=== PATIENT | female | born 1990 | race Caucasian/White ===

== ENCOUNTER 2024-01-24 19:48 | Emergency (ER) | payer MEDICAID, SELFPAY ==
[2024-01-24 19:52] VITALS: BP 123/79; PULSE 75; TEMP 36.4; O2SAT 97
--- NOTE | 2024-01-24 20:00 | ED_ITS ---
HPI - Abdominal Pain General Chief Complaint: Abdominal Pain Stated Complaint: Abdominal Pain Time Seen by Provider: 01/24/24 20:00 Source: patient Mode of arrival: ambulance History of Present Illness HPI narrative: patient presents from skilled nursing. Complaining of abdominal pain for several weeks. Points to right lower and upper quad and states the pain also shoots into her chest. No vomiting or diarrhea. No fever. Brought from skilled nursing via [facility]. Related Data Home Medications ?Medication ?Instructions ?Recorded ?Confirmed aripiprazole 20 mg tablet mg 01/24/24 aripiprazole 5 mg tablet mg 01/24/24 benztropine 1 mg tablet mg 01/24/24 divalproex 250 mg tablet,extended mg PO 01/24/24 release 24 hr divalproex 500 mg tablet,extended mg PO 01/24/24 release 24 hr fenofibrate nanocrystallized 48 mg mg PO 01/24/24 tablet ferrous sulfate 325 mg (65 mg mg 01/24/24 iron) tablet fludrocortisone 0.1 mg tablet mg 01/24/24 folic acid 1 mg tablet 01/24/24 haloperidol 10 mg tablet mg 01/24/24 haloperidol 5 mg tablet mg 01/24/24 lamotrigine 200 mg tablet mg 01/24/24 loratadine 10 mg tablet (Allergy mg 01/24/24 Relief (loratadine)) multivitamin tab 01/24/24 norgestimate 0.25 mg-ethinyl tab 01/24/24 estradiol 35 mcg tablet propranolol 80 mg capsule,24 mg PO 01/24/24 hr,extended release sertraline 100 mg tablet mg 01/24/24 sertraline 50 mg tablet mg 01/24/24 trazodone 50 mg tablet mg 01/24/24 Allergies Allergy/AdvReac Type Severity Reaction Status Date / Time No Known Drug Allergies Allergy Verified 01/24/24 19:57 Review of Systems ROS Status of ROS 10 or more systems reviewed and unremark able except as noted in history and below Exam Constitutional Vital Signs, click to edit/add: Last Vital Signs Temp 98.1 F 01/24/24 21:29 Pulse 73 01/24/24 21:29 Resp 12 01/24/24 21:29 BP 107/81 01/24/24 21:29 Pulse Ox 96 01/24/24 21:29 O2 Del Method Room Air 01/24/24 21:29 Common normals: no apparent distress (smiling), average body habitus, oriented x3, no limitations, healthy appearing, alert and well nourished General appearance: cooperative and comfortable HENMT Common normals: normocephalic and head/scalp atraumatic Eye Common normals: PERRL and EOMs intact bilaterally Respiratory Common normals: normal respiratory effort, no retractions, no use of accessory muscles and clear to auscultation bilaterally Cardio Common normals: regular rate, regular rhythm, S1 normal heart sound and S2 normal heart sound GI Common normals: Normal to inspection, nondistended, normoactive bowel sounds present, soft to palpation and non-tender Extremity Common normals: normal to inspection and full ROM Neuro Common normals: oriented x3, CN's II-XII intact bilaterally, moves all extremities and no focal motor deficits Psych Appearance: grossly normal Course Vital Signs Vital signs: Vital Signs Temperature 97.5 F L 01/24/24 19:52 Pulse Rate 75 01/24/24 19:52 Respiratory Rate 18 01/24/24 19:52 Blood Pressure 123/79 01/24/24 19:52 Pulse Oximetry 97 01/24/24 19:52 Oxygen Delivery Method Room Air 01/24/24 19:52 Temperature 98.1 F 01/24/24 21:29 Pulse Rate 73 01/24/24 21:29 Respiratory Rate 12 01/24/24 21:29 Blood Pressure 107/81 01/24/24 21:29 Pulse Oximetry 96 01/24/24 21:29 Oxygen Delivery Method Room Air 01/24/24 21:29 MDM - Abdominal Pain MDM Narrative Medical decision making narrative: skilled nursing patient who is mentally delayed presents complaining of right sided abdominal pain for weeks. CT with findings of hepatic cyst and ? hepatic hemangiomas. UA with microscopic hematuria and no infection. She is on her menstrual cycle. Parents informed of the above. No clear etiology to explain her complaint of pain. Clinical observation without evidence of pain. Discharged home to continue her workup as an out patient Lab Data Labs: Lab Results 01/24/24 01/24/24 Range/Units 20:50 22:10 WBC 9.3 (4.0-11.0) 10^3/uL RBC 3.97 L (4.20-5.40) 10^6/uL Hgb 12.1 (12.0-16.0) g/dL Hct 36.2 (36.0-48.0) % MCV 91.2 (81.0-99.0) fL MCH 30.5 (26.7-34.0) pg MCHC 33.4 (29.9-35.2) g/dL RDW 12.5 (11.0-15.0) % Plt Count 282 (150-450) 10^3/uL MPV 10.2 (9.5-13.5) fL Neut % (Auto) 49.2 (43.0-75.0) % Lymph % (Auto) 37.1 (20.5-60.0) % [place] % (Auto) 9.3 (1.7-12.0) % Eos % (Auto) 3.0 (0.9-7.0) % Baso % (Auto) 0.3 (0.2-2.0) % Neut # (Auto) 4.6 (1.4-6.5) 10^3/uL Lymph # (Auto) 3.4 (1.2-3.8) 10^3/uL [place] # (Auto) 0.9 H (0.3-0.8) 10^3/uL Eos # (Auto) 0.3 (0.0-0.7) 10^3/uL Baso # (Auto) 0.0 (0.0-0.1) 10^3/uL Abs Immat Gran (auto) 0.10 H (0.00-0.03) 10^3/uL Imm/Tot Granulo (auto) 1.1 H (0.0-0.5) % Sodium 136 (136-145) mmol/L Potassium 3.8 (3.5-5.1) mmol/L Chloride 102 (98-107) mmol/L Carbon Dioxide 28.1 (21.0-32.0) mmol/L Anion Gap 9.7 BUN 14.0 (7.0-18.0) mg/dL Creatinine 0.85 (0.55-1.02) mg/dL Est GFR ( Amer) >60 (>=60) Est GFR (Non-Af Amer) >60 (>=60) BUN/Creatinine Ratio 16.5 Glucose 96 (74-106) mg/dL Lactate 1.1 (0.4-2.0) mmol/L Calcium 9.1 (8.5-10.1) mg/dL Total Bilirubin 0.2 (0.2-1.0) mg/dL AST 14 L (15-37) U/L ALT 21 (14-59) U/L Alkaline Phosphatase 58 (46-116) U/L Total Protein 7.0 (6.4-8.2) g/dL Albumin 3.3 L (3.4-5.0) g/dL Globulin 3.7 g/dL Albumin/Globulin Ratio 0.9 Lipase 50.0 (16.0-77.0) U/L Urine Color Brown A (YELLOW) Urine Clarity Clear (CLEAR) Urine pH 6.5 (5.0-9.0) Ur Specific [place] 1.015 (1.005-1.025) Urine Protein 30 A (NEG/TRACE) mg/dL Urine Glucose (UA) Negative (NEGATIVE) mg/dL Urine Ketones Negative (NEGATIVE) mg/dL Urine Occult Blood Large A (NEGATIVE) Urine Nitrite Negative (NEGATIVE) Urine Bilirubin Negative (NEGATIVE) Urine Urobilinogen 0.2 (0.2-1.0) EU/dL Ur Leukocyte Esterase Trace A (NEGATIVE) Urine RBC 20-50 A (0-2) #/HPF Urine WBC 0-2 A (NONE SEEN) #/HPF Ur Squamous Epith Cells Few A (NONE/RARE) #/LPF Urine Crystals None seen (None Seen) #/HPF Urine Bacteria None seen (NONE SEEN) #/HPF Urine Casts None seen (NONE SEEN) #/LPF Urine Mucus None seen (NONE SEEN) Ur Culture Indicated? No Imaging Data CT scan - abdomen: Radiologist's impression: ITS Impressions Abdomen/Pelvis CT 01/24/24 20:05 IMPRESSION: Study is slightly limited due to patient motion. The liver has an abnormal appearance. There are multiple low-attenuation lesions scattered throughout the liver, some of which likely represent cysts. However, others of these are less well circumscribed than expected for cysts. Question hemangiomas or other lesion. Further characterization by MRI is recommended. The appendix is normal. No bowel obstruction or acute renal pathology. Electronically authenticated by: CALLIE ALBRIGHT Date: 01/24/2024 21:51 Discharge Plan Discharge Chief Complaint: Abdominal Pain Clinical Impression: Abdominal pain Patient Disposition: Home, Self-Care Prescriptions / Home Meds: No Action benztropine 1 mg tablet aripiprazole 20 mg tablet divalproex 250 mg tablet extended release 24 hr PO aripiprazole 5 mg tablet multivitamin Tablet norgestimate-ethinyl estradiol 0.25-35 mg-mcg tablet lamotrigine 200 mg tablet haloperidol 5 mg tablet trazodone 50 mg tablet sertraline 100 mg tablet ferrous sulfate 325 mg (65 mg iron) tablet divalproex 500 mg tablet extended release 24 hr PO propranolol 80 mg capsule,extended release 24 hr PO haloperidol 10 mg tablet folic acid 1 mg tablet sertraline 50 mg tablet fludrocortisone 0.1 mg tablet loratadine [Allergy Relief (loratadine)] 10 mg tablet fenofibrate nanocrystallized 48 mg tablet PO Print Language: [place] Instructions: Abdominal Pain (ED) Additional Instructions: follow up with the family doctor to continue workup. use tylenol for pain as needed Referrals: Frederick Bermeo DO [Primary Care Provider] - 1 week Discharge Date/Time: 01/24/24 22:34
--- NOTE | 2024-01-24 20:05 | CT_ITS ---
[address] [address] Patient Name: DEANNE HARGROVE MRN: [id number] date: 1990 Sex: F Assigned Patient Location: ER Current Patient Location: Accession/Order Number: [id number] Exam Date: 01/24/2024 21:00 Report Date: 01/24/2024 21:51 At the request of: HERBERT RIVERA Procedure: CT abdomen pelvis w con EXAM: CT abdomen pelvis w con REASON FOR EXAM: Female, 33 years, right side abdominal pain. TECHNIQUE: Computed tomography of the abdomen and pelvis is performed in the axial projection from the lung bases to the pubic symphysis. Sagittal and coronal reconstructed images are performed. Dose reduction techniques were achieved by using automated exposure control and/or adjustment of mA and/or KVP according to patient size and/or use of iterative reconstruction technique. A total of 100 mL Omnipaque 300 IV contrast was given. Study was performed without oral contrast. Study is somewhat limited due to motion artifact. COMPARISON: None. FINDINGS: Lung bases: The lung bases are clear. There is no pleural effusion. The visualized portions of the heart are unremarkable. Liver: The liver is abnormal. There are multiple low-attenuation lesions within the liver, some of which are somewhat ill-defined. While this may be due to the patient motion, further evaluation with MRI is suggested to better characterize these lesions. Gallbladder: The gallbladder is normal. Spleen: The spleen is normal. There appears to be a cyst along the anterior superior margin of the spleen. Pancreas: The pancreas is normal. Adrenal glands: The adrenal glands are normal bilaterally. Right kidney: The kidney is normal in size. There is no renal calculus or hydronephrosis. Left kidney: The kidney is normal in size. There is no renal calculus or hydronephrosis. Stomach: The stomach is normal. Small bowel: The small bowel is normal. Large bowel: The colon is normal. Appendix: The appendix is visualized, and is normal. Aorta: The aorta is normal. IVC: The IVC is normal. Retroperitoneum: Normal retroperitoneum. Bladder: The bladder is normal. Pelvic organs: Normal uterus. Bilateral adnexal cysts are seen, measuring up to 4.3 cm on the left and 2.2 cm on the right. Abdominal wall: Normal abdominal wall. Osseous structures: Normal bony structures. CT/CT abdomen pelvis w con IMPRESSION: Study is slightly limited due to patient motion. The liver has an abnormal appearance. There are multiple low-attenuation lesions scattered throughout the liver, some of which likely represent cysts. However, others of these are less well circumscribed than expected for cysts. Question hemangiomas or other lesion. Further characterization by MRI is recommended. The appendix is normal. No bowel obstruction or acute renal pathology. Electronically authenticated by: CALLIE ALBRIGHT Date: 01/24/2024 21:51
[2024-01-24 20:58] LABS: Basophils Percent Auto 0.3 % (0.2-2.0); Eosinophils Absolute Auto 0.3 10^3/uL (0.0-0.7); Hematocrit 36.2 % (36.0-48.0); Hemoglobin 12.1 g/dL (12.0-16.0); Immature Granulocytes Pct Auto 1.1 % (0.0-0.5); Lymphocytes Absolute Auto 3.4 10^3/uL (1.2-3.8); Lymphocytes Percent Auto 37.1 % (20.5-60.0); Mean Corpuscular HGB Conc 33.4 g/dL (29.9-35.2); Mean Corpuscular Hemoglobin 30.5 pg (26.7-34.0); Mean Corpuscular Volume 91.2 fL (81.0-99.0); Mean Platelet Volume 10.2 fL (9.5-13.5); Monocytes Absolute Auto 0.9 10^3/uL (0.3-0.8); Monocytes Percent Auto 9.3 % (1.7-12.0); Neutrophils Absolute Auto 4.6 10^3/uL (1.4-6.5); Neutrophils Percent Auto 49.2 % (43.0-75.0); Platelet Count 282 10^3/uL (150-450); Red Blood Count 3.97 10^6/uL (4.20-5.40); Red Cell Distribution Width 12.5 % (11.0-15.0); White Blood Count 9.3 10^3/uL (4.0-11.0)
[2024-01-24] MEDS: 0.9 % SODIUM CHLORIDE 1,000 ML 999 ML IV (21:11)
[2024-01-24 21:17] LABS: Lactate/Lactic Acid 1.1 mmol/L (0.4-2.0)
[2024-01-24 21:26] LABS: Alanine Aminotransferase 21 U/L (14-59); Albumin Globulin Ratio 0.9; Albumin Level 3.3 g/dL (3.4-5.0); Alkaline Phosphatase 58 U/L (46-116); Anion Gap 9.7; Aspartate Amino Transferase 14 U/L (15-37); BUN Creatinine Ratio 16.5; Bilirubin Total 0.2 mg/dL (0.2-1.0); Calcium 9.1 mg/dL (8.5-10.1); Carbon Dioxide 28.1 mmol/L (21.0-32.0); Chloride 102 mmol/L (98-107); Estimated GFR (African America >60 (>=60); Estimated GFR (Non-African Ame >60 (>=60); Globulin 3.7 g/dL; Glucose 96 mg/dL (74-106); Potassium 3.8 mmol/L (3.5-5.1); Sodium 136 mmol/L (136-145)
[2024-01-24 21:29] VITALS: BP 107/81; PULSE 73; TEMP 36.7; O2SAT 96
[2024-01-24 22:15] LABS: Bilirubin Urine NEGATIVE (NEGATIVE); Blood Urine LARGE (NEGATIVE); Clarity Urine CLEAR (CLEAR); Color Urine BROWN (YELLOW); Glucose Urine UA NEGATIVE (NEGATIVE); Ketones Urine NEGATIVE (NEGATIVE); Leukocyte Esterase Urine TRACE (NEGATIVE); Nitrite Urine NEGATIVE (NEGATIVE); Protein Urine 30 mg/dL (NEG/TRACE); Specific Gravity Urine 1.015 (1.005-1.025); Urobilinogen Urine 0.2 EU/dL (0.2-1.0); pH Urine 6.5 (5.0-9.0)
[2024-01-24 22:18] LABS: Urine Microscopic Indicated YES
[2024-01-24 22:21] LABS: Bacteria Urine NONE SEEN #/HPF (NONE SEEN); Cast Seen? NONE SEEN #/LPF (NONE SEEN); Crystals Seen? None Seen #/HPF (None Seen); Mucus Urine NONE SEEN (NONE SEEN); RBC Urine 20-50 #/HPF (0-2); Squamous Epithelial Cell Urine FEW #/LPF (NONE/RARE); Urine Culture Indicated NO; WBC Urine 0-2 #/HPF (NONE SEEN)
== END 2024-01-24 22:34 | disposition home or self-care (01) ==
PROVIDERS: Emergency Provider Internal Medicine; PCP Family Medicine
DX: R10.9 Unspecified abdominal pain (principal)
CPT/HCPCS: 36415; 74177; 80053; 81001; 83605; 83690; 85025; 99285; Q9967

== ENCOUNTER 2024-01-26 20:51 | Emergency (ER) | payer MEDICAID, SELFPAY ==
[2024-01-26 20:56] VITALS: BP 136/76; PULSE 80; TEMP 36.7; O2SAT 99
--- NOTE | 2024-01-26 22:42 | ED_ITS ---
HPI - Abdominal Pain General Chief Complaint: Abdominal Pain Stated Complaint: liver pain, here on Time Seen by Provider: 01/26/24 21:46 Source: patient Mode of arrival: walk-in History of Present Illness HPI narrative: 33-year-old female presents for pain in the right side of her abdomen. She was seen here 2 days ago and at that time had a CAT scan which showed liver cysts. Radiologist had recommended further workup including MRI of the abdomen. The patient's been having this pain for weeks and it has been getting worse. There is been no trauma or fever. Much of the history is obtained from her mother. Related Data Home Medications ?Medication ?Instructions ?Recorded ?Confirmed aripiprazole 20 mg tablet mg 01/24/24 aripiprazole 5 mg tablet mg 01/24/24 benztropine 1 mg tablet mg 01/24/24 divalproex 250 mg tablet,extended mg PO 01/24/24 release 24 hr divalproex 500 mg tablet,extended mg PO 01/24/24 release 24 hr fenofibrate nanocrystallized 48 mg mg PO 01/24/24 tablet ferrous sulfate 325 mg (65 mg mg 01/24/24 iron) tablet fludrocortisone 0.1 mg tablet mg 01/24/24 folic acid 1 mg tablet 01/24/24 haloperidol 10 mg tablet mg 01/24/24 haloperidol 5 mg tablet mg 01/24/24 lamotrigine 200 mg tablet mg 01/24/24 loratadine 10 mg tablet (Allergy mg 01/24/24 Relief (loratadine)) multivitamin tab 01/24/24 norgestimate 0.25 mg-ethinyl tab 01/24/24 estradiol 35 mcg tablet propranolol 80 mg capsule,24 mg PO 01/24/24 hr,extended release sertraline 100 mg tablet mg 01/24/24 sertraline 50 mg tablet mg 01/24/24 trazodone 50 mg tablet mg 01/24/24 Previous Rx's ?Medication ?Instructions ?Recorded hydrocodone 5 mg-acetaminophen 325 1 tab PO Q6H PRN pain 5 days #20 01/26/24 mg tablet tabs Allergies Allergy/AdvReac Type Severity Reaction Status Date / Time No Known Drug Allergies Allergy Verified 01/24/24 19:57 Review of Systems ROS Narrative A ten point review of systems is negative except as noted above. Exam Narrative Exam Narrative: Nurses note and vital signs reviewed and patient is not hypoxic. General: The patient appears uncomfortable Skin: Warm, dry, no pallor noted. There is no rash noted. Head: Normocephalic, atraumatic Eye: Normal conjunctiva, no drainage Ears, Nose, Mouth, and Throat: oral mucosa is moist. Nares patent. Cardiovascular: Regular Rate and Rhythm Respiratory: Patient is in no distress, no accessory muscle use, lungs are clear to auscultation, no wheezing, rales or rhonchi Back: non-tender GI: Tenderness present on the right side of the abdomen without mass or distention Musculoskeletal: The patient has no evidence of calf tenderness, no pitting edema, symmetrical pulses noted bilaterally Neurological: Awake and alert Psychiatric: Cooperative Constitutional Vital Signs, click to edit/add: Last Vital Signs Temp 98.0 F 01/26/24 20:56 Pulse 80 01/26/24 20:56 Resp 20 01/26/24 20:56 BP 136/76 01/26/24 20:56 Pulse Ox 99 01/26/24 20:56 O2 Del Method Room Air 01/26/24 20:56 Course Vital Signs Vital signs: Vital Signs Temperature 98.0 F 01/26/24 20:56 Pulse Rate 80 01/26/24 20:56 Respiratory Rate 20 01/26/24 20:56 Blood Pressure 136/76 01/26/24 20:56 Pulse Oximetry 99 01/26/24 20:56 Oxygen Delivery Method Room Air 01/26/24 20:56 Temperature 98.0 F 01/26/24 20:56 Pulse Rate 80 01/26/24 20:56 Respiratory Rate 20 01/26/24 20:56 Blood Pressure 136/76 01/26/24 20:56 Pulse Oximetry 99 01/26/24 20:56 Oxygen Delivery Method Room Air 01/26/24 20:56 MDM - Abdominal Pain MDM Narrative Medical decision making narrative: CT from 2 days ago was reviewed and showed liver cysts. Tonight's blood work including LFTs is normal. She was given IV morphine and feels much better and was able to rest. She is able to be discharged with a prescription for hydrocodone and mother will follow-up with PCP for further workup. Treatment diagnosis and follow-up were discussed thoroughly. Differential Diagnosis Differential diagnosis: Likely abdominal pain, gastroenteritis and pancreatitis Lab Data Attestation: I reviewed the patient's lab results. Labs: Lab Results 01/26/24 Range/Units 22:55 WBC 8.7 (4.0-11.0) 10^3/uL RBC 3.84 L (4.20-5.40) 10^6/uL Hgb 11.8 L (12.0-16.0) g/dL Hct 34.6 L (36.0-48.0) % MCV 90.1 (81.0-99.0) fL MCH 30.7 (26.7-34.0) pg MCHC 34.1 (29.9-35.2) g/dL RDW 12.5 (11.0-15.0) % Plt Count 278 (150-450) 10^3/uL MPV 10.5 (9.5-13.5) fL Neut % (Auto) 49.9 (43.0-75.0) % Lymph % (Auto) 38.2 (20.5-60.0) % [place] % (Auto) 7.8 (1.7-12.0) % Eos % (Auto) 2.7 (0.9-7.0) % Baso % (Auto) 0.5 (0.2-2.0) % Neut # (Auto) 4.3 (1.4-6.5) 10^3/uL Lymph # (Auto) 3.3 (1.2-3.8) 10^3/uL [place] # (Auto) 0.7 (0.3-0.8) 10^3/uL Eos # (Auto) 0.2 (0.0-0.7) 10^3/uL Baso # (Auto) 0.0 (0.0-0.1) 10^3/uL Abs Immat Gran (auto) 0.08 H (0.00-0.03) 10^3/uL Imm/Tot Granulo (auto) 0.9 H (0.0-0.5) % Sodium 137 (136-145) mmol/L Potassium 3.4 L (3.5-5.1) mmol/L Chloride 100 (98-107) mmol/L Carbon Dioxide 29.5 (21.0-32.0) mmol/L Anion Gap 10.9 BUN 18.0 (7.0-18.0) mg/dL Creatinine 0.95 (0.55-1.02) mg/dL Est GFR ( Amer) >60 (>=60) Est GFR (Non-Af Amer) >60 (>=60) BUN/Creatinine Ratio 18.9 Glucose 98 (74-106) mg/dL Calcium 9.0 (8.5-10.1) mg/dL Total Bilirubin 0.2 (0.2-1.0) mg/dL Direct Bilirubin 0.1 (0.0-0.2) mg/dL AST 16 (15-37) U/L ALT 22 (14-59) U/L Alkaline Phosphatase 57 (46-116) U/L Total Protein 6.9 (6.4-8.2) g/dL Albumin 3.2 L (3.4-5.0) g/dL Globulin 3.7 g/dL Albumin/Globulin Ratio 0.9 Amylase 57 (25-115) U/L Lipase 52.0 (16.0-77.0) U/L Discharge Plan Discharge Chief Complaint: Abdominal Pain Clinical Impression: Abdominal pain Patient Disposition: Home, Self-Care Time of Disposition Decision: 23:27 Condition: Good Mode of Transportation: Private Vehicle Prescriptions / Home Meds: New hydrocodone-acetaminophen 5-325 mg tablet 1 tab PO Q6H PRN (Reason: pain) 5 Days Qty: 20 0RF No Action benztropine 1 mg tablet aripiprazole 20 mg tablet divalproex 250 mg tablet extended release 24 hr PO aripiprazole 5 mg tablet multivitamin Tablet norgestimate-ethinyl estradiol 0.25-35 mg-mcg tablet lamotrigine 200 mg tablet haloperidol 5 mg tablet trazodone 50 mg tablet sertraline 100 mg tablet ferrous sulfate 325 mg (65 mg iron) tablet divalproex 500 mg tablet extended release 24 hr PO propranolol 80 mg capsule,extended release 24 hr PO haloperidol 10 mg tablet folic acid 1 mg tablet sertraline 50 mg tablet fludrocortisone 0.1 mg tablet loratadine [Allergy Relief (loratadine)] 10 mg tablet fenofibrate nanocrystallized 48 mg tablet PO Print Language: [place] Instructions: Abdominal Pain (ED) Additional Instructions: Follow-up with PCP regarding further workup for the renal cysts Referrals: Frederick Bermeo DO [Primary Care Provider] - 1 week
[2024-01-26 23:02] LABS: Basophils Percent Auto 0.5 % (0.2-2.0); Eosinophils Absolute Auto 0.2 10^3/uL (0.0-0.7); Eosinophils Percent Auto 2.7 % (0.9-7.0); Hematocrit 34.6 % (36.0-48.0); Hemoglobin 11.8 g/dL (12.0-16.0); Immature Granulocytes Abs Auto 0.08 10^3/uL (0.00-0.03); Immature Granulocytes Pct Auto 0.9 % (0.0-0.5); Lymphocytes Absolute Auto 3.3 10^3/uL (1.2-3.8); Lymphocytes Percent Auto 38.2 % (20.5-60.0); Mean Corpuscular HGB Conc 34.1 g/dL (29.9-35.2); Mean Corpuscular Hemoglobin 30.7 pg (26.7-34.0); Mean Corpuscular Volume 90.1 fL (81.0-99.0); Mean Platelet Volume 10.5 fL (9.5-13.5); Monocytes Absolute Auto 0.7 10^3/uL (0.3-0.8); Monocytes Percent Auto 7.8 % (1.7-12.0); Neutrophils Absolute Auto 4.3 10^3/uL (1.4-6.5); Neutrophils Percent Auto 49.9 % (43.0-75.0); Platelet Count 278 10^3/uL (150-450); Red Blood Count 3.84 10^6/uL (4.20-5.40); Red Cell Distribution Width 12.5 % (11.0-15.0); White Blood Count 8.7 10^3/uL (4.0-11.0)
[2024-01-26] MEDS: MORPHINE SULFATE 4 MG/ML VIAL IV (23:04)
[2024-01-26 23:23] LABS: Alanine Aminotransferase 22 U/L (14-59); Albumin Globulin Ratio 0.9; Albumin Level 3.2 g/dL (3.4-5.0); Alkaline Phosphatase 57 U/L (46-116); Amylase 57 U/L (25-115); Anion Gap 10.9; Aspartate Amino Transferase 16 U/L (15-37); BUN Creatinine Ratio 18.9; Bilirubin Direct 0.1 mg/dL (0.0-0.2); Bilirubin Total 0.2 mg/dL (0.2-1.0); Carbon Dioxide 29.5 mmol/L (21.0-32.0); Chloride 100 mmol/L (98-107); Estimated GFR (African America >60 (>=60); Estimated GFR (Non-African Ame >60 (>=60); Globulin 3.7 g/dL; Glucose 98 mg/dL (74-106); Potassium 3.4 mmol/L (3.5-5.1); Sodium 137 mmol/L (136-145); Total Protein 6.9 g/dL (6.4-8.2)
[2024-01-26 23:39] VITALS: BP 110/56; PULSE 75; O2SAT 96
== END 2024-01-26 23:42 | disposition home or self-care (01) ==
PROVIDERS: Emergency Provider Emergency Medicine; PCP Family Medicine
DX: R10.9 Unspecified abdominal pain (principal)
CPT/HCPCS: 36415; 80048; 80076; 82150; 83690; 85025; 99284; J2270

== ENCOUNTER 2024-06-24 19:56 | Outpatient (OUT) | payer MEDICAID, SELFPAY ==
--- OUTSIDE RECORDS SUMMARY | 2024-06-24 20:00 | XMS_ITS | CCD ---
Author Organization [facility] Inform ion Partnership [facility] Care Team Providers Care Scanning Clerk Name Role Phone Lina Marcial Primary Care Provider [phone] MIMI MARCIAL Admitting Unavailab MIMI Joe Attending Unavailab le MISC, DOCTOR Primary Care Unavailable MIMI MARCIAL Consulting Unavailab Lina Joe Primary Care Provider [phone] Lina Marcial Primary Care Provider [phone] Lina Marcial Primary Care Provider [phone] Lina Marcial MD Primary Care Provider Lina Marcial MD Primary Care Provider ARIELLE DAWN Referring Unavailable LINA MARCIAL Primary Care Unavaila Lina Masters MD Primary Care Provider Lina Marcial MD Primary Care Provider Clem Rodgers APRN, CNP Primary Care Provid er Clem Rodgers APRN, CNP Primary Care Provid er Unavailable Primary Care Provider Unavailabl e CARLY ANSARI Primary Care Unavailable SORTO, STEPHEN Attending Unavailable SORTO, STEPHEN Attending Unavailable SORTO, STEPHEN Referring Unavailable ELAN CARLY Primary Care Unavailable Clem Rodgers APRN, CNP Primary Care Provid er Brielle Sandraa Unavailable [phone] PROVIDER, UNKNOWN Admitting Unavailable PROVIDER, UNKNOWN Attending Unavailable IFTIKHAR MATIAS Attending Wendy vailable PROVIDER, UNKNOWN Admitting Unavailable PROVIDER, UNKNOWN Attending Unavailable PROVIDER, UNKNOWN Admitting Unavailable Jesus CALL PERSON - VASCULAR SURGEON, Clem M Primary Care Provid er Maikel CARDONA Primary Care Physician Reshma Guillen Unavailable Unavailable FREDERICK SANTIAGO Primary Care Physician [phone] Cher López Referring Unavaila FREDERICK Tena Primary Care Unavailable Cher López Admitting Unavaila Cher Fung Attending Unavaila Cher Fung Attending Unavaila Cher Fung Attending Unavaila jalen Lee CALL PERSON - VASCULAR SURGEON, Clem M Primary Care Provid er ELAN, CARLY L Referring Unavailable JESUS, CLEM M Primary Care Unavailable JESUS, CLEM M Primary Care Unavailable TITA CARR Referring Unavailable JESUS, CLEM M Primary Care Unavailable POOL, ARIELLE E Referring Unavailable ELAN, CARLY L Referring Unavailable JESUS, CLEM M Primary Care Unavailable JESUS, CLEM M Primary Care Unavailable POOL, ARIELLE E Referring Unavailable POOL, ARIELLE E Attending Unavailable ELAN, CARLY L Referring Unavailable JESUS, CLEM M Primary Care Unavailable ELAN, CARLY L Referring Unavailable JESUS, CLEM M Primary Care Unavailable ELAN, CARLY L Referring Unavailable JESUS, CLEM M Primary Care Unavailable ELAN, CARLY L Referring Unavailable JESUS, CLEM M Primary Care Unavailable ELAN, CARLY L Referring Unavailable JESUS, CLEM M Primary Care Unavailable ELAN, CARLY L Referring Unavailable JESUS, CLEM M Primary Care Unavailable ELAN, CARLY L Referring Unavailable JESUS, CLEM M Primary Care Unavailable ELAN, CARLY L Referring Unavailable JESUS, CLEM M Primary Care Unavailable ELAN, CARLY L Referring Unavailable JESUS, CLEM M Primary Care Unavailable Cher López Attending Unavaila FREDERICK Tena Primary Care Unavailable Lina Marcial Primary Care Unavaila Cher Fung Attending Unavailable Cher López Admitting Unavailable Allergies Allergy Classification Reported Allergen(s) Allergy Type Date of Onset Reaction(s) Facility (6 sources) nickel sulfate Drug Allergy 01-29-2024 [facility] Medications Current Medications Medication Drug Class(es) Dates Sig (Normalized) Sig (Original) Tylenol (11 sources) Start: 01-16-2024 Tylenol Oral, Refills(s) 0 Start Date: 01/16/24 Status: Ordered Start: 08-31-2023 acetaminophen (TYLENOL) 325 MG tablet Take 2 tablets by mouth 08/31/2023 Active acetaminophen 325 mg / HYDROcodone bitartrate 5 mg oral tablet (8 sources) Opioid Agonist Start: 01-27-2024 take 1 tablet by mouth every six hours HYDROcodone-acetaminophen (NORCO) 5-325 MG per tablet Take 1 tablet by mouth every 6 hours. 01/27/2024 Active [id number] 200 actuat albuterol 0.09 mg/actuat metered dose inhaler (11 sources) beta2-Adrenergic Agonist Start: 12-14-2020 take 1-2 puff(s) by inhalation every four hours as needed albuterol sulfate HFA 108 (90 Base) MCG/ACT inhaler Inhale 1-2 puffs into the lungs every 4 hours as needed 0 12/14/2020 Active amoxicillin 500 mg oral capsule (2 sources) Penicillin-class Antibacterial Start: 12-13-2022 amoxicillin (AMOXIL) 500 MG capsule ARIPiprazole 5 mg oral tablet (20 sources) Atypical Antipsychotic Start: 01-25-2024 ARIPiprazole (ABILIFY) 5 MG tablet 01/25/2024 Active Start: 11-21-2022 ARIPiprazole ( ABILIFY) 20 MG tablet 11/21/2022 Active Start: 01-24-2012 take 1 tablet by greer th once daily Abilify 30 mg oral tablet 30 mg = 1 tab(s), Oral, Daily Start Date: 01/24/12 Status: Ordered ARIPiprazole (AB ILIFY) 15 MG tablet Take 20 mg by mouth daily 0 Active take 1 tablet by greer th once daily ARIPiprazole (ABILIFY) 15 MG tablet Take 15 mg by mouth daily 0 Active Vndgesn-Iwxoarksoplds-Zguatc ne (EXCEDRIN MIGRAINE PO) (8 sources) Aspirin-Acetamin ophen-Caffeine (EXCEDRIN MIGRAINE PO) Take by mouth in the morning and at bedtime Active Aspirin-Acetamin ophen-Caffeine (EXCEDRIN MIGRAINE PO) Take by mouth in the morning and at bedtime 0 Active benzocaine 50 mg/ml / resorcinol 20 mg/ml vaginal cream (3 sources) Standardized Chemical Allergen Start: 01-16-2024 Vagisil 5%-2% vaginal cream eryn, Topical, BID, Refill(s) 0 Start Date: 01/16/24 Status: Ordered benztropine mesylate 1 mg oral tablet (20 sources) Anticholinergic, Antihistamine Start: 05-29-2023 take 1 tablet by mouth twice daily benztropine 1 mg Tab mg tab(s), Oral, BID, Refills(s) 0 Start Date: 01/16/24 Status: Ordered cloZAPine 200 mg oral tablet (20 sources) Atypical Antipsychotic take 1 tablet by mouth once daily cloZAPine (CLOZARIL) 100 MG tablet Take 100 mg by mouth daily 0 Active take 2 tablets by mouth once carmel ly cloZAPine (CLOZARIL) 200 MG tablet Take 400 mg by mouth nightly 0 Active cromolyn sodium 40 mg/ml ophthalmic solution (20 sources) Mast Cell Stabilizer Start: 12-14-2020 take 1 drop(s) into the eye(s) three times daily as needed cromolyn (OPTICROM) 4 % ophthalmic solution Apply 1 drop to eye 3 times daily as needed 0 12/14/2020 Active take 1 drop(s) into the eye(s) three times daily as needed cromolyn (OPTICROM) 4 % ophthalmic solut ion Place 1 drop into both eyes 3 times daily as needed 0 Active dicyclomine hydrochloride 10 mg oral capsule (2 sources) Anticholinergic Start: 03-19-2024 End: 05-14-2024 take 1 capsule by mouth four times daily as needed for pain Bentyl 10 mg Cap 10 mg = 1 cap(s), Oral, QID, PRN Pain, X 14 day(s), # 60 cap(s), Refills(s) 3 Start Date: 03/19/24 Stop Date: 05/14/24 Status: Ordered 1 ml erenumab-aooe 70 mg/ml auto-injector (2 sources) Start: 03-20-2024 Erenumab-aooe 70 MG/ML SOAJ Inject 70 mg into the skin every 30 days 1 mL 5 03/20/2024 Active Ethinyl Estradiol / norgestimate (20 sources) Progestin, Estrogen Start: 01-16-2024 take 1 tablet by mouth once daily Ortho Cyclen 35 mcg-0.25 mg Tab tab(s), Oral, Daily, Refill(s) 0 Start Date: 01/16/24 Status: Ordered Start: 12-18-2023 take 1 tablet by greer th once daily, then take 0.25-35 tablets by mouth once norgestimate-ethinyl estradiol (ORTHO-CYCLEN) 0.25-35 MG-MCG per tablet Indications: DUB (dysfunctional uterine bleeding) Take 1 tablet by mouth daily 3 packet 3 12/18/2023 Active Start: 11-30-2021 take 1 tablet by greer th in the morning, then take 0.25-35 tablets by mouth once norgestimate-ethinyl estradiol (ORTHO-CYCLEN) 0.25-35 MG-MCG per tablet Indications: DUB (dysfunctional uterine bleeding) Take 1 tablet by mouth in the morning. 3 packet 3 11/30/2021 Active Start: 11-30-2021 norgestimate-e thinyl estradiol (PRAVIFEM- ORTHO/CYCLEN) 0.25-35 MG-MCG tablet Take 1 Tablet by mouth daily. 0 11/30/2021 Active etodolac 500 mg oral tablet (19 sources) Nonsteroidal Anti-inflammatory Drug Start: 12-14-2020 take 1 tablet by mouth twice daily as needed etodolac (LODINE) 500 MG tablet Take 1 tablet by mouth 2 times daily as needed 12/14/2020 Active Excedrin Migraine (3 sources) Start: 01-16-2024 Excedrin Migraine Oral, q6hr, Refill(s) 0 Start Date: 01/16/24 Status: Ordered fenofibrate 48 mg oral tablet (11 sources) Peroxisome Proliferator Receptor alpha Agonist Start: 08-27-2023 take 1 tablet by mouth once daily fenofibrate (TRICOR) 48 MG tablet Take 1 tablet by mouth daily 08/27/2023 Active ferrous sulfate 325 mg delayed release oral tablet (20 sources) Start: 01-16-2024 take 1 mg by mouth once daily ferrous sulfate 325 mg oral enteric coated tablet mg tab(s), Oral, Daily, Refills(s) 0 Start Date: 01/16/24 Status: Ordered Start: 05-15-2023 ferrous sulfat e 325 (65 Fe) MG tablet 2 times daily. 0 05/15/2023 Active fluconazole 150 mg oral tablet (4 sources) Azole Antifungal Start: 08-31-2022 fluconazole (DIFLUCAN) 150 MG tablet Indications: Vagina itching , Vagina, candidiasis Take 1 tablet by mouth every 3 days 3 tablet 0 08/31/2022 Active Fludrocortisone (20 sources) Start: 01-16-2024 take 1 mg by mouth once daily fludrocortisone mg, Oral, Daily, Refills(s) 0 Start Date: 01/16/24 Status: Ordered Start: 05-15-2023 fludrocortison e (FLORINEF) 0.1 MG tablet fluocinolone acetonide 0.20008 mg/mg topical ointment (14 sources) Corticosteroid Start: 01-16-2024 fluocinolone t opical 0.025% ointment Topical, BID, Refill(s) 0 Start Date: 01/16/24 Status: Ordered Start: 01-16-2024 [place]-Smoothe/ FS (Scalp) 0.01% topical oil eryn, Topical, TID, Refill(s) 0 Start Date: 01/16/24 Status: Ordered Start: 09-11-2023 DERMA-SMOOTHE/ FS SCALP 0.01 % external oil 09/11/2023 Active fluocinonide 0.5 mg/ml topic al solution (11 sources) Corticosteroid fluocinonide (LI DEX) 0.05 % external solution Apply topically 2 times daily Apply topically 2 times daily. Active fluocinonide (LI DEX) 0.05 % cream Apply 1 applicator topically 2 times daily as needed (Rash) Apply topically 2 times daily. 0 Active folic acid 1 mg oral tablet (20 sources) Start: 11-01-2011 folic acid (FO LVITE) 1 MG tablet Take 4 tablets by mouth 11/01/2011 Active Start: 02-28-2011 take 4 tablets by mo [facility] once daily folic acid 1 mg Tab 4 mg = 4 tab(s), Oral, Daily, tab(s), Refills(s) 0 Start Date: 02/28/11 Status: Ordered Garamycin 0.3% Soln-Opth (3 sources) Start: 01-16-2024 take 1 drop(s) into the eye(s) four times daily Garamycin 0.3% Soln-Opth drop(s), Eye-Both, QID, Refill(s) 0 Start Date: 01/16/24 Status: Ordered gentamicin 0.001 mg/mg topical ointment (20 sources) gentamicin (GARAMYCIN) 0.1 % ointment Apply topically 3 times daily Apply topically 3 times daily. Active haloperidol 5 mg oral tablet (20 sources) Typical Antipsychotic Start: 01-16-2024 take 1 mg by mouth twice daily haloperidol 5 mg Tab mg tab(s), Oral, BID, Refills(s) 0 Start Date: 01/16/24 Status: Ordered Start: 05-22-2023 take 1 mg by mouth twice daily haloperidol 10 mg oral tablet mg tab(s), Oral, BID, Refills(s) 0 Start Date: 01/16/24 Status: Ordered haloperidol (RIA DOL) 5 MG tablet Take 1/2 tablet two times daily Active take 2 tablets by [facility] twice daily haloperidol (HALDOL) 5 MG tablet Take 10 mg by mouth 2 times daily 0 Active haloperidol (RIA DOL) 5 MG tablet Indications: give with 10mg for total dose of 12.5mg Take 2.5 mg by mouth 2 times daily Indications: give with 10mg for total dose of 12.5mg 0 Active Procto-Med (3 sources) Corticosteroid Start: 01-16-2024 Procto-Med HC Topical, TID, Refill(s) 0 Start Date: 01/16/24 Status: Ordered hydrOXYzine (9 sources) Antihistamine Start: 01-16-2024 hydrOXYzine Re fills(s) 0 Start Date: 01/16/24 Status: Ordered Start: 01-08-2024 hydrOXYzine HC l (ATARAX) 25 MG tablet 01/08/2024 Active lamoTRIgine 200 mg oral tablet (20 sources) Mood Stabilizer, Anti-epileptic Agent Start: 12-05-2022 take 1 tablet by mouth twice daily lamoTRIgine (LAMICTAL) 200 MG tablet Take 1 tablet by mouth 2 times daily 12/05/2022 Active Start: 05-02-2019 lamoTRIgine (L AMICTAL) 100 MG tablet Indications: Seizures (HCC) 200mg AM, 150mg PM for 2wks, then 200mg BID 120 tablet 3 05/02/2019 Active Start: 03-07-2019 lamoTRIgine (L AMICTAL) 100 MG tablet Indications: Seizures (HCC) 150mg AM, 100mg PM for 2wks, then 150mg BID 90 tablet 3 03/07/2019 Active Start: 01-16-2019 lamoTRIgine (L AMICTAL) 100 MG tablet Indications: Seizures (HCC) Alone with 25mg pills for titration to reach 100mg BID from current 100mg daily at a rate of 25mg per week 30 tablet 3 01/16/2019 Active Start: 12-09-2018 lamoTRIgine (L AMICTAL) 25 MG tablet Indications: Seizures (HCC) 25mg AM/100mg PM for 1wk, 50mg AM/100mg PM for 1wk, 75mg AM/100mg PM for 1wk, then 100mg BID (pt has 100mg pills) 120 tablet 1 01/16/2019 Active Start: 01-24-2012 take 1 tablet by greer th once daily Lamictal 100 mg Tab 100 mg = 1 tab(s), Oral, Daily Start Date: 01/24/12 Status: Ordered loratadine 10 mg oral capsule (11 sources) Start: 01-16-2024 take 1 capsule by mouth once daily loratadine 10 mg oral capsule 10 mg = 1 cap(s), Oral, Daily, # 10 cap(s), Refills(s) 0 Start Date: 01/16/24 Status: Ordered take 1 tablet by mouth once kai y loratadine (CLARITIN) 10 MG tablet Take 1 tablet by mouth daily Active magnesium oxide 400 mg oral capsule (6 sources) Start: 03-19-2024 take 1 mg by mouth once daily magnesium oxide 400 mg oral capsule mg cap(s), Oral, Daily, Refills(s) 0 Start Date: 03/19/24 Status: Ordered take 1 tablet by mouth once kai y magnesium oxide (MAG-OX) 400 (240 Mg) MG tablet Take 1 tablet by mouth daily Active Multiple Vitamin (MULTI-JARETH MIN PO) (20 sources) Multiple Vitamin (MULTI-VITAMIN PO) Take by mouth daily Active Multiple Vitamin (MULTI-VITAMIN PO) Take by mouth daily 0 Active Multivitamin preparation (3 sources) Start: 01-16-2024 multivitamin Refill(s) 0 Start Date: 01/16/24 Status: Ordered Norgestimate-Eth Estradiol (SPRINTEC 28 PO) (20 sources) Norgestimate-Eth Estradiol (SPRINTEC 28 PO) Take by mouth every morning 0 Active nystatin 100 unt/mg topical powder (2 sources) Polyene Antifungal Start: 12-14-2022 nystatin (MYCOSTATIN) 192040 UNIT/GM powder Indications: Candidiasis of breast Apply 2 times daily. For 2 weeks then as needed for rash 60 g 2 12/14/2022 Active omeprazole 40 mg delayed release oral capsule (1 source) Proton Pump Inhibitor Start: 03-31-2024 take 1 capsule by mouth once daily omeprazole 40 mg Cap-DR 40 mg = 1 cap(s), Oral, Daily, # 90 cap(s), Refills(s) 3 Start Date: 03/31/24 Status: Ordered propranolol hydrochloride 80 mg oral tablet (20 sources) beta-Adrenergic Areli Start: 01-16-2024 take 1 mg by mouth twice daily propranolol 80 mg Tab mg tab(s), Oral, BID, Refills(s) 0 Start Date: 01/16/24 Status: Ordered Start: 05-23-2023 Propranolol HC l CR (INDERAL) 80 MG CP24 sertraline 50 mg oral tablet (20 sources) Serotonin Reuptake Inhibitor Start: 05-04-2023 take 1 mg by mouth once daily Zoloft 50 mg Tab mg tab(s), Oral, Daily, Refills(s) 0 Start Date: 03/19/24 Status: Ordered Start: 07-05-2011 take 1 tablet by greer once daily Zoloft 100 mg Tab 100 mg = 1 tab(s), Oral, Daily, Refills(s) 0 Start Date: 07/05/11 Status: Ordered sertraline (ZOLO FT) 100 MG tablet give with 50mg for total dose of 150mg 0 Active Sumatriptan (4 sources) Serotonin-1b and Serotonin-1d Receptor Agonist Start: 01-16-2024 sumatriptan Once, Refills(s) 0 Start Date: 01/16/24 Status: Ordered Start: 09-19-2023 take 1 tablet by greer th once as needed SUMAtriptan (IMITREX) 50 MG tablet Take 1 tablet by mouth once as needed for Migraine 9 tablet 3 09/19/2023 Active terconazole 4 mg/ml vaginal cream (7 sources) Azole Antifungal Start: 12-18-2023 terconazole (TERAZOL 7) 0.4 % vaginal cream Indications: Vagina itching Place vaginally nightly. For 7 nights 45 g 12/18/2023 Active topiramate 25 mg oral tablet (6 sources) Start: 01-29-2024 topiramate (TOPAMAX) 25 MG tablet 25 mg a day for 3 days 25 mg BID 60 tablet 3 01/29/2024 Active traZODone hydrochloride 50 mg oral tablet (10 sources) Serotonin Reuptake Inhibitor Start: 12-11-2023 traZODone (DESYREL) 50 MG tablet 12/11/2023 Active triamcinolone acetonide 0.001 mg/mg topical ointment (3 sources) Corticosteroid Start: 01-16-2024 triamcinolone Top 0.1% Oint Topical, TID, Refill(s) 0 Start Date: 01/16/24 Status: Ordered 24 hr divalproex sodium 500 mg extended release oral tablet (20 sources) Mood Stabilizer, Anti-epileptic Agent Start: 01-16-2024 take 1 mg by mouth once daily Depakote ER 500 mg Tab-ER mg tab(s), Oral, Daily, Refills(s) 0 Start Date: 01/16/24 Status: Ordered Start: 05-17-2023 divalproex ER (DEPAKOTE ER) 250 MG ER tablet daily. 0 05/17/2023 Active Start: 05-23-2019 divalproex (DE PAKOTE ER) 250 MG extended release tablet Indications: give with 500mg for total dose of 750mg Indications: give with 500mg for total dose of 750mg From 05/23/2019, decrease from 150mg BID to 250mg PM for 2weeks, then off 30 tablet 05/23/2019 Active Start: 05-23-2019 divalproex (DE PAKOTE ER) 250 MG extended release tablet Indications: give with 500mg for total dose of 750mg Indications: give with 500mg for total dose of 750mg From 05/23/2019, decrease from 150mg BID to 250mg PM for 2weeks, then off 30 tablet 0 05/23/2019 Active Start: 05-23-2019 divalproex (DE PAKOTE ER) 250 MG extended release tablet Indications: give with 500mg for total dose of 750mg Indications: give with 500mg for total dose of 750mg From 05/23/2019, decrease from 150mg BID to 250mg PM for 2weeks, then off 30 tablet 0 05/23/2019 Active take 1 tablet by greer th twice daily divalproex (DEPAKOTE ER) 500 MG extended release tablet Take 1 tablet by mouth 2 times daily Active take 1 tablet by greer th once daily divalproex (DEPAKOTE ER) 500 MG extended release tablet Take 1 tablet by mouth nightly Active take 2 tablets by mo uth twice daily, then take 2 tablets by mouth, then take 3 tablets by mouth divalproex (DEPAKOTE ER) 250 MG extended release tablet Indications: give with 500mg for total dose of 750mg Take 500 mg by mouth 2 times daily Indications: give with 500mg for total dose of 750mg 0 Active take 1 tablet by greer th twice daily, then take 2 tablets by mouth, then take 3 tablets by mouth divalproex (DEPAKOTE ER) 250 MG extended release tablet Indications: give with 500mg for total dose of 750mg Take 250 mg by mouth 2 times daily Indications: give with 500mg for total dose of 750mg 0 Active Completed/Discontinued Medications Medication Drug Class(es) Dates Sig (Normalized) Sig (Original) calcium chloride 0.0014 meq/ml / potassium chloride 0.004 meq/ml / sodium chloride 0.103 meq/ml / sodium lactate 0.028 meq/ml injectable solution (1 source) Start: 06-21-2023 End: 06-21-2023 lactated ringers iv infusion dexmedetomidine 0.1 mg/ml injectable solution (1 source) Central alpha-2 Adrenergic Agonist Start: 06-21-2023 End: 06-21-2023 dexmedetomidine (PRECEDEX) 200 MCG/2ML injection glycopyrrolate (ROBINUL) 0.6 MG/3ML injection (1 source) Start: 06-21-2023 End: 06-21-2023 glycopyrrolate (ROBINUL) 0.6 MG/3ML injection 2 ml midazolam 1 mg/ml injection (1 source) Benzodiazepine Start: 06-21-2023 End: 06-21-2023 midazolam (VERSED) 2 MG/2ML injection Problems Active Problems Problem Classification Problem Date Documented Date Episodic/Chronic Attention-deficit conduct and disruptive behavior disorders (20 sources) Attention deficit hyperactivity disorder; Translations: [Attention-deficit hyperactivity disorder, unspecified type] Onset: 11-01-2011 01-22-2017 Chronic Attention-deficit, conduct, and disruptive behavior disorders (2 sources) Attention-deficit hyperactivity disorder, unspecified type; Translations: [Attention-deficit hyperactivity disorder, unspecified type] Onset: 07-04-2023 Chronic Cardiac dysrhythmias (20 sources) Postural orthostatic tachycardia syndrome ; Translations: [Other specified cardiac arrhythmias] Onset: 07-27-2020 09-22-2020 Chronic Deficiency and other anemia (2 sources) Anemia, unspecified; Translations: [Anemia, unspecified] Onset: 03-13-2024 Episodic Delirium, dementia, and amnestic and other cognitive disorders (4 sources) Cognitive disorder; Translations: [Unspecified mental disorder due to known physiological condition] Onset: 08-10-2020 03-18-2024 Chronic Developmental disorders (20 sources) Mild intellectual disability; Translations: [Mild intellectual disabilities] Onset: 11-01-2017 09-22-2020 Chronic Disorders of lipid metabolism (20 sources) Hypertriglyceridemia; Translations: [Pure hyperglyceridemia] Onset: 08-05-2020 09-22-2020 Chronic Disorders of teeth and jaw (3 sources) Dental caries; Translations: [Dental caries, unspecified] Onset: 05-10-2023 05-10-2023 Episodic Epilepsy; convulsions (20 sources) Seizure disorder; Translations: [Epilepsy, unspecified, not intractable, without status epilepticus] Onset: 11-01-2011 01-22-2017 Chronic Epilepsy; convulsions (20 sources) Seizure; Translations: [Unspecified convulsions] Onset: 11-01-2011 11-21-2014 Episodic Essential hypertension (20 sources) Essential hypertension; Translations: [Essential (primary) hypertension] Onset: 07-27-2020 09-22-2020 Chronic Headache; including migraine (2 sources) Refractory migraine without aura; Translations: [Chronic migraine without aura, intractable, with status migrainosus] Onset: 02-08-2024 02-08-2024 Chronic Miscellaneous mental health disorders (20 sources) Dissociative convulsions; Translations: [Conversion disorder with seizures or convulsions] Onset: 11-01-2011 11-21-2014 Chronic Mood disorders (20 sources) Depressive disorder; Translations: [Major depressive disorder, single episode, unspecified] Onset: 07-27-2020 09-22-2020 Chronic Other circulatory disease (2 sources) Personal history of other diseases of the circulatory system; Translations: [Personal history of other diseases of the circulatory system] Onset: 04-17-2024 Episodic Other connective tissue disease (20 sources) Neurological finding; Translations: [Seizure-like activity] 11-19-2018 Episodic Other female genital disorders (1 source) Pruritus of vagina; Translations: [Other specified noninflammatory disorders of vagina] Episodic Other female genital disorders (1 source) Vaginal discharge; Translations: [Other specified noninflammatory disorders of vagina] Episodic Other injuries and conditions due to external causes (1 source) Unspecified injury of left wrist, hand and finger(s), initial encounter; Translations: [Unspecified injury of left wrist, hand and finger(s), initial encounter] Onset: 05-30-2023 Episodic Other injuries and conditions due to external causes (1 source) Thumb injury Onset: 05-30-2023 Episodic Other liver diseases (4 sources) Disease of liver; Translations: [Liver disease, unspecified] Onset: 01-16-2024 Chronic Other liver diseases (5 sources) Lesion of liver 01-16-2024 Chronic Other liver diseases (3 sources) Liver disease, unspecified; Translations: [Liver disease, unspecified] Onset: 02-08-2024 Chronic Other nervous system disorders (3 sources) H/O: [employer] disorder 01-16-2024 Episodic Other non-traumatic joint disorders (1 source) Ankle pain; Translations: [Pain in right ankle and joints of right foot] Episodic Other nutritional; endocrine; and metabolic disorders (1 source) Body mass index 30+ - obesity; Translations: [Body mass index (BMI) 38.0-38.9, adult] 06-07-2023 Chronic Other nutritional; endocrine; and metabolic disorders (1 source) Body mass index (BMI) 38.0-38.9, adult; Translations: [Body mass index (BMI) 38.0-38.9, adult] Onset: 06-06-2023 Chronic Pleurisy; pneumothorax; pulmonary collapse (2 sources) Pleurisy; Translations: [Pleurisy] Onset: 04-17-2024 Episodic Residual codes; unclassified (20 sources) Obstructive sleep apnea syndrome; Translations: [Obstructive sleep apnea (adult) (pediatric)] Onset: 07-27-2020 09-22-2020 Chronic Schizophrenia and other psychotic disorders (20 sources) Schizoaffective disorder, bipolar type; Translations: [Schizoaffective disorder, bipolar type] Onset: 11-01-2017 09-22-2020 Chronic Unclassified (1 source) Thumb Injury Minor Onset: 05-30-2023 Past or Other Problems Problem Classification Problem Date Documented Date Episodic/Chronic Abdominal pain (6 sources) Right upper quadrant pain; Translations: [Right upper quadrant pain] Onset: 12-24-2023 12-24-2023 Episodic Diabetes mellitus without complication (20 sources) Prediabetes; Translations: [Prediabetes] Onset: 07-27-2020 09-22-2020 Episodic Immunizations and screening for infectious disease (20 sources) Contact with and (suspected) exposure to other viral communicable diseases; Translations: [Patient encounter status] Onset: 01-24-2018 Resolved: 02-23-2018 02-23-2018 Episodic Other circulatory disease (20 sources) History of subdural hematoma; Translations: [Personal history of other diseases of the circulatory system] Onset: 08-06-2020 09-22-2020 Episodic Other female genital disorders (1 source) Other specified noninflammatory disorders of vagina; Translations: [Other specified noninflammatory disorders of vagina] Onset: 12-18-2023 Episodic Other hematologic conditions (20 sources) History of anemia; Translations: [Personal history of diseases of the blood and blood-forming organs and certain disorders involving the immune mechanism] Onset: 07-27-2020 09-22-2020 Episodic Other hematologic conditions (2 sources) Personal history of diseases of the blood and blood-forming organs and certain disorders involving the immune mechanism; Translations: [Personal history of diseases of the blood and blood-forming organs and certain disorders involving the immune mechanism] Onset: 07-04-2023 Episodic Other nutritional; endocrine; and metabolic disorders (20 sources) Weight gain; Translations: [Abnormal weight gain] Onset: 10-01-2012 01-22-2017 Episodic Other nutritional; endocrine; and metabolic disorders (20 sources) Developmental delay; Translations: [Unspecified lack of expected normal physiological development in childhood] Onset: 07-27-2020 09-22-2020 Episodic Other nutritional; endocrine; and metabolic disorders (6 sources) Weight increased; Translations: [Abnormal weight gain] Onset: 10-01-2012 01-22-2017 Episodic Other screening for suspected conditions (not mental disorders or infectious disease) (1 source) Abnormal radiologic findings on diagnostic imaging of renal pelvis, ureter, or bladder; Translations: [Abnormal radiologic findings on diagnostic imaging of renal pelvis, ureter, or bladder] Onset: 02-08-2024 Episodic Suicide and intentional self-inflicted injury (20 sources) Suicidal thoughts; Translations: [Suicidal ideations] Onset: 10-30-2017 09-22-2020 Episodic Unclassified (20 sources) Patient encounter status; Translations: [Screen for STD (sexually transmitted disease)] Onset: 01-24-2018 Resolved: 02-23-2018 02-23-2018 Results Test Name Value Interpretation Reference Range Facility MR abdomen wo/w conon 2024 MR abdomen wo/w con [facility] [place] [address] MRI Report Signed Patient: Leticia Tinoco MR#: [id number] : 1990 Acct:[id number] Age/Sex: 33 / F ADM Date: 06/06/24 Loc: MR Room: Type: [facility] Attending Dr: Cher López MD Copies to: Cher López MD Ordering Provider: Cher López MD Date of Service: 06/06/24 MR/MR abdomen wo/w con: K76.9 LIVER MASS MRI OF THE ABDOMEN WITH AND WITHOUT CONTRAST: CLINICAL HISTORY: Liver masses. COMPARISON: Outside MRI 02/08/2024 TECHNIQUE: Multisequence, multiplanar imaging of the abdomen was obtained before and after the use of IV contrast. FINDINGS: Examination is suboptimal due to motion. Liver appears normal in contour without evidence of intrahepatic bile duct dilatation. A peripherally enhancing lesion is seen involving what appears to be segment 4 of the liver measuring 3 cm in greatest axial dimension. Additional similar- appearing subtle lesions are seen involving the inferior aspect of the right lobe of the liver largest measuring 2 cm. Hepatic and portal veins appear patent. Gallbladder appears grossly unremarkable. No CBD dilatation. Spleen pancreas adrenal glands kidneys and aorta all appear grossly unremarkable. No bulky lymphadenopathy or ascites. No pleural effusion. MR/MR abdomen wo/w con IMPRESSION: SUBOPTIMAL EVALUATION DUE TO RESPIRATOR MOTION PARTICULARLY INVOLVING THE POSTCONTRAST SERIES. GROSSLY STABLE LESIONS ARE SEEN INVOLVING THE LIVER, LARGEST MEASURING 3 CM IN GREATEST AXIAL DIMENSION WHICH APPEARS TO BE WITHIN SEGMENT 4 OF THE LIVER. THESE DO NOT CLEARLY REPRESENT HEMANGIOMAS. FURTHER EVALUATION WITH LIVER CT UTILIZING LIVER MASS PROTOCOL WITH AND WITHOUT IV CONTRAST RECOMMENDED GIVEN THE SIGNIFICANT RESPIRATORY MOTION. Impression dictated by: Frederick James Jr., D.O.06/06/2024 1:16 PM Dictation Location: [place] [address] Transcribed By: [facility] 06/06/24 1316 Dictated By: Frederick James Jr, DO 06/06/24 1308 Signed By: 06/06/24 1316 Normal [facility] Hemoglobin A1Con 05-29-2024 Average glucose Estimated from glycated hemoglobin (Bld) [Mass/Vol] 91 mg/dL [facility] Comment on above: The ADA and AACC rec ommend providing the estimated average glucose result to permit better patient understanding of their HBA1c result. HbA1c (Bld) [Mass fraction] 4.8 % 4.0 - 6.0 % [facility] Glucose [Mass/Vol] 91 mg/dL Normal [facility] Comment on above: Result Comment: The ADA and AACC recommend providing the estimated average glucose result to permit better patient understanding of their HBA1c result. Performed By: #### G LYHGB #### [facility] [address] [place] [address] Bow Maker Machine Tender: Wenceslao Schaeffer MD HbA1c (Bld) [Mass fraction] 4.8 % Normal 4.0-6.[address] [facility] Comment on above: Performed By: #### G LYB #### [facility] [place] [id number] Bow Maker Machine Tender: Wenceslao Schaeffer MD Surgical Pathology Reporton 04-07-2024 Surgical Pathology Report [facility] [address] [place] [address]- Surgical Pathology Report Collected Date/Time: 03/31/2024 14:06 EST Pathologist: Ciro STRINGER PhD, Prachi Otero Received Date/Time: 04/01/2024 07:33 EST Maribel STRINGER, Cher López MD, Cher Nicholas 07 Surgical Pathology Report - 04/07/2024 11:35 EST - Auth (Verified) Final Diagnosis STOMACH, BIOPSY: - GASTRIC ANTRAL MUCOSA WITH MILD FOVEOLAR HYPERPLASIA. - GASTRIC BODY MUCOSA WITH NO SIGNIFICANT PATHOLOGIC CHANGES. - NO H. PYLORI MICROORGANISMS IDENTIFIED WITH IMMUNOSTAIN. (Electronic Signature) Prachi Tanner MD PhD 04/07/2024 11:35 Clinical Information Liver lesion, right sided abd pain Pre-Op Diagnosis: Liver lesion, right sided abd pain Procedure: EGD Post-Op Diagnosis: 1. Esophageal landmarks identified. small hiatal hernia, LA grade C esophagitis noted 2. Moderate gastritis in the antrum of the stomach with very small erosions, the biopsies were taken for H. pylori 3. Less than 1 cm clean-based ulcer in the duodenal bulb, otherwise normal examined duodenum Specimen(s) Received Gastric biopsy Gross Description Received in formalin labeled with patient name, number, and gastric biopsy is a single fragment of pacheco/pink tissue measuring 0.5 x 0.3 x 0.1 cm. The specimen is entirely submitted in one cassette. (DC) DC:[facility] Microscopic Description Microscopic examination performed unless gross only specified. The use of one or more reagents in the above tests is regulated as an analyte specific reagent (ASR). The test or tests are ordered following initial H&E microscopic examination. The performance characteristics were determined by the Laboratory of [facility]. They have not been cleared or approved by the US Food and Drug Administration. The FDA has determined that such clearance or approval is not necessary. These tests are used for clinical purposes. They should not be regarded as investigational or for research. Appropriate positive and negative controls are performed and are acceptable. Normal [facility] Comment on above: Performed By: #### [id number] #### [facility] [address] [place] [address] Main OR Intraoperative Recor don 04-01-2024 Main OR Intraoperative Record Main OR Intraoperative Record IntraOp Document Type FT Summary Primary Physician: Cher López MD Finalized Date/Time: 04/01/24 13:44:37 Pt. Name: LETICIA TINOCO Ronnie CoelhoB./Sex: 1990 Female Med Rec #: [id number] Physician: Cher López MD Financial #: [id number] Pt. Type: O Room/Bed: / Admit/Disch: 03/31/24 12:04:20 - 03/31/24 23:59:59 Institution: Case Times FT Entry 1 Patient Times In Room 03/31/24 14:00:00 Out Room 03/31/24 14:09:00 Procedure Times Start 03/31/24 14:03:00 Stop 03/31/24 14:06:00 Anesthesia Times Start 03/31/24 14:00:00 Stop 03/31/24 14:09:00 Last Modified By: Jael CALVIN, Sulema Trujillo 03/31/24 14:09:25 General Comments: 04/01/24 Chart opened to review and send charges [facility] CSFA Case Attendance FT Entry 1 Entry 2 Entry 3 Case Attendee Marco Joyner MD, Cher Elder RN, Sulema Nicholas Role Performed Anesthesiologist Surgeon - Primary Plastic Block Boiler Reliner - Primary Marketing Communications Specialist Time In 03/31/24 14:00:00 03/31/24 14:00:00 03/31/24 14:00:00 Time Out 03/31/24 14:09:00 03/31/24 14:09:00 03/31/24 14:09:00 Procedure EGD(.) EGD(.) EGD(.) Comments Dr. Carbajal supervising procedure. Last Modified By: Jael CALVIN, Sulema Elder RN, Sulema Elder RN, Sulema Trujillo 03/31/24 14:09:27 03/31/24 14:09:27 03/31/24 14:09:27 Entry 4 Case Attendee Zohreh Olivera Role Performed Scrub - Primary Time In 03/31/24 14:00:00 Time Out 03/31/24 14:09:00 Procedure EGD(.) Comments Last Modified By: Sulema Elder RN 03/31/24 14:09:27 Perioperative Protocols FT Pre-Care Text: Implements protective measures prior to operative or invasive procedure, confirms identity before the operative or invasive procedure, verifies operative procedure, surgical site, and laterality Entry 1 Procedure(s) EGD(.) Patient Identity Birthday, ID Band Verified (select at Check, Patient least 2): Participation Consents / H and P Anesthesia Consent, Operative Site N/A Verified H&P, Surgery/Procedure Marking Verified Consent Surgical Site No Laterality Verified n/a Verified Procedure Verified Yes Correct Patient Yes Position Verified Availability Equipment, Medication Prep Dry n/a Verified (If Applicable) PreOp Antibiotic No Time Out Marco Joyner Given Participants Maribel Barrera MD, Jael Buckner RN, Kara N, Miles, Kirstyn K Time Out Complete 03/31/24 14:02:00 Outcomes Met? Yes Last Modified By: Sulema Elder RN 03/31/24 14:02:39 Post-Care Text: The patient is free from signs and symptoms of injury caused by extraneous objects Allergy Information FT Pre-Care Text: Verifies allergies Entry 1 Allergies Reviewed? Yes Allergies Reviewed Self/Patient With Outcomes Met? Yes Last Modified By: Sulema Elder RN 03/31/24 14:02:48 Post-Care Text: The patient received appropriate medication(s) safely administered during the perioperative period Surgical Procedures FT Entry 1 Procedure Description Procedure EGD Modifiers . Surgeon Description EGD with gastric biopsy. Primary Procedure Yes Primary Surgeon Cher López MD Start 03/31/24 14:03:00 Stop 03/31/24 14:06:00 Anesthesia Type General Surgical Service Gastroenterology Wound Class 2 - Clean-Contaminated Last Modified By: Sulema Elder RN 03/31/24 14:06:52 General Case Data FT Pre-Care Text: Classifies surgical wound, implements aseptic technique, initiates traffic control Entry 1 Case Information OR ENDO 1 FT Case Level Level 2 Wound Class 2 - Clean-Contaminated Specialty Gastroenterology ASA Class 3 Preop Diagnosis LIVER LESION, R SIDED Postop Same As Preop No ABDOMINAL PAIN Postop Diagnosis LA grade C esophagitis, Outcomes Met? Yes hiatal hernia, moderate gastritis, clean base duodenal ulcer Last Modified By: Sulema Elder RN 03/31/24 14:09:22 Post-Care Text: The patient is free from signs and symptoms of infection Skin Assessment (Pre Procedure) FT Pre-Care Text: Implements protective measures to prevent skin/ tissue injury due to thermal or mechanical sources Evaluates for signs and symptoms of physical injury to skin and tissue Entry 1 Skin Integrity Intact, [place], Warm, & Skin Abnormality No Dry Outcomes Met? Yes Last Modified By: Sulema Elder RN 03/31/24 14:03:10 Post-Care Text: The patient is free from signs and symptoms of injury caused by extraneous objects Patient Positioning FT Pre-Care Text: Identifies physical alterations that require additional precautions for procedure-specific positioning, verifies presence of prosthetics or corrective devices, positions the patient, evaluates the patient for signs and symptoms of injury as a result of positioning Entry 1 Procedure EGD(.) Body Position Lateral, right side up Feet Uncrossed? Yes Left Arm Position Resting at Side Right Arm Position Resting at Side Left Leg Position Ex (more content not included)... Normal [facility] Discharge Instructionson Discharge Instructions Discharge Instructions LETICIA TINOCO :1990 Visit Date:03/31/2024 Inpatient Discharge Instructions Your Care Team Admitting Physician - Cher López MD Referring Physician - Cher López MD Reason for Your Visit LIVER LESION, R SIDED ABDOMINAL PAIN Your Diagnosis Abdominal pain, diffuse Tests Performed Pathology Tissue Exam -- Results Pending -- Please visit your patient portal for your results or contact your primary care physician. This Is Your Medications List APAP/ASA/caffeine (Excedrin Migraine) acetaminophen (Tylenol) acetaminophen-hydroc odone (acetaminophen-hydro codone 325 mg-5 mg oral tablet) aripiprazole (Abilify 20 mg oral tablet) aripiprazole (Abilify 5 mg Tab) benzocaine-resorcino l topical (Vagisil 5%-2% vaginal cream) benztropine (benztropine 1 mg Tab) dicyclomine (Bentyl 10 mg Cap) ethinyl estradiol-norgestima te (Ortho Cyclen 35 mcg-0.25 mg Tab) fenofibrate (fenofibrate 48 mg Tab) ferrous sulfate (ferrous sulfate 325 mg oral enteric coated tablet) fludrocortisone fluocinolone topical ([place]-Smoothe/FS (Scalp) 0.01% topical oil) fluocinolone topical (fluocinolone topical 0.025% ointment) folic acid (folic acid 1 mg Tab) folic acid (folic acid 1 mg Tab) gentamicin ophthalmic (Garamycin 0.3% Soln-Opth) haloperidol (haloperidol 10 mg oral tablet) haloperidol (haloperidol 5 mg Tab) hydrOXYzine hydrocortisone topical (Procto-Med HC) lamotrigine (Lamictal 100 mg Tab) loratadine (loratadine 10 mg oral capsule) magnesium oxide (magnesium oxide 400 mg oral capsule) multivitamin omeprazole (omeprazole 40 mg Cap-DR) propranolol (propranolol 80 mg Tab) sertraline (Zoloft 100 mg Tab) sertraline (Zoloft 50 mg Tab) sumatriptan trazodone (traZODONE 50 mg Tab) triamcinolone topical (triamcinolone Top 0.1% Oint) Procedure History Esophagogastroduoden oscopy (03/31/2024). Discharge Vitals Temperature (Temporal Artery) 36 ???C Heart Rate (Monitored) 85 Respiratory Rate 24 Blood Pressure 113/74 Height 167.6 cm Weight 99 kg BMI 35.24 What to do next Instructions From Your Doctor Event Name Event Result Discharge Activity Resume normal activities in 24 hours Discharge Restrictions No driving for 24 hrs Discharge Diet(s) Regular Call Your Doctor For Persistent or heavy bleeding Discharge Instructions Discharge Instructions New Follow Up Appointments after Discharge Follow Up with Maribel STRINGER, VAL Buckner, [facility] When: Comments: Office will call to schedule follow-up appointment. Call for any problems. Where: [address] [place], [place] [address], [address] [phone] [phone] Medications What How Much When Why Instructions Next Dose New omeprazole (omeprazole 40 mg Cap-DR) 1 Capsules By Mouth Every day Refills: 3 Printed Prescription Unchanged acetaminophen (Tylenol) By Mouth Unchanged acetaminophen-hydroc odone (acetaminophen-hydro codone 325 mg-5 mg oral tablet) By Mouth Every 6 hours Unchanged APAP/ ASA/ caffeine (Excedrin Migraine) By Mouth Every 6 hours Unchanged aripiprazole (Abilify 20 mg oral tablet) By Mouth Every day Unchanged aripiprazole (Abilify 5 mg Tab) By Mouth Every day Unchanged benzocaine-resorcino l topical (Vagisil 5%-2% vaginal cream) Topical 2 times a day Unchanged benztropine (benztropine 1 mg Tab) By Mouth 2 times a day Unchanged dicyclomine (Bentyl 10 mg Cap) 1 Capsules By Mouth 4 times a day as needed for Pain Liver lesion Right sided abdominal pain Duration: 14 Days Unchanged ethinyl estradiol-norgestima te (Ortho Cyclen 35 mcg-0.25 mg Tab) By Mouth Every day Unchanged fenofibrate (fenofibrate 48 mg Tab) By Mouth Every day Unchanged ferrous sulfate (ferrous sulfate 325 mg oral enteric coated tablet) By Mouth Every day Unchanged fludrocortisone By Mouth Every day Unchanged fluocinolone topical ([place]-Smoothe/ FS (Scalp) 0.01% topical oil) Topical 3 times a day Unchanged fluocinolone topical (fluocinolone topical 0.025% ointment) Topical 2 times a day Unchanged folic acid (folic acid 1 mg Tab) 4 Tablets By Mouth Every day Unchanged folic acid (folic acid 1 mg Tab) By Mouth Every day Unchanged gentamicin ophthalmic (Garamycin 0.3% Soln-Opth) Both eyes 4 times a day Unchanged haloperidol (haloperidol 10 mg oral tablet) By Mouth 2 times a day Unchanged haloperidol (haloperidol 5 mg Tab) By Mouth 2 times a day Unchanged hydrocortisone topical (Procto-Med HC) Topical 3 times a day Unchanged hydrOXYzine Unchanged lamotrigine (Lamictal 100 mg Tab) 1 Tablets By Mouth Every day Unchanged loratadine (loratadine 10 mg oral capsule) 1 Capsules By Mouth Every day Unchanged magnesium oxide (magnesium oxide 400 mg oral capsule) By Mouth Every day Unchanged multivitamin Unchanged propranolol (propranolol 80 mg Tab) By Mouth 2 times a day Unchanged sertraline (Zoloft 100 mg Tab) 1 Tablets By Mouth Every (more content not included)... Normal [facility] Comment on above: Result Comment: Elec tronically Signed By: Lindsay CALVIN, Valencia\luis antonio\Date and Time Signed: 03/31/24 14:24 EST Inpatient Patient Summaryon 03-31-2024 Inpatient Patient Summary Inpatient Patient Summary [place] [id number] [facility] Clinical Discharge Instructions PERSON INFORMATION Name: LETICIA TINOCO [facility]#:[id number] PHYSICIANS Admitting Physician: Cher López MD Attending Physician: Cher López MD PCP: FREDERICK SANTIAGO DO Discharge Diagnosis: Abdominal pain, diffuse Comment: PATIENT EDUCATION INFORMATION Instructions: Medication Leaflets: Follow up: MEDICATION LIST New Medications Printed Prescriptions omeprazole (omeprazole 40 mg Cap-DR) 1 Capsules By Mouth every day. Refills: 3. Medications to Continue with No Changes Other Medications acetaminophen (Tylenol) By Mouth. acetaminophen-hydroc odone (acetaminophen-hydro codone 325 mg-5 mg oral tablet) By Mouth every 6 hours. APAP/ASA/caffeine (Excedrin Migraine) By Mouth every 6 hours. aripiprazole (Abilify 20 mg oral tablet) By Mouth every day. aripiprazole (Abilify 5 mg Tab) By Mouth every day. benzocaine-resorcino l topical (Vagisil 5%-2% vaginal cream) Topical 2 times a day. benztropine (benztropine 1 mg Tab) By Mouth 2 times a day. dicyclomine (Bentyl 10 mg Cap) 1 Capsules By Mouth 4 times a day as needed Pain for 14 Days. Refills: 3. ethinyl estradiol-norgestima te (Ortho Cyclen 35 mcg-0.25 mg Tab) By Mouth every day. fenofibrate (fenofibrate 48 mg Tab) By Mouth every day. ferrous sulfate (ferrous sulfate 325 mg oral enteric coated tablet) By Mouth every day. fludrocortisone By Mouth every day. fluocinolone topical ([place]-Smoothe/FS (Scalp) 0.01% topical oil) Topical 3 times a day. fluocinolone topical (fluocinolone topical 0.025% ointment) Topical 2 times a day. folic acid (folic acid 1 mg Tab) 4 Tablets By Mouth every day., Takes in AM folic acid (folic acid 1 mg Tab) By Mouth every day. gentamicin ophthalmic (Garamycin 0.3% Soln-Opth) Both eyes 4 times a day. haloperidol (haloperidol 10 mg oral tablet) By Mouth 2 times a day. haloperidol (haloperidol 5 mg Tab) By Mouth 2 times a day. hydrocortisone topical (Procto-Med HC) Topical 3 times a day. hydrOXYzine lamotrigine (Lamictal 100 mg Tab) 1 Tablets By Mouth every day., Takes at bedtime loratadine (loratadine 10 mg oral capsule) 1 Capsules By Mouth every day. magnesium oxide (magnesium oxide 400 mg oral capsule) By Mouth every day. multivitamin propranolol (propranolol 80 mg Tab) By Mouth 2 times a day. sertraline (Zoloft 100 mg Tab) 1 Tablets By Mouth every day., Takes in AM sertraline (Zoloft 50 mg Tab) By Mouth every day. sumatriptan Once. trazodone (traZODONE 50 mg Tab) By Mouth. triamcinolone topical (triamcinolone Top 0.1% Oint) Topical 3 times a day. Comment: Normal [facility] Main OR PACU II Recordon Main OR PACU II Record Main OR PACU II Record PACU Phase II Document Type FT Summary Primary Physician: Cher López MD Finalized Date/Time: 03/31/24 14:52:36 Pt. Name: LETICIA TINOCO/Sex: 1990 Female Med Rec #: [id number] Physician: Cher López MD Financial #: [id number] Pt. Type: O Room/Bed: / Admit/Disch: 03/31/24 12:04:20 - Institution: Case Times PACU II FT Pre-Care Text: Identifies barriers to communication and implements measures to provide psychological support and determines knowledge level Develops individualized plan of care, and ensures continuity of care Maintains patient's dignity and privacy, and maintains patient confidentiality Identifies and reports philosophical, cultural, and spiritual beliefs and values Identifies individual values and wishes concerning care administers prescribed antibiotic therapy and immunizing agents as ordered, Evaluates postoperative tissue perfusion Implements thermoregulation measures, and monitors body temperature Evaluates postoperative respiratory status Evaluates postoperative cardiac status Evaluates postoperative neurological status Assesses pain control, collaborated in initiating patient-controlled analgesia and implements alternative methods of pain control Verifies allergies, administers prescribed medications and solutions, evaluates response to medications Entry 1 In PACU II 03/31/24 14:11:00 Discharge from PACU 03/31/24 14:41:00 II Outcomes Met? Yes Last Modified By: Valencia Montoya RN 03/31/24 14:52:28 Post-Care Text: The patient demonstrates knowledge of the expected response to the operative or invasive procedure The patient's care is consistent with the individualized perioperative plan of care The patient's right to privacy is maintained The patient's value system, lifestyle, ethnicity, and culture are considered, respected, and incorporated into the perioperative plan of care The patient participates in decisions affecting his or her perioperative plan of care. The patient is free from signs and symptoms of infection The patient has wound/tissue perfusion consistent with or improved from baseline levels established preoperatively The patient is at or returning to normothermia at the conclusion of the immediate postoperative period The patient's respiratory function is consistent with or improved from baseline levels established preoperatively The patient's cardiovascular status is consistent with or improved from baseline levels established preoperatively The patient's neurological status is consistent with or improved from baseline levels established preoperatively The patient demonstrates and/or reports adequate pain control throughout the perioperative period The patient received appropriate medication(s), safely administered during the perioperative period Finalized By: Valencia Montoya RN Document Signatures Signed By: Valencia Montoya RN 03/31/24 14:52 Normal [facility] Main OR Preoperative Recordo n 03-31-2024 Main OR Preoperative Record Main OR Preoperative Record Holding Area Document Type FT Summary Primary Physician: Cher López MD Finalized Date/Time: 03/31/24 12:20:30 Pt. Name: LETICIA TINOCO/Sex: 1990 Female Med Rec #: [id number] Physician: Cher López MD Financial #: [id number] Pt. Type: O Room/Bed: / Admit/Disch: 03/31/24 12:04:20 - Institution: Case Times Holding FT Pre-Care Text: Verifies consent for planned procedure, identifies individual values and wishes concerning care, includes family members in perioperative teaching Secures patient's records' belongings, and valuables, maintains patient's dignity and privacy, and maintains patient confidentiality Entry 1 In Holding 03/31/24 12:00:00 Outcomes Met? Yes Last Modified By: Namrata Encinas RN 03/31/24 12:19:44 Post-Care Text: The patient participates in decisions affecting his or her perioperative plan of care The patient's right to privacy is maintained Surgery Checklist FT Entry 1 Patient Birthday, ID Band Procedure History and Physical, Identification: Check, Patient Verification: Surgical Consent, With Participation Patient NPO after Midnight: Yes Date/Time: 03/31/24 00:00:00 Personal Items: Glasses Personal Items glasses Comment: Limitations: n/a Complaints of Pain: Yes Pain Comment: 12/21 abdominal pain Operative Site n/a Marking: Marked By: n/a Availability Equipment Verified: Does Patient Smoke No Patient states Yes Comment - Adult Jacob- mother and postop adult Supervision guardian supervision available Case Cancelled in No Holding Area see comments below for reason Last Modified By: Namrata Encinas RN 03/31/24 12:20:26 Finalized By: Namrata Encinas RN Document Signatures Signed By: Namrata Encinas RN 03/31/24 12:20 Normal [facility] Outpatient Surgery Discharge Instructionon 03-31-2024 Outpatient Surgery Discharge Instruction Outpatient Surgery Discharge Instruction [place] [id number] Patient Discharge Instructions PERSON INFORMATION Name: LETICIA TINOCO Date of : 1990 Current Date: 03/31/2024 14:14:36 PHYSICIANS Admitting Physician: Cher López MD Discharge Diagnosis: Abdominal pain, diffuse BEENALETICIA has been given the following list of follow-up instructions, prescriptions, and patient education materials: PATIENT FOLLOW-UP INFORMATION Diet: Regular Discharge Activity: Resume normal activities in 24 hours Discharge Restrictions: No driving for 24 hrs Call Your Doctor For: Persistent or heavy bleeding IF UNABLE TO CONTACT YOUR PHYSICIAN AND YOU FEEL IT IS AN EMERGENCY, GO TO THE NEAREST EMERGENCY ROOM OR CALL 911 I, LETICIA TINOCO, have received the attached patient education materials/instructio ns and have verbalized understanding: May we do a follow up call? Yes No I was present when discharge instructions were given Patient Signature Date Clinican/Nurse Signature Date Follow up: Pharmacy Information: You may receive a survey from [employer] asking you to rate your care experience. Your feedback is important and will help us understand what we do well and how we can improve the quality of care we provide to you, your loved ones and our community. It???s an honor to serve you. Thank you for choosing [facility] HERE ARE THE MEDICATION CHANGES THAT OCCURRED DURING YOUR HOSPITAL STAY New Medications Printed Prescriptions omeprazole (omeprazole 40 mg Cap-DR) 1 Capsules By Mouth every day. Refills: 3. Medications to Continue with No Changes Other Medications acetaminophen (Tylenol) By Mouth. acetaminophen-hydroc odone (acetaminophen-hydro codone 325 mg-5 mg oral tablet) By Mouth every 6 hours. APAP/ASA/caffeine (Excedrin Migraine) By Mouth every 6 hours. aripiprazole (Abilify 20 mg oral tablet) By Mouth every day. aripiprazole (Abilify 5 mg Tab) By Mouth every day. benzocaine-resorcino l topical (Vagisil 5%-2% vaginal cream) Topical 2 times a day. benztropine (benztropine 1 mg Tab) By Mouth 2 times a day. dicyclomine (Bentyl 10 mg Cap) 1 Capsules By Mouth 4 times a day as needed Pain for 14 Days. Refills: 3. ethinyl estradiol-norgestima te (Ortho Cyclen 35 mcg-0.25 mg Tab) By Mouth every day. fenofibrate (fenofibrate 48 mg Tab) By Mouth every day. ferrous sulfate (ferrous sulfate 325 mg oral enteric coated tablet) By Mouth every day. fludrocortisone By Mouth every day. fluocinolone topical ([place] Bo[place]-Smoothe/FS (Scalp) 0.01% topical oil) Topical 3 times a day. fluocinolone topical (fluocinolone topical 0.025% ointment) Topical 2 times a day. folic acid (folic acid 1 mg Tab) 4 Tablets By Mouth every day., Takes in AM folic acid (folic acid 1 mg Tab) By Mouth every day. gentamicin ophthalmic (Garamycin 0.3% Soln-Opth) Both eyes 4 times a day. haloperidol (haloperidol 10 mg oral tablet) By Mouth 2 times a day. haloperidol (haloperidol 5 mg Tab) By Mouth 2 times a day. hydrocortisone topical (Procto-Med HC) Topical 3 times a day. hydrOXYzine lamotrigine (Lamictal 100 mg Tab) 1 Tablets By Mouth every day., Takes at bedtime loratadine (loratadine 10 mg oral capsule) 1 Capsules By Mouth every day. magnesium oxide (magnesium oxide 400 mg oral capsule) By Mouth every day. multivitamin propranolol (propranolol 80 mg Tab) By Mouth 2 times a day. sertraline (Zoloft 100 mg Tab) 1 Tablets By Mouth every day., Takes in AM sertraline (Zoloft 50 mg Tab) By Mouth every day. sumatriptan Once. trazodone (traZODONE 50 mg Tab) By Mouth. triamcinolone topical (triamcinolone Top 0.1% Oint) Topical 3 times a day. PATIENT EDUCATION INFORMATION Instructions: Medication Leaflets: Nancy [facility] Ambulatory Visit Summaryon 1 05-19-2023 Ambulatory Visit Summary Ambulatory Visit Summary LETICIA TINOCO :1990 Visit Date:03/19/2024 Ambulatory Visit Instructions Your Diagnosis Liver lesion Right sided abdominal pain Your Care Team Attending Physician - Cher López MD Primary Care Physician - Maikel CARDONA DO, FAAFP This Is Your Medications List dicyclomine (Bentyl 10 mg Cap) Contact prescribing physician if questions or concerns APAP/ASA/caffeine (Excedrin Migraine) acetaminophen (Tylenol) acetaminophen-hydroc odone (acetaminophen-hydro codone 325 mg-5 mg oral tablet) aripiprazole (Abilify 20 mg oral tablet) aripiprazole (Abilify 5 mg Tab) benzocaine-resorcino l topical (Vagisil 5%-2% vaginal cream) benztropine (benztropine 1 mg Tab) ethinyl estradiol-norgestima te (Ortho Cyclen 35 mcg-0.25 mg Tab) fenofibrate (fenofibrate 48 mg Tab) ferrous sulfate (ferrous sulfate 325 mg oral enteric coated tablet) fludrocortisone fluocinolone topical (Du Bo[place]-Smoothe/FS (Scalp) 0.01% topical oil) fluocinolone topical (fluocinolone topical 0.025% ointment) folic acid (folic acid 1 mg Tab) folic acid (folic acid 1 mg Tab) gentamicin ophthalmic (Garamycin 0.3% Soln-Opth) haloperidol (haloperidol 10 mg oral tablet) haloperidol (haloperidol 5 mg Tab) hydrOXYzine hydrocortisone topical (Procto-Med HC) lamotrigine (Lamictal 100 mg Tab) loratadine (loratadine 10 mg oral capsule) magnesium oxide (magnesium oxide 400 mg oral capsule) multivitamin propranolol (propranolol 80 mg Tab) sertraline (Zoloft 100 mg Tab) sertraline (Zoloft 50 mg Tab) sumatriptan trazodone (traZODONE 50 mg Tab) triamcinolone topical (triamcinolone Top 0.1% Oint) Procedures Performed None. Discharge Vitals Heart Rate (Peripheral) 72 Respiratory Rate 16 Blood Pressure 103/68 Weight 99 kg Weight 217.8 lb Medications What How Much When Why Instructions New dicyclomine (Bentyl 10 mg Cap) 1 Capsules By Mouth 4 times a day as needed for Pain Liver lesion Right sided abdominal pain Duration: 14 Days Refills: 3 Printed Prescription Unchanged acetaminophen (Tylenol) By Mouth Contact prescribing physician if questions or concerns Unchanged acetaminophen-hydroc odone (acetaminophen-hydro codone 325 mg-5 mg oral tablet) By Mouth Every 6 hours Contact prescribing physician if questions or concerns Unchanged APAP/ ASA/ caffeine (Excedrin Migraine) By Mouth Every 6 hours Contact prescribing physician if questions or concerns Unchanged aripiprazole (Abilify 20 mg oral tablet) By Mouth Every day Contact prescribing physician if questions or concerns Unchanged aripiprazole (Abilify 5 mg Tab) By Mouth Every day Contact prescribing physician if questions or concerns Unchanged benzocaine-resorcino l topical (Vagisil 5%-2% vaginal cream) Topical 2 times a day Contact prescribing physician if questions or concerns Unchanged benztropine (benztropine 1 mg Tab) By Mouth 2 times a day Contact prescribing physician if questions or concerns Unchanged ethinyl estradiol-norgestima te (Ortho Cyclen 35 mcg-0.25 mg Tab) By Mouth Every day Contact prescribing physician if questions or concerns Unchanged fenofibrate (fenofibrate 48 mg Tab) By Mouth Every day Contact prescribing physician if questions or concerns Unchanged ferrous sulfate (ferrous sulfate 325 mg oral enteric coated tablet) By Mouth Every day Contact prescribing physician if questions or concerns Unchanged fludrocortisone By Mouth Every day Contact prescribing physician if questions or concerns Unchanged fluocinolone topical (Du Bo[place]-Smoothe/ FS (Scalp) 0.01% topical oil) Topical 3 times a day Contact prescribing physician if questions or concerns Unchanged fluocinolone topical (fluocinolone topical 0.025% ointment) Topical 2 times a day Contact prescribing physician if questions or concerns Unchanged folic acid (folic acid 1 mg Tab) 4 Tablets By Mouth Every day Contact prescribing physician if questions or concerns Unchanged folic acid (folic acid 1 mg Tab) By Mouth Every day Contact prescribing physician if questions or concerns Unchanged gentamicin ophthalmic (Garamycin 0.3% Soln-Opth) Both eyes 4 times a day Contact prescribing physician if questions or concerns Unchanged haloperidol (haloperidol 10 mg oral tablet) By Mouth 2 times a day Contact prescribing physician if questions or concerns Unchanged haloperidol (haloperidol 5 mg Tab) By Mouth 2 times a day Contact prescribing physician if questions or concerns Unchanged hydrocortisone topical (Procto-Med HC) Topical 3 times a day Contact prescribing physician if questions or concerns Unchanged hydrOXYzine Contact prescribing physician if questions or concerns Unchanged lamotrigine (Lamictal 100 mg Tab) 1 Tablets By Mouth Every day Contact prescribing physician if questions or concerns Unchanged loratadine (loratadine 10 mg oral capsule) 1 Capsules By Mouth Every day Contact prescribing physician if questions or concerns Unc (more content not included)... Normal [facility] Gastroenterology Office/Clin ic Noteon 03-19-2024 Gastroenterology Office/Clinic Note Gastroenterology Office/Clinic Note Chief Complaint abd pain HPI Staff Patient is a(n) 33 year old female who presents today for a sick call with c/o right sided abdominal pain. complaining of both Abdominal pain: When did you first have this pain: few months ago Quality (sharp, dull): sharp Constant or comes or go: constant location and radiation: both sides now. sometimes it's in side and then shoots up to her chest does have: headaches, tried topamax - vomiting. rash Denies blood thinners. Denies GLP-1 agonists. Last visit 01/16/24 w/Dr. López: Assessment/Plan 1. Liver lesion (K76.9: Liver disease, unspecified) Had right upper quadrant ultrasound done for abdominal pain Was suggestive of hemangiomas no recent blood work done, abdominal pain resolved Suggested triple phase CAT scan abdomen to better assess the lesions, Also obtain CBC and CMP and follow-up in the clinic after the CT is done MRI abd 02/08/24 @ Eleazar Oliver: IMPRESSION: 1. Extremely limited study due to patient motion. 2. Multiple lesions in the right hepatic lobe are suspected to represent hemangiomas on prior ultrasound. These cannot be characterized on the current MRI. 3. These were incidental findings in a 33-year-old patient. Unless there are significant risk factors for malignancy, recommend ultrasound follow-up in 6-12 months to ensure stability. If necessary, a multiphase liver CT may be considered, which would be more resistant to patient motion. CT 01/24/24 @ Jin: IMPRESSION: Study is slightly limited due to patient motion. The liver has an abnormal appearance. There are multiple low-attenuation lesions scattered throughout the liver, some of which likely represent cysts. However, others of these are less well circumscribed than expected for cysts. Question hemangiomas or other lesion. Further characterization by MRI is recommended. The appendix is normal. No bowel obstruction or acute renal pathology. US abd 12/24/23 @ Melody: IMPRESSION: Multiple rounded hyperechoic lesions within the liver has the ultrasound appearance of hemangiomas. Recommend follow-up ultrasound in 6 months to document stability. Labs 03/13/24 @ Eleazar Oliver: CBC - WNL CMP - WNL Valproic Acid <3 (L) Folic Acid >40.0 (H) Review of Systems PHQ Score Initial Depression Screen Score: 0 SCORE Physical Exam Vitals & Measurements HR: 72(Peripheral) RR: 16 BP: 103/68 WT: 99 kg WT: 217.8 lb Assessment/Plan 1. Liver lesion (K76.9: Liver disease, unspecified) Likely hemangiomas, unfortunately MRI was not diagnostic given the motion, we discussed further imaging, I believe she will need MRI with anesthesia in order to tolerate well with IV contrast, will refer to [facility], liver enzymes with normal 2. Right sided abdominal pain (R10.9: Unspecified abdominal pain) We discussed could be musculoskeletal, CT ultrasound did not show cholecystitis, does not related to food Will try Bentyl as needed also will proceed with EGD to rule out any peptic ulcer disease Follow-up No qualifying data available Problem List/Past Medical History Ongoing ADHD Cognitive disorder Depressive disorder Disease of liver Dissociative convulsions Essential hypertension H/O subdural hemorrhage History of subdural hematoma Lesion of liver Liver lesion Prediabetes Psychotic affective disorder Right sided abdominal pain Seizure Seizure disorder Seizure disorder Historical ADHD Seizures Procedure/Surgical History None. Medications Abilify 20 mg oral tablet, Oral, Daily Abilify 5 mg Tab, Oral, Daily acetaminophen-hydroc odone 325 mg-5 mg oral tablet, Oral, q6hr benztropine 1 mg Tab, Oral, BID Du Bois-Smoothe/FS (Scalp) 0.01% topical oil, Topical, TID Excedrin Migraine, Oral, q6hr fenofibrate 48 mg Tab, Oral, Daily ferrous sulfate 325 mg oral enteric coated tablet, Oral, Daily fludrocortisone, Oral, Daily fluocinolone topical 0.025% ointment, Topical, BID folic acid 1 mg Tab, 4 mg= 4 tab(s), Oral, Daily folic acid 1 mg Tab, Oral, Daily Garamycin 0.3% Soln-Opth, Eye-Both, QID haloperidol 10 mg oral tablet, Oral, BID haloperidol 5 mg Tab, Oral, BID hydrOXYzine Lamictal 100 mg Tab, 100 mg= 1 tab(s), Oral, Daily loratadine 10 mg oral capsule, 10 mg= 1 cap(s), Oral, Daily magnesium oxide 400 mg oral capsule, Oral, Daily multivitamin Ortho Cyclen 35 mcg-0.25 mg Tab, Oral, Daily Procto-Med HC, Topical, TID propranolol 80 mg Tab, Oral, BID sumatriptan, Once traZODONE 50 mg Tab, Oral triamcinolone Top 0.1% Oint, Topical, TID Tylenol, Oral Vagisil 5%-2% vaginal cream, Topical, BID Zoloft 100 mg Tab, 100 mg= 1 tab(s), Oral, Daily Zoloft 50 mg Tab, Oral, Daily Allergies No Known Allergies Social History Alcohol - Denies Alcohol Use, 01/24/2012 Substance Abuse - Denies Substance Abuse, 01/24/2012 Tobacco - Denies Tobacco Use, 01/24/2012 Never (le (more content not included)... Normal [facility] Comment on above: Result Comment: Elec tronically Signed By: Maribel STRINGER, Cher Nicholas\.br\Date and Time Signed: 03/19/24 10:14 EST Hemoglobin A1Con 03-14-2024 Glucose [Mass/Vol] 97 mg/dL Normal [facility] Comment on above: Result Comment: The ADA and AACC recommend providing the estimated average glucose result to permit better patient understanding of their HBA1c result. Performed By: #### C DP, BMP, LIVP, VALPC #### [facility] [address] [place] [address] [employer] Machine Tender: Stephen Zamora MD #### GLYHGB, LIPR #### [facility] [employer] [facility] [place] [address] [employer] Machine Tender: Wenceslao Schaeffer MD HbA1c (Bld) [Mass fraction] 5.0 % Normal 4.0-6.[address] [facility] Comment on above: Performed By: #### C DP, BMP, LIVP, VALPC #### [address] [place], [place] [id number] [employer] Tender: Stephen Zamora MD #### GLYHGB, LIPR #### [facility] [address] [place], [place] [id number] [employer] Tender: Wenceslao Schaeffer MD B12/Folate Panelon Cobalamin (Vitamin B12) [Mass/Vol] 500 pg/mL Normal 232-[address] [facility] Comment on above: Performed By: #### C DP, BMP, LIVP, VALPC #### [address] [place], [place] [address] [employer] Tender: Stephen Zamora MD #### GLYHGB, LIPR #### [place] [address] [place], [place] 0760[address] [employer] Tender: Wenceslao Schaeffer MD Folic Acid >40.0 High 4.8-24.[address] [facility] Comment on above: Performed By: #### C DP, BMP, LIVP, VALPC #### [address] [place], [place] [id number] [employer] Machine Tender: Stephen Zamora MD #### GLYHGB, LIPR #### [place] [address] [place], [place] 2241408 [employer] Tender: Wenceslao Schaeffer MD CBCon 03-13-2024 Erythrocyte distribution width (RBC) [Ratio] 12.7 % 11.8 - 14.4 % [facility] Hematocrit (Bld) [Volume fraction] 37.1 % 36.3 - 47.1 % [facility] Hemoglobin (Bld) [Mass/Vol] 12.4 g/dL 11.9 - 15.1 g/dL [facility] MCH (RBC) [Entitic mass] 30.0 pg 25.2 - 33.5 pg [facility] MCHC (RBC) [Mass/Vol] 33.4 g/dL 28.4 - 34.8 g/dL [facility] MCV (RBC) [Entitic vol] 89.8 fL 82.6 - 102.9 fL [facility] Nucleated RBC/100 WBC (Bld) [Ratio] 0.0 % 0.0 per 100 WBC [facility] Platelet mean volume (Bld) [Entitic vol] 10.7 fL 8.1 - 13.5 fL [facility] Platelets (Bld) [#/Vol] 329 10*3/uL [facility] RBC (Bld) [#/Vol] 4.13 10*6/uL 3.95 - 5.1 1 m/uL [facility] WBC other (Bld) [#/Vol] 6.2 [facility] Erythrocyte distribution width (RBC) [Ratio] 12.7 % Normal 11.8-14.[address] [facility] Comment on above: Performed By: #### B 12FOL, LIPR, GLYHGB ####[address] [address] Lab Director: Wenceslao Schaeffer MD#### SANDRA, CBC, VALPC ####[address] [place] [id number] Lab Director: Stephen Zamora MD Hematocrit (Bld) [Volume fraction] 37.1 % Normal 36.3-47.[address] [facility] Comment on above: Performed By: #### B 12FOL, LIPR, GLYHGB ####[facility] [address] [place] [address] [id number] Lab Director: Wenceslao Schaeffer MD#### SANDRA, CBC, VALPC ####[address] [place] [address] Lab Director: Stephen Zamora MD Hemoglobin (Bld) [Mass/Vol] 12.4 g/dL Normal 11.9-15.[address] [facility] Comment on above: Performed By: #### B 12FOL, LIPR, GLYHGB ####[place] [address] [place], [place] [phone])[phone] Director: Wenceslao Schaeffer MD#### CP, CBC, VALPC ####[address] [place], [place] 1706383 Lab Director: Stephen Zamora MD MCH (RBC) [Entitic mass] 30.0 pg Normal 25.2-33.[address] [facility] Comment on above: Performed By: #### B 12FOL, LIPR, GLYHGB ####[address] [address] Lab Director: Wenceslao Schaeffer MD#### CP, CBC, VALPC ####[address] [place] [id number] Lab Director: Stephen Zamora MD MCHC (RBC) [Mass/Vol] 33.4 g/dL Normal 28.4-34.8 [facility] Comment on above: Performed By: #### B 12FOL, LIPR, GLYHGB ####[address] [address] Lab Director: Wenceslao Schaeffer MD#### CP, CBC, VALPC ####[address] [place], [place] 316[address] Lab Director: Stephen Zamora MD MCV (RBC) [Entitic vol] 89.8 fL Normal 82.6-102.[address] [facility] Comment on above: Performed By: #### B 12FOL, LIPR, GLYHGB ####[address] [address] Lab Director: Wenceslao Schaeffer MD#### CP, CBC, VALPC ####[address] [place], [place] 158[address] Lab Director: Stephen Zamora MD NRBC Automated 0.0 per 100 WBC Normal 0.[address] [facility] Comment on above: Performed By: #### B 12FOL, LIPR, GLYHGB ####[facility] [address] [place], [place] [phone] Director: Wenceslao Schaeffer MD#### CP, CBC, VALPC ####[address] [place] [address])[phone] Director: Stephen Zamora MD Platelet mean volume (Bld) [Entitic vol] 10.7 fL Normal 8.1-13.[address] [facility] Comment on above: Performed By: #### B 12FOL, LIPR, GLYHGB ####[address] [id number])[phone] Director: Wneceslao Schaeffer MD#### CP, CBC, VALPC ####[address] [place], [place] [address])[phone] Director: Stephen Zamora MD Platelets (Bld) [#/Vol] 329 10*3/uL Normal 138-[address] [facility] Comment on above: Performed By: #### B 12FOL, LIPR, GLYHGB ####[address] [phone] Director: Wenceslao Schaeffer MD#### CP, CBC, VALPC ####[address] [place] [id number]([facility])[phone] Director: Stephen Zamora MD RBC (Bld) [#/Vol] 4.13 10*6/uL Normal 3.95-5.[address] [facility] Comment on above: Performed By: #### B 12FOL, LIPR, GLYHGB ####[address] [id number])[phone] Director: Wenceslao Schaeffer MD#### CP, CBC, VALPC ####[address] [place] [id number])[phone] Director: Stephen Zamora MD WBC (Bld) [#/Vol] 6.2 10*3/uL Normal 3.5-11.[address] [facility] Comment on above: Performed By: #### B 12FOL, LIPR, GLYHGB ####[facility] [address] [place], [place] [id number])[phone] Director: Wenceslao Schaeffer MD#### CP, CBC, VALPC ####[facility] [place], [place] [id number])[phone] Director: Stephen Zamora MD Comp Metabolic Profon 2023 Albumin [Mass/Vol] 4.3 g/dL Normal 3.5-5.[address] [facility] Comment on above: Performed By: #### B 12FOL, LIPR, GLYHGB ####[place] [address] [place], [place] [id number])[phone] Director: Wenceslao Schaeffer MD#### CP, CBC, VALPC ####[address] , [place] [phone])[phone] Director: Stephen Zamora MD Albumin/Glob Ratio 1.5 Normal 1.0-2.[address] [facility] Comment on above: Performed By: #### B 12FOL, LIPR, GLYHGB ####[facility] [address] [place], [place] [id number])[phone] Director: Wenceslao Schaeffer MD#### CP, CBC, VALPC ####[address] , [place] [phone])[phone] Director: Stephen Zamora MD Alkaline Phos 85 U/L Normal 35-104 [facility] Comment on above: Performed By: #### B 12FOL, LIPR, GLYHGB ####[facility] [address] [place], [place] [phone] Director: Wenceslao Schaeffer MD#### CP, CBC, VALPC ####[address] , [place] [id number] Lab Director: Stephen Zamora MD ALT [Catalytic activity/Vol] 26 U/L Normal 10-[address] [facility] Comment on above: Performed By: #### B 12FOL, LIPR, GLYHGB ####[place] [address] [place], [place] [phone] Director: Wenceslao Schaeffer MD#### CP, CBC, VALPC ####[address] [place], [place] 89[address]783 Lab Director: Stephen Zamora MD Anion gap [Moles/Vol] 15 mmol/L Normal 9-16 [facility] Comment on above: Performed By: #### B 12FOL, LIPR, GLYHGB ####[address] [address] Lab Director: Wenceslao Schaeffer MD#### CP, CBC, VALPC ####[address] , [place] [id number] Lab Director: Stephen Zamora MD AST [Catalytic activity/Vol] 26 U/L Normal 10-[address] [facility] Comment on above: Performed By: #### B 12FOL, LIPR, GLYHGB ####[address] [address] Lab Director: Wenceslao Schaeffer MD#### CP, CBC, VALPC ####[address] , [place] [phone] Lab Director: Stephen Zamora MD Bilirubin [Mass/Vol] 0.4 mg/dL Normal 0.00-1.[address] [facility] Comment on above: Performed By: #### B 12FOL, LIPR, GLYHGB ####[facility] [address] [place] [address] Lab Director: Wenceslao Schaeffer MD#### CP, CBC, VALPC ####[address] [place], [place] 127[address]83 Lab Director: Stephen Zamora MD BUN/CRE Ratio 10 Normal 9-20 [facility] Comment on above: Performed By: #### B 12FOL, LIPR, GLYHGB ####[address] [phone])[phone] Director: Wenceslao Schaeffer MD#### CP, CBC, VALPC ####[address] [place] [id number] Lab Director: Stephen Zamora MD Calcium [Mass/Vol] 10.1 mg/dL Normal 8.6-10.[address] [facility] Comment on above: Performed By: #### B 12FOL, LIPR, GLYHGB ####[address] [address] Lab Director: Wenceslao Schaeffer MD#### CP, CBC, VALPC ####[address] , [place] [id number] Lab Director: Stephen Zamora MD Chloride [Moles/Vol] 107 mmol/L Normal 98-[address] [facility] Comment on above: Performed By: #### B 12FOL, LIPR, GLYHGB ####[address] [place] [address] Lab Director: Wenceslao Schaeffer MD#### CP, CBC, VALPC ####[address] [place], [place] [id number] Lab Director: Stephen Zamora MD CO2 [Moles/Vol] 19 mmol/L Low 20-31 [facility] Comment on above: Performed By: #### B 12FOL, LIPR, GLYHGB ####[facility] [address] [place] [address], [place] [address] Lab Director: Wenceslao Schaeffer MD#### MARY JANE FLORES, VALPC ####[address] [place], [place] [id number] Lab Director: Stephen Zamora MD Creatinine [Mass/Vol] 0.9 mg/dL Normal 0.50-0.90 [facility] Comment on above: Performed By: #### B 12FOL, LIPR, GLYHGB ####[address] [place] [address] Lab Director: Wenceslao Schaeffer MD#### MARY JANE FLORES, VALPC ####[address] [place] [address] Lab Director: Stephen Zamora MD GFR/1.73 sq M.predicted among non-blacks MDRD (S/P/Bld) [Vol rate/Area] 83 mL/min/{1.73_m2} Normal >[address] [facility] Comment on above: Result Comment: These results are not intended for use in patients <18 years of age. eGFR results are calculated without a race factor using the 2020 CKD-EPI equation. Careful clinical correlation is recommended, particularly when comparing to results calculated using previous equations. The CKD-EPI equation is less accurate in patients with extremes of muscle mass, extra-renal metabolism of creatine, excessive creatine ingestion, or following therapy that affects renal tubular secretion. Performed By: #### B 12FOL, LIPR, GLYHGB ####[facility] [address] [place] [address] Lab Director: Wenceslao Schaeffer MD#### MARY JANE FLORES, VALPC ####[address] [place], [place] [id number] Lab Director: Stephen Zamora MD Glucose [Mass/Vol] 82 mg/dL Normal 74-[address] [facility] Comment on above: Performed By: #### B 12FOL, LIPR, GLYHGB ####[address] [address] Lab Director: Wenceslao Schaeffer MD#### CP, CBC, VALPC ####[address] , [place] [address] Lab Director: Stephen Zamoar MD Potassium [Moles/Vol] 3.7 mmol/L Normal 3.7-5.3 [facility] Comment on above: Performed By: #### B 12FOL, LIPR, GLYHGB ####[address] [address] Lab Director: Wenceslao Schaeffer MD#### CP, CBC, VALPC ####[address] [place], [place] [address] Lab Director: Stephen Zamora MD Protein [Mass/Vol] 7.2 g/dL Normal 6.6-8.[address] [facility] Comment on above: Performed By: #### B 12FOL, LIPR, GLYHGB ####[address] [address] Lab Director: Wenceslao Schaeffer MD#### CP, CBC, VALPC ####[address] , [place] [id number] Lab Director: Stephen Zamora MD Sodium [Moles/Vol] 141 mmol/L Normal 136-[address] [facility] Comment on above: Performed By: #### B 12FOL, LIPR, GLYHGB ####[address] [address] Lab Director: Wenceslao Schaeffer MD#### CP, CBC, VALPC ####[address] [place], [place] [id number] Lab Director: Stephen Zamora MD Urea nitrogen [Mass/Vol] 9 mg/dL Normal 6-[address] [facility] Comment on above: Performed By: #### B 12FOL, LIPR, GLYHGB ####[facility] [address] [place] [address] Lab Director: Wenceslao Schaeffer MD#### CP, CBC, VALPC ####[facility] [address] [place] [address] Lab Director: Stephen Zamora MD Comprehensive Metabolic Pane [facility] 03-13-2024 Albumin [Mass/Vol] 4.3 g/dL 3.5 - 5.2 g/dL [facility] Albumin/Globulin [Mass ratio] 1.5 {ratio} 1.0 - 2.5 [facility] ALP [Catalytic activity/Vol] 85 U/L 35 - 104 U/L [facility] ALT [Catalytic activity/Vol] 26 U/L 10 - 35 U/L [facility] Anion gap [Moles/Vol] 15 mmol/L 9 - 16 mmol/L [facility] AST [Catalytic activity/Vol] 26 U/L 10 - 35 U/L [facility] Bilirubin [Mass/Vol] 0.4 mg/dL 0.00 - 1.20 mg/dL [facility] Calcium [Mass/Vol] 10.1 mg/dL 8.6 - 10. 4 mg/dL [facility] Chloride [Moles/Vol] 107 mmol/L 98 - 10 7 mmol/L [facility] CO2 [Moles/Vol] 19 mmol/L Low 20 - 31 mmol/L [facility] Creatinine [Mass/Vol] 0.9 mg/dL 0.50 - 0.90 mg/dL [facility] Est, Glom Filt Rate 83 - PINF [facility] Comment on above: These results are not intended for use in patients <18 years of age. eGFR results are calculated without a race factor using the 2020 CKD-EPI equation. Careful clinical correlation is recommended, particularly when comparing to results calculated using previous equations. The CKD-EPI equation is less accurate in patients with extremes of muscle mass, extra-renal metabolism of creatine, excessive creatine ingestion, or following therapy that affects renal tubular secretion. Glucose [Mass/Vol] 82 mg/dL 74 - 99 mg/dL [facility] Interpretation and review of laboratory results Abnormal [facility] Potassium [Moles/Vol] 3.7 mmol/L 3.7 - 5.3 mmol/L [facility] Protein [Mass/Vol] 7.2 g/dL 6.6 - 8.7 g/dL [facility] Sodium [Moles/Vol] 141 mmol/L 136 - 145 mmol/L [facility] Urea nitrogen [Mass/Vol] 9 mg/dL 6 - 20 mg/dL [facility] Urea nitrogen/Creatinine [Mass ratio] 10 mg/mg 9 - 20 [facility] Lipid Panelon 03-13-2024 Cholesterol [Mass/Vol] 178 mg/dL 0 - 199 mg/dL [facility] Comment on above: Cholesterol Guidelines: <200 Desirable 200-240 Borderline >240 Undesirable Cholesterol in HDL [Mass/Vol] 52 mg/dL 40 - PINF mg/dL [facility] Comment on above: HDL Guidelines: <40 Undesirable 40-59 Borderline >59 Desirable Cholesterol in LDL [Mass/Vol] 92 mg/dL 0 - 100 mg/dL [facility] Comment on above: LDL Guidelines: <100 Desirable 100-129 Near to/above Desirable 130-159 Borderline >159 Undesirable Direct (measured) LDL and calculated LDL are not interchangeable tests. Cholesterol in VLDL [Mass/Vol] 34 mg/dL High 1 - 30 mg/dL [facility] Cholesterol.total/Cho lesterol in HDL [Mass ratio] 3.4 {ratio} [facility] Interpretation and review of laboratory results Abnormal [facility] Triglyceride [Mass/Vol] 172 mg/dL High NINF - 150 mg/dL [facility] Comment on above: Triglyceride Guidelines: <150 Desirable 150-199 Borderline 200-499 High >499 Very high Based on AHA Guidelines for fasting triglyceride, February 2012. [facility] Lipid Profileon 03-13-2024 Cholesterol [Mass/Vol] 178 mg/dL Normal 0-[address] [facility] Comment on above: Result Comment: Cholesterol Guidelines: <200 Desirable 200-240 Borderline >240 Undesirable Performed By: #### C DP, BMP, LIVP, VALPC #### [facility] [address] [place], [place] [id number] [employer] Machine Tender: Stephen Zamora MD #### GLYHGB, LIPR #### [address] [place] [address] [employer] Tender: Wenceslao Schaeffer MD Cholesterol in HDL [Mass/Vol] 52 mg/dL Normal >[address] [facility] Comment on above: Result Comment: HDL Guidelines: <40 Undesirable 40-59 Borderline >59 Desirable Performed By: #### C DP, BMP, LIVP, VALPC #### [facility] [address] [place], [place] [id number] [employer] Tender: Stephen Zamora MD #### GLYHGB, LIPR #### [address] [address] [employer] Tender: Wenceslao Schaeffer MD Cholesterol in LDL [Mass/Vol] 92 mg/dL Normal 0-[address] [facility] Comment on above: Result Comment: LDL Guidelines: <100 Desirable 100-129 Near to/above Desirable 130-159 Borderline >159 Undesirable Direct (measured) LDL and calculated LDL are not interchangeable tests. Performed By: #### C DP, BMP, LIVP, VALPC #### [address] [place], [place] [id number] [employer] Tender: Stepehn Zamora MD #### GLYHGB, LIPR #### [facility] [address] [place] [address] [employer] Tender: Wenceslao Schaeffer MD Cholesterol in VLDL [Mass/Vol] 34 mg/dL High 1-[address] [facility] Comment on above: Performed By: #### C DP, BMP, LIVP, VALPC #### [address] [place], [place] [id number] [employer] Tender: Stephen Zamora MD #### GLYHGB, LIPR #### [address] [address] [employer] Tender: Wenceslao Schaeffer MD Cholesterol.total/Cho lesterol in HDL [Mass ratio] 3.4 {ratio} Normal [facility] Comment on above: Performed By: #### C DP, BMP, LIVP, VALPC #### [facility] [address] [place] [address] [employer] Machine Tender: Stephen Zamora MD #### GLYHGB, LIPR #### [facility] [address] [place] [address] [employer] Tender: Wenceslao Schaeffer MD Triglyceride [Mass/Vol] 172 mg/dL High <[address] [facility] Comment on above: Result Comment: Triglyceride Guidelines: <150 Desirable 150-199 Borderline 200-499 High >499 Very high Based on AHA Guidelines for fasting triglyceride, February 2012. Performed By: #### C DP, BMP, LIVP, VALPC #### [facility] [address] [place], [place] [address] [employer] Tender: Stephen Zamora MD #### GLYHGB, LIPR #### [facility] [address] [place] [address] [employer] Machine Tender: Wenceslao Schaeffer MD Valproic Acidon 6 Valproic Acid <3 Low 50-125 [facility] Comment on above: Performed By: #### B 12FOL, LIPR, GLYHGB ####[facility] [place] [address] Lab Director: Wenceslao Schaeffer MD#### CP, CBC, VALPC ####[facility] [place], [place] [address] Lab Director: Stephen Zamora MD Valproic Acid Level, Totalon 03-13-2024 Interpretation and review of laboratory results Abnormal [facility] Valproate [Mass/Vol] ug/mL Low 50 - 12 5 ug/mL [facility] Vitamin B12 & Folateon 03-13 Cobalamin (Vitamin B12) [Mass/Vol] 500 pg/mL 232 - 1245 pg/mL [facility] Folate [Mass/Vol] ng/mL High 4.8 - 24.2 ng/mL [facility] Interpretation and review of laboratory results Abnormal [facility] MRI BRAIN W WO CONTRASTon MRI BRAIN W WO CONTRAST EXAMINATION: MRI OF THE BRAIN WITHOUT AND WITH CONTRAST 02/08/2024 11:42 am TECHNIQUE: Multiplanar multisequence MRI of the head/brain was performed without and with the administration of intravenous contrast. COMPARISON: MRI brain performed 02/03/2015. HISTORY: ORDERING SYSTEM PROVIDED HISTORY: Chronic migraine without aura, with intractable migraine, so stated, with status migrainosus TECHNOLOGIST PROVIDED HISTORY: STAT Creatinine as needed:->No headache disorder FINDINGS: INTRACRANIAL STRUCTURES/VENTRICLE S: The sellar and suprasellar structures, optic chiasm, corpus callosum, pineal gland, tectum, and midline brainstem structures are unremarkable. The craniocervical junction is unremarkable. There is no acute hemorrhage, mass effect, or midline shift. There is satisfactory overall shell-white matter differentiation. The ventricular structures are symmetric and unremarkable. The infratentorial structures including the cerebellopontine angles and internal auditory canals are unremarkable. There is no abnormal restricted diffusion. There is no abnormal blooming artifact on susceptibility weighted imaging. No abnormal postcontrast enhancement. ORBITS: The visualized portion of the orbits demonstrate no acute abnormality. SINUSES: The visualized paranasal sinuses and mastoid air cells demonstrate no acute abnormality. BONES/SOFT TISSUES: The bone marrow signal intensity appears normal. The soft tissues demonstrate no acute abnormality. IMPRESSION: No acute intracranial abnormality. No abnormal postcontrast enhancement. Interpreted by: Lazaro Dejesus MD Signed by: Lazaro Dejessu MD 02/11/24 Final result Normal [facility] Creatinineon 02-08-2024 Creatinine [Mass/Vol] 0.8 mg/dL 0.50 - 0.90 mg/dL [facility] Est, Glom Filt Rate - PINF [facility] Comment on above: These results are not intended for use in patients <18 years of age. eGFR results are calculated without a race factor using the 2020 CKD-EPI equation. Careful clinical correlation is recommended, particularly when comparing to results calculated using previous equations. The CKD-EPI equation is less accurate in patients with extremes of muscle mass, extra-renal metabolism of creatine, excessive creatine ingestion, or following therapy that affects renal tubular secretion. [facility] Creatinine w/GFRon Creatinine [Mass/Vol] 0.8 mg/dL Normal 0.50-0.90 [facility] Comment on above: Performed By: #### C REG ####[facility] [place] [address] lab Director: Stephen Zamora MD GFR/1.73 sq M.predicted among non-blacks MDRD (S/P/Bld) [Vol rate/Area] mL/min/{1.73_m2} Normal >[address] [facility] Comment on above: Result Comment: These results are not intended for use in patients <18 years of age. eGFR results are calculated without a race factor using the 2020 CKD-EPI equation. Careful clinical correlation is recommended, particularly when comparing to results calculated using previous equations. The CKD-EPI equation is less accurate in patients with extremes of muscle mass, extra-renal metabolism of creatine, excessive creatine ingestion, or following therapy that affects renal tubular secretion. Performed By: #### C REG ####[address] , [place] [id number] lab Director: Stephen Zamora MD MRI ABDOMEN W WO CONTRASTon 02-08-2024 MRI ABDOMEN W WO CONTRAST EXAMINATION: MRI OF THE ABDOMEN WITHOUT AND WITH CONTRAST, 02/08/2024 11:42 am TECHNIQUE: Multiplanar multisequence MRI of the abdomen was performed without and with the administration of intravenous contrast. COMPARISON: 12/24/2023 ultrasound HISTORY: ORDERING SYSTEM PROVIDED HISTORY: Abnormal CT scan, bladder TECHNOLOGIST PROVIDED HISTORY: STAT Creatinine as needed:->No ATTN LIVER What is the sedation requirement?->None FINDINGS: Technical Factors: Arterial phase timing is optimal. Extremely limited study due to very significant patient motion throughout each series of this study. Extremely poor resolution of the liver as result. Diffuse Liver Abnormalities: Evaluation of liver parenchyma is limited. There is no obvious cirrhosis or steatosis. Liver Lesion: The prior ultrasound demonstrated multiple echogenic lesions in the right hepatic lobe suspected to represent hemangiomas. Best appreciated on the post contrast portal venous phase study, there are several hypointense lesions scattered throughout the right hepatic lobe measuring up to 2.2 cm in segment VIII. Characterization cannot be provided given limitation of this study. Vascular Abnormalities: None Bile Ducts: Normal Gallbladder: Normal Other: None IMPRESSION: 1. Extremely limited study due to patient motion. 2. Multiple lesions in the right hepatic lobe are suspected to represent hemangiomas on prior ultrasound. These cannot be characterized on the current MRI. 3. These were incidental findings in a 33-year-old patient. Unless there are significant risk factors for malignancy, recommend ultrasound follow-up in 6-12 months to ensure stability. If necessary, a multiphase liver CT may be considered, which would be more resistant to patient motion. Interpreted by: Italo Colindres IV, MD Signed by: Italo Colindres IV, MD 02/08/24 Final result Normal [facility] Ambulatory Visit Summaryon 0 01-16-2024 Ambulatory Visit Summary Ambulatory Visit Summary LETICIA TINOCO :1990 Visit Date:01/16/2024 Ambulatory Visit Instructions Your Diagnosis Liver lesion Your Care Team Attending Physician - Cher López MD Primary Care Physician - Maikel CARDONA DO, FAAFP This Is Your Medications List Contact prescribing physician if questions or concerns APAP/ASA/caffeine (Excedrin Migraine) acetaminophen (Tylenol) aripiprazole (Abilify 30 mg oral tablet) benzocaine-resorcino l topical (Vagisil 5%-2% vaginal cream) benztropine (benztropine 1 mg Tab) divalproex sodium (Depakote ER 500 mg Tab-ER) ethinyl estradiol-norgestima te (Ortho Cyclen 35 mcg-0.25 mg Tab) fenofibrate (fenofibrate 48 mg Tab) ferrous sulfate (ferrous sulfate 325 mg oral enteric coated tablet) fludrocortisone fluocinolone topical ([place]-Smoothe/FS (Scalp) 0.01% topical oil) fluocinolone topical (fluocinolone topical 0.025% ointment) folic acid (folic acid 1 mg Tab) folic acid (folic acid 1 mg Tab) gentamicin ophthalmic (Garamycin 0.3% Soln-Opth) haloperidol (haloperidol 10 mg oral tablet) haloperidol (haloperidol 5 mg Tab) hydrOXYzine hydrocortisone topical (Procto-Med HC) lamotrigine (Lamictal 100 mg Tab) loratadine (loratadine 10 mg oral capsule) multivitamin propranolol (propranolol 80 mg Tab) sertraline (Zoloft 100 mg Tab) sumatriptan trazodone (traZODONE 50 mg Tab) triamcinolone topical (triamcinolone Top 0.1% Oint) Procedures Performed None. Discharge Vitals Heart Rate (Peripheral) 92 Respiratory Rate 16 Blood Pressure 108/72 Weight 104 kg Weight 228.8 lb What to do next You Need to Complete the Following CBC w/ Auto Diff, Blood, Routine collect, 01/16/24, Order for future visit, Lab Collect, Liver lesion, Print Label By Order Location Comprehensive Metabolic Panel, Blood, Routine collect, 01/16/24, Order for future visit, Lab Collect, Liver lesion, Print Label By Order Location CT Abdomen/Pelvis w/ + w/o Contrast, 01/16/24, Routine, Order for future visit, Transport Mode: Ambulatory, Reason: Other (please specify), No, No, Liver lesion, pp_set_radiology_sub specialty, [facility] - Joni Medications What How Much When Instructions Unchanged acetaminophen (Tylenol) By Mouth Contact prescribing physician if questions or concerns Unchanged APAP/ ASA/ caffeine (Excedrin Migraine) By Mouth Every 6 hours Contact prescribing physician if questions or concerns Unchanged aripiprazole (Abilify 30 mg oral tablet) 1 Tablets By Mouth Every day Contact prescribing physician if questions or concerns Unchanged benzocaine-resorcino l topical (Vagisil 5%-2% vaginal cream) Topical 2 times a day Contact prescribing physician if questions or concerns Unchanged benztropine (benztropine 1 mg Tab) By Mouth 2 times a day Contact prescribing physician if questions or concerns Unchanged divalproex sodium (Depakote ER 500 mg Tab-ER) By Mouth Every day Contact prescribing physician if questions or concerns Unchanged ethinyl estradiol-norgestima te (Ortho Cyclen 35 mcg-0.25 mg Tab) By Mouth Every day Contact prescribing physician if questions or concerns Unchanged fenofibrate (fenofibrate 48 mg Tab) By Mouth Every day Contact prescribing physician if questions or concerns Unchanged ferrous sulfate (ferrous sulfate 325 mg oral enteric coated tablet) By Mouth Every day Contact prescribing physician if questions or concerns Unchanged fludrocortisone By Mouth Every day Contact prescribing physician if questions or concerns Unchanged fluocinolone topical ([place]-Smoothe/ FS (Scalp) 0.01% topical oil) Topical 3 times a day Contact prescribing physician if questions or concerns Unchanged fluocinolone topical (fluocinolone topical 0.025% ointment) Topical 2 times a day Contact prescribing physician if questions or concerns Unchanged folic acid (folic acid 1 mg Tab) 4 Tablets By Mouth Every day Contact prescribing physician if questions or concerns Unchanged folic acid (folic acid 1 mg Tab) By Mouth Every day Contact prescribing physician if questions or concerns Unchanged gentamicin ophthalmic (Garamycin 0.3% Soln-Opth) Both eyes 4 times a day Contact prescribing physician if questions or concerns Unchanged haloperidol (haloperidol 10 mg oral tablet) By Mouth 2 times a day Contact prescribing physician if questions or concerns Unchanged haloperidol (haloperidol 5 mg Tab) By Mouth 2 times a day Contact prescribing physician if questions or concerns Unchanged hydrocortisone topical (Procto-Med HC) Topical 3 times a day Contact prescribing physician if questions or concerns Unchanged hydrOXYzine Contact prescribing physician if questions or concerns Unchanged lamotrigine (Lamictal 100 mg Tab) 1 Tablets By Mouth Every day Contact prescribing physician if questions or concerns Unchanged loratadine (loratadine 10 mg oral capsule) 1 Capsules By Mouth Every day Contact prescribing physician if questions or concerns (more content not included)... Normal [facility] Gastroenterology Office/Clin ic Noteon 01-16-2024 Gastroenterology Office/Clinic Note Gastroenterology Office/Clinic Note Chief Complaint ref by Elan for Liver Lesions HPI Staff Patient is a(n) 33 year old female who was referred by Elan for a lesion on the liver. Any abdominal pain/pressure? No. Any n/v/c or diarrhea? No, Denies previous EGD/Colonoscopy. Denies Fhx colon cancer. Denies blood thinners. Denies GLP-1 agonists. Last Hep B vaccine - 2011. US abd 12/24/23 @ [facility]: IMPRESSION: Multiple rounded hyperechoic lesions within the liver has the ultrasound appearance of hemangiomas. Recommend follow-up ultrasound in 6 months to document stability. CBC/CMP 08/27 @ [facility] - WNL History of Present Illness Doing well currently, no abdominal pain Physical Exam Vitals & Measurements HR: 92(Peripheral) RR: 16 BP: 108/72 WT: 104 kg WT: 228.8 lb Assessment/Plan 1. Liver lesion (K76.9: Liver disease, unspecified) Had right upper quadrant ultrasound done for abdominal pain Was suggestive of hemangiomas no recent blood work done, abdominal pain resolved Suggested triple phase CAT scan abdomen to better assess the lesions, Also obtain CBC and CMP and follow-up in the clinic after the CT is done Follow-up No qualifying data available Problem List/Past Medical History Ongoing ADHD H/O subdural hemorrhage Liver lesion Psychotic affective disorder Seizure disorder Historical ADHD Seizures Procedure/Surgical History None. Medications Abilify 30 mg oral tablet, 30 mg= 1 tab(s), Oral, Daily benztropine 1 mg Tab, Oral, BID Depakote ER 500 mg Tab-ER, Oral, Daily [place]-Smoothe/FS (Scalp) 0.01% topical oil, Topical, TID Excedrin Migraine, Oral, q6hr fenofibrate 48 mg Tab, Oral, Daily ferrous sulfate 325 mg oral enteric coated tablet, Oral, Daily fludrocortisone, Oral, Daily fluocinolone topical 0.025% ointment, Topical, BID folic acid 1 mg Tab, 4 mg= 4 tab(s), Oral, Daily folic acid 1 mg Tab, Oral, Daily Garamycin 0.3% Soln-Opth, Eye-Both, QID haloperidol 10 mg oral tablet, Oral, BID haloperidol 5 mg Tab, Oral, BID hydrOXYzine Lamictal 100 mg Tab, 100 mg= 1 tab(s), Oral, Daily loratadine 10 mg oral capsule, 10 mg= 1 cap(s), Oral, Daily multivitamin Ortho Cyclen 35 mcg-0.25 mg Tab, Oral, Daily Procto-Med HC, Topical, TID propranolol 80 mg Tab, Oral, BID sumatriptan, Once traZODONE 50 mg Tab, Oral triamcinolone Top 0.1% Oint, Topical, TID Tylenol, Oral Vagisil 5%-2% vaginal cream, Topical, BID Zoloft 100 mg Tab, 100 mg= 1 tab(s), Oral, Daily Allergies No Known Allergies Social History Alcohol - Denies Alcohol Use, 01/24/2012 Substance Abuse - Denies Substance Abuse, 01/24/2012 Tobacco - Denies Tobacco Use, 01/24/2012 Never (less than 100 in lifetime) Tobacco Use:., 01/16/2024 Family History Family history is negative Immunizations Vaccine Date Status Comments SARS-CoV-2 (COVID-19) mRNA BNT-162b2 vax 05/04/2021 Recorded 2024-01-16: TPVALL SARS-CoV-2 (COVID-19) mRNA BNT-162b2 vax 06/08/2020 Recorded 2024-01-16: TPVAL SARS-CoV-2 (COVID-19) mRNA BNT-162b2 vax 05/18/2020 Recorded 2024-01-16: TPVAL influenza virus vaccine, inactivated 02/24/2015 Recorded diphtheria/pertussis , acel/tetanus adult 01/09/2012 Recorded hepatitis B pediatric vaccine 01/09/2012 Recorded Normal [facility] Comment on above: Result Comment: Elec tronically Signed By: Maribel STRINGER, Cher Nicholas\.br\Date and Time Signed: 01/16/24 10:57 EDT US ABDOMEN LIMITEDon 024 US ABDOMEN LIMITED EXAMINATION: RIGHT UPPER QUADRANT ULTRASOUND 12/24/2023 4:21 pm COMPARISON: None. HISTORY: ORDERING SYSTEM PROVIDED HISTORY: Right upper quadrant pain TECHNOLOGIST PROVIDED HISTORY: Specify organ?->LIVER Specify organ?->GALLBLADDER FINDINGS: LIVER: The liver demonstrates normal echogenicity without evidence of intrahepatic biliary ductal dilatation. Multiple rounded hyperechoic lesions within the liver has the ultrasound appearance of hemangiomas largest right hepatic lobe 12 x 16 x 11 mm. BILIARY SYSTEM: Gallbladder is unremarkable without evidence of pericholecystic fluid, wall thickening or stones. Negative sonographic Choudhury's sign. RIGHT KIDNEY: The right kidney is grossly unremarkable without evidence of hydronephrosis. PANCREAS: Visualized portions of the pancreas are unremarkable. OTHER: No evidence of right upper quadrant ascites. IMPRESSION: Multiple rounded hyperechoic lesions within the liver has the ultrasound appearance of hemangiomas. Recommend follow-up ultrasound in 6 months to document stability. Interpreted by: Wilian Contreras DO Signed by: Wilian Contreras DO 12/24/23 Final result Normal [facility] US Abdomen limitedon 024 Multiple rounded hyperechoic lesions within the liver has the ultrasound appearance of hemangiomas. Recommend follow-up ultrasound in 6 months to document stability. [facility] EXAMINATION: RIGHT UPPER QUADRANT ULTRASOUND 12/24/2023 4:21 pm COMPARISON: None. HISTORY: ORDERING SYSTEM PROVIDED HISTORY: Right upper quadrant pain TECHNOLOGIST PROVIDED HISTORY: Specify organ?->LIVER Specify organ?->GALLBLADDER FINDINGS: LIVER: The liver demonstrates normal echogenicity without evidence of intrahepatic biliary ductal dilatation. Multiple rounded hyperechoic lesions within the liver has the ultrasound appearance of hemangiomas largest right hepatic lobe 12 x 16 x 11 mm. BILIARY SYSTEM: Gallbladder is unremarkable without evidence of pericholecystic fluid, wall thickening or stones. Negative sonographic Choudhury's sign. RIGHT KIDNEY: The right kidney is grossly unremarkable without evidence of hydronephrosis. PANCREAS: Visualized portions of the pancreas are unremarkable. OTHER: No evidence of right upper quadrant ascites. [facility] Wilian Contreras, - 12/24/2023 EXAMINATION: RIGHT UPPER QUADRANT ULTRASOUND 12/24/2023 4:21 pm COMPARISON: None. HISTORY: ORDERING SYSTEM PROVIDED HISTORY: Right upper quadrant pain TECHNOLOGIST PROVIDED HISTORY: Specify organ?->LIVER Specify organ?->GALLBLADDER FINDINGS: LIVER: The liver demonstrates normal echogenicity without evidence of intrahepatic biliary ductal dilatation. Multiple rounded hyperechoic lesions within the liver has the ultrasound appearance of hemangiomas largest right hepatic lobe 12 x 16 x 11 mm. BILIARY SYSTEM: Gallbladder is unremarkable without evidence of pericholecystic fluid, wall thickening or stones. Negative sonographic Choudhury's sign. RIGHT KIDNEY: The right kidney is grossly unremarkable without evidence of hydronephrosis. PANCREAS: Visualized portions of the pancreas are unremarkable. OTHER: No evidence of right upper quadrant ascites. IMPRESSION: Multiple rounded hyperechoic lesions within the liver has the ultrasound appearance of hemangiomas. Recommend follow-up ultrasound in 6 months to document stability. [facility] Radiology Study observation (narrative) [facility] US Abdomen limitedOrdered By : Wilian Contreras on 12-24-2023 [facility] Work Phone: Vaginitis DNA Probeon 2023 Pattie Negative Normal [facility] Comment on above: Result Comment: for Pattie sp. Method of testing is a DNA probe intended for detection and identification of Pattie species, Gardnerella vaginalis, and Trichomonas vaginalis nucleic acid in vaginal fluid specimens from patients with symptoms of vaginitis/vaginosis. Performed By: #### V AGP ####[facility] [address] [place] [address] Lab Director: Wenceslao Schaeffer[address] , [place] [phone] Lab Director: Stephen Zamora MD Gardnerella Negative Normal [facility] Comment on above: Result Comment: for Gardnerella vaginalis Performed By: #### V AGP ####[facility] [address] [place] [address] Lab Director: Wenceslao Schaeffer[address] , [place] [phone] Lab Director: Stephen Zamora MD Trichomonas Negative Normal [facility] Comment on above: Result Comment: for Trichomonas Vaginalis Performed By: #### V AGP ####[facility] [address] [place] [address] Lab Director: Wenceslao Schaeffer[address] [place] [address] Lab Director: Stephen Zamora MD Vaginitis DNA Probeon 2023 Source .VAGINAL SWAB Normal [facility] Comment on above: Performed By: #### V AGP ####[facility] [address] [place] [address] Lab Director: Wenceslao Schaeffer [address] , [place] [phone] Lab Director: Stephen Zamora MD Hemoglobin A1Con 11-21-2023 Average glucose Estimated from glycated hemoglobin (Bld) [Mass/Vol] 91 mg/dL [facility] Comment on above: The ADA and AACC rec ommend providing the estimated average glucose result to permit better patient understanding of their HBA1c result. HbA1c (Bld) [Mass fraction] 4.8 % 4.0 - 6.0 % [facility] Glucose [Mass/Vol] 91 mg/dL Normal [facility] Comment on above: Result Comment: The ADA and AACC recommend providing the estimated average glucose result to permit better patient understanding of their HBA1c result. Performed By: #### C DP, BMP, LIVP, VALPC #### [facility] [address] [place] [address] [place] [address] Bow Maker Machine Tender: Stephen Zamora MD #### GLYHGB, LIPR #### [facility] [address] [place] [address] [employer] Maker Machine Tender: Wenceslao Schaeffer MD HbA1c (Bld) [Mass fraction] 4.8 % Normal 4.0-6.[address] [facility] Comment on above: Performed By: #### C DP, BMP, LIVP, VALPC #### [address] [place] [phone] [employer] Machine Tender: Stephen Zamora MD #### GLYHGB, LIPR #### [facility] [address] [place] [address] [employer] Machine Tender: Wenceslao Schaeffer MD CBCon 08-28-2023 Erythrocyte distribution width (RBC) [Ratio] 12.1 % Normal 11.8-14.[address] [facility] Comment on above: Performed By: #### F OL, GLYHGB ####[facility] [address] [place] [address] Lab Director: Wenceslao Schaeffer MD#### CP, CBC, VALPC ####[address] [place] [phone] Lab Director: Stephen Zamora MD Hematocrit (Bld) [Volume fraction] 37.8 % Normal 36.3-47.[address] [facility] Comment on above: Performed By: #### F OL, GLYHGB ####[facility] [address] [place] [address] Lab Director: Wenceslao Schaeffer MD#### CP, CBC, VALPC ####[address] [place] [phone] Lab Director: Stephen Zamora MD Hemoglobin (Bld) [Mass/Vol] 12.4 g/dL Normal 11.9-15.[address] [facility] Comment on above: Performed By: #### F OL, GLYHGB ####[address] [address] Lab Director: Wenceslao Schaeffer MD#### CP, CBC, VALPC ####[address] [place] [phone] Lab Director: Stephen Zamora MD MCH (RBC) [Entitic mass] 30.1 pg Normal 25.2-33.[address] [facility] Comment on above: Performed By: #### F OL, GLYHGB ####[address] [address] Lab Director: Wenceslao Schaeffer MD#### CP, CBC, VALPC ####[address] [place] [phone] Lab Director: Stephen Zamora MD MCHC (RBC) [Mass/Vol] 32.8 g/dL Normal 28.4-34.8 [facility] Comment on above: Performed By: #### F OL, GLYHGB ####[address] [place] [address] Lab Director: Wenceslao Schaeffer MD#### CP, CBC, VALPC ####[address] [place], [place] 6[address]83 Lab Director: Stephen Zamora MD MCV (RBC) [Entitic vol] 91.7 fL Normal 82.6-102.[address] [facility] Comment on above: Performed By: #### F OL, GLYHGB ####[address] [place] [address] Lab Director: Wenceslao Schaeffer MD#### CP, CBC, VALPC ####[address] [place], [place] 3686183 Lab Director: Stephen Zamora MD NRBC Automated 0.0 per 100 WBC Normal 0.[address] [facility] Comment on above: Performed By: #### F OL, GLYHGB ####[address] [address] Lab Director: Wenceslao Schaeffer MD#### CP, CBC, VALPC ####[address] [place], [place] 422[address]83 Lab Director: Stephen Zamora MD Platelet mean volume (Bld) [Entitic vol] 10.8 fL Normal 8.1-13.[address] [facility] Comment on above: Performed By: #### F OL, GLYHGB ####[address] [address] Lab Director: Wenceslao Schaeffer MD#### CP, CBC, VALPC ####[address] , [place] [phone] Lab Director: Stephen Zamora MD Platelets (Bld) [#/Vol] 272 10*3/uL Normal 138-[address] [facility] Comment on above: Performed By: #### F OL, GLYHGB ####[address] [address] Lab Director: Wenceslao Schaeffer MD#### CP, CBC, VALPC ####[address] [place], [place] 8692083 Lab Director: Stephen Zamora MD RBC (Bld) [#/Vol] 4.12 10*6/uL Normal 3.95-5.[address] [facility] Comment on above: Performed By: #### F OL, GLYHGB ####[facility] [address] [place], [place] [phone] Director: Wenceslao Schaeffer MD#### CP, CBC, VALPC ####[address] [place] [address] Lab Director: Stephen Zamora MD WBC (Bld) [#/Vol] 6.3 10*3/uL Normal 3.5-11.[address] [facility] Comment on above: Performed By: #### F OL, GLYHGB ####[facility] [address] [place], [place] [phone] Director: Wenceslao Schaeffer MD#### CP, CBC, VALPC ####[address] [place], [place] [phone] Director: Stephen Zamora MD Comp Metabolic Profon 2023 Albumin [Mass/Vol] 3.9 g/dL Normal 3.5-5.[address] [facility] Comment on above: Performed By: #### F OL, GLYHGB ####[facility] [place], [place] [phone] Director: Wenceslao Schaeffer MD#### CP, CBC, VALPC ####[address] , [place] [phone] Director: Stephen Zamora MD Albumin/Glob Ratio 1.4 Normal 1.0-2.[address] [facility] Comment on above: Performed By: #### F OL, GLYHGB ####[facility] [address] [place], [place] [phone] Director: Wenceslao Schaeffer MD#### CP, CBC, VALPC ####[address] , [place] [phone] Director: Stephen Zamora MD Alkaline Phos 62 U/L Normal 35-104 [facility] Comment on above: Performed By: #### F OL, GLYHGB ####[address] [place] [address] Lab Director: Wenceslao Schaeffer MD#### CP, CBC, VALPC ####[address] [place] [address] Lab Director: Stephen Zamora MD ALT [Catalytic activity/Vol] 17 U/L Normal 5-[address] [facility] Comment on above: Performed By: #### F OL, GLYHGB ####[address] [place] [address] Lab Director: Wenceslao Schaeffer MD#### CP, CBC, VALPC ####[address] , [place] [phone] Lab Director: Stephen Zamora MD Anion gap [Moles/Vol] 11 mmol/L Normal 9-17 [facility] Comment on above: Performed By: #### F OL, GLYHGB ####[facility] [place], [place] [phone] Director: Wenceslao Schaeffer MD#### CP, CBC, VALPC ####[address] [place] [address] Lab Director: Stephen Zamora MD AST [Catalytic activity/Vol] 17 U/L Normal <[address] [facility] Comment on above: Performed By: #### F OL, GLYHGB ####[address] [place], [place] [phone] Director: Wenceslao Schaeffer MD#### CP, CBC, VALPC ####[address] [place] [address] Lab Director: Stephen Zamora MD Bilirubin [Mass/Vol] 0.3 mg/dL Normal 0.3-1.[address] [facility] Comment on above: Performed By: #### F OL, GLYHGB ####[address] [place] [address] Lab Director: Wenceslao Schaeffer MD#### CP, CBC, VALPC ####[address] , [place] [phone] Lab Director: Stephen Zamora MD BUN/CRE Ratio 15 Normal 9-20 [facility] Comment on above: Performed By: #### F OL, GLYHGB ####[address] [phone] Director: Wenceslao Schaeffer MD#### CP, CBC, VALPC ####[address] , [place] 8324483 Lab Director: Stephen Zamora MD Calcium [Mass/Vol] 9.3 mg/dL Normal 8.6-10.[address] [facility] Comment on above: Performed By: #### F OL, GLYHGB ####[address] [address] Lab Director: Wenceslao Schaeffer MD#### CP, CBC, VALPC ####[address] [place] [address] Lab Director: Stephen Zamora MD Chloride [Moles/Vol] 104 mmol/L Normal 98-[address] [facility] Comment on above: Performed By: #### F OL, GLYHGB ####[address] [phone] Director: Wenceslao Schaeffer MD#### CP, CBC, VALPC ####[address] , [place] [phone] Director: Stephen Zamora MD CO2 [Moles/Vol] 25 mmol/L Normal 20-31 [facility] Comment on above: Performed By: #### F OL, GLYHGB ####[facility] [address] [place] [address] Lab Director: Wenceslao Schaeffer MD#### MARY JANE FLORES VALPC ####[address] [place], [place] 089[address]83 Lab Director: Stephen Zamora MD Creatinine [Mass/Vol] 0.8 mg/dL Normal 0.5-0.9 [facility] Comment on above: Performed By: #### F OL, GLYHGB ####[address] [address] Lab Director: Wenceslao Schaeffer MD#### MARY JANE FLORES VALPC ####[address] [place], [place] 1866383 Lab Director: Stephen Zamora MD GFR/1.73 sq M.predicted among non-blacks MDRD (S/P/Bld) [Vol rate/Area] mL/min/{1.73_m2} Normal >[address] [facility] Comment on above: Result Comment: These results are not intended for use in patients <18 years of age. eGFR results are calculated without a race factor using the 2020 CKD-EPI equation. Careful clinical correlation is recommended, particularly when comparing to results calculated using previous equations. The CKD-EPI equation is less accurate in patients with extremes of muscle mass, extra-renal metabolism of creatine, excessive creatine ingestion, or following therapy that affects renal tubular secretion. Performed By: #### F OL, GLYHGB ####[facility] [address] [place] [address] Lab Director: Wenceslao Schaeffer MD#### MARY JANE FLORES, VALPC ####[address] [place], [place] 1773583 Lab Director: Stephen Zamora MD Glucose [Mass/Vol] 107 mg/dL High 70-[address] [facility] Comment on above: Performed By: #### F OL, GLYHGB ####[address] [address] Lab Director: Wenceslao Schaeffer MD#### CP, CBC, VALPC ####[address] [place], [place] 3447183 Lab Director: Stephen Zamora MD Potassium [Moles/Vol] 3.8 mmol/L Normal 3.7-5.3 [facility] Comment on above: Performed By: #### F OL, GLYHGB ####[facility] [address] [place] [address] Lab Director: Wenceslao Schaeffer MD#### CP, CBC, VALPC ####[address] [place], [place] 0041683 Lab Director: Stephen Zamora MD Protein [Mass/Vol] 6.7 g/dL Normal 6.4-8.[address] [facility] Comment on above: Performed By: #### F OL, GLYHGB ####[address] [address] Lab Director: Wenceslao Schaeffer MD#### CP, CBC, VALPC ####[address] [place], [place] 1845883 Lab Director: Stephen Zamora MD Sodium [Moles/Vol] 140 mmol/L Normal 135-[address] [facility] Comment on above: Performed By: #### F OL, GLYHGB ####[address] [address] Lab Director: Wenceslao Schaeffer MD#### CP, CBC, VALPC ####[address] [place], [place] 8597683 Lab Director: Stephen Zamora MD Urea nitrogen [Mass/Vol] 12 mg/dL Normal 6-[address] [facility] Comment on above: Performed By: #### F OL, GLYHGB ####[address] [address] Lab Director: Wenceslao Schaeffer MD#### CP, CBC, VALPC ####[address] , [place] [phone] Lab Director: Stephen Zamora MD Folic Acidon 08-28-2023 Folic Acid >20.0 Normal 4.8-24.[address] [facility] Comment on above: Performed By: #### F OL, GLYHGB ####[facility] [address] [place], [place] [phone] Director: Wenceslao Schaeffer MD#### CP, CBC, VALPC ####[address] , [place] [phone] Lab Director: Stephen Zamora MD Hemoglobin A1Con 08-28-2023 Glucose [Mass/Vol] 94 mg/dL Normal [facility] Comment on above: Result Comment: The ADA and AACC recommend providing the estimated average glucose result to permit better patient understanding of their HBA1c result. Performed By: #### F OL, GLYHGB ####[facility] [address] [place] [address] Lab Director: Wenceslao Schaeffer MD#### CP, CBC, VALPC ####[address] , [place] [phone] Lab Director: Stephen Zamora MD HbA1c (Bld) [Mass fraction] 4.9 % Normal 4.0-6.[address] [facility] Comment on above: Performed By: #### F OL, GLYHGB ####[facility] [address] [place] [address] Lab Director: Wenceslao Schaeffer MD#### CP, CBC, VALPC ####[address] , [place] [phone] Lab Director: Stephen Zamora MD Valproic Acidon 08-28-2023 Valproic Acid 43 ug/mL Low 50-125 [facility] Comment on above: Performed By: #### F OL, GLYHGB ####[facility] [place] [address] Lab Director: Wenceslao Schaeffer MD#### CP, CBC, VALPC ####[facility] [address] [place], [place] 4428183 Lab Director: Stephen Zamora MD Hemoglobin A1Con 07-05-2023 Glucose [Mass/Vol] 91 mg/dL Normal [facility] Comment on above: Result Comment: The ADA and AACC recommend providing the estimated average glucose result to permit better patient understanding of their HBA1c result. Performed By: #### C DP, BMP, LIVP, VALPC #### [facility] [address] [place] [address] [place] [place], [place] [phone] [employer] Machine Tender: Stephen Zamora MD #### GLYHGB, LIPR #### [facility] [address] [place] [address] [employer] Maker Machine Tender: Wenceslao Schaeffer MD HbA1c (Bld) [Mass fraction] 4.8 % Normal 4.0-6.[address] [facility] Comment on above: Performed By: #### C DP, BMP, LIVP, VALPC #### [facility] [address] [place], [place] [phone] [employer] Maker Machine Tender: Stephen Zamora MD #### GLYHGB, LIPR #### [facility] [address] [place] [address] [employer] Maker Machine Tender: Wenceslao Schaeffer MD Basic Metabolic Panelon 06-15 Anion gap [Moles/Vol] 10 mmol/L 9 - 17 mmol/L [facility] Calcium [Mass/Vol] 9.3 mg/dL 8.6 - 10. 4 mg/dL [facility] Chloride [Moles/Vol] 103 mmol/L 98 - 10 7 mmol/L [facility] CO2 [Moles/Vol] 25 mmol/L 20 - 31 mmol/L [facility] Creatinine [Mass/Vol] 0.7 mg/dL 0.5 - 0.9 mg/dL [facility] GFR/1.73 sq M.predicted MDRD (S/P/Bld) [Vol rate/Area] - PINF [facility] Comment on above: These results are not intended for use in patients <18 years of age. eGFR results are calculated without a race factor using the 2020 CKD-EPI equation. Careful clinical correlation is recommended, particularly when comparing to results calculated using previous equations. The CKD-EPI equation is less accurate in patients with extremes of muscle mass, extra-renal metabolism of creatine, excessive creatine ingestion, or following therapy that affects renal tubular secretion. Glucose [Mass/Vol] 80 mg/dL 70 - 99 mg/dL [facility] Potassium [Moles/Vol] 4.3 mmol/L 3.7 - 5.3 mmol/L [facility] Sodium [Moles/Vol] 138 mmol/L 135 - 144 mmol/L [facility] Urea nitrogen [Mass/Vol] 13 mg/dL 6 - 20 mg/dL [facility] Urea nitrogen/Creatinine [Mass ratio] 19 mg/mg 9 - 20 [facility] Basic Metabolic Profon 07-04 Anion gap [Moles/Vol] 10 mmol/L Normal - [facility] Comment on above: Performed By: #### C DP, BMP, LIVP, VALPC #### [facility] [address] [place] [address] [employer] Maker Machine Tender: Stephen Zamora MD #### GLYHGB, LIPR #### [facility] [employer] [address] [place] [address] [employer] Maker Machine Tender: Wenceslao Schaeffer MD BUN/CRE Ratio 19 Normal - [facility] Comment on above: Performed By: #### C DP, BMP, LIVP, VALPC #### [facility] [address] [place] [address] [employer] Maker Machine Tender: Stephen Zamora MD #### GLYHGB, LIPR #### [address] [place] [place], [place] [phone] [employer] Machine Tender: Wenceslao Schaeffer MD Calcium [Mass/Vol] 9.3 mg/dL Normal 8.6-10.[address] [facility] Comment on above: Performed By: #### C DP, BMP, LIVP, VALPC #### [facility] [address] [place], [place] [phone] [employer] Machine Tender: Stephen Zamora MD #### GLYHGB, LIPR #### [address] [phone] [employer] Tender: Wenceslao Schaeffer MD Chloride [Moles/Vol] 103 mmol/L Normal 98-[address] [facility] Comment on above: Performed By: #### C DP, BMP, LIVP, VALPC #### [address] [place] [phone] [employer] Tender: Stephen Zamora MD #### GLYHGB, LIPR #### [address] [phone] [employer] Tender: Wenceslao Schaeffer MD CO2 [Moles/Vol] 25 mmol/L Normal 20-31 [facility] Comment on above: Performed By: #### C DP, BMP, LIVP, VALPC #### [address] [place] [phone] [employer] Machine Tender: Stephen Zamora MD #### GLYHGB, LIPR #### [address] [phone] [employer] Tender: Wenceslao Schaeffer MD Creatinine [Mass/Vol] 0.7 mg/dL Normal 0.5-0.9 [facility] Comment on above: Performed By: #### C DP, BMP, LIVP, VALPC #### [address] [place] [phone] [employer] Tender: Stephen Zamora MD #### GLYHGB, LIPR #### [address] [address] [employer] Machine Tender: Wenceslao Schaeffer MD GFR/1.73 sq M.predicted among non-blacks MDRD (S/P/Bld) [Vol rate/Area] mL/min/{1.73_m2} Normal >[address] [facility] Comment on above: Result Comment: These results are not intended for use in patients <18 years of age. eGFR results are calculated without a race factor using the 2020 CKD-EPI equation. Careful clinical correlation is recommended, particularly when comparing to results calculated using previous equations. The CKD-EPI equation is less accurate in patients with extremes of muscle mass, extra-renal metabolism of creatine, excessive creatine ingestion, or following therapy that affects renal tubular secretion. Performed By: #### C DP, BMP, LIVP, VALPC #### [address] [place] [address] ( [employer] Machine Tender: Stephen Zamora MD #### GLYHGB, LIPR #### [address] [phone] [employer] Tender: Wenceslao Schaeffer MD Glucose [Mass/Vol] 80 mg/dL Normal 70-[address] [facility] Comment on above: Performed By: #### C DP, BMP, LIVP, VALPC #### [address] [place] [address] [employer] Tender: Stephen Zamora MD #### GLYHGB, LIPR #### [address] [id number] [employer] Tender: Wenceslao Schaeffer MD Potassium [Moles/Vol] 4.3 mmol/L Normal 3.7-5.3 [facility] Comment on above: Performed By: #### C DP, BMP, LIVP, VALPC #### [address] [place] [address] [employer] Maker Machine Tender: Stephen Zamora MD #### GLYHGB, LIPR #### [facility] [address] [place], [place] [address] [employer] Tender: Wenceslao Schaeffer MD Sodium [Moles/Vol] 138 mmol/L Normal 135-[address] [facility] Comment on above: Performed By: #### C DP, BMP, LIVP, VALPC #### [facility] [address] [place] [address] [employer] Maker Machine Tender: Stephen Zamora MD #### GLYHGB, LIPR #### [facility] [place], [place] [id number] [employer] Tender: Wenceslao Schaeffer MD Urea nitrogen [Mass/Vol] 13 mg/dL Normal 6-[address] [facility] Comment on above: Performed By: #### C DP, BMP, LIVP, VALPC #### [facility] [address] [place], [place] [address] [address] [employer] Machine Tender: Stephen Zamora MD #### GLYHGB, LIPR #### [facility] [address] [place] [address] [employer] Machine Tender: Wenceslao Schaeffer MD CBC with Auto Differentialon 07-04-2023 Basophils (Bld) [#/Vol] 0.05 10*3/uL [facility] Basophils/100 WBC (Bld) 1 % 0 - 2 % [facility] Eosinophils (Bld) [#/Vol] 0.15 10*3/uL [facility] Eosinophils/100 WBC (Bld) 2 % 1 - 4 % [facility] Erythrocyte distribution width (RBC) [Ratio] 12.3 % 11.8 - 14.4 % [facility] Hematocrit (Bld) [Volume fraction] 39.4 % 36.3 - 47.1 % [facility] Hemoglobin (Bld) [Mass/Vol] 13.0 g/dL 11.9 - 15.1 g/dL [facility] Immature granulocytes (Bld) [#/Vol] 0.25 10*3/uL [facility] Immature granulocytes/100 WBC (Bld) 3 % High 0 [facility] Interpretation and review of laboratory results Abnormal [facility] Lymphocytes/100 WBC (Bld) 40 % 24 - 43 % [facility] Lymphocytes/100 WBC (Bld) 3.56 % [facility] MCH (RBC) [Entitic mass] 30.4 pg 25.2 - 33.5 pg [facility] MCHC (RBC) [Mass/Vol] 33.0 g/dL 28.4 - 34.8 g/dL [facility] MCV (RBC) [Entitic vol] 92.3 fL 82.6 - 102.9 fL [facility] Monocytes/100 WBC (Bld) 10 % 3 - 12 % [facility] Monocytes/100 WBC (Bld) 0.85 % [facility] Neutrophils/100 WBC (Bld) 44 % 36 - 65 % [facility] Nucleated RBC/100 WBC (Bld) [Ratio] 0.0 % 0.0 per 100 WBC [facility] Platelet mean volume (Bld) [Entitic vol] 10.1 fL 8.1 - 13.5 fL [facility] Platelets (Bld) [#/Vol] 266 10*3/uL [facility] RBC (Bld) [#/Vol] 4.27 10*6/uL 3.95 - 5.1 1 m/uL [facility] Segmented neutrophils/100 WBC (Bld) 4.10 % [facility] WBC other (Bld) [#/Vol] 9.0 [facility] CBC with Diffon 07-04-2023 Abs. Basophil 0.05 k/uL Normal 0.00-0.20 [facility] Comment on above: Performed By: #### C DP, BMP, LIVP, VALPC #### [facility] [address] [place] [address] [employer] Tender: Stephen Zamora MD #### GLYHGB, LIPR #### [facility] [employer] [address] [place] [address] [employer] Machine Tender: Wenceslao Schaeffer MD Abs.Imm.Granulocyte 0.25 k/uL Normal 0.00-0.[address] [facility] Comment on above: Performed By: #### C DP, BMP, LIVP, VALPC #### [facility] [address] [place] [address] Dr[place] [id number] [employer] Tender: Stephen Zamora MD #### GLYHGB, LIPR #### [address] [address] [employer] Tender: Wenceslao Schaeffer MD Abs.Neutrophil (Seg) 4.10 k/uL Normal 1.50-8.[address] [facility] Comment on above: Performed By: #### C DP, BMP, LIVP, VALPC #### [address] [place] [id number] [employer] Tender: Stephen Zamora MD #### GLYHGB, LIPR #### [place] [address] [employer] Machine Tender: Wenceslao Schaeffer MD Basophils/100 WBC (Bld) 1 % Normal 0-[address] [facility] Comment on above: Performed By: #### C DP, BMP, LIVP, VALPC #### [address] [place] [id number] [employer] Tender: Stephen Zamora MD #### GLYHGRicky, LIPR #### [address] [address] [employer] Tender: Wencelsao Schaeffer MD Eosinophils (Bld) [#/Vol] 0.15 10*3/uL Normal 0.00-0.[address] [facility] Comment on above: Performed By: #### C DP, BMP, LIVP, VALPC #### [facility] [address] [place] [address] Dr. [place] [id number] [employer] Tender: Stephen Zamora MD #### GLYHGB, LIPR #### [place] [address] [place], [place] [id number] [employer] Tender: Wenceslao Schaeffer MD Eosinophils/100 WBC (Bld) 2 % Normal 1-[address] [facility] Comment on above: Performed By: #### C DP, BMP, LIVP, VALPC #### [address] [place] [id number] [employer] Tender: Stephen Zamora MD #### GLYHGB, LIPR #### [address] [id number] [employer] Tender: Wenceslao Schaeffer MD Erythrocyte distribution width (RBC) [Ratio] 12.3 % Normal 11.8-14.[address] [facility] Comment on above: Performed By: #### C DP, BMP, LIVP, VALPC #### [address] [place] [id number] [employer] Tender: Stephen Zamora MD #### GLYHGB, LIPR #### [address] [id number] [employer] Tender: Wenceslao Schaeffer MD Hematocrit (Bld) [Volume fraction] 39.4 % Normal 36.3-47.[address] [facility] Comment on above: Performed By: #### C DP, BMP, LIVP, VALPC #### [address] [place] [id number] [employer] Tender: Stephen Zamora MD #### GLYHGB, LIPR #### [address] [id number] [employer] Tender: Wenceslao Schaeffer MD Hemoglobin (Bld) [Mass/Vol] 13.0 g/dL Normal 11.9-15.[address] [facility] Comment on above: Performed By: #### C DP, BMP, LIVP, VALPC #### [address] [place] [id number] [employer] Tender: Stephen Zamora MD #### GLYHGB, LIPR #### [place] [id number] [employer] Tender: Wenceslao Schaeffer MD Immature granulocytes/100 WBC (Bld) 3 % High [address] [facility] Comment on above: Performed By: #### C DP, BMP, LIVP, VALPC #### [address] [place] [id number] [employer] Tender: Stephen Zamora MD #### GLYHGB, LIPR #### [place] [address] [employer] Machine Tender: Wenceslao Schaeffer MD Lymphocytes (Bld) [#/Vol] 3.56 10*3/uL Normal 1.10-3.[address] [facility] Comment on above: Performed By: #### C DP, BMP, LIVP, VALPC #### [address] [place] [id number] [employer] Tender: Stephen Zamora MD #### GLYHGB, LIPR #### [place] [address] [employer] Maker Machine Tender: Wenceslao Schaeffer MD Lymphocytes/100 WBC (Bld) 40 % Normal 24-[address] [facility] Comment on above: Performed By: #### C DP, BMP, LIVP, VALPC #### [address] [place] [id number] [employer] Tender: Stephen Zamora MD #### GLYHGB, LIPR #### [place] [id number] [employer] Tender: Wenceslao Schaeffer MD MCH (RBC) [Entitic mass] 30.4 pg Normal 25.2-33.[address] [facility] Comment on above: Performed By: #### C DP, BMP, LIVP, VALPC #### [address] [place], [place] 5508883 [employer] Tender: Stephen Zamora MD #### GLYHGB, LIPR #### [address] [address] [employer] Tender: Wenceslao Schaeffer MD MCHC (RBC) [Mass/Vol] 33.0 g/dL Normal 28.4-34.8 [facility] Comment on above: Performed By: #### C DP, BMP, LIVP, VALPC #### [address] [place], [place] [phone] [employer] Tender: Stephen Zamora MD #### GLYHGB, LIPR #### [address] [id number] [employer] Tender: Wenceslao Schaeffer MD MCV (RBC) [Entitic vol] 92.3 fL Normal 82.6-102.[address] [facility] Comment on above: Performed By: #### C DP, BMP, LIVP, VALPC #### [address] [place] [id number] [employer] Tender: Stephen Zamora MD #### GLYHGB, LIPR #### [address] [address] [employer] Tender: Wenceslao Schaeffer MD Monocytes (Bld) [#/Vol] 0.85 10*3/uL Normal 0.10-1.[address] [facility] Comment on above: Performed By: #### C DP, BMP, LIVP, VALPC #### [address] [place], [place] [phone] [employer] Tender: Stephen Zamora MD #### GLYHGB, LIPR #### [address] [id number] [employer] Tender: Wenceslao Schaeffer MD Monocytes/100 WBC (Bld) 10 % Normal 3-[address] [facility] Comment on above: Performed By: #### C DP, BMP, LIVP, VALPC #### [facility] [address] [place], [place] 2270983 [employer] Tender: Stephen Zamora MD #### GLYHGB, LIPR #### [place] [address] [place], [place] 9625[address] [employer] Tender: Wenceslao Schaeffer MD Neutrophil (Seg) 44 % Normal 36-65 [facility] Comment on above: Performed By: #### C DP, BMP, LIVP, VALPC #### [facility] [address] [place], [place] 2352283 [employer] Tender: Stephen Zamora MD #### GLYHGB, LIPR #### [place] [address] [place], [place] 9977408 [employer] Tender: Wenceslao Schaeffer MD NRBC Automated 0.0 per 100 WBC Normal 0.[address] [facility] Comment on above: Performed By: #### C DP, BMP, LIVP, VALPC #### [facility] [address] [place] [address] [employer] Maker Machine Tender: Stephen Zamora MD #### GLYHGB, LIPR #### [place] [address] [place], [place] [id number] [employer] Tender: Wenceslao Schaeffer MD Platelet mean volume (Bld) [Entitic vol] 10.1 fL Normal 8.1-13.[address] [facility] Comment on above: Performed By: #### C DP, BMP, LIVP, VALPC #### [facility] [address] [place] [address] [employer] Maker Machine Tender: Stephen Zamora MD #### GLYHGB, LIPR #### [place] [address] [place], [place] [phone] [employer] Tender: Wenceslao Schaeffer MD Platelets (Bld) [#/Vol] 266 10*3/uL Normal 138-[address] [facility] Comment on above: Performed By: #### C DP, BMP, LIVP, VALPC #### [address] [place] [id number] [employer] Tender: Stephen Zamora MD #### GLYHGB, LIPR #### [address] [id number] [employer] Tender: Wenceslao Schaeffer MD RBC (Bld) [#/Vol] 4.27 10*6/uL Normal 3.95-5.[address] [facility] Comment on above: Performed By: #### C DP, BMP, LIVP, VALPC #### [address] [place] [id number] [employer] Tender: Stephen Zamora MD #### NAVIHGRicky, LIPR #### [address] [address] [employer] Tender: Wenceslao Schaeffer MD WBC (Bld) [#/Vol] 9.0 10*3/uL Normal 3.5-11.[address] [facility] Comment on above: Performed By: #### C DP, BMP, LIVP, VALPC #### [address] [place] [id number] [employer] Tender: Stephen Zamoar MD #### GLYHGB, LIPR #### [address] [address] [employer] Machine Tender: Wenceslao Schaeffer MD Hepatic Function Panelon Albumin [Mass/Vol] 3.9 g/dL 3.5 - 5.2 g/dL [facility] Albumin/Globulin [Mass ratio] 1.5 {ratio} 1.0 - 2.5 [facility] ALP [Catalytic activity/Vol] 78 U/L 35 - 104 U/L [facility] ALT [Catalytic activity/Vol] 17 U/L 5 - 33 U/L [facility] AST [Catalytic activity/Vol] 13 U/L NINF - 32 U/L [facility] Bilirubin [Mass/Vol] 0.3 mg/dL 0.3 - 1 .2 mg/dL [facility] Bilirubin.direct [Mass/Vol] mg/dL NINF - 0.3 mg/dL [facility] Bilirubin.indirect [Mass/Vol] Can not be calculated 0.0 - 1.0 mg/dL [facility] Protein [Mass/Vol] 6.5 g/dL 6.4 - 8.3 g/dL [facility] Lipid Panelon 07-04-2023 Cholesterol [Mass/Vol] 190 mg/dL 0 - 199 mg/dL [facility] Comment on above: Cholesterol Guidelines: <200 Desirable 200-240 Borderline >240 Undesirable Cholesterol in HDL [Mass/Vol] 46 mg/dL 40 - PINF mg/dL [facility] Comment on above: HDL Guidelines: <40 Undesirable 40-59 Borderline >59 Desirable Cholesterol in LDL [Mass/Vol] 80 mg/dL 0 - 100 mg/dL [facility] Comment on above: LDL Guidelines: <100 Desirable 100-129 Near to/above Desirable 130-159 Borderline >159 Undesirable Direct (measured) LDL and calculated LDL are not interchangeable tests. Cholesterol in VLDL [Mass/Vol] 64 mg/dL [facility] Cholesterol.total/Cho lesterol in HDL [Mass ratio] 4.0 {ratio} [facility] Interpretation and review of laboratory results Abnormal [facility] Triglyceride [Mass/Vol] 318 mg/dL High NINF - 150 mg/dL [facility] Comment on above: Triglyceride Guidelines: <150 Desirable 150-199 Borderline 200-499 High >499 Very high Based on AHA Guidelines for fasting triglyceride, February 2012. [facility] Lipid Profileon 07-04-2023 Cholesterol [Mass/Vol] 190 mg/dL Normal 0-[address] [facility] Comment on above: Result Comment: Cholesterol Guidelines: <200 Desirable 200-240 Borderline >240 Undesirable Performed By: #### C DP, BMP, LIVP, VALPC #### [facility] [address] [place], [place] [id number] [employer] Machine Tender: Stephen Zamora MD #### GLYHGB, LIPR #### [address] [address] [employer] Machine Tender: Wenceslao Schaeffer MD Cholesterol in HDL [Mass/Vol] 46 mg/dL Normal >[address] [facility] Comment on above: Result Comment: HDL Guidelines: <40 Undesirable 40-59 Borderline >59 Desirable Performed By: #### C DP, BMP, LIVP, VALPC #### [address] [place] [address] [employer] Maker Machine Tender: Stephen Zamora MD #### GLYHGB, LIPR #### [address] [address] [employer] Tender: Wenceslao Schaeffer MD Cholesterol in LDL [Mass/Vol] 80 mg/dL Normal 0-[address] [facility] Comment on above: Result Comment: LDL Guidelines: <100 Desirable 100-129 Near to/above Desirable 130-159 Borderline >159 Undesirable Direct (measured) LDL and calculated LDL are not interchangeable tests. Performed By: #### C DP, BMP, LIVP, VALPC #### [address] [place], [place] [id number] [employer] Tender: Stephen Zamora MD #### GLYHGB, LIPR #### [address] [address] [employer] Tender: Wenceslao Schaeffer MD Cholesterol in VLDL [Mass/Vol] 64 mg/dL Normal [facility] Comment on above: Performed By: #### C DP, BMP, LIVP, VALPC #### [address] [place], [place] 9345783 [employer] Tender: Stephen Zamora MD #### GLYHGB, LIPR #### [address] [address] [employer] Machine Tender: Wenceslao Schaeffer MD Cholesterol.total/Cho lesterol in HDL [Mass ratio] 4.0 {ratio} Normal [facility] Comment on above: Performed By: #### C DP, BMP, LIVP, VALPC #### [facility] [address] [place] [address] [employer] Maker Machine Tender: Stephen Zamora MD #### GLYHGB, LIPR #### [place] [address] [place], [place] 517[address] [employer] Machine Tender: Wenceslao Schaeffer MD Triglyceride [Mass/Vol] 318 mg/dL High <[address] [facility] Comment on above: Result Comment: Triglyceride Guidelines: <150 Desirable 150-199 Borderline 200-499 High >499 Very high Based on AHA Guidelines for fasting triglyceride, February 2012. Performed By: #### C DP, BMP, LIVP, VALPC #### [address] [place] [address] [employer] Machine Tender: Stephen Zamora MD #### GLYHGB, LIPR #### [address] [address] [employer] Tender: Wenceslao Schaeffer MD Liver Profileon 07-04-2023 Albumin [Mass/Vol] 3.9 g/dL Normal 3.5-5.[address] [facility] Comment on above: Performed By: #### C DP, BMP, LIVP, VALPC #### [facility] [address] [place] [address] [place], [place] 3887583 [employer] Machine Tender: Stephen Zamora MD #### GLYHGB, LIPR #### [place] [address] [place] [address] [employer] Machine Tender: Wenceslao Schaeffer MD Albumin/Glob Ratio 1.5 Normal 1.0-2.[address] [facility] Comment on above: Performed By: #### C DP, BMP, LIVP, VALPC #### [facility] [address] [place] [address] [employer] Machine Tender: Stephen Zamora MD #### GLYHGB, LIPR #### [place] [address] [place], [place] 6794708 [employer] Machine Tender: Wenceslao Schaeffer MD Alkaline Phos 78 U/L Normal 35-104 [facility] Comment on above: Performed By: #### C DP, BMP, LIVP, VALPC #### [facility] [address] [place] [address] Dr. [place], [place] [phone] [employer] Tender: Stephen Zamora MD #### GLYHGB, LIPR #### [place] [address] [place], [place] 3747908 [employer] Tender: Wenceslao Schaeffer MD ALT [Catalytic activity/Vol] 17 U/L Normal 5-[address] [facility] Comment on above: Performed By: #### C DP, BMP, LIVP, VALPC #### [address] [place] [id number] [employer] Machine Tender: Stephen Zamora MD #### GLYHGB, LIPR #### [address] [id number] [employer] Tender: Wenceslao Schaeffer MD AST [Catalytic activity/Vol] 13 U/L Normal <[address] [facility] Comment on above: Performed By: #### C DP, BMP, LIVP, VALPC #### [address] [place] [phone] [employer] Tender: Stephen Zamora MD #### GLYHGB, LIPR #### [place] [address] [place], [place] 6423108 [employer] Machine Tender: Wenceslao Schaeffer MD Bilirubin [Mass/Vol] 0.3 mg/dL Normal 0.3-1.[address] [facility] Comment on above: Performed By: #### C DP, BMP, LIVP, VALPC #### [facility] [address] [place] [address] Dr. [place] [phone] [employer] Machine Tender: Stephen Zamora MD #### GLYHGB, LIPR #### [place] [address] [place], [place] 4954808 [employer] Machine Tender: Wenceslao Schaeffer MD Bilirubin, Indirect Can not be calculated Normal 0.0-1.[address] [facility] Comment on above: Performed By: #### C DP, BMP, LIVP, VALPC #### [address] [place] [id number] [employer] Tender: Stephen Zamora MD #### GLYHGB, LIPR #### [address] [id number] [employer] Tender: Wenceslao Schaeffer MD Bilirubin.indirect [Mass/Vol] mg/dL Normal <0.[address] [facility] Comment on above: Performed By: #### C DP, BMP, LIVP, VALPC #### [address] [place] [id number] [employer] Machine Tender: Stephen Zamora MD #### GLYHGB, LIPR #### [address] [id number] [employer] Tender: Wenceslao Schaeffer MD Protein [Mass/Vol] 6.5 g/dL Normal 6.4-8.[address] [facility] Comment on above: Performed By: #### C DP, BMP, LIVP, VALPC #### [address] [place] [id number] [employer] Machine Tender: Stephen Zamora MD #### GLYHGB, LIPR #### [place] [id number] [employer] Machine Tender: Wenceslao Schaeffer MD No Panel Informationon 07-04 [facility] Valproic Acidon 07-04-2023 Valproic Acid 27 ug/mL Low 50-125 [facility] Comment on above: Performed By: #### C DP, BMP, LIVP, VALPC #### [facility] [address] [place] [address] [employer] Maker Machine Tender: Stephen Zamora MD #### GLYHGB, LIPR #### [facility] [employer] [address] [place] [address] [employer] Maker Machine Tender: Wenceslao Schaeffer MD Valproic Acid Level, Totalon 07-04-2023 Interpretation and review of laboratory results Abnormal [facility] Valproate [Mass/Vol] 27 ug/mL Low 50 - 12 5 ug/mL [facility] Addendum Noteon 06-21-2023 Acquisition Consultant Authentication Interface Message Text Addendum created 06/21/23 1431 by Amanuel Hodges MD Clinical Note Signed Normal [facility] [employer] Anesthesia Postprocedure Sharda luationon 06-21-2023 Acquisition Consultant Authentication Interface Message Text Anesthesia Postoperative Assessment: Vital Signs (most recent): There were no vitals taken for this visit. Anesthesia Post Evaluation Level of consciousness: awake Post-procedure exam normal. Body temperature, hydration status, PONV and pain evaluated and addressed. Pain management: adequate Hydration status: normal PONV:No nausea/vomiting reported Cardiopulmonary status stable Respiratory status: acceptable Cardiovascular status: acceptable Comments: The patient has fully recovered, meets discharge criteria, and has been under anesthesia care until point of discharge home. ANESTHESIA NOTABLE EVENTS: No notable events documented. Normal [facility] Anesthesia Preprocedure Eval uationon 06-21-2023 Acquisition Consultant Authentication Interface Message Text ASA: 3 NPO status: Greater than 8 hours Past Medical History and Review of Systems Pulmonary (+) sleep apnea on CPAP Comment: Noncompliant for years Dental Endo Neuro/Psych (+) bipolar disorder, seizures Comment: seizures / pseudo seizures- usually have one when she is stress and on seizure medications ADHD, mild intellectual disability, depression, Bipolar disorder Cardiovascular GI/Hepatic/Renal Heme/Other Other ROS: Leticia Tinoco is a 32 year old female pt who complains of caries and desires to undergo dental procedure with sedation. Denies dysphagia nor any signs of tooth infection Currently denies fever and chills, new cough, SOB or CP. Mother is guardian and provided consent. R/b detailed with both patient and mom ibnlt GA conversion and cardiopulmonary complications. Questions answered. Agree with plan. Physical Exam Airway Mallampati: II Jaw opening: Adequate Neck flexion: Adequate Dental Pulmonary - pulmonary exam normal Comment: Chest clear to auscultation bilaterally Cardiovascular - cardiovascular exam normal Comment: RRR with S1S2; no murmurs, gallops, or rubs Neuro - neurological exam normal Comment: Awake, alert, oriented, No motor deficits and sensation grossly intact Plan Anesthesia plan: MAC; (mask) Anesthesia risks / alternatives discussed pre-op Questions answered / anesthesia plan accepted Past medical history, surgical history, allergies, and medications reviewed. Pertinent laboratory tests, EKG, imaging, and consults reviewed and I have personally seen and evaluated the patient, repeating buck portions of the history and physical examination. Attestation: Anesthesia options were discussed with the patient and/or legal medical claims representative. The risks, benefits and alternatives were reviewed. Questions regarding anesthesia were answered. Patient and/or legal medical claims representative knows such anesthetics and procedures may be performed by Resident physicians, Certified Anesthesiologist Assistants, or Certified Nurse Anesthetists under the supervision of a physician. The patient /or the patient's legal medical claims representative agree with the plan for anesthesia. Normal [facility] Anesthesia Transfer Of Careo n 06-21-2023 Acquisition Consultant Authentication Interface Message Text Patient taken to PACU. Patient was awake on arrival. Anesthesia Transfer of Care Note Past Medical History: No past medical history on file. Sleep Apnea/Positive STOP-BANG: Yes Problem List: There is no problem list on file for this patient. Past Surgical History: There is no previous surgical history on file. Allergies: Patient has no allergy information on record. Basic Operating Room Facts: * No surgeons listed * Anesthesiologist: Amanuel Hodges MD CAA: Carmen Honeycutt CAA DENTAL VISIT Intraoperative Events: No acute event ASA: 3 EBL: Not documented Urine Not documented Lactated Ringers and NaCl 0.9%: Fluid Totals (Filter: LR and NaCl 0.9% Medications Shown) Medication Calculated Total Lactated Ringers 800 mL / 1 bag Cell Saver: Not documented Blood Volume Values: Blood Products None MTP Blood: MTP PRBC: Not documented MTP FFP: Not documented MTP PLT: Not documented MTP Cryo: Not documented MTP Whole Blood: Not documented Current Vasoactive Medications: {Vasoactive Medications: None Lines, Drains, Airways Airway Adjunct: (Active) Airway Insertion Details * No LDAs found * All non-working IVs have been removed: Yes Laboratory Data: CBC (last 3 years, up to 5 values) None Basic Metabolic Panel None Basic Metabolic Panel None No results found for: INR No result for BNP LFT's (last 3 years, up to 5 values) None Arterial Blood Gases None Hand off Completed: Yes P t was recovered by me until the moment of discharge from facility FATOUMATA Laguerre Normal [employer] Blood Attestationon 06-21-19 Acquisition Consultant Authentication Interface Message Text Blood Attestation: ATTESTATION OF INFORMED CONSENT FOR BLOOD: The transfusion of blood and/or blood components were discussed with the patient and/or legal medical claims representative. The risks, benefits and alternatives were reviewed. Questions regarding blood transfusions were answered. The patient /or the patient's legal medical claims representative agree with the plan for transfusion of blood and/or blood components. Normal [employer] Progress Noteson 06-21-2023 Acquisition Consultant Authentication Interface Message Text ----- June at 2:05:59 PM ----- ----- Provider: [id number] - Iftikhar Bryant DDS -- Clinic: [place]----- COMPOSITE AMISH Patient is scheduled for Yazidi under IV sedation on tooth #4 MOD, 5 MOD, 14 D, 19 MO, 28 OD, 29 MOD and 30 surface MOD. Reviewed Medical History. Pt exhibited the following conditions: ADHD, Hypertension, Mild intellectual disability [F70] ,POTS, Psycotic disorder, caries [K02.9] Patient is ready for treatment. Topical Benzocaine gel applied at the injection site for 2 minutes. Administered 3 carpules of Lidocaine, 2% with Epinephrine 1:100,000,. Cotton roll isolation achieved. Decay/existing hindu removed, cavity prepared. Selectively etched enamel with 37% phosphoric acid, rinsed, and blot dried. Xeno IV jackson applied and light-cured. Condensed packable composite shade A2 in light cured increments using Toffelmaire matrix band retainer and wedge. Finished with finishing burs, checked occlusion, verified proximal contacts and hindu was polished. Rinsed and suctioned intraorally, advised patient to not eat until local anesthesia wears off. NOTE: Procedure was delayed due to HCG exam. Patient had to get IV fluids to provide a sample for the exam. Next Visit: Follow-up Normal [employer] PSE Appt H AND Sammy Acquisition Consultant Authentication Interface Message Text Patient was identified by name and date of . Justina Andrews Patient at risk for falls:No Falls Risk protocol implemented: N/A Normal [employer] Patient Instructionson 06-06 Acquisition Consultant Authentication Interface Message Text On the morning of your surgery please take only the following medications, with a small sip of water: fludrocortisone (FLORINEF) 0.1 MG tablet haloperidol (HALDOL) 10 MG tablet lamotrigine (LAMICTAL) 200 MG tablet Propranolol HCl CR (INDERAL) 80 MG CP24 sertraline (ZOLOFT) 100 MG tablet sertraline (ZOLOFT) 50 MG tablet ARIPiprazole (ABILIFY) 20 MG tablet benztropine (COGENTIN) 1 MG tablet divalproex ER (DEPAKOTE ER) 250 MG ER tablet Do not take any Aspirin 7 days before surgery Do not take any Ibuprofen, Aleve, or Motrin,Diclofenac, Naprosyn, Meloxicam, Indomethacin , Etodolac, and any other NSAIDS after 3 days before surgery. May take over the counter Acetaminophen (Tylenol) as needed for pain Please hold all multivitamins, Vitamin E and herbal supplements e.g. Fish Oil,Trevor-3, CoQ10, Ginseng, Gingko Biloba, Turmeric)for 1 week prior to surgery. You will receive a call the day before surgery between 10 am and 3 pm notifying you what time to arrive for surgery. No solid foods after midnight the night before surgery. No gums, no mints or candies Non-alcoholic clear liquids up to 3 hours before surgery (this means any drink you can see through including water, clear carbonated beverages, Jell-O, popsicles, broth, and fruit juices WITHOUT pulp Tea or coffee WITHOUT cream Always follow any special instructions that were given to you by your surgeon. No lotion, ointment, cream and no deodorant on the face and body on the morning of surgery No jewelry and no piercing on the morning of surgery Arrange your ride home- family or friend, If you are scheduled to go home the same day of surgery, a responsible adult MUST drive or accompany you home in a car, cab, or metro-van. You will not be allowed to drive yourself home or travel home alone. Your surgery may be cancelled if you do not have a ride. An adult should stay with you for 24 hours after surgery. Normal [employer] XR FINGER THUMB LT MIN 2 VWS on 05-30-2023 XR FINGER THUMB LT MIN 2 VWS XR FINGER THUMB LT MIN 2 VWS XR FINGER THUMB LT MIN 2 VWS: 05/30/2023 11:09 AM Clinical: After injury EXAM: [id number] DIGIT Views: 3 Comparison: none No fractures or destructive lesion seen. Normal joint spaces. Impression: * No acute abnormality. Finalized by Jose Rodriguez MD on 05/30/2023 11:26 AM Normal [facility] Progress Noteson 05-25-2023 Acquisition Consultant Authentication Interface Message Text ----- Thursday, May 25, 2023 at 11:59:12 AM ----- ----- Provider: Riccardo Shukla Resident -- Clinic: [place] ----- Returned patient phone call . patient was asking about her status to be seen in sedation. Explained to the patient the process and I contacted Giselle to check if she need another referral to be sent and check on her status. Normal [employer] Telephone Encounteron 2023 Acquisition Consultant Authentication Interface Message Text Situation: Sedation Background: Pt's mother (Gabriela) calling to inquire on when Pt will be scheduled for IV sedation appt. Momstates they have been waiting for an appt call for a few weeks now and she would like Pt to get scheduled as soon as possible. CS does see active request for PSE, therefore CS will transfer Pt's mom to PSE for scheduling. However, mom would like office to contact as soon as possible to get Pt scheduled for her sedation appt. Pt last seen 05/10 @ [facility] becky Delgadillo Thank you :) Assessment: Please assist Recommendation: Pt's mom can be reached at [phone] Msg sent to [facility] 05/24/23 Normal [employer] Progress Noteson 05-10-2023 Acquisition Consultant Authentication Interface Message Text ----- April at 1:17:42 PM ----- ----- Provider: [id number] Resident Gage -- Clinic: [place] ----- INITIAL/COMPREHENSIV E EXAM Patient presents for an Initial Examination. Reviewed patient's medical history. Patient has a history of:ADHD, Mild intellectual disability , JIL, Hypertension , prediabetes . . No contraindications, patient is ready for treatment. Patient's chief complaint: Comp Exam Pain Scale: 0/10 Radiographs taken today were: Panorex and 2 BWs Clinical Examination reveals: Decay Soft tissue evaluation: Within Normal Limits TMJ evaluation: Normal TMJ Completed current status of dentition on the charting. Went over needs and treatment plan options with the patient. OHI were discussed with the patient. Written Instructions/AVS were also handed to the patient. Pt Concern: Full Exam was successfully done. Patient consented to the treatment plan. PRIOR: Not needed NOTE: patient wanted to get treated under sedation .. Sedation and PSE orders were added Next Visit: treatment under sedation ----- Signed on April at 3:23:48 PM ----- ----- Provider: [id number] Nani Martinez DDS -- Clinic: [facility] ----- Normal [employer] Urinalysison 10-13-2022 Bilirubin Ql (U) Negative NEGATIVE [facility] Clarity (U) Clear Clear [facility] Color (U) Yellow Yellow [facility] Glucose Test strip (U) [Mass/Vol] Negative NEGATIVE [facility] Hemoglobin Auto test strip Ql (U) Negative NEGATIVE [facility] Ketones (U) [Mass/Vol] Negative NEGATIVE [facility] Leukocyte esterase Test strip Ql (U) Negative NEGATIVE [facility] Nitrite Ql (U) Negative NEGATIVE [facility] pH (U) 7.5 [pH] 5.0 - 9.0 [facility] Protein (U) [Mass/Vol] Negative NEGATIVE [facility] Specific gravity (U) [Rel density] 1.015 1.010 - 1.020 [facility] Urobilinogen Qn (U) Normal Normal [facility] CBC with Auto Differentialon 08-31-2022 Absolute Eos # 0.10 [facility] Absolute Immature Granulocyte 0.06 [facility] Absolute Lymph # 2.16 [facility] Absolute [place] # 0.49 [facility] Basophils (Bld) [#/Vol] 0.04 10*3/uL [facility] Basophils/100 WBC (Bld) 1 % 0 - 2 % [facility] Eosinophils/100 WBC (Bld) 2 % 1 - 4 % [facility] Hematocrit (Bld) [Volume fraction] 38.6 % 36.3 - 47.1 % [facility] Hemoglobin (Bld) [Mass/Vol] 12.7 g/dL 11.9 - 15.1 g/dL [facility] Immature granulocytes/100 WBC (Bld) 1 % High 0 [facility] Interpretation and review of laboratory results Abnormal [facility] Lymphocytes/100 WBC (Bld) 36 % 24 - 43 % [facility] MCH (RBC) [Entitic mass] 30.4 pg 25.2 - 33.5 pg [facility] MCHC (RBC) [Mass/Vol] 32.9 g/dL 28.4 - 34.8 g/dL [facility] MCV (RBC) [Entitic vol] 92.3 fL 82.6 - 102.9 fL [facility] Monocytes/100 WBC (Bld) 8 % 3 - 12 % [facility] NRBC Automated 0.0 0.0 per 100 WBC [facility] Platelet distribution width (Bld) [Ratio] 12.2 % 11.8 - 14.4 % [facility] Platelet mean volume (Bld) [Entitic vol] 10.7 fL 8.1 - 13.5 fL [facility] Platelets (Bld) [#/Vol] 260 10*3/uL [facility] RBC (Bld) [#/Vol] 4.18 10*6/uL 3.95 - 5.1 1 m/uL [facility] Segmented neutrophils/100 WBC (Bld) 52 % 36 - 65 % [facility] Segs Absolute 3.18 [facility] WBC (Bld) [#/Vol] 6.0 10*3/uL [facility] Comprehensive Metabolic Pane ozzy 08-31-2022 Albumin [Mass/Vol] 4 g/dL 3.5 - 5.2 g/dL [facility] Albumin/Globulin [Mass ratio] 1.4 {ratio} 1.0 - 2.5 [facility] ALP [Catalytic activity/Vol] 85 U/L 35 - 104 U/L [facility] ALT [Catalytic activity/Vol] 15 U/L 5 - 33 U/L [facility] Anion gap [Moles/Vol] 12 mmol/L 9 - 17 mmol/L [facility] AST [Catalytic activity/Vol] 16 U/L NINF - 32 U/L [facility] Bilirubin [Mass/Vol] 0.3 mg/dL 0.3 - 1 .2 mg/dL [facility] Calcium [Mass/Vol] 9.8 mg/dL 8.6 - 10. 4 mg/dL [facility] Chloride [Moles/Vol] 103 mmol/L 98 - 10 7 mmol/L [facility] CO2 [Moles/Vol] 25 mmol/L 20 - 31 mmol/L [facility] Creatinine [Mass/Vol] 0.8 mg/dL 0.50 - 0.90 mg/dL [facility] GFR/1.73 sq M.predicted MDRD (S/P/Bld) [Vol rate/Area] - PINF [facility] Comment on above: These results are not intended for use in patients <18 years of age. eGFR results are calculated without a race factor using the 2020 CKD-EPI equation. Careful clinical correlation is recommended, particularly when comparing to results calculated using previous equations. The CKD-EPI equation is less accurate in patients with extremes of muscle mass, extra-renal metabolism of creatine, excessive creatine ingestion, or following therapy that affects renal tubular secretion. Glucose [Mass/Vol] 102 mg/dL High 70 - 99 mg/dL [facility] Interpretation and review of laboratory results Abnormal [facility] Potassium [Moles/Vol] 3.8 mmol/L 3.7 - 5.3 mmol/L [facility] Protein [Mass/Vol] 6.9 g/dL 6.4 - 8.3 g/dL [facility] Sodium [Moles/Vol] 140 mmol/L 135 - 144 mmol/L [facility] Urea nitrogen [Mass/Vol] 12 mg/dL 6 - 20 mg/dL [facility] Urea nitrogen/Creatinine (Bld) [Mass ratio] 15 9 - 20 [facility] Folateon 08-31-2022 Folate [Mass/Vol] ng/mL 4.8 - PINF ng/mL [facility] Hemoglobin A1Con 08-31-2022 Average glucose Estimated from glycated hemoglobin (Bld) [Mass/Vol] 97 mg/dL [facility] Comment on above: The ADA and AACC rec ommend providing the estimated average glucose result to permit better patient understanding of their HBA1c result. HbA1c (Bld) [Mass fraction] 5.0 % 4.0 - 6.0 % [facility] Lipid Panelon 08-31-2022 Cholesterol [Mass/Vol] 171 mg/dL NINF - 200 mg/dL [facility] Comment on above: Cholesterol Guidelines: <200 Desirable 200-240 Borderline >240 Undesirable Cholesterol in HDL [Mass/Vol] 52 mg/dL 40 - PINF mg/dL [facility] Comment on above: HDL Guidelines: <40 Undesirable 40-59 Borderline >59 Desirable Cholesterol in LDL [Mass/Vol] 84 mg/dL 0 - 130 mg/dL [facility] Comment on above: LDL Guidelines: <100 Desirable 100-129 Near to/above Desirable 130-159 Borderline >159 Undesirable Direct (measured) LDL and calculated LDL are not interchangeable tests. Cholesterol.total/Cho lesterol in HDL [Mass ratio] 3.3 {ratio} NINF - 5 [facility] Interpretation and review of laboratory results Abnormal [facility] Triglyceride [Mass/Vol] 174 mg/dL High NINF - 150 mg/dL [facility] Comment on above: Triglyceride Guidelines: <150 Desirable 150-199 Borderline 200-499 High >499 Very high Based on AHA Guidelines for fasting triglyceride, February 2012. [facility] Valproic Acid Level, Totalon 08-31-2022 Interpretation and review of laboratory results Abnormal [facility] Valproate [Mass/Vol] 37 ug/mL Low 50 - 12 5 ug/mL [facility] Hemoglobin A1Con 06-07-2022 Glucose [Mass/Vol] 94 mg/dL [facility] Comment on above: The ADA and AACC rec ommend providing the estimated average glucose result to permit better patient understanding of their HBA1c result. HbA1c (Bld) [Mass fraction] 4.9 % 4.0 - 6.0 % [facility] Valproic Acid Level, Totalon 05-03-2022 Interpretation and review of laboratory results Abnormal [facility] Valproic Acid Lvl 37 ug/mL Low 50 - 125 ug/mL [facility] CBC with Auto Differentialon 04-19-2022 Absolute Eos # 0.16 [facility] Absolute Immature Granulocyte 0.06 [facility] Absolute Lymph # 2.54 [facility] Absolute [place] # 0.74 [facility] Basophils (Bld) [#/Vol] 0.04 10*3/uL [facility] Basophils/100 WBC (Bld) 1 % 0 - 2 % [facility] Eosinophils/100 WBC (Bld) 2 % 1 - 4 % [facility] Hematocrit (Bld) [Volume fraction] 36.5 % 36.3 - 47.1 % [facility] Hemoglobin (Bld) [Mass/Vol] 12.0 g/dL 11.9 - 15.1 g/dL [facility] Immature granulocytes/100 WBC (Bld) 1 % High 0 [facility] Interpretation and review of laboratory results Abnormal [facility] Lymphocytes/100 WBC (Bld) 36 % 24 - 43 % [facility] MCH (RBC) [Entitic mass] 30.9 pg 25.2 - 33.5 pg [facility] MCHC (RBC) [Mass/Vol] 32.9 g/dL 28.4 - 34.8 g/dL [facility] MCV (RBC) [Entitic vol] 94.1 fL 82.6 - 102.9 fL [facility] Monocytes/100 WBC (Bld) 10 % 3 - 12 % [facility] NRBC Automated 0.0 0.0 per 100 WBC [facility] Platelet distribution width (Bld) [Ratio] 12.1 % 11.8 - 14.4 % [facility] Platelet mean volume (Bld) [Entitic vol] 11.6 fL 8.1 - 13.5 fL [facility] Platelets (Bld) [#/Vol] 218 10*3/uL [facility] RBC (Bld) [#/Vol] 3.88 10*6/uL Low 3.95 - 5.1 1 m/uL [facility] Segmented neutrophils/100 WBC (Bld) 50 % 36 - 65 % [facility] Segs Absolute 3.62 [facility] WBC (Bld) [#/Vol] 7.2 10*3/uL [facility] XR ANKLE RIGHT (MIN 3 VIEWS) on 11-10-2021 Moderate calcaneal spurring No acute bony or joint space findings [facility] EXAMINATION: THREE XRAY VIEWS OF THE RIGHT ANKLE 11/10/2021 10:14 am COMPARISON: None. HISTORY: ORDERING SYSTEM PROVIDED HISTORY: Right ankle pain, unspecified chronicity FINDINGS: There is moderate spurring of the plantar aspect of the right calcaneus The bones and joints are otherwise unremarkable without definite effusion, fracture, dislocation, significant degenerative/erosive change, radiopaque foreign body or abnormal soft tissue calcification [facility] Sarah Garibay MD - 11/10/2021 EXAMINATION: THREE XRAY VIEWS OF THE RIGHT ANKLE 11/10/2021 10:14 am COMPARISON: None. HISTORY: ORDERING SYSTEM PROVIDED HISTORY: Right ankle pain, unspecified chronicity FINDINGS: There is moderate spurring of the plantar aspect of the right calcaneus The bones and joints are otherwise unremarkable without definite effusion, fracture, dislocation, significant degenerative/erosive change, radiopaque foreign body or abnormal soft tissue calcification IMPRESSION: Moderate calcaneal spurring No acute bony or joint space findings [employer] Work Phone: Radiology Study observation (narrative) [employer] Work Phone: XR ANKLE RIGHT (MIN 3 VIEWS) Ordered By: Sarah Garibay on 11-10-2021 [employer] Work Phone: CBCon 09-09-2021 Hematocrit (Bld) [Volume fraction] 36.3 % 36.3 - 47.1 % [email or web address] Hemoglobin.gastrointe stinal spec 1 Ql (Stl) 11.5 g/dL Low 11.9 - 15.1 g/dL [facility] [employer] Interpretation and review of laboratory results Abnormal [email or web address] MCH (RBC) [Entitic mass] 29.9 pg 25.2 - 33.5 pg [email or web address] MCHC (RBC) [Mass/Vol] 31.7 g/dL 28.4 - 34.8 g/dL [email or web address] MCV (RBC) [Entitic vol] 94.3 fL 82.6 - 102.9 fL [email or web address] NRBC Automated 0.0 0.0 per 100 WBC [email or web address] Platelet distribution width (Bld) [Ratio] 12.3 % 11.8 - 14.4 % [email or web address] Platelet mean volume (Bld) [Entitic vol] 10.9 fL 8.1 - 13.5 fL [email or web address] Platelets (Bld) [#/Vol] 255 10*3/uL [email or web address] RBC (Bld) [#/Vol] 3.85 10*6/uL Low 3.95 - 5.1 1 m/uL [email or web address] WBC (Bld) [#/Vol] 6.9 10*3/uL [facility] [employer] [facility] [employer] Comprehensive Metabolic Pane ozzy 09-09-2021 Albumin [Mass/Vol] 4 g/dL 3.5 - 5.2 g/dL [email or web address] Albumin/Globulin [Mass ratio] 1.5 {ratio} [facility] [employer] ALP (Bld) [Catalytic activity/Vol] 72 U/L 35 - 104 U/L [facility] [employer] ALT [Catalytic activity/Vol] 15 U/L 5 - 33 U/L [facility] [employer] Anion gap [Moles/Vol] 10 mmol/L 9 - 17 mmol/L [facility] AST [Catalytic activity/Vol] 14 U/L <32 [facility] Bilirubin [Mass/Vol] 0.23 mg/dL Low 0.3 - 1 .2 mg/dL [facility] Calcium [Mass/Vol] 9.5 mg/dL 8.6 - 10. 4 mg/dL [facility] Chloride [Moles/Vol] 105 mmol/L 98 - 10 7 mmol/L [facility] CO2 [Moles/Vol] 25 mmol/L 20 - 31 mmol/L [facility] Creatinine [Mass/Vol] 0.61 mg/dL 0.50 - 0.90 mg/dL [facility] Free PSA/Total PSA [Mass fraction] 6.7 g/dL 6.4 - 8.3 g/dL [facility] GFR >60 >60 mL/min [facility] GFR Non- >60 >60 mL/min [facility] Glucose [Mass/Vol] 101 mg/dL High 70 - 99 mg/dL [facility] Interpretation and review of laboratory results Abnormal [facility] Potassium [Moles/Vol] 4.2 mmol/L 3.7 - 5.3 mmol/L [facility] Sodium [Moles/Vol] 140 mmol/L 135 - 144 mmol/L [facility] Urea nitrogen (BldV) [Mass/Vol] 11 mg/dL 6 - 20 mg/dL [facility] Urea nitrogen/Creatinine (Bld) [Mass ratio] 18 [facility] Folateon 09-09-2021 Folate >20.0 >4.8 ng/mL [facility] Laboratory - Chemistry and C hemistry - challengeon 09-09-2021 GFR/1.73 sq M.predicted MDRD (S/P/Bld) [Vol rate/Area] [facility] Comment on above: Average GFR for 20-2 9 years old: 116 mL/min/1.73sq m Chronic Kidney Disease: <60 mL/min/1.73sq m Kidney failure: <15 mL/min/1.73sq m eGFR calculated using average adult body mass. Additional eGFR calculator available at: http://www.[employer]/multiple_crcl_2012.htm Stage 1: Some kidney damage normal GFR Stage 2: Mild kidney damage GFR 60-89 Stage 3: Moderate kidney damage GFR 30-59 Stage 4: Severe kidney damage GFR 15-29 Stage 5: Severe kidney damage GFR <15 ESRD - chronic treatment by dialysis or transplant Valproic Acid Level, Totalon 09-09-2021 Interpretation and review of laboratory results Abnormal [facility] [employer] Valproic Acid Lvl 27 ug/mL Low 50 - 125 ug/mL [facility] [employer] Lipid Panelon 07-06-2021 Cholesterol [Mass/Vol] 158 mg/dL <200 [facility] [employer] Comment on above: Cholesterol Guidelines: <200 Desirable 200-240 Borderline >240 Undesirable Cholesterol in HDL [Mass/Vol] 54 mg/dL >40 [facility] [employer] Comment on above: HDL Guidelines: <40 Undesirable 40-59 Borderline >59 Desirable Cholesterol in LDL [Mass/Vol] 74 mg/dL 0 - 130 mg/dL [facility] Comment on above: LDL Guidelines: <100 Desirable 100-129 Near to/above Desirable 130-159 Borderline >159 Undesirable Direct (measured) LDL and calculated LDL are not interchangeable tests. Cholesterol.total/Cho lesterol in HDL [Mass ratio] 2.9 {ratio} <5 [facility] [employer] Interpretation and review of laboratory results Abnormal [email or web address] Triglyceride [Mass/Vol] 152 mg/dL High <150 [facility] [employer] Comment on above: Triglyceride Guidelines: <150 Desirable 150-199 Borderline 200-499 High >499 Very high Based on AHA Guidelines for fasting triglyceride, February 2012. [facility] CBCon 03-23-2021 Hematocrit (Bld) [Volume fraction] 37.6 % 36.3 - 47.1 % [facility] [employer] Hemoglobin.gastrointe stinal spec 1 Ql (Stl) 11.9 g/dL 11.9 - 15.1 g/dL [facility] [employer] MCH (RBC) [Entitic mass] 29.8 pg 25.2 - 33.5 pg [facility] [employer] MCHC (RBC) [Mass/Vol] 31.6 g/dL 28.4 - 34.8 g/dL [facility] MCV (RBC) [Entitic vol] 94.0 fL 82.6 - 102.9 fL [facility] [employer] NRBC Automated 0.0 0.0 per 100 WBC [facility] [employer] Platelet distribution width (Bld) [Ratio] 12.4 % 11.8 - 14.4 % [email or web address] Platelet mean volume (Bld) [Entitic vol] 10.1 fL 8.1 - 13.5 fL [facility] Platelets (Bld) [#/Vol] 268 10*3/uL [facility] RBC (Bld) [#/Vol] 4.00 10*6/uL 3.95 - 5.1 1 m/uL [facility] WBC (Bld) [#/Vol] 5.8 10*3/uL [facility] Comprehensive Metabolic Pane ozzy 03-23-2021 Albumin [Mass/Vol] 4 g/dL 3.5 - 5.2 g/dL [facility] Albumin/Globulin [Mass ratio] 1.7 {ratio} [facility] ALP (Bld) [Catalytic activity/Vol] 73 U/L 35 - 104 U/L [facility] ALT [Catalytic activity/Vol] 20 U/L 5 - 33 U/L [facility] Anion gap [Moles/Vol] 12 mmol/L 9 - 17 mmol/L [facility] AST [Catalytic activity/Vol] 17 U/L <32 [facility] Bilirubin [Mass/Vol] 0.23 mg/dL Low 0.3 - 1 .2 mg/dL [facility] Calcium [Mass/Vol] 9.7 mg/dL 8.6 - 10. 4 mg/dL [facility] Chloride [Moles/Vol] 102 mmol/L 98 - 10 7 mmol/L [facility] CO2 [Moles/Vol] 26 mmol/L 20 - 31 mmol/L [facility] Creatinine [Mass/Vol] 0.6 mg/dL 0.50 - 0.90 mg/dL [facility] Free PSA/Total PSA [Mass fraction] 6.4 g/dL 6.4 - 8.3 g/dL [facility] GFR >60 >60 mL/min [facility] GFR Non- >60 >60 mL/min [facility] Glucose [Mass/Vol] 97 mg/dL 70 - 99 mg/dL [facility] Interpretation and review of laboratory results Abnormal [facility] Potassium [Moles/Vol] 4.2 mmol/L 3.7 - 5.3 mmol/L [facility] Sodium [Moles/Vol] 140 mmol/L 135 - 144 mmol/L [facility] Urea nitrogen (BldV) [Mass/Vol] 11 mg/dL 6 - 20 mg/dL [facility] Urea nitrogen/Creatinine (Bld) [Mass ratio] 18 [facility] Folateon 03-23-2021 Folate >20.0 >4.8 ng/mL [employer] Hemoglobin A1Con 03-23-2021 Glucose [Mass/Vol] 97 mg/dL [facility] Comment on above: The ADA and AACC rec ommend providing the estimated average glucose result to permit better patient understanding of their HBA1c result. HbA1c (Bld) [Mass fraction] 5.0 % 4.0 - 6.0 % [facility] - Chemistry and C hemistry - challengeon 03-23-2021 GFR/1.73 sq M.predicted MDRD (S/P/Bld) [Vol rate/Area] [facility] Comment on above: Average GFR for 20-2 9 years old: 116 mL/min/1.73sq m Chronic Kidney Disease: <60 mL/min/1.73sq m Kidney failure: <15 mL/min/1.73sq m eGFR calculated using average adult body mass. Additional eGFR calculator available at: http://www.Personal MedSystems/multiple_crcl_2011.htm Stage 1: Some kidney damage normal GFR Stage 2: Mild kidney damage GFR 60-89 Stage 3: Moderate kidney damage GFR 30-59 Stage 4: Severe kidney damage GFR 15-29 Stage 5: Severe kidney damage GFR <15 ESRD - chronic treatment by dialysis or transplant Valproic acid level, totalon 03-23-2021 Interpretation and review of laboratory results Abnormal [email or web address] Valproic Acid Lvl 43 ug/mL Low 50 - 125 ug/mL [email or web address] Valproic Date last dose NOT REPORTED [email or web address] Valproic Dose amount NOT REPORTED [facility] [employer] Valproic Time last dose NOT REPORTED [facility] [employer] CBCOrdered By: Avis bower on 02-02-2021 Hematocrit (Bld) [Volume fraction] 37.7 % 36.3 - 47.1 % [facility] Work Phone: Hemoglobin.gastrointe stinal spec 1 Ql (Stl) 12.3 g/dL 11.9 - 15.1 g/dL [facility] Work Phone: MCH (RBC) [Entitic mass] 30.0 pg 25.2 - 33.5 pg [facility] Work Phone: MCHC (RBC) [Mass/Vol] 32.6 g/dL 28.4 - 34.8 g/dL [employer] Phone: MCV (RBC) [Entitic vol] 92.0 fL 82.6 - 102.9 fL [employer] Phone: NRBC Automated 0.0 0.0 per 100 WBC [employer] Phone: Platelet distribution width (Bld) [Ratio] 12.5 % 11.8 - 14.4 % [employer] Phone: Platelet mean volume (Bld) [Entitic vol] 10.1 fL 8.1 - 13.5 fL [employer] Phone: Platelets (Bld) [#/Vol] 288 10*3/uL [employer] Phone: RBC (Bld) [#/Vol] 4.10 10*6/uL 3.95 - 5.1 1 m/uL [employer] Phone: WBC (Bld) [#/Vol] 9.2 10*3/uL [employer] Phone: [employer] Phone: CBCOrdered By: Avis bower on 12-08-2020 Hematocrit (Bld) [Volume fraction] 36.6 % 36.3 - 47.1 % [employer] Phone: Hemoglobin.gastrointe stinal spec 1 Ql (Stl) 11.8 g/dL Low 11.9 - 15.1 g/dL [employer] Phone: Interpretation and review of laboratory results Abnormal [employer] Phone: MCH (RBC) [Entitic mass] 29.9 pg 25.2 - 33.5 pg [employer] Phone: MCHC (RBC) [Mass/Vol] 32.2 g/dL 28.4 - 34.8 g/dL [employer] Phone: MCV (RBC) [Entitic vol] 92.7 fL 82.6 - 102.9 fL [employer] Phone: NRBC Automated 0.0 0.0 per 100 WBC [employer] Phone: Platelet distribution width (Bld) [Ratio] 12.3 % 11.8 - 14.4 % [employer] Phone: Platelet mean volume (Bld) [Entitic vol] 10.2 fL 8.1 - 13.5 fL [employer] Phone: Platelets (Bld) [#/Vol] 277 10*3/uL [employer] Phone: RBC (Bld) [#/Vol] 3.95 10*6/uL 3.95 - 5.1 1 m/uL [employer] Phone: WBC (Bld) [#/Vol] 8.9 10*3/uL [employer] Phone: [employer] Phone: US NON OB TRANSVAGINALon US NON OB TRANSVAGINAL UTERUS:anteverted, homogeneous echo pattern ? ENDO:5mm in thickness ? RT. OVARY:seen, wnl ? LT. OVARY:seen, wnl- follicles visualized Interpreted by: Arielle Dawn APRN - RICHARD Peng MD Signed by: Maury Peng MD 11/24/20 Final result Normal [facility] CBCOrdered By: Avis bower on 11-10-2020 Hematocrit (Bld) [Volume fraction] 34.8 % Low 36.3 - 47.1 % [employer] Phone: Hemoglobin.gastrointe stinal spec 1 Ql (Stl) 11.3 g/dL Low 11.9 - 15.1 g/dL [employer] Phone: Interpretation and review of laboratory results Abnormal [employer] Phone: MCH (RBC) [Entitic mass] 29.9 pg 25.2 - 33.5 pg [employer] Phone: MCHC (RBC) [Mass/Vol] 32.5 g/dL 28.4 - 34.8 g/dL [employer] Phone: MCV (RBC) [Entitic vol] 92.1 fL 82.6 - 102.9 fL [employer] Phone: NRBC Automated 0.0 0.0 per 100 WBC [employer] Phone: Platelet distribution width (Bld) [Ratio] 12.1 % 11.8 - 14.4 % [employer] Phone: Platelet mean volume (Bld) [Entitic vol] 10.5 fL 8.1 - 13.5 fL [employer] Phone: Platelets (Bld) [#/Vol] 264 10*3/uL [employer] Phone: RBC (Bld) [#/Vol] 3.78 10*6/uL Low 3.95 - 5.1 1 m/uL [employer] Phone: WBC (Bld) [#/Vol] 7.3 10*3/uL [employer] Phone: [employer] Phone: CBCOrdered By: Avis bower on 10-13-2020 Hematocrit (Bld) [Volume fraction] 38.5 % 36.3 - 47.1 % [employer] Phone: Hemoglobin.gastrointe stinal spec 1 Ql (Stl) 12.5 g/dL 11.9 - 15.1 g/dL [employer] Phone: MCH (RBC) [Entitic mass] 29.8 pg 25.2 - 33.5 pg [employer] Phone: MCHC (RBC) [Mass/Vol] 32.5 g/dL 28.4 - 34.8 g/dL [employer] Phone: MCV (RBC) [Entitic vol] 91.7 fL 82.6 - 102.9 fL [employer] Phone: NRBC Automated 0.0 0.0 per 100 WBC [employer] Phone: Platelet distribution width (Bld) [Ratio] 11.9 % 11.8 - 14.4 % [employer] Phone: Platelet mean volume (Bld) [Entitic vol] 10.2 fL 8.1 - 13.5 fL [employer] Phone: Platelets (Bld) [#/Vol] 257 10*3/uL [employer] Phone: RBC (Bld) [#/Vol] 4.20 10*6/uL 3.95 - 5.1 1 m/uL [employer] Phone: WBC (Bld) [#/Vol] 7.6 10*3/uL [employer] Phone: [employer] Phone: CBCOrdered By: Avis bower on 09-15-2020 Hematocrit (Bld) [Volume fraction] 38.4 % 36.3 - 47.1 % [employer] Phone: Hemoglobin.gastrointe stinal spec 1 Ql (Stl) 12.5 g/dL 11.9 - 15.1 g/dL [employer] Phone: MCH (RBC) [Entitic mass] 30.2 pg 25.2 - 33.5 pg [employer] Phone: MCHC (RBC) [Mass/Vol] 32.6 g/dL 28.4 - 34.8 g/dL [employer] Phone: MCV (RBC) [Entitic vol] 92.8 fL 82.6 - 102.9 fL [employer] Phone: NRBC Automated 0.0 0.0 per 100 WBC [employer] Phone: Platelet distribution width (Bld) [Ratio] 12.2 % 11.8 - 14.4 % [employer] Phone: Platelet mean volume (Bld) [Entitic vol] 10.5 fL 8.1 - 13.5 fL [employer] Phone: Platelets (Bld) [#/Vol] 271 10*3/uL [employer] Phone: RBC (Bld) [#/Vol] 4.14 10*6/uL 3.95 - 5.1 1 m/uL [employer] Phone: WBC (Bld) [#/Vol] 7.9 10*3/uL [employer] Phone: CBCon 08-18-2020 Erythrocyte distribution width (RBC) [Ratio] 12.6 % 11.8 - 14.4 % [employer] Phone: Hematocrit (Bld) [Volume fraction] 37.7 % 36.3 - 47.1 % [employer] Phone: Hemoglobin (Bld) [Mass/Vol] 12.0 g/dL 11.9 - 15.1 g/dL [employer] Phone: MCH (RBC) [Entitic mass] 30.2 pg 25.2 - 33.5 pg [employer] Phone: MCHC (RBC) [Mass/Vol] 31.8 g/dL 28.4 - 34.8 g/dL [employer] Phone: MCV (RBC) [Entitic vol] 95.0 fL 82.6 - 102.9 fL [employer] Phone: Platelet mean volume (Bld) [Entitic vol] 10.0 fL 8.1 - 13.5 fL [employer] Phone: Platelets (Bld) [#/Vol] 301 10*3/uL [employer] Phone: RBC (Bld) [#/Vol] 3.97 10*6/uL 3.95 - 5.1 1 m/uL [employer] Phone: WBC (Bld) [#/Vol] 6.8 10*3/uL [employer] Phone: WBC (Bld) [#/Vol] 0.0 10*3/uL 0.0 per 10 0 WBC [employer] Phone: Comprehensive Metabolic Pane ozzy 08-18-2020 Albumin [Mass/Vol] 3.9 g/dL 3.5 - 5.2 g/dL [employer] Phone: Albumin/Globulin [Mass ratio] 1.3 {ratio} [employer] Phone: ALP [Catalytic activity/Vol] 79 U/L 35 - 104 U/L [employer] Phone: ALT [Catalytic activity/Vol] 18 U/L 5 - 33 U/L [employer] Phone: Anion gap [Moles/Vol] 11 mmol/L 9 - 17 mmol/L [employer] Phone: AST [Catalytic activity/Vol] 20 U/L <32 [employer] Phone: Bilirubin Ql (U) 0.18 mg/dL Low 0.3 - 1.2 mg/dL [employer] Phone: Bun/Cre Ratio 15 [employer] Phone: Calcium [Mass/Vol] 9.7 mg/dL 8.6 - 10. 4 mg/dL [employer] Phone: Chloride [Moles/Vol] 104 mmol/L 98 - 10 7 mmol/L [facility] Phone: CO2 [Moles/Vol] 24 mmol/L 20 - 31 mmol/L [employer] Phone: Creatinine [Mass/Vol] 0.73 mg/dL 0.50 - 0.90 mg/dL [facility] Phone: GFR >60 >60 mL/min [employer] Phone: GFR Non- >60 >60 mL/min [facility] Phone: Glucose [Mass/Vol] 83 mg/dL 70 - 99 mg/dL [facility] [employer] Phone: Interpretation and review of laboratory results Abnormal [facility] Phone: Potassium [Moles/Vol] 4.3 mmol/L 3.7 - 5.3 mmol/L [facility] Phone: Protein [Mass/Vol] 6.8 g/dL 6.4 - 8.3 g/dL [facility] Phone: Sodium [Moles/Vol] 139 mmol/L 135 - 144 mmol/L [facility] Phone: Urea nitrogen [Mass/Vol] 11 mg/dL 6 - 20 mg/dL [facility] Phone: Folateon 08-18-2020 Folate >20.0 >4.8 ng/mL [facility] Phone: Hemoglobin A1Con 08-18-2020 Glucose [Mass/Vol] 94 mg/dL [employer] Phone: Comment on above: The ADA and AACC rec ommend providing the estimated average glucose result to permit better patient understanding of their HBA1c result. HbA1c (Bld) [Mass fraction] 4.9 % 4.0 - 6.0 % [employer] Phone: Metabolic Panelon 08-18-2020 GFR/1.73 sq M predicted among non-blacks MDRD (S/P/Bld) [Vol rate/Area] [employer] Phone: Comment on above: Average GFR for 20-2 9 years old: 116 mL/min/1.73sq m Chronic Kidney Disease: <60 mL/min/1.73sq m Kidney failure: <15 mL/min/1.73sq m eGFR calculated using average adult body mass. Additional eGFR calculator available at: http://www.Personal Med[employer]s/multiple_crcl_2012.htm Stage 1: Some kidney damage normal GFR Stage 2: Mild kidney damage GFR 60-89 Stage 3: Moderate kidney damage GFR 30-59 Stage 4: Severe kidney damage GFR 15-29 Stage 5: Severe kidney damage GFR <15 ESRD - chronic treatment by dialysis or transplant Valproic acid level, totalon 08-18-2020 Interpretation and review of laboratory results Abnormal [employer] Phone: Valproic Acid Lvl 43 ug/mL Low 50 - 125 ug/mL [employer] Phone: Valproic Date last dose NOT REPORTED [employer] Phone: Valproic Dose amount NOT REPORTED [employer] Phone: Valproic Time last dose NOT REPORTED [employer] Phone: CBCon 07-14-2020 Erythrocyte distribution width (RBC) [Ratio] 12.7 % 11.8 - 14.4 % [employer] Phone: Hematocrit (Bld) [Volume fraction] 40.3 % 36.3 - 47.1 % [employer] Phone: Hemoglobin (Bld) [Mass/Vol] 12.9 g/dL 11.9 - 15.1 g/dL [employer] Phone: MCH (RBC) [Entitic mass] 30.4 pg 25.2 - 33.5 pg [employer] Phone: MCHC (RBC) [Mass/Vol] 32.0 g/dL 28.4 - 34.8 g/dL [employer] Phone: MCV (RBC) [Entitic vol] 94.8 fL 82.6 - 102.9 fL [employer] Phone: Platelet mean volume (Bld) [Entitic vol] 10.6 fL 8.1 - 13.5 fL [employer] Phone: Platelets (Bld) [#/Vol] 281 10*3/uL [employer] Phone: RBC (Bld) [#/Vol] 4.25 10*6/uL 3.95 - 5.1 1 m/uL [employer] Phone: WBC (Bld) [#/Vol] 7.6 10*3/uL [employer] Phone: WBC (Bld) [#/Vol] 0.0 10*3/uL 0.0 per 10 0 WBC [employer] Phone: CBC Auto Differentialon 05-15 Basophils (Bld) [#/Vol] 0.03 10*3/uL [place] Basophils/100 WBC (Bld) 0 % 0 - 2 % [place] Differential Type NOT REPORTED [place] Eosinophils (Bld) [#/Vol] 0.16 10*3/uL [place] Eosinophils/100 WBC (Bld) 2 % 1 - 4 % [place] Erythrocyte distribution width (RBC) [Ratio] 12.4 % 11.8 - 14.4 % [place] Hematocrit (Bld) [Volume fraction] 38.3 % 36.3 - 47.1 % [place] Hemoglobin (Bld) [Mass/Vol] 12.5 g/dL 11.9 - 15.1 g/dL [place] Immature granulocytes (Bld) [#/Vol] 0.05 10*3/uL [place] Immature granulocytes (Bld) [#/Vol] 1 % High 0 [place] Interpretation and review of laboratory results Abnormal [place] Lymphocytes (Bld) [#/Vol] 2.54 10*3/uL [place] Lymphocytes/100 WBC (Bld) 36 % 24 - 43 % [place] MCH (RBC) [Entitic mass] 29.7 pg 25.2 - 33.5 pg [place] MCHC (RBC) [Mass/Vol] 32.6 g/dL 28.4 - 34.8 g/dL [place] MCV (RBC) [Entitic vol] 91.0 fL 82.6 - 102.9 fL [place] Monocytes (Bld) [#/Vol] 0.59 10*3/uL [place] Monocytes/100 WBC (Bld) 8 % 3 - 12 % [place] Platelet mean volume (Bld) [Entitic vol] 10.6 fL 8.1 - 13.5 fL [place] Platelets (Bld) [#/Vol] 298 10*3/uL [place] Platelets (Bld) [#/Vol] NOT REPORTED [place] RBC (Bld) [#/Vol] 4.21 10*6/uL 3.95 - 5.1 1 m/uL [place] RBC morphology finding Nom (Bld) NOT REPORTED [place] Segmented neutrophils/100 WBC (Bld) 53 % 36 - 65 % [place] Segs Absolute 3.70 [place] WBC (Bld) [#/Vol] 7.1 10*3/uL [place] WBC (Bld) [#/Vol] 0.0 10*3/uL 0.0 per 10 0 WBC [place] WBC Morphology NOT REPORTED [place] Hemoglobin A1Con 06-03-2020 Glucose [Mass/Vol] 94 mg/dL [place] Comment on above: The ADA and AACC rec ommend providing the estimated average glucose result to permit better patient understanding of their HBA1c result. HbA1c (Bld) [Mass fraction] 4.9 % 4 - 6 % [place] CBC Auto Differentialon 11-0 4-2020 Basophils (Bld) [#/Vol] 0.06 10*3/uL [place] Basophils/100 WBC (Bld) 1 % 0 - 2 % [place] Differential Type NOT REPORTED [place] Eosinophils (Bld) [#/Vol] 0.18 10*3/uL [place] Eosinophils/100 WBC (Bld) 2 % 1 - 4 % [place] Erythrocyte distribution width (RBC) [Ratio] 12.2 % 11.8 - 14.4 % [place] Hematocrit (Bld) [Volume fraction] 41.0 % 36.3 - 47.1 % [place] Hemoglobin (Bld) [Mass/Vol] 13.0 g/dL 11.9 - 15.1 g/dL [place] Immature granulocytes (Bld) [#/Vol] 1 % High 0 [place] Immature granulocytes (Bld) [#/Vol] 0.09 10*3/uL [place] Interpretation and review of laboratory results Abnormal [place] Lymphocytes (Bld) [#/Vol] 3.27 10*3/uL [place] Lymphocytes/100 WBC (Bld) 41 % 24 - 43 % [place] MCH (RBC) [Entitic mass] 29.7 pg 25.2 - 33.5 pg [place] MCHC (RBC) [Mass/Vol] 31.7 g/dL 28.4 - 34.8 g/dL [place] MCV (RBC) [Entitic vol] 93.8 fL 82.6 - 102.9 fL [place] Monocytes (Bld) [#/Vol] 0.59 10*3/uL [place] Monocytes/100 WBC (Bld) 7 % 3 - 12 % [place] Platelet mean volume (Bld) [Entitic vol] 11.0 fL 8.1 - 13.5 fL [place] Platelets (Bld) [#/Vol] 272 10*3/uL [place] Platelets (Bld) [#/Vol] NOT REPORTED [place] RBC (Bld) [#/Vol] 4.37 10*6/uL 3.95 - 5.1 1 m/uL [place] RBC morphology finding Nom (Bld) NOT REPORTED [place] Segmented neutrophils/100 WBC (Bld) 48 % 36 - 65 % [place] Segs Absolute 3.74 [place] WBC (Bld) [#/Vol] 7.9 10*3/uL [place] WBC (Bld) [#/Vol] 0.0 10*3/uL 0.0 per 10 0 WBC [place] WBC Morphology NOT REPORTED [place] [facility] 02-18-2020 Cholesterol [Mass/Vol] 164 mg/dL <200 [place] Comment on above: Cholesterol Guidelines: <200 Desirable 200-240 Borderline >240 Undesirable Cholesterol in HDL [Mass/Vol] 55 mg/dL >40 [place] Comment on above: HDL Guidelines: <40 Undesirable 40-59 Borderline >59 Desirable Cholesterol in LDL [Mass/Vol] 73 mg/dL 0 - 130 mg/dL [place] Comment on above: LDL Guidelines: <100 Desirable 100-129 Near to/above Desirable 130-159 Borderline >159 Undesirable Direct (measured) LDL and calculated LDL are not interchangeable tests. Triglyceride [Mass/Vol] 182 mg/dL High <150 [place] Comment on above: Triglyceride Guidelines: <150 Desirable 150-199 Borderline 200-499 High >499 Very high Based on AHA Guidelines for fasting triglyceride, February 2012. Hematologyon 02-18-2020 Basophils (Bld) [#/Vol] 0.05 10*3/uL [place] Basophils/100 WBC (Bld) 1 % 0 - 2 % [place] Eosinophils (Bld) [#/Vol] 0.18 10*3/uL [place] Eosinophils/100 WBC (Bld) 2 % 1 - 4 % [place] Hematocrit (Bld) [Volume fraction] 40.1 % 36.3 - 47.1 % [place] Hemoglobin (Bld) [Mass/Vol] 12.8 g/dL 11.9 - 15.1 g/dL [place] Lymphocytes (Bld) [#/Vol] 3.25 10*3/uL [place] Lymphocytes/100 WBC (Bld) 39 % 24 - 43 % [place] MCH (RBC) [Entitic mass] 30.0 pg 25.2 - 33.5 pg [place] MCV (RBC) [Entitic vol] 93.9 fL 82.6 - 102.9 fL [place] Monocytes (Bld) [#/Vol] 0.59 10*3/uL [place] Monocytes/100 WBC (Bld) 7 % 3 - 12 % [place] Platelets (Bld) [#/Vol] 260 10*3/uL [place] Platelets (Bld) [#/Vol] NOT REPORTED [place] RBC (Bld) [#/Vol] 4.27 10*6/uL 3.95 - 5.1 1 m/uL [place] RBC morphology finding Nom (Bld) NOT REPORTED [place] WBC (Bld) [#/Vol] 0.0 10*3/uL 0.0 per 10 0 WBC [place] WBC (Bld) [#/Vol] 8.3 10*3/uL [place] Metabolic Panelon 02-18-2020 Albumin [Mass/Vol] 4 g/dL 3.5 - 5.2 g/dL [place] ALP [Catalytic activity/Vol] 69 U/L 35 - 104 U/L [place] ALT [Catalytic activity/Vol] 20 U/L 5 - 33 U/L [place] Anion gap [Moles/Vol] 14 mmol/L 9 - 17 mmol/L [place] AST [Catalytic activity/Vol] 19 U/L <32 [place] Calcium [Mass/Vol] 9.5 mg/dL 8.6 - 10. 4 mg/dL [place] Chloride [Moles/Vol] 105 mmol/L 98 - 10 7 mmol/L [place] CO2 [Moles/Vol] 23 mmol/L 20 - 31 mmol/L [place] Creatinine [Mass/Vol] 0.78 mg/dL 0.5 - 0.9 mg/dL [place] GFR/1.73 sq M predicted among non-blacks MDRD (S/P/Bld) [Vol rate/Area] [place] Comment on above: Average GFR for 20-2 9 years old: 116 mL/min/1.73sq m Chronic Kidney Disease: <60 mL/min/1.73sq m Kidney failure: <15 mL/min/1.73sq m eGFR calculated using average adult body mass. Additional eGFR calculator available at: http://www.Personal Med[employer]s/multiple_crcl_2012.htm Stage 1: Some kidney damage normal GFR Stage 2: Mild kidney damage GFR 60-89 Stage 3: Moderate kidney damage GFR 30-59 Stage 4: Severe kidney damage GFR 15-29 Stage 5: Severe kidney damage GFR <15 ESRD - chronic treatment by dialysis or transplant Glucose [Mass/Vol] 81 mg/dL 70 - 99 mg/dL [place] Potassium [Moles/Vol] 4.2 mmol/L 3.7 - 5.3 mmol/L [place] Protein [Mass/Vol] 7.0 g/dL 6.4 - 8.3 g/dL [place] Sodium [Moles/Vol] 142 mmol/L 135 - 144 mmol/L [place] Urea nitrogen [Mass/Vol] 11 mg/dL 6 - 20 mg/dL [place] Otheron 02-18-2020 Folate >20.0 >4.8 ng/mL [place] Cholesterol in VLDL [Mass/Vol] NOT REPORTED High 1 - 30 mg/dL [place] Cholesterol.total/Cho lesterol in HDL [Mass ratio] 3 {ratio} <5 [place] Interpretation and review of laboratory results Abnormal [place] Interpretation and review of laboratory results Abnormal [place] Valproic Acid Lvl 25 ug/mL Low 50 - 125 ug/mL [place] Valproic Date last dose NOT REPORTED [place] Valproic Dose amount NOT REPORTED [place] Valproic Time last dose NOT REPORTED [place] Albumin/Globulin [Mass ratio] 1.3 {ratio} [place] Bilirubin Ql (U) 0.18 mg/dL Low 0.3 - 1.2 mg/dL [place] Bun/Cre Ratio 14 [place] GFR >60 >60 mL/min [place] GFR Non- >60 >60 mL/min [place] Interpretation and review of laboratory results Abnormal [place] Differential Type NOT REPORTED [place] Erythrocyte distribution width (RBC) [Ratio] 12.7 % 11.8 - 14.4 % [place] Immature granulocytes (Bld) [#/Vol] 1 % High 0 [place] Immature granulocytes (Bld) [#/Vol] 0.08 10*3/uL [place] Interpretation and review of laboratory results Abnormal [place] MCHC (RBC) [Mass/Vol] 31.9 g/dL 28.4 - 34.8 g/dL [place] Platelet mean volume (Bld) [Entitic vol] 10.9 fL 8.1 - 13.5 fL [place] Segmented neutrophils/100 WBC (Bld) 50 % 36 - 65 % [place] Segs Absolute 4.15 [place] WBC Morphology NOT REPORTED [place] CBC Auto Differentialon 09-0 Basophils (Bld) [#/Vol] 0.06 10*3/uL [place] Basophils/100 WBC (Bld) 1 % 0 - 2 % [place] Differential Type NOT REPORTED [place] Eosinophils (Bld) [#/Vol] 0.18 10*3/uL [place] Eosinophils/100 WBC (Bld) 2 % 1 - 4 % [place] Erythrocyte distribution width (RBC) [Ratio] 12.6 % 11.8 - 14.4 % [place] Hematocrit (Bld) [Volume fraction] 40.2 % 36.3 - 47.1 % [place] Hemoglobin (Bld) [Mass/Vol] 12.7 g/dL 11.9 - 15.1 g/dL [place] Immature granulocytes (Bld) [#/Vol] 1 % High 0 [place] Immature granulocytes (Bld) [#/Vol] 0.13 10*3/uL [place] Interpretation and review of laboratory results Abnormal [place] Lymphocytes (Bld) [#/Vol] 3.36 10*3/uL [place] Lymphocytes/100 WBC (Bld) 37 % 24 - 43 % [place] MCH (RBC) [Entitic mass] 29.5 pg 25.2 - 33.5 pg [place] MCHC (RBC) [Mass/Vol] 31.6 g/dL 28.4 - 34.8 g/dL [place] MCV (RBC) [Entitic vol] 93.5 fL 82.6 - 102.9 fL [place] Monocytes (Bld) [#/Vol] 0.78 10*3/uL [place] Monocytes/100 WBC (Bld) 9 % 3 - 12 % [place] Platelet mean volume (Bld) [Entitic vol] 11.0 fL 8.1 - 13.5 fL [place] Platelets (Bld) [#/Vol] 259 10*3/uL [place] Platelets (Bld) [#/Vol] NOT REPORTED [place] RBC (Bld) [#/Vol] 4.30 10*6/uL 3.95 - 5.1 1 m/uL [place] RBC morphology finding Nom (Bld) NOT REPORTED [place] Segmented neutrophils/100 WBC (Bld) 50 % 36 - 65 % [place] Segs Absolute 4.49 [place] WBC (Bld) [#/Vol] 9.0 10*3/uL [place] WBC (Bld) [#/Vol] 0.0 10*3/uL 0.0 per 10 0 WBC [place] WBC Morphology NOT REPORTED [place] CBC Auto Differentialon 12-12 Basophils (Bld) [#/Vol] 0.04 10*3/uL [place] Basophils/100 WBC (Bld) 0 % 0 - 2 % [place] Differential Type NOT REPORTED [place] Eosinophils (Bld) [#/Vol] 0.18 10*3/uL [place] Eosinophils/100 WBC (Bld) 2 % 1 - 4 % [place] Erythrocyte distribution width (RBC) [Ratio] 12.8 % 11.8 - 14.4 % [place] Hematocrit (Bld) [Volume fraction] 39.4 % 36.3 - 47.1 % [place] Hemoglobin (Bld) [Mass/Vol] 12.7 g/dL 11.9 - 15.1 g/dL [place] Immature granulocytes (Bld) [#/Vol] 1 % High 0 [place] Immature granulocytes (Bld) [#/Vol] 0.13 10*3/uL [place] Interpretation and review of laboratory results Abnormal [place] Lymphocytes (Bld) [#/Vol] 3.95 10*3/uL [place] Lymphocytes/100 WBC (Bld) 43 % 24 - 43 % [place] MCH (RBC) [Entitic mass] 30.2 pg 25.2 - 33.5 pg [place] MCHC (RBC) [Mass/Vol] 32.2 g/dL 28.4 - 34.8 g/dL [place] MCV (RBC) [Entitic vol] 93.6 fL 82.6 - 102.9 fL [place] Monocytes (Bld) [#/Vol] 0.71 10*3/uL [place] Monocytes/100 WBC (Bld) 8 % 3 - 12 % [place] Platelet mean volume (Bld) [Entitic vol] 11.2 fL 8.1 - 13.5 fL [place] Platelets (Bld) [#/Vol] 242 10*3/uL [place] Platelets (Bld) [#/Vol] NOT REPORTED [place] RBC (Bld) [#/Vol] 4.21 10*6/uL 3.95 - 5.1 1 m/uL [place] RBC morphology finding Nom (Bld) NOT REPORTED [place] Segmented neutrophils/100 WBC (Bld) 46 % 36 - 65 % [place] Segs Absolute 4.28 [place] WBC (Bld) [#/Vol] 9.3 10*3/uL [place] WBC (Bld) [#/Vol] 0.0 10*3/uL 0.0 per 10 0 WBC [place] WBC Morphology NOT REPORTED [place] CBC Auto Differentialon 11-12 Basophils (Bld) [#/Vol] 0.05 10*3/uL [place] Basophils/100 WBC (Bld) 1 % 0 - 2 % [place] Differential Type NOT REPORTED [place] Eosinophils (Bld) [#/Vol] 0.15 10*3/uL [place] Eosinophils/100 WBC (Bld) 2 % 1 - 4 % [place] Erythrocyte distribution width (RBC) [Ratio] 12.4 % 11.8 - 14.4 % [place] Hematocrit (Bld) [Volume fraction] 38.2 % 36.3 - 47.1 % [place] Hemoglobin (Bld) [Mass/Vol] 12.2 g/dL 11.9 - 15.1 g/dL [place] Immature granulocytes (Bld) [#/Vol] 0.09 10*3/uL [place] Immature granulocytes (Bld) [#/Vol] 1 % High 0 [place] Interpretation and review of laboratory results Abnormal [place] Lymphocytes (Bld) [#/Vol] 2.86 10*3/uL [place] Lymphocytes/100 WBC (Bld) 41 % 24 - 43 % [place] MCH (RBC) [Entitic mass] 29.8 pg 25.2 - 33.5 pg [place] MCHC (RBC) [Mass/Vol] 31.9 g/dL 28.4 - 34.8 g/dL [place] MCV (RBC) [Entitic vol] 93.4 fL 82.6 - 102.9 fL [place] Monocytes (Bld) [#/Vol] 0.53 10*3/uL [place] Monocytes/100 WBC (Bld) 8 % 3 - 12 % [place] Platelet mean volume (Bld) [Entitic vol] 11.3 fL 8.1 - 13.5 fL [place] Platelets (Bld) [#/Vol] 237 10*3/uL [place] Platelets (Bld) [#/Vol] NOT REPORTED [place] RBC (Bld) [#/Vol] 4.09 10*6/uL 3.95 - 5.1 1 m/uL [place] RBC morphology finding Nom (Bld) NOT REPORTED [place] Segmented neutrophils/100 WBC (Bld) 47 % 36 - 65 % [place] Segs Absolute 3.30 [place] WBC (Bld) [#/Vol] 7.0 10*3/uL [place] WBC (Bld) [#/Vol] 0.0 10*3/uL 0.0 per 10 0 WBC [place] WBC Morphology NOT REPORTED [place] Hemoglobin A1Con 12-03-2019 Glucose [Mass/Vol] 94 mg/dL [place] Comment on above: The ADA and AACC rec ommend providing the estimated average glucose result to permit better patient understanding of their HBA1c result. HbA1c (Bld) [Mass fraction] 4.9 % 4.8 - 5.9 % [place] COVID-19 PCRon 11-30-2019 SARS-CoV-2, TAN Not Detected Normal Not Detected [facility] Comment on above: Result Comment: This test was developed and its performance characteristics determined by [employer]. This test has not been FDA cleared or approved. This test has been authorized by FDA under an Emergency Use Authorization (EUA). This test is only authorized for the duration of time the declaration that circumstances exist justifying the authorization of the emergency use of in vitro diagnostic tests for detection of SARS-CoV-2 virus and/or diagnosis of COVID-19 infection under section 564(b)(1) of the Act, 21 U.S.C. 360bbb-3(b)(1), unless the authorization is terminated or revoked sooner. When diagnostic testing is negative, the possibility of a false negative result should be considered in the context of a patient's recent exposures and the presence of clinical signs and symptoms consistent with COVID-19. An individual without symptoms of COVID-19 and who is not shedding SARS-CoV-2 virus would expect to have a negative (not detected) result in this assay. Performed By: #### C VDPCR #### [facility] [address] [place] [address] Pilyalfredito [place] CBC Auto Differentialon 09-12 Basophils (Bld) [#/Vol] 0.04 10*3/uL [place] Basophils/100 WBC (Bld) 1 % 0 - 2 % [place] Differential Type NOT REPORTED [place] Eosinophils (Bld) [#/Vol] 0.22 10*3/uL [place] Eosinophils/100 WBC (Bld) 3 % 1 - 4 % [place] Erythrocyte distribution width (RBC) [Ratio] 12.4 % 11.8 - 14.4 % [place] Hematocrit (Bld) [Volume fraction] 39.2 % 36.3 - 47.1 % [place] Hemoglobin (Bld) [Mass/Vol] 12.4 g/dL 11.9 - 15.1 g/dL [place] Immature granulocytes (Bld) [#/Vol] 1 % High 0 [place] Immature granulocytes (Bld) [#/Vol] 0.11 10*3/uL [place] Interpretation and review of laboratory results Abnormal [place] Lymphocytes (Bld) [#/Vol] 3.46 10*3/uL [place] Lymphocytes/100 WBC (Bld) 41 % 24 - 43 % [place] MCH (RBC) [Entitic mass] 29.6 pg 25.2 - 33.5 pg [place] MCHC (RBC) [Mass/Vol] 31.6 g/dL 28.4 - 34.8 g/dL [place] MCV (RBC) [Entitic vol] 93.6 fL 82.6 - 102.9 fL [place] Monocytes (Bld) [#/Vol] 0.68 10*3/uL [place] Monocytes/100 WBC (Bld) 8 % 3 - 12 % [place] Platelet mean volume (Bld) [Entitic vol] 11.8 fL 8.1 - 13.5 fL [place] Platelets (Bld) [#/Vol] 260 10*3/uL [place] Platelets (Bld) [#/Vol] NOT REPORTED [place] RBC (Bld) [#/Vol] 4.19 10*6/uL 3.95 - 5.1 1 m/uL [place] RBC morphology finding Nom (Bld) NOT REPORTED [place] Segmented neutrophils/100 WBC (Bld) 46 % 36 - 65 % [place] Segs Absolute 3.97 [place] WBC (Bld) [#/Vol] 8.5 10*3/uL [place] WBC (Bld) [#/Vol] 0.0 10*3/uL 0.0 per 10 0 WBC [place] WBC Morphology NOT REPORTED [place] CBC Auto Differentialon 08-13 Basophils (Bld) [#/Vol] 0.03 10*3/uL [place] Basophils/100 WBC (Bld) 0 % 0 - 2 % [place] Differential Type NOT REPORTED [place] Eosinophils (Bld) [#/Vol] 0.22 10*3/uL [place] Eosinophils/100 WBC (Bld) 3 % 1 - 4 % [place] Erythrocyte distribution width (RBC) [Ratio] 12.6 % 11.8 - 14.4 % [place] Hematocrit (Bld) [Volume fraction] 41.1 % 36.3 - 47.1 % [place] Hemoglobin (Bld) [Mass/Vol] 13.2 g/dL 11.9 - 15.1 g/dL [place] Immature granulocytes (Bld) [#/Vol] 0.11 10*3/uL [place] Immature granulocytes (Bld) [#/Vol] 1 % High 0 [place] Interpretation and review of laboratory results Abnormal [place] Lymphocytes (Bld) [#/Vol] 3.03 10*3/uL [place] Lymphocytes/100 WBC (Bld) 38 % 24 - 43 % [place] MCH (RBC) [Entitic mass] 29.9 pg 25.2 - 33.5 pg [place] MCHC (RBC) [Mass/Vol] 32.1 g/dL 28.4 - 34.8 g/dL [place] MCV (RBC) [Entitic vol] 93.0 fL 82.6 - 102.9 fL [place] Monocytes (Bld) [#/Vol] 0.50 10*3/uL [place] Monocytes/100 WBC (Bld) 6 % 3 - 12 % [place] Platelet mean volume (Bld) [Entitic vol] 11.1 fL 8.1 - 13.5 fL [place] Platelets (Bld) [#/Vol] 259 10*3/uL [place] Platelets (Bld) [#/Vol] NOT REPORTED [place] RBC (Bld) [#/Vol] 4.42 10*6/uL 3.95 - 5.1 1 m/uL [place] RBC morphology finding Nom (Bld) NOT REPORTED [place] Segmented neutrophils/100 WBC (Bld) 52 % 36 - 65 % [place] Segs Absolute 4.03 [place] WBC (Bld) [#/Vol] 0.0 10*3/uL 0.0 per 10 0 WBC [place] WBC (Bld) [#/Vol] 7.9 10*3/uL [place] WBC Morphology NOT REPORTED [place] Comprehensive Metabolic Pane ozzy 2019 Albumin [Mass/Vol] 4 g/dL 3.5 - 5.2 g/dL [place] Albumin/Globulin [Mass ratio] 1.2 {ratio} [place] ALP [Catalytic activity/Vol] 71 U/L 35 - 104 U/L [place] ALT [Catalytic activity/Vol] 18 U/L 5 - 33 U/L [place] Anion gap [Moles/Vol] 13 mmol/L 9 - 17 mmol/L [place] AST [Catalytic activity/Vol] 17 U/L <32 [place] Bilirubin Ql (U) 0.17 mg/dL Low 0.3 - 1.2 mg/dL [place] Bun/Cre Ratio 19 [place] Calcium [Mass/Vol] 10.0 mg/dL 8.6 - 10. 4 mg/dL [place] Chloride [Moles/Vol] 104 mmol/L 98 - 10 7 mmol/L [place] CO2 [Moles/Vol] 25 mmol/L 20 - 31 mmol/L [place] Creatinine [Mass/Vol] 0.68 mg/dL 0.5 - 0.9 mg/dL [place] GFR >60 >60 mL/min [place] GFR Non- >60 >60 mL/min [place] Glucose [Mass/Vol] 100 mg/dL High 70 - 99 mg/dL [place] Interpretation and review of laboratory results Abnormal [place] Potassium [Moles/Vol] 4.7 mmol/L 3.7 - 5.3 mmol/L [place] Protein [Mass/Vol] 7.3 g/dL 6.4 - 8.3 g/dL [place] Sodium [Moles/Vol] 142 mmol/L 135 - 144 mmol/L [place] Urea nitrogen [Mass/Vol] 13 mg/dL 6 - 20 mg/dL [place] Folateon 2019 Folate >20.0 >4.8 ng/mL [place] Hemoglobin A1Con 2019 Glucose [Mass/Vol] 100 mg/dL [place] Comment on above: The ADA and AACC rec ommend providing the estimated average glucose result to permit better patient understanding of their HBA1c result. HbA1c (Bld) [Mass fraction] 5.1 % 4.8 - 5.9 % [place] Metabolic Panelon 2019 GFR/1.73 sq M predicted among non-blacks MDRD (S/P/Bld) [Vol rate/Area] [place] Comment on above: Average GFR for 20-2 9 years old: 116 mL/min/1.73sq m Chronic Kidney Disease: <60 mL/min/1.73sq m Kidney failure: <15 mL/min/1.73sq m eGFR calculated using average adult body mass. Additional eGFR calculator available at: http://www.[employer]/multiple_crcl_2012.htm Stage 1: Some kidney damage normal GFR Stage 2: Mild kidney damage GFR 60-89 Stage 3: Moderate kidney damage GFR 30-59 Stage 4: Severe kidney damage GFR 15-29 Stage 5: Severe kidney damage GFR <15 ESRD - chronic treatment by dialysis or transplant Valproic acid level, totalon 2019 Interpretation and review of laboratory results Abnormal [place] Valproic Acid Lvl 42 ug/mL Low 50 - 125 ug/mL [place] Valproic Date last dose NOT REPORTED [place] Valproic Dose amount NOT REPORTED [place] Valproic Time last dose NOT REPORTED [place] CBC Auto Differentialon - Basophils (Bld) [#/Vol] 0.03 10*3/uL [place] Basophils/100 WBC (Bld) 0 % 0 - 2 % [place] Differential Type NOT REPORTED [place] Eosinophils (Bld) [#/Vol] 0.16 10*3/uL [place] Eosinophils/100 WBC (Bld) 2 % 1 - 4 % [place] Erythrocyte distribution width (RBC) [Ratio] 12.5 % 11.8 - 14.4 % [place] Hematocrit (Bld) [Volume fraction] 41.4 % 36.3 - 47.1 % [place] Hemoglobin (Bld) [Mass/Vol] 13.0 g/dL 11.9 - 15.1 g/dL [place] Immature granulocytes (Bld) [#/Vol] 1 % High 0 [place] Immature granulocytes (Bld) [#/Vol] 0.10 10*3/uL [place] Interpretation and review of laboratory results Abnormal [place] Lymphocytes (Bld) [#/Vol] 3.12 10*3/uL [place] Lymphocytes/100 WBC (Bld) 39 % 24 - 43 % [place] MCH (RBC) [Entitic mass] 29.3 pg 25.2 - 33.5 pg [place] MCHC (RBC) [Mass/Vol] 31.4 g/dL 28.4 - 34.8 g/dL [place] MCV (RBC) [Entitic vol] 93.2 fL 82.6 - 102.9 fL [place] Monocytes (Bld) [#/Vol] 0.56 10*3/uL [place] Monocytes/100 WBC (Bld) 7 % 3 - 12 % [place] Platelet mean volume (Bld) [Entitic vol] 12.0 fL 8.1 - 13.5 fL [place] Platelets (Bld) [#/Vol] 277 10*3/uL [place] Platelets (Bld) [#/Vol] NOT REPORTED [place] RBC (Bld) [#/Vol] 4.44 10*6/uL 3.95 - 5.1 1 m/uL [place] RBC morphology finding Nom (Bld) NOT REPORTED [place] Segmented neutrophils/100 WBC (Bld) 51 % 36 - 65 % [place] Segs Absolute 3.96 [place] WBC (Bld) [#/Vol] 7.9 10*3/uL [place] WBC (Bld) [#/Vol] 0.0 10*3/uL 0.0 per 10 0 WBC [place] WBC Morphology NOT REPORTED [place] CBC Auto Differentialon 03-15 Basophils (Bld) [#/Vol] 0.04 10*3/uL [place] Basophils/100 WBC (Bld) 1 % 0 - 2 % [place] Differential Type NOT REPORTED [place] Eosinophils (Bld) [#/Vol] 0.21 10*3/uL [place] Eosinophils/100 WBC (Bld) 3 % 1 - 4 % [place] Erythrocyte distribution width (RBC) [Ratio] 12.9 % 11.8 - 14.4 % [place] Hematocrit (Bld) [Volume fraction] 37.2 % 36.3 - 47.1 % [place] Hemoglobin (Bld) [Mass/Vol] 11.7 g/dL Low 11.9 - 15.1 g/dL [place] Immature granulocytes (Bld) [#/Vol] 2 % High 0 [place] Immature granulocytes (Bld) [#/Vol] 0.16 10*3/uL [place] Interpretation and review of laboratory results Abnormal [place] Lymphocytes (Bld) [#/Vol] 2.96 10*3/uL [place] Lymphocytes/100 WBC (Bld) 39 % 24 - 43 % [place] MCH (RBC) [Entitic mass] 29.4 pg 25.2 - 33.5 pg [place] MCHC (RBC) [Mass/Vol] 31.5 g/dL 28.4 - 34.8 g/dL [place] MCV (RBC) [Entitic vol] 93.5 fL 82.6 - 102.9 fL [place] Monocytes (Bld) [#/Vol] 0.60 10*3/uL [place] Monocytes/100 WBC (Bld) 8 % 3 - 12 % [place] Platelet mean volume (Bld) [Entitic vol] 11.1 fL 8.1 - 13.5 fL [place] Platelets (Bld) [#/Vol] 265 10*3/uL [place] Platelets (Bld) [#/Vol] NOT REPORTED [place] RBC (Bld) [#/Vol] 3.98 10*6/uL 3.95 - 5.1 1 m/uL [place] RBC morphology finding Nom (Bld) NOT REPORTED [place] Segmented neutrophils/100 WBC (Bld) 47 % 36 - 65 % [place] Segs Absolute 3.54 [place] WBC (Bld) [#/Vol] 7.5 10*3/uL [place] WBC (Bld) [#/Vol] 0.0 10*3/uL 0.0 per 10 0 WBC [place] WBC Morphology NOT REPORTED [place] CBC Auto Differentialon 10-3 0-2019 Basophils (Bld) [#/Vol] 0.00 10*3/uL [place] Basophils/100 WBC (Bld) 0 % 0 - 2 % [place] Differential Type NOT REPORTED [place] Eosinophils (Bld) [#/Vol] 0.76 10*3/uL [place] Eosinophils/100 WBC (Bld) 7 % High 1 - 4 % [place] Erythrocyte distribution width (RBC) [Ratio] 12.6 % 11.8 - 14.4 % [place] Hematocrit (Bld) [Volume fraction] 38.7 % 36.3 - 47.1 % [place] Hemoglobin (Bld) [Mass/Vol] 12.4 g/dL 11.9 - 15.1 g/dL [place] Immature granulocytes (Bld) [#/Vol] 2 % High 0 [place] Immature granulocytes (Bld) [#/Vol] 0.22 10*3/uL [place] Interpretation and review of laboratory results Abnormal [place] Lymphocytes (Bld) [#/Vol] 5.56 10*3/uL [place] Lymphocytes/100 WBC (Bld) 51 % High 24 - 43 % [place] MCH (RBC) [Entitic mass] 29.5 pg 25.2 - 33.5 pg [place] MCHC (RBC) [Mass/Vol] 32.0 g/dL 28.4 - 34.8 g/dL [place] MCV (RBC) [Entitic vol] 92.1 fL 82.6 - 102.9 fL [place] Monocytes (Bld) [#/Vol] 0.76 10*3/uL [place] Monocytes/100 WBC (Bld) 7 % 3 - 12 % [place] Morphology Ted (Bld) [Interp] Normal ANISOCYTOSIS PRESENT [place] Platelet mean volume (Bld) [Entitic vol] 10.7 fL 8.1 - 13.5 fL [place] Platelets (Bld) [#/Vol] NOT REPORTED [place] Platelets (Bld) [#/Vol] 318 10*3/uL [place] RBC (Bld) [#/Vol] 4.20 10*6/uL 3.95 - 5.1 1 m/uL [place] RBC morphology finding Nom (Bld) NOT REPORTED [place] Segmented neutrophils/100 WBC (Bld) 33 % Low 36 - 65 % [place] Segs Absolute 3.60 [place] WBC (Bld) [#/Vol] 0.0 10*3/uL 0.0 per 10 0 WBC [place] WBC (Bld) [#/Vol] 10.9 10*3/uL [place] WBC Morphology NOT REPORTED [place] CBC Auto Differentialon 10-0 2-2019 Basophils (Bld) [#/Vol] 0.04 10*3/uL [place] Basophils/100 WBC (Bld) 0 % 0 - 2 % [place] Differential Type NOT REPORTED [place] Eosinophils (Bld) [#/Vol] 0.25 10*3/uL [place] Eosinophils/100 WBC (Bld) 2 % 1 - 4 % [place] Erythrocyte distribution width (RBC) [Ratio] 12.8 % 11.8 - 14.4 % [place] Hematocrit (Bld) [Volume fraction] 39.9 % 36.3 - 47.1 % [place] Hemoglobin (Bld) [Mass/Vol] 12.5 g/dL 11.9 - 15.1 g/dL [place] Immature granulocytes (Bld) [#/Vol] 3 % High 0 [place] Immature granulocytes (Bld) [#/Vol] 0.40 10*3/uL [place] Interpretation and review of laboratory results Abnormal [place] Lymphocytes (Bld) [#/Vol] 3.44 10*3/uL [place] Lymphocytes/100 WBC (Bld) 28 % 24 - 43 % [place] MCH (RBC) [Entitic mass] 29.3 pg 25.2 - 33.5 pg [place] MCHC (RBC) [Mass/Vol] 31.3 g/dL 28.4 - 34.8 g/dL [place] MCV (RBC) [Entitic vol] 93.7 fL 82.6 - 102.9 fL [place] Monocytes (Bld) [#/Vol] 1.09 10*3/uL [place] Monocytes/100 WBC (Bld) 9 % 3 - 12 % [place] Platelet mean volume (Bld) [Entitic vol] 10.5 fL 8.1 - 13.5 fL [place] Platelets (Bld) [#/Vol] 286 10*3/uL [place] Platelets (Bld) [#/Vol] NOT REPORTED [place] RBC (Bld) [#/Vol] 4.26 10*6/uL 3.95 - 5.1 1 m/uL [place] RBC morphology finding Nom (Bld) NOT REPORTED [place] Segmented neutrophils/100 WBC (Bld) 58 % 36 - 65 % [place] Segs Absolute 7.27 [place] WBC (Bld) [#/Vol] 0.0 10*3/uL 0.0 per 10 0 WBC [place] WBC (Bld) [#/Vol] 12.5 10*3/uL [place] WBC Morphology NOT REPORTED [place] Comprehensive Metabolic Pane ozzy 02-12-2019 Albumin [Mass/Vol] 3.9 g/dL 3.5 - 5.2 g/dL [place] Albumin/Globulin [Mass ratio] 1.1 {ratio} [place] ALP [Catalytic activity/Vol] 62 U/L 35 - 104 U/L [place] ALT [Catalytic activity/Vol] 16 U/L 5 - 33 U/L [place] Anion gap [Moles/Vol] 15 mmol/L 9 - 17 mmol/L [place] AST [Catalytic activity/Vol] 15 U/L <32 [place] Bilirubin Ql (U) <0.10 Low 0.3 - 1.2 mg/dL [place] Bun/Cre Ratio 16 [place] Calcium [Mass/Vol] 9.7 mg/dL 8.6 - 10. 4 mg/dL [place] Chloride [Moles/Vol] 103 mmol/L 98 - 10 7 mmol/L [place] CO2 [Moles/Vol] 24 mmol/L 20 - 31 mmol/L [place] Creatinine [Mass/Vol] 0.69 mg/dL 0.5 - 0.9 mg/dL [place] GFR >60 >60 mL/min [place] GFR Non- >60 >60 mL/min [place] Glucose [Mass/Vol] 74 mg/dL 70 - 99 mg/dL [place] Interpretation and review of laboratory results Abnormal [place] Potassium [Moles/Vol] 4.1 mmol/L 3.7 - 5.3 mmol/L [place] Protein [Mass/Vol] 7.5 g/dL 6.4 - 8.3 g/dL [place] Sodium [Moles/Vol] 142 mmol/L 135 - 144 mmol/L [place] Urea nitrogen [Mass/Vol] 11 mg/dL 6 - 20 mg/dL [place] Folateon 02-12-2019 Folate >20.0 >4.8 ng/mL [place] Hemoglobin A1Con 02-12-2019 Glucose [Mass/Vol] 100 mg/dL [place] Comment on above: The ADA and AACC rec ommend providing the estimated average glucose result to permit better patient understanding of their HBA1c result. HbA1c (Bld) [Mass fraction] 5.1 % 4.8 - 5.9 % [place] Lipid Panelon 02-12-2019 Cholesterol [Mass/Vol] 158 mg/dL <200 [place] Comment on above: Cholesterol Guidelines: <200 Desirable 200-240 Borderline >240 Undesirable Cholesterol in HDL [Mass/Vol] 54 mg/dL >40 [place] Comment on above: HDL Guidelines: <40 Undesirable 40-59 Borderline >59 Desirable Cholesterol in LDL [Mass/Vol] 59 mg/dL 0 - 130 mg/dL [place] Comment on above: LDL Guidelines: <100 Desirable 100-129 Near to/above Desirable 130-159 Borderline >159 Undesirable Direct (measured) LDL and calculated LDL are not interchangeable tests. Cholesterol in VLDL [Mass/Vol] NOT REPORTED High 1 - 30 mg/dL [place] Cholesterol.total/Cho lesterol in HDL [Mass ratio] 2.9 {ratio} <5 [place] Interpretation and review of laboratory results Abnormal [place] Triglyceride [Mass/Vol] 225 mg/dL High <150 [place] Comment on above: Triglyceride Guidelines: <150 Desirable 150-199 Borderline 200-499 High >499 Very high Based on AHA Guidelines for fasting triglyceride, February 2012. Metabolic Panelon 02-12-2019 GFR/1.73 sq M predicted among non-blacks MDRD (S/P/Bld) [Vol rate/Area] [place] Comment on above: Average GFR for 20-2 9 years old: 116 mL/min/1.73sq m Chronic Kidney Disease: <60 mL/min/1.73sq m Kidney failure: <15 mL/min/1.73sq m eGFR calculated using average adult body mass. Additional eGFR calculator available at: http://www.[employer]/multiple_crcl_2011.htm Stage 1: Some kidney damage normal GFR Stage 2: Mild kidney damage GFR 60-89 Stage 3: Moderate kidney damage GFR 30-59 Stage 4: Severe kidney damage GFR 15-29 Stage 5: Severe kidney damage GFR <15 ESRD - chronic treatment by dialysis or transplant Valproic acid level, totalon 02-12-2019 Interpretation and review of laboratory results Abnormal [place] Valproic Acid Lvl 48 ug/mL Low 50 - 125 ug/mL [place] Valproic Date last dose NOT REPORTED [place] Valproic Dose amount NOT REPORTED [place] Valproic Time last dose NOT REPORTED [place] Hepatic Function Panelon Albumin [Mass/Vol] 3.8 g/dL 3.5 - 5.2 g/dL [place] Albumin/Globulin [Mass ratio] 1.1 {ratio} [place] ALP [Catalytic activity/Vol] 65 U/L 35 - 104 U/L [place] ALT [Catalytic activity/Vol] 14 U/L 5 - 33 U/L [place] AST [Catalytic activity/Vol] 14 U/L <32 [place] Bilirubin Ql (U) <0.10 Low 0.3 - 1.2 mg/dL [place] Bilirubin, Indirect CANNOT BE CALCULATED 0 - 1 mg/dL [place] Bilirubin.direct [Mass/Vol] mg/dL <0.31 mg/dL [place] Globulin (S) [Mass/Vol] NOT REPORTED 1.5 - 3.8 g/dL [place] Interpretation and review of laboratory results Abnormal [place] Protein [Mass/Vol] 7.4 g/dL 6.4 - 8.3 g/dL [place] Valproic acid level, totalon 01-15-2019 Interpretation and review of laboratory results Abnormal [place] Valproic Acid Lvl 38 ug/mL Low 50 - 125 ug/mL [place] Valproic Date last dose NOT REPORTED [place] Valproic Dose amount NOT REPORTED [place] Valproic Time last dose NOT REPORTED [place] Vital Signs Date Time Vital Sign Value Performing Clinician Facility 03-31-2024 14:32-0500 Blood Pressure Location [employer] [employer] [facility] 03-31-2024 14:32-0500 Diastolic blood pressure 76 mm[Hg] Kwon Luchomini [facility] 03-31-2024 14:32-0500 Heart rate 80 /min Kwon Luchomini [facility] 03-31-2024 14:32-0500 Respiratory rate 20 /min Kwon Luchomini [facility] 03-31-2024 14:32-0500 SaO2% (BldA) [Mass fraction] 95 % Kwon Luchomini [facility] 03-31-2024 14:32-0500 Systolic blood pressure 123 mm[Hg] Kwon Luchomini [facility] 03-31-2024 14:21-0500 Blood Pressure Location Kwon Sarmini [facility] 03-31-2024 14:21-0500 Diastolic blood pressure 75 mm[Hg] Kwon Sarmini [facility] 03-31-2024 14:21-0500 Heart rate 80 /min Kwon Sarmini [facility] 03-31-2024 14:21-0500 Respiratory rate 19 /min Kwon Sarmini [facility] 03-31-2024 14:21-0500 SaO2% (BldA) [Mass fraction] 97 % Kwon Sarmini [facility] 03-31-2024 14:21-0500 Systolic blood pressure 117 mm[Hg] Kwon Sarmini [facility] 03-31-2024 14:16-0500 Blood Pressure Location Kwon Sarmini [facility] 03-31-2024 14:16-0500 Diastolic blood pressure 74 mm[Hg] Kwon Sarmini [facility] 03-31-2024 14:16-0500 Heart rate 85 /min Kwon Sarmini [facility] 03-31-2024 14:16-0500 Respiratory rate 24 /min Kwon Sarmini [facility] 03-31-2024 14:16-0500 SaO2% (BldA) [Mass fraction] 96 % Kwon Sarmini [facility] 03-31-2024 14:16-0500 Systolic blood pressure 113 mm[Hg] Kwon Sarmini [facility] 03-31-2024 14:11-0500 Body temperature 96.8 [degF] Kwon Sarmini [facility] 03-31-2024 14:00-0500 Respiratory rate 12 /min Kwon Sarmini [facility] 03-31-2024 12:15-0500 Body temperature 96.8 [degF] Kwon Sarmini [facility] 03-19-2024 09:26-0500 Blood Pressure Location Kwon Sarmini [facility] 03-19-2024 09:26-0500 Diastolic blood pressure 68 mm[Hg] Kwon Sarmini [facility] 03-19-2024 09:26-0500 Heart rate 72 /min Kwon Sarmini [facility] 03-19-2024 09:26-0500 Respiratory rate 16 /min Kwon Sarmini [facility] 03-19-2024 09:26-0500 Systolic blood pressure 103 mm[Hg] Kwon Sarmini [facility] 01-16-2024 10:27-0400 Blood Pressure Location Kwon Sarmini [facility] 01-16-2024 10:27-0400 Diastolic blood pressure 72 mm[Hg] Kwon Sarmini [facility] 01-16-2024 10:27-0400 Heart rate 92 /min Kwon Sarmini [facility] 01-16-2024 10:27-0400 Respiratory rate 16 /min Cher López [facility] 01-16-2024 10:27-0400 Systolic blood pressure 108 mm[Hg] Cher López [facility] 06-21-2023 11:51-0500 Respiratory rate 0 /min Tangela Wallis MD Work Phone: [employer] 06-21-2023 11:49-0500 Diastolic blood pressure 64 mm[Hg] Tangela Wallis MD Work Phone: [employer] 06-21-2023 11:49-0500 Systolic blood pressure 118 mm[Hg] Tangela Wallis MD Work Phone: [employer] 06-21-2023 11:47-0500 Heart rate 73 /min Tangela Wallis MD Work Phone: [employer] 06-21-2023 11:47-0500 SaO2% (BldA) [Mass fraction] 99 % Tangela Wallis MD Work Phone: [employer] 06-06-2023 10:59-0500 Body height 164.5 cm Caroline Mcneilloza CALL PERSON-VASCULAR SURGEON Work Phone: [employer] 06-06-2023 10:59-0500 Body mass index (BMI) [Ratio] 38.74 kg/m2 Caroline Mcneilloza CALL PERSON-VASCULAR SURGEON Work Phone: [employer] 06-06-2023 10:59-0500 Body temperature 98.29 [degF] Caroline Mayito CALL PERSON-VASCULAR SURGEON Work Phone: [employer] 06-06-2023 10:59-0500 Body weight 104.78 kg Caroline Mcneilloza CALL PERSON-VASCULAR SURGEON Work Phone: [employer] 06-06-2023 10:59-0500 Diastolic blood pressure 70 mm[Hg] Carolinecheli Edmond CALL PERSON-VASCULAR SURGEON Work Phone: [facility] 06-06-2023 10:59-0500 Heart rate 80 /min Caroline Edmond CALL PERSON-VASCULAR SURGEON Work Phone: [facility] 06-06-2023 10:59-0500 Respiratory rate 16 /min Caroline Edmond CALL PERSON-VASCULAR SURGEON Work Phone: [facility] 06-06-2023 10:59-0500 SaO2% (BldA) [Mass fraction] 99 % Caroline Edmond CALL PERSON-VASCULAR SURGEON Work Phone: [facility] 06-06-2023 10:59-0500 Systolic blood pressure 106 mm[Hg] Caroline Edmond CALL PERSON-VASCULAR SURGEON Work Phone: [facility] Encounters Encounter Date Encounter Type Care Provider Facility Start: 07-10-2024 ambulatory Kwon Talal Sarmini Facility:[facility] Start: 06-06-2024 End: 06-06-2024 ambulatory Lina Marcial Facility:[facility] Start: 05-29-2024 End: 05-29-2024 ambulatory CARLY L ELAN [facility] Start: 05-29-2024 End: 05-29-2024 Subsequent hospital visit by physician Clem Lee APRN - VASCULAR SURGEON Work Phone: [facility] Start: 04-17-2024 End: 04-17-2024 ambulatory CARLY L ELAN [facility] Start: 04-17-2024 End: 04-17-2024 Subsequent hospital visit by physician Clem Lee CALL PERSON - VASCULAR SURGEON Work Phone: [facility] Start: 03-31-2024 End: 03-31-2024 ambulatory Kwon Talal Sarmini Facility[facility] Start: 03-31-2024 End: 03-31-2024 Patient encounter procedure Kwon Talal Sarmini [facility] Start: 03-19-2024 End: 03-19-2024 ambulatory Kwon Talal Sarmini Facility:[facility] Start: 03-19-2024 End: 03-19-2024 Patient encounter procedure Kwon Talal Sarmini [facility] Start: 03-13-2024 End: 03-13-2024 ambulatory CARLY ANSARI [facility] Start: 03-13-2024 End: 03-13-2024 Subsequent hospital visit by physician Clem Lee CALL PERSON - VASCULAR SURGEON Work Phone: [facility] Start: 03-12-2024 End: 03-12-2024 [facility] Start: 03-12-2024 End: 03-12-2024 Subsequent hospital visit by physician Clem Lee CALL PERSON - VASCULAR SURGEON [facility] Start: 02-08-2024 End: 02-10-2024 ambulatory CLEM LEE [facility] Start: 02-08-2024 End: 02-10-2024 Subsequent hospital visit by physician Hazel [facility] Scanner [facility] Comment on above: Chronic migraine wit hout aura, with intractable migraine, so stated, with status migrainosus Start: 01-16-2024 End: 01-16-2024 ambulatory Kwon Talal Sarmini Facility:[facility] Start: 01-16-2024 End: 01-16-2024 Patient encounter procedure Kwon Talal Sarmini [facility] Start: 12-28-2023 ambulatory Kwon Sarmini Facili ty:[facility] Start: 12-24-2023 End: 12-26-2023 ambulatory CLEM Malinda ANDREAJESUS [facility] Start: 12-24-2023 End: 12-26-2023 Subsequent hospital visit by physician Arielle Danw APRN - CNM Work Phone: [facility] Comment on above: Right upper quadrant pain Start: 12-18-2023 End: 12-18-2023 ambulatory CLEMHUMBERTO ANDREAKAREN [facility] Start: 11-21-2023 End: 11-21-2023 ambulatory CARLY [facility] Start: 11-21-2023 End: 11-21-2023 Subsequent hospital visit by physician Clem Lee CALL PERSON - VASCULAR SURGEON Work Phone: [facility] Start: 08-28-2023 End: 08-28-2023 ambulatory [facility] Start: 07-04-2023 End: 07-04-2023 ambulatory CARLY [facility] Start: 07-04-2023 End: 07-04-2023 Subsequent hospital visit by physician Clem Lee CALL PERSON - VASCULAR SURGEON Work Phone: [facility] Start: 06-21-2023 End: 06-21-2023 ambulatory IFTIKHAR BRYANT Facility:[facility] Start: 06-21-2023 End: 06-21-2023 Anesthesia consultation Amanuel Hodges MD Work Phone: [facility] Start: 06-21-2023 End: 06-21-2023 Patient encounter procedure Iftikhar Bryant DDS Work Phone: [facility] Start: 06-13-2023 End: 06-13-2023 ambulatory CARLY [facility] Start: 06-13-2023 End: 06-13-2023 Subsequent hospital visit by physician Clem Lee CALL PERSON - VASCULAR SURGEON Work Phone: [facility] Start: 06-06-2023 ambulatory UNKNOWN [facility]ER [facility] Start: 06-06-2023 Encounter for other preprocedural examination UNKNOWN PROVIDER [facility] Start: 06-06-2023 End: 06-06-2023 Patient encounter procedure Caroline Edmond CALL PERSON-VASCULAR SURGEON Work Phone: [facility] Comment on above: Pre-op testing (Prim abhishek Dx); Caries; Body mass index (BMI) 38.0-38.9, adult Start: 06-06-2023 End: 06-06-2023 Patient encounter status Caroline Edmond CALL PERSON-VASCULAR SURGEON [facility] Work Phone: Start: 06-06-2023 End: 06-06-20[facility] Start: 05-30-2023 End: 05-31-2023 Emergency department patient visit [facility] Start: 05-25-2023 Telephone encounter Elvis zuluaga DDS Work Phone: [facility] Comment on above: Dental Start: 05-10-2023 End: 05-11-2023 ambulatory UNKNOWN PROVIDER Facility:[facility] Start: 05-10-2023 End: 05-10-2023 Patient encounter procedure Elvis Delgadillo DDS Work Phone: [facility] Comment on above: Caries (Primary Dx) Start: 10-13-2022 End: 10-13-2022 Subsequent hospital visit by physician Clem Lee CALL PERSON - VASCULAR SURGEON Work Phone: [facility] Start: 08-30-2022 End: 08-31-2022 Subsequent hospital visit by physician Clem Lee CALL PERSON - VASCULAR SURGEON Work Phone: [facility] Start: 06-07-2022 End: 06-07-2022 Subsequent hospital visit by physician Clem Lee CALL PERSON - VASCULAR SURGEON Work Phone: [facility] Start: 05-03-2022 End: 05-03-2022 Subsequent hospital visit by physician Clem Lee CALL PERSON - VASCULAR SURGEON Work Phone: [facility] Start: 04-19-2022 End: 04-19-2022 Subsequent hospital visit by physician Clem Lee CALL PERSON - VASCULAR SURGEON Work Phone: [facility] Start: 11-10-2021 End: 11-12-2021 Subsequent hospital visit by physician Hazel [address] Room 2 [facility] Comment on above: Right ankle pain, un specified chronicity Start: 09-09-2021 End: 09-09-2021 Subsequent hospital visit by physician Lina Marcial MD Work Phone: [facility] Start: 09-07-2021 End: 09-07-2021 Subsequent hospital visit by physician Lina Marcial MD Work Phone: [facility] Start: 07-06-2021 End: 07-06-2021 Subsequent hospital visit by physician Lina Marcial MD Work Phone: [facility] Start: 03-23-2021 End: 03-23-2021 Subsequent hospital visit by physician Lina Marcial MD Work Phone: [facility] Start: 03-02-2021 End: 03-02-2021 Subsequent hospital visit by physician Lina Marcial MD Work Phone: [facility] Start: 02-15-2021 End: 02-15-2021 Subsequent hospital visit by physician Lina Marcial MD Work Phone: [facility] Comment on above: Vagina itching; Vaginal discharge Start: 02-02-2021 End: 02-02-2021 Subsequent hospital visit by physician Lina Marcial MD Work Phone: [facility] Start: 12-08-2020 End: 12-08-2020 Subsequent hospital visit by physician Lina Marcial MD Work Phone: [facility] Start: 11-24-2020 End: 11-24-2020 ambulatory ARIELLE DAWN [facility] Start: 11-10-2020 End: 11-10-2020 Subsequent hospital visit by physician Lina Marcial MD Work Phone: [facility] Start: 10-13-2020 End: 10-13-2020 Subsequent hospital visit by physician Lina Marcial MD Work Phone: [facility] Start: 09-15-2020 End: 09-15-2020 Subsequent hospital visit by physician Lina Marcial MD Work Phone: [facility] Start: 08-18-2020 End: 08-18-2020 Subsequent [facility] Start: 07-14-2020 End: 07-14-2020 Subsequent hospital visit by physician Lina Marcial [facility] Start: 06-03-2020 End: 06-03-2020 Subsequent hospital visit by physician Lina Marcial [facility] Start: 06-02-2020 End: 06-02-2020 Subsequent hospital visit by physician Lina Marcial [facility] Start: 04-27-2020 End: 04-27-2020 Subsequent hospital visit by physician Lina Marcial [facility] Start: 04-23-2020 End: 04-23-2020 Subsequent hospital visit by physician Lina Marcial [facility] Start: 03-17-2020 End: 03-17-2020 Subsequent hospital visit by physician Lina Marcial [facility] Start: 02-18-2020 End: 02-18-2020 Subsequent hospital visit by physician Lina Marcial [facility] Start: 01-21-2020 End: 01-21-2020 Subsequent hospital visit by physician Lina Marcial [facility] Start: 12-24-2019 End: 12-24-2019 Subsequent hospital visit by physician Lina Marcial [facility] Start: 12-03-2019 End: 12-03-2019 Subsequent hospital visit by physician Lina Marcial [facility] Start: 11-27-2019 End: 11-27-2019 Patient encounter procedure MIMI MARCIAL Facility:[facility] Start: 11-27-2019 End: 11-27-2019 Subsequent hospital visit by physician Lina Marcial [facility] Start: 10-07-2019 End: 10-07-2019 Subsequent hospital visit by physician Lina Marcial [facility] Start: 2019 End: 2019 Subsequent hospital visit by physician Lina Marcial [facility] Start: 08-07-2019 End: 08-07-2019 Subsequent [facility] Start: 07-14-2019 End: 07-14-2019 Subsequent hospital visit [facility] Comment on above: Screen for STD (sexu ally transmitted disease); Well woman exam with routine gynecological exam Start: 05-28-2019 End: 05-28-2019 Subsequent hospital visit by physician Lina Marcial MD Work Phone: [facility] Start: 05-22-2019 End: 05-22-2019 Subsequent hospital visit by physician Lina Marcial MD Work Phone: [facility] Start: 05-21-2019 End: 05-21-2019 Subsequent hospital visit by physician Lina Marcial MD Work Phone: [facility] Start: 05-08-2019 End: 05-08-2019 Subsequent hospital visit by physician Lina Marcial MD Work Phone: [facility] Start: 04-04-2019 End: 04-04-2019 Subsequent hospital visit by physician Lina Marcial [facility] Start: 03-12-2019 End: 03-12-2019 Subsequent [facility] Start: 02-26-2019 End: 02-26-2019 Subsequent hospital visit by physician Lina Marcial [facility] Start: 02-12-2019 End: 02-12-2019 Subsequent hospital visit by physician Lina Marcial [facility] Start: 01-15-2019 End: 01-15-2019 Subsequent [facility] visit [facility] Procedures Date Procedure Procedure Detail Performing Clinician Start: 05-29-2024 Hemoglobin glycosylated a1c Carly pulido CALL PERSON Work Phone: Start: 03-31-2024 Esophagogastroduodenoscopy Kwon Luchomalinda induc Start: 03-13-2024 Comprehensive metabolic panel Carly titus CALL PERSON Work Phone: Start: 03-13-2024 Lipid panel Carly Ansari CALL PERSON Work Phone: Start: 03-13-2024 VITAMIN B12 & FOLATE Carly Ansari CALL PERSON Work Phone: Start: 02-08-2024 Creatinine blood Carly Ansari CALL PERSON Work Phone: Start: 12-24-2023 Us abdominal real time w/image limited Arielle Dawn CALL PERSON - CNM Work Phone: Start: 11-21-2023 Hemoglobin glycosylated a1c Carly Jimenezug er CALL PERSON Work Phone: Start: 07-04-2023 Basic metabolic panel calcium total Osvaldo Ansari CALL PERSON Work Phone: Start: 07-04-2023 Lipid panel Carly Ansari CALL PERSON Work Phone: Start: 12-14-2022 Microscopic observation [Identifier] in Cervix by Cyto stain Clem Lee CALL PERSON - VASCULAR SURGEON Work Phone: Start: 10-13-2022 Urnls dip stick/tablet rgnt auto w/o microscopy Carly Ansari CALL PERSON Work Phone: Start: 08-31-2022 Comprehensive metabolic panel Werner Viramontes MD Work Phone: Start: 08-31-2022 Lipid panel Werner Viramontes MD Work Phone: Start: 06-07-2022 Hemoglobin glycosylated a1c Carly Jimenezug er CALL PERSON Work Phone: Start: 05-03-2022 Drug assay valproic dipropylacetic acid total Carly Ansari CALL PERSON Work Phone: Start: 04-19-2022 Blood count complete auto&auto difrntl wbc Carly Ansari CALL PERSON Work Phone: Start: 11-10-2021 Radex ankle complete minimum 3 views Clem Lee CALL PERSON - VASCULAR SURGEON Work Phone: Start: 09-09-2021 Comprehensive metabolic panel Avis joe MD Work Phone: Start: 09-09-2021 Drug assay valproic dipropylacetic acid total Avis Jimenez MD Work Phone: Start: 07-06-2021 Lipid panel Avis Jimenez MD Work Phone: Start: 03-23-2021 Comprehensive metabolic panel Avis joe MD Work Phone: Start: 03-23-2021 Drug assay valproic dipropylacetic acid total Avis Jimenez MD Work Phone: Start: 02-02-2021 Blood count complete automated Avis Jimenez MD Work Phone: Start: 12-08-2020 Blood count complete automated Avis Jimenez MD Work Phone: Start: 11-10-2020 Blood count complete automated Avis Jimenez MD Work Phone: Start: 10-13-2020 Blood count complete automated Avis Jimenez MD Work Phone: Start: 09-15-2020 Blood count complete automated Avis Jimeenz MD Work Phone: Start: 08-18-2020 Assay of folic acid serum Avis Jimenez Work Phone: Start: 08-18-2020 Blood count complete automated Avis Jimenez Work Phone: Start: 08-18-2020 Comprehensive metabolic panel Avis joe Work Phone: Start: 08-18-2020 Drug assay valproic dipropylacetic acid total Avis Jimenez Work Phone: Start: 08-18-2020 Hemoglobin glycosylated a1c Avis knowles Work Phone: Start: 07-14-2020 Blood count complete automated Kuladeep Gidda Work Phone: Start: 06-03-2020 Blood count complete auto&auto difrntl wbc Lina Pearson Garlapati Work Phone: Start: 06-03-2020 Hemoglobin glycosylated a1c Lina Pearson Garelkepati Work Phone: Start: 03-17-2020 Blood count complete auto&auto difrntl wbc Lina Pearson Garlapati Work Phone: Start: 02-18-2020 Assay of folic acid serum Lina Pearson Garelkepati Work Phone: Start: 02-18-2020 Blood count complete auto&auto difrntl wbc Lina Pearson Garlapati Work Phone: Start: 02-18-2020 Comprehensive metabolic panel Lina Perdomopati Work Phone: Start: 02-18-2020 Drug assay valproic dipropylacetic acid total Lina Perdomopati Work Phone: Start: 02-18-2020 Lipid panel Lina Pearson Garelkepati Work Phone: Start: 01-21-2020 Blood count complete auto&auto difrntl wbc Lina Pearson Garlapati Work Phone: Start: 12-24-2019 Blood count complete auto&auto difrntl wbc Lina Pearson Garlapati Work Phone: Start: 12-03-2019 Blood count complete auto&auto difrntl wbc Lina Pearson Garlapati Work Phone: Start: 12-03-2019 Hemoglobin glycosylated a1c Lina Pearson Garelkepati Work Phone: Start: 10-07-2019 Blood count complete auto&auto difrntl wbc Lina Pearson Garlapati Work Phone: Start: 2019 Assay of folic acid serum Lina Pearson Garlapati Work Phone: Start: 2019 Blood count complete auto&auto difrntl wbc Lina Marcial Work Phone: Start: 2019 Comprehensive metabolic panel Lina Perdomopati Work Phone: Start: 2019 Drug assay valproic dipropylacetic acid total Lina Awanlapati Work Phone: Start: 2019 Hemoglobin glycosylated a1c Lina Marcail Work Phone: Start: 08-07-2019 Blood count complete auto&auto difrntl wbc Lina Marcial Work Phone: Start: 07-14-2019 Microscopic observation [Identifier] in Cervix by Cyto stain Lina Marcial MD Work Phone: Start: 04-04-2019 Blood count complete auto&auto difrntl wbc Lina Marcial Work Phone: Start: 03-12-2019 Blood count complete auto&auto difrntl wbc Lina Marcial Work Phone: Start: 02-12-2019 Assay of folic acid serum Lina Marcial Work Phone: Start: 02-12-2019 Blood count complete auto&auto difrntl wbc Lina Marcial Work Phone: Start: 02-12-2019 Comprehensive metabolic panel Lina Awanlaroge Work Phone: Start: 02-12-2019 Drug assay valproic dipropylacetic acid total Lina Pearson Garlapati Work Phone: Start: 02-12-2019 Hemoglobin glycosylated a1c Lina Awanlapati Work Phone: Start: 02-12-2019 Lipid panel Lina Awanlapati Work Phone: Start: 01-15-2019 Drug assay valproic dipropylacetic acid total Werner S Rana Work Phone: Start: 01-15-2019 Hepatic function panel Werner S Rana Work Phone: Plan of Treatment Date Care Activity Detail Author Start: 2042 Shingles (RZV) Vacci ne (1 of 2) Shingles (RZV) Vaccine (1 of 2) [facility] Start: 2042 Shingles Vaccine (1 of 2) Shingles Vaccine (1 of 2) [place], [place] Start: 12-14-2025 Screening for malign ant neoplasm of cervix [facility] Start: 03-13-2025 Hemoglobin A1c measurement A1C test (Diabetic or Prediabetic) [facility] Start: 12-23-2024 End: 12-23-2024 Patient encounter procedure 12/23/2024 10:40 AM EDT Office Visit [facility] [address] [place] [id number] Arielle Dawn APRN - EARL [address] [facility] [address] [place], [place] [phone] yearly [facility] Comment on above: yearly Start: 11-20-2024 Hemoglobin A1c measurement A1C test (Diabetic or Prediabetic) [facility] Start: 08-27-2024 Hemoglobin A1c measurement A1C test (Diabetic or Prediabetic) [facility] Start: 06-17-2024 End: 06-17-2024 Patient encounter procedure 06/17/2024 10:40 AM EST Office Visit [facility]ist [address] [place] [address] [address] [place] [phone] [place] [address] [place] [address] [address] [place], [place] [id number] 5 to 6 months MRI migraine scheduled with facility [facility] Comment on above: 5 to 6 months MRI mi graine scheduled with facility Start: 03-01-2024 Hemoglobin A1c measurement A1C test (Diabetic or Prediabetic) [facility] Start: 01-24-2024 End: 01-24-2024 Patient encounter procedure 01/24/2024 11:40 AM EDT Office Visit [facility] [address] [facility] [address] [place] [id number] Tita Carr MD [address] [place] [address] [address] [place], [place] [id number] 3mo f/u [facility] Comment on above: 3mo f/u Start: 01-13-2024 COVID-19 Vaccine () COVID-19 Vaccine () [facility] Start: 12-18-2023 End: 12-18-2023 Patient encounter procedure 12/18/2023 2:40 PM EDT Office Visit [facility] [address] [place] [address] Arielle Dawn APRN - RICHARD [address] [place] [address] [address] [place] [address] yearly [facility] Comment on above: yearly Start: 12-13-2023 Influenza vaccination [facility] Start: 09-01-2023 Depression Monitoring Depression Mon itoring [facility] Start: 09-01-2023 Hemoglobin A1c measurement A1C test (Diabetic or Prediabetic) [facility] Start: 07-26-2023 End: 07-26-2023 Patient encounter procedure 07/26/2023 10:40 AM EDT Office Visit [facility] [address] [place] [address] [address] [place] [phone] Tita Carr MD [address] [place] [address] [address] [place], [place] [phone] SEIZURES [facility] Comment on above: SEIZURES Start: 06-21-2023 End: 06-21-2023 Patient encounter procedure 06/21/2023 10:00 AM EST Procedure Visit [facility] [address] [place] [address] Iftikhar Matias, DDS [address] [place] [address] [facility] Start: 06-07-2023 Hemoglobin A1c measurement A1C test (Diabetic or Prediabetic) [facility] Start: 02-23-2023 Hemoglobin A1c measurement A1C test (Diabetic or Prediabetic) [facility] Start: 01-12-2023 COVID-19 Vaccine ( season) COVID-19 Vaccine () [facility] Start: 01-12-2023 Influenza vaccination Influenza Vacc ine (#1) [facility] Start: 12-14-2022 End: 12-14-2022 Patient encounter procedure 12/14/2022 Office Visit Obstetrics and Gynecology Arielle Dawn APRN - CNMalinda [address] [place] [address] [facility] Start: 12-12-2022 Influenza vaccination [facility] Start: 11-30-2022 Depression Monitoring Depression Mon itoring [facility] Start: 09-09-2022 Hemoglobin A1c measurement A1C test (Diabetic or Prediabetic) [facility] Start: 2022 Screening for malign ant neoplasm of cervix [facility] Start: 08-31-2022 End: 08-31-2022 Patient encounter procedure 08/31/2022 Office Visit Obstetrics and Gynecology Arielle Dawn APRN - CNMalinda [address] [place] [address] [facility] Start: 08-16-2022 End: 08-16-2022 Telemedicine consultation with patient 08/16/2022 Telemedicine Neurology Tita Carr MD [address] [address] [facility] Start: 07-13-2022 Cervical cancer screen Cervical canc er screen [facility] [place] [place] Start: 07-13-2022 Screening for malign ant neoplasm of cervix [facility] Start: 05-25-2022 Hemoglobin A1c measurement A1C test (Diabetic or Prediabetic) [facility] Start: 03-23-2022 Creatinine measurement [facility] Start: 03-23-2022 Potassium [Moles/volume] in Serum or Plasma Potassium [facility] Start: 03-23-2022 Potassium monitoring Potassium monit [facility] Start: 01-12-2022 Influenza vaccination Flu vacc ine (Season Ended) [facility] Start: 01-08-2022 DTaP/Tdap/Td vaccine (2 - Td or Tdap) DTaP/Tdap/Td vaccine (2 - Td or Tdap) [facility] Start: 01-08-2022 DTaP/Tdap/Td vaccine (2 - Td) DTaP/Tdap/Td vaccine (2 - Td) [facility] Work Phone: Start: 01-08-2022 Tetanus vaccination Tetanus (T d or Tdap) [facility] Start: 12-12-2021 Influenza vaccination Flu vaccine (# 1) [facility] Start: 12-08-2021 Hemoglobin A1c measurement A1C test (Diabetic or Prediabetic) [facility] Start: 11-30-2021 End: 11-30-2021 Patient encounter procedure 11/30/2021 Office Visit Obstetrics and Gynecology Arielle Dawn, GERI - RICHARD [address] [place] [address] [facility] Part of [facility] Start: 09-27-2021 End: 09-27-2021 Patient encounter procedure [facility] Start: 08-18-2021 Creatinine measurement Creatinine mo nitoring [facility] Start: 08-18-2021 Hemoglobin A1c measurement A1C test (Diabetic or Prediabetic) [facility] Work Phone: Start: 08-18-2021 Potassium monitoring Potassium monit [facility] Start: 07-12-2021 End: 07-12-2021 Patient encounter procedure [facility] Neurology Specialist Start: 02-16-2022 COVID-19 Vaccine (4 - Booster for Pfizer series) COVID-19 Vaccine (4 - Booster for Pfizer series) [facility] Start: 01-12-2021 Influenza vaccination [facility] Start: 11-24-2020 End: 11-24-2020 Patient encounter procedure 11/24/2020 Office Visit Obstetrics and Gynecology Arielle Dawn, GERI - CNM [address] [facility] [place] [id number] [facility] Start: 11-24-2020 End: 11-24-2020 Professional / ancillary services management 11/24/2020 Ancillary Procedure Obstetrics and Gynecology [facility] Start: 11-06-2020 COVID-19 Vaccine (3 - Booster for Pfizer series) COVID-19 Vaccine (3 - Booster for Pfizer series) [facility] Start: 09-22-2020 End: 09-22-2020 Office Visit [facility] Start: 08-31-2020 End: 08-31-2020 Office Visit 08/31/2020 Office Visit Neurology Roxana Ley MD [address] [place], [place] [phone] [facility] Neurology Specialist Start: 08-24-2020 End: 08-24-2020 Office Visit 08/24/2020 Office Visit Neurology Roxana Ley MD [address] [place], [place] [phone] [facility] Neurology Specialist Start: 07-19-2020 End: 07-19-2020 Office Visit 07/19/2020 Office Visit Obstetrics and Gynecology Arielle Dawn, CALL PERSON - CNM [address] [place] [phone] [facility] Start: 01-13-2020 Influenza vaccination [facility] [place] Start: 12-25-2019 End: 12-25-2019 Office Visit 12/25/2019 Office Visit Neurology Roxana Ley MD [address] [place] [address] [phone] [facility] Neurology Specialist Start: 09-23-2019 End: 09-23-2019 Office Visit 09/23/2019 Office Visit Neurology Roxana Ley MD [address] [facility] [facility] [address] [place], [place] [phone] [facility] Neurology Specialist Start: 09-04-2019 HPV Vaccine (optiona l start 27-45 years) HPV Vaccine (optional start 27-45 years) [facility] Start: 06-24-2019 End: 06-24-2019 Patient encounter procedure 06/24/2019 Office Visit Neurology Roxana Ley MD [address] [facility] [address] [place] [address] [phone] [facility] Specialist Start: 06-03-2019 End: 06-03-2019 Office Visit [facility] Start: 05-02-2019 End: 05-02-2019 Office Visit 05/02/2019 Office Visit Neurology Roxana Ley MD [address] [facility] [address] [place], [place] [phone] [facility] Neurology Start: 04-25-2019 End: 04-25-2019 Office Visit 04/25/2019 Office Visit Neurology Roxana Ley MD [address] [facility] [address] [place] [address] [phone] [facility] Neurology Start: 03-07-2019 End: 03-07-2019 Office Visit 03/07/2019 Office Visit Neurology Roxana Ley MD [address] [facility] [address] [place], [place] [phone] [facility] Neurology Start: 02-27-2019 End: 02-27-2019 Office Visit 02/27/2019 Office Visit Obstetrics and Gynecology Arielle Dawn APRN - CNM [address] [place] [address] [phone] [facility] Start: 01-27-2019 End: 01-27-2019 Office Visit 01/27/2019 Office Visit Obstetrics and Gynecology VishalArielleGERI - CN [address] [place] [address] [phone] [facility] Start: 01-24-2019 DTaP/Tdap/Td vaccine (1 - Tdap) DTaP/Tdap/Td vaccine (1 - Tdap) [place], [place] Comment on above: Postponed from 09/03 (Patient Refused) Start: 01-16-2019 End: 01-16-2019 Office Visit 01/16/2019 Office Visit Neurology Roxana Ley MD [address] [phone] [facility] Neurology Specialist Start: 01-12-2019 Influenza vaccination Flu vaccine (# 1) [place], [place] Start: 11-17-2018 Cervical cancer screen Cervical canc er screen [place], [place] Start: 2013 Screening for malign ant neoplasm of cervix Pap Smear [facility] Start: 02-06-2012 Hepatitis B vaccination Hepati tis B (HBV) Vaccine (2 of 3 - 19+ 3-dose series) [facility] Start: 02-06-2012 Hepatitis B vaccine (2 of 3 - 19+ 3-dose series) Hepatitis B vaccine (2 of 3 - 19+ 3-dose series) [facility] Start: 09-04-2011 DTaP/Tdap/Td vaccine (1 - Tdap) DTaP/Tdap/Td vaccine (1 - Tdap) [place], [place] Start: 2010 Hepatitis C screening Hepatitis C An tibody [facility] Start: 2010 Tetanus + diphtheria + acellular pertussis vaccine (product) Tdap Booster [facility] Start: 2008 COVID-19 Vaccine (1 of 2) COVID-19 Vaccine (1 of 2) [facility] [employer] Phone: Start: 2008 COVID-19 Vaccine (1) COVID-19 Vaccin e (1) [facility] [employer] Phone: Start: 09-04-2007 HIV screening HIV Test [facility] Start: 09-04-2007 HPV vaccine (1 - Fem reynaldo 3-dose series) HPV vaccine (1 - Female 3-dose series) [place], [place] Start: 2005 Varicella Vaccine (1 of 2 - 13+ 2-dose series) Varicella Vaccine (1 of 2 - 13+ 2-dose series) [facility] Start: 2004 Depression Monitoring Depression Mon [facility] Start: 09-04-2003 DTaP/Tdap/Td vaccine (1 - Tdap) DTaP/Tdap/Td vaccine (1 - Tdap) [place] Start: 09-04-2003 HPV vaccine (1 - 2-d ose series) HPV vaccine (1 - 2-dose series) [place] Start: 09-04-2003 HPV vaccine (1 - Fem reynaldo 2-dose series) HPV vaccine (1 - Female 2-dose series) [place] Start: 1993 Varicella vaccine (1 of 2 - 2-dose childhood series) Varicella vaccine (1 of 2 - 2-dose childhood series) [facility] End: 07-14-2019 C.trachomatis N.gonorrhoeae DNA, Thin Prep C.trachomatis N.gonorrhoeae DNA, Thin Prep Microbiology Routine Screen for STD (sexually transmitted disease) 1 Occurrences starting 07/14/2019 until 07/14/2019 [place], [place] Comment on above: 1 Occurrences starti ng 07/14/2019 until 07/14/2019 C.trachomatis N.gonorrhoeae DNA, Thin Prep C.trachomatis N.gonorrhoeae DNA, Thin Prep Microbiology Routine Screen for STD (sexually transmitted disease) 07/14/2019 5:07 PM EST [place], [place] End: 10-13-2022 Culture, Urine [facility] Work Phone: Comment on above: Once for 1 Occurrenc es starting 10/13/2022 until 10/13/2022 End: 07-14-2019 Cytopathology procedure, preparation of smear, genital source PAP SMEAR Lab Routine Well woman exam with routine gynecological exam 1 Occurrences starting 07/14/2019 until 07/14/2019 [place], [place] Comment on above: 1 Occurrences starti ng 07/14/2019 until 07/14/2019 End: 02-18-2020 HbA1c (Bld) [Mass fraction] Hemoglobin A1C Lab Routine Once for 1 Occurrences starting 02/18/2020 until 02/18/2020 [place] Comment on above: Once for 1 Occurrenc es starting 02/18/2020 until 02/18/2020 HbA1c (Bld) [Mass fraction] [place], [place] End: 12-08-2020 Hemoglobin A1c/Hemoglobin.total in Blood Hemoglobin A1C Lab Routine Once for 1 Occurrences starting 12/08/2020 until 12/08/2020 [employer] Work Phone: Comment on above: Once for 1 Occurrenc es starting 12/08/2020 until 12/08/2020 End: 09-09-2021 Hemoglobin A1c/Hemoglobin.total in Blood [employer] Work Phone: Comment on above: Once for 1 Occurrenc es starting 09/09/2021 until 09/09/2021 End: 07-04-2023 Hemoglobin A1c/Hemoglobin.total in Blood [employer] Work Phone: Comment on above: Once for 1 Occurrenc es starting 07/04/2023 until 07/04/2023 End: 03-13-2024 Hemoglobin A1c/Hemoglobin.total in Blood [employer] Work Phone: Comment on above: Once for 1 Occurrenc es starting 03/13/2024 until 03/13/2024 End: 02-08-2024 MR Brain WO and W contrast IV [facility] Comment on above: 1 Occurrences starti ng 02/08/2024 until 02/08/2024 End: 06-21-2023 Urine test visual color cmprsn meths [employer] Work Phone: Comment on above: One time for 1 Occur rences starting 06/21/2023 until 06/21/2023 End: 02-15-2021 VAGINITIS DNA PROBE VAGINITIS DNA PROBE Microbiology Routine Vagina itching Vaginal discharge 1 Occurrences starting 02/15/2021 until 02/15/2021 [employer] Work Phone: Comment on above: 1 Occurrences starti ng 02/15/2021 until 02/15/2021 VAGINITIS DNA PROBE VAGINITIS DN A PROBE Microbiology Routine Vagina itching Vaginal discharge 02/15/2021 5:28 PM EDT [facility] [employer] Work Phone: Immunizations Immunization Date Immunization Notes Care Provider Fa cility 05-04-2021 SARS-CoV-2 (COVID-19 ) mRNA BNT-162b2 vax Kwon Sarmini [facility] Comment on above: Result Comment: 2023: TPVALL 06-08-2020 SARS-CoV-2 (COVID-19 ) mRNA BNT-162b2 vax Kwon Sarmini [facility] Comment on above: Result Comment: 2023: TPVAL 05-18-2020 SARS-CoV-2 (COVID-19 ) mRNA BNT-162b2 vax Kwon Sarmini [facility] Comment on above: Result Comment: 2023: TPVAL 02-24-2015 influenza virus vaccine, unspecified formulation Kwon Sarmini [facility] 01-09-2012 hepatitis B vaccine, pediatric or pediatric/adolescent dosage [employer] Work Phone: [facility] 01-09-2012 tetanus toxoid, reduced diphtheria toxoid, and acellular pertussis vaccine, adsorbed [employer] Work Phone: [facility] 03-25-2009 novel [id number], preservative-free, injectable [employer] Work Phone: [facility] 03-25-2009 influenza virus vaccine, unspecified formulation [employer] Work Phone: [facility] Payers Date Payer Category Payer Self-pay 2017 Medicaid [id number] 2014 Medicaid MEDICAID [facility] DEPT OF JOB xxxxxxxxxxxx 2014-Present [phone] [address] [place] [address] xxxxxxxxxxxx [id number] 2014 Medicaid MEDICAID [facility] DEPT OF JOB [id number] 2014-Present [phone] [address] [place] [address] [id number] .[id number] 2012 Unknown 1992 Unknown [id number] 2.840.1.774787.3.579.2.593 1992 Unknown [id number] 2.840.1.233358.3.579.2.175 1992 Unknown [id number] 2.16840.1.580093.3.579.2.128 6 1992 Unknown [id number] 2.840.1.056492.3.579.2.128 6 1992 Unknown [id number] 1992 Unknown [id number] 2.16840.1.596863.3.579.2.732 1992 Unknown [id number] 2.16840.1.330645.3.579.2.732 1992 Unknown [id number] 2.16840.1.533866.3.579.2.727 1992 Unknown [id number] 2.16840.1.170628.3.579.2.727 1992 Unknown [id number] 2.16.840.1.966573.3.579.2.727 1992 Unknown [id number] 2.16.840.1.215168.3.579.2.727 1992 Unknown [id number] 2.16.840.1.054864.3.579.2.173 1992 Unknown [id number] 2.16840.1.406655.3.579.2.173 1992 Unknown [id number] 2.16.840.1.215411.3.579.2.173 1992 Unknown [id number] 2.16840.1.270918.3.579.2.173 1992 Unknown [id number] 2.16840.1.662083.3.579.2.173 1992 Unknown [id number] 2.840.1.070842.3.579.2.173 1992 Unknown [id number] 2.16840.1.244044.3.579.2.173 1992 Unknown [id number] 2.16840.1.871594.3.579.2.173 1992 Unknown [id number] 2.16840.1.433681.3.579.2.173 1992 Unknown [id number] 2.16840.1.759769.3.579.2.173 1992 Unknown [id number] 2.16840.1.736576.3.579.2.173 1992 Unknown [id number] 2.16840.1.135693.3.579.2.173 1992 Unknown [id number] 2.16.840.1.730863.3.579.2.173 1992 Unknown [id number] 2.16840.1.485978.3.579.2.173 1992 Unknown [id number] 2.16840.1.395830.3.579.2.727 1957 Medicaid [id number] [id number].3 .[id number] Unknown [id number] 2.16.840.1.500338.3.579.2.531 Social History Date Type Detail Facility Start: 01-16-2019 End: 09-19-2023 Tobacco smoking status MOIS Never smoker [employer] Start: 01-16-2019 End: 08-31-2022 Alcohol intake No [facility] Start: 1990 Sex Assigned At Not on file [facility] [employer] [place] [place] Start: 07-14-2019 End: 01-29-2024 Alcohol intake Current non-drinker of alcohol (finding) [place], [place] Start: 09-22-2019 End: 09-19-2023 Tobacco use and exposure Never used [place], [place] Exposure to SARS-CoV-2 (event) Not sure [place] Start: 08-31-2022 History SDOH Financial 5 [employer] Work Phone: Start: 08-31-2022 History SDOH Food Worry 1 [employer] Work Phone: Start: 08-31-2022 History SDOH Transport Non-Med 2 [employer] Work Phone: Tobacco smoking status [facility] Tobacco smoking consumption unknown [facility] Start: 06-06-2023 Alcohol intake [facility] Start: 08-31-2022 End: 12-14-2022 History of Social function [employer] How hard is it for you to pay for the very basics like food, housing, medical care, and heating Not hard at all [employer] (I/We) worried whether (my/our) food would run out before (I/we) got money to buy more. Never true [employer] At any time in the past 12 months, were you homeless or living in senior living [including now]? No [employer] NEGATED: Highlighted rowStart: NINF History of tobacco use Passive smoker [facility] Functional Status Date Assessment Result Facility 03-31-2024 Functional Status N/A [facility] 03-19-2024 Functional Status N/A [facility] 01-16-2024 Functional Status N/A [facility] Clinical Notes 05-10-2023 to 04-14-2024 Note Date & Type Note Facility 04-14-2024 Note Endoscopic Procedure Report - Other Patient: LETICIA TINOCO Age: 33 years Sex: Female : 1990 Associated Diagnoses: None Author: Cher López MD Pre-Procedure Procedure Date 03/31/2024 14:09:00 . Procedure Type: Esophagogastroduodenoscopy with biopsy. Procedure provider Performed by Cher López MD. Current history and physical Documented on chart. Informed Consent After discussing the rationale, risks and benefits, and alternatives to this procedure, the family provided signed consent for the patient's procedure. Pre-procedure diagnosis: Abdominal pain. Medications Anticoagulant/antiplatelet None. ASA Classification: Class II. . Monitoring: See anesthesia record. . Procedure The procedure was performed in the hospital. See anesthesia record for sedation given during procedure. The patient was positioned starting in the left lateral decubitus position and with safety measures. Endoscope type used was an adult-size, introduced orally, advanced to the 3rd portion of the duodenum. No difficulty was encountered during the procedure. Views were excellent. The patient tolerated the procedure well. Findings 1. Acute lumbar infarct, small hiatal hernia, LA grade C esophagitis noted 2. Moderate gastritis in the antrum of the stomach with very small erosions, the biopsies were taken for H. pylori 3. Less than 1 cm clean-based ulcer in the duodenal bulb, otherwise normal examined duodenum Images Procedure images: Rec1_hd_video_2023__T1___099.j pg Rec_hd_video__T1___700.j pg Rec1_hd_video_T1__50_139.j pg Rec1_hd_video_2023__T14__30_853.j pg Rec1_hd_video__T1__19_377.j pg Rec1_hd_video_2023__T1__50_549.j pg Rec1_hd_video_2023__T1_14_33_252.j pg Rec1_hd_video_2023__T1__19_253.j pg . Post-Procedure Complications: none. Estimated blood loss: minimal. Specimens: sent to pathology. Devices/ implants: none left in place. Impression and Plan 1. Acute lumbar infarct, small hiatal hernia, LA grade C esophagitis noted 2. Moderate gastritis in the antrum of the stomach with very small erosions, the biopsies were taken for H. pylori 3. Less than 1 cm clean-based ulcer in the duodenal bulb, otherwise normal examined duodenum Recommendations: -Resume previous diet -Start omeprazole 40 mg daily before breakfast, avoid NSAIDs -Await pathology results, call us with any questions -Follow-up in GI clinic after MRI with anesthesia is completed Please note that acute lumbar infarct is a typo secondary to dictation There is no concern for lumbar injury [facility] Comment on above: Result Comment: Elec tronically Signed By: Maribel STRINGER, Cher Nicholas\.br\Date and Time Signed: 04/14/24 11:33 EST Other Comment: Meg estrada Attachment - attachment storage system not supported [id number] Can be viewed in source system Missing Attachment - attachment storage system not supported [id number] Can be viewed in source system Missing Attachment - attachment storage system not supported [id number] Can be viewed in source system Missing Attachment - attachment storage system not supported [id number] Can be viewed in source system Missing Attachment - attachment storage system not supported [id number] Can be viewed in source system Missing Attachment - attachment storage system not supported [id number] Can be viewed in source system Missing Attachment - attachment storage system not supported [id number] Can be viewed in source system Missing Attachment - attachment storage system not supported [id number] Can be viewed in source system 03-31-2024 Hospital Discharge instructions Patient Education 03/31/2024 14:23:42 [facility] NSAIDS-Nonsteroidal Anti-Inflammatory Medications (CUSTOM) AVOID Nonsteroidal Anti-Inflammatory Medications (NSAIDS) Non-steroidal anti-inflammatory drugs (NSAIDs) are a medication widely used to treat a wide range of conditions. Common acute (short-term) conditions that can be treated with NSAIDs include: headaches painful periods toothache soft tissue injuries such as sprains and strains reduce inflammation (redness and swelling) infections, such as the common cold or the flu (NSAIDs do not treat the underlying infections, but can help to relieve symptoms; especially fever) Common chronic (long-term) conditions that can be treated with NSAIDs include: most types of arthritis, including rheumatoid arthritis and osteoarthritis back pain neck pain Some NSAIDs are available [id number]-[id number], without the need for a prescription. However, because a medication is available over the counter it does not mean it is safe or suitable for everyone. Again, it is important to read the patient information leaflet that comes with your medication. NSAID drugs include: Brand: Generic: Bufferin; Flash Aspirin; ASA Celebrex Celecoxib Zipsor; Cambia Diclofenac Motrin; Advil Ibuprofen Indosin Indometacin Actron; Orudis Ketoprofen Toradol Ketorolac Mobic Meloxicam Ponstel Mefenamic Acid Aleve; Naprosyn Naproxen Side effects: Most people take NSAIDs without having any side effects. Short term use is unlikely to cause significant problems, especially in younger patients. If side effects do occur they usually affect the stomach and can include: Indigestion Nausea Stomach pain Stomach ulcer Bleeding from the stomach and intestines Other side effects: Ringing in the ears itching Poor control of asthma Headache Allergic reactions NSAIDs are also not usually recommended for people who: are or have a history of kidney disease have a history of liver disease have active stomach ulcers (a sore in the lining of the stomach), or are at risk of developing stomach ulcers How to take NSAIDS: NSAIDS should be taken in the pill form or given by injection. If you are taking the pill form, it is best to take with food to avoid an upset stomach. IF a dose is missed: Some of these medications are taken as needed. Do not take more of your NSAID than your doctor has prescribed. Follow the emoi-hbm-wpflreh labels and do not exceed the recommended dosage. If you take an NSAID daily, take the missed dose of your medication as soon as you remember it. If it is too close to the time for your next dose, skip the missed dose and go back to taking this medication at your normal time. Do not take two doses of this medication at the same time or take any extra doses of this medication. If any questions regarding your medications, contact your physician or pharmacist. 03/31/2024 14:23:00 Endoscopy, Care After Procedure (SHSSTEV) Endoscopy Care After Procedure Please read the instructions outlined below and refer to this sheet in the next few weeks. These discharge instructions provide you with general information on caring for yourself after you leave the hospital. Your doctor may also give you specific instructions. While your treatment has been planned according to the most current medical practices available, unavoidable complications occasionally occur. If you have any problems or questions after discharge, please call your doctor. ACTIVITY You may resume your regular activity but move at a slower pace for the next 24 hours. Take frequent rest periods for the next 24 hours. Walking will help expel (get rid of) the air and reduce the bloated feeling in your abdomen. No driving for 24 hours (because of the anesthesia (medicine) used during the test). You may shower. Do not sign any important legal documents or operate any machinery for 24 hours (because of the anesthesia used during the test). NUTRITION Drink plenty of fluids. You may resume your normal diet. Begin with a light meal and progress to your normal diet. Avoid alcoholic beverages for 24 hours or as instructed by your caregiver. MEDICATIONS You may resume your normal medications unless your caregiver tells you otherwise. WHAT YOU CAN EXPECT TODAY You may experience abdominal discomfort such as a feeling of fullness or gas pains. FOLLOW-UP Your doctor will discuss the results of your test with you. SEEK IMMEDIATE MEDICAL ATTENTION IF ANY OF THE FOLLOWING OCCUR: Excessive nausea (feeling sick to your stomach) and/or vomiting. Severe abdominal pain and distention (swelling). Trouble swallowing. Temperature over 100 F (37.8 C). Rectal bleeding or vomiting of blood. Document Released: 12/12/2004 Document Re-Released: 10/22/2006 [employer] Patient Information 2010 [email or web address]. 03/31/2024 14:22:50 Esophagitis Esophagitis Esophagitis is inflammation of the esophagus. The esophagus is the tube that carries food from the mouth to the stomach. Esophagitis can cause soreness or pain in the esophagus. This condition can make it difficult and painful to swallow. What are the causes? Most causes of esophagitis are not serious. Common causes of this condition include: Gastroesophageal reflux disease (GERD). This is when stomach contents move back up into the esophagus (reflux). Repeated vomiting. An allergic reaction, especially caused by food allergies (eosinophilic esophagitis). Injury to the esophagus by swallowing large pills with or without water, or swallowing certain types of medicines. Swallowing harmful chemicals, such as household cleaning products. Drinking a lot of alcohol. An infection of the esophagus. This most often occurs in people who have a weakened immune system. Radiation or chemotherapy treatment for cancer. Certain diseases such as sarcoidosis, Crohn's disease, and scleroderma. What are the signs or symptoms? Symptoms of this condition include: Difficult or painful swallowing. Pain with swallowing acidic liquids, such as citrus juices. You may also have pain when you burp. Chest pain and difficulty breathing. Nausea and vomiting. Pain in the abdomen. Weight loss. Ulcers in the mouth and white patches in the mouth (candidiasis). Fever. Coughing up blood or vomiting blood. Stool that is black, tarry, or bright red. How is this diagnosed? This condition may be diagnosed based on your medical history and a physical exam. You may also have other tests, including: A test to examine your esophagus and stomach with a small flexible tube with a camera (endoscopy). A test that measures the acidity level in your esophagus. A test that measures how much pressure is on your esophagus. A barium swallow or modified barium swallow to show the shape, size, and functioning of your esophagus. Allergy tests. How is this treated? Treatment for this condition depends on the cause of your esophagitis. In some cases, steroids or other medicines may be given to help relieve your symptoms or to treat the underlying cause of your condition. You may have to make some lifestyle changes, such as: Avoiding alcohol. Quitting any products that contain nicotine or tobacco. These products include cigarettes, chewing tobacco, and vaping devices, such as e-cigarettes. If you need help quitting, ask your health care provider. Changing your diet. Exercising. Changing your sleep habits and your sleep environment. Follow these instructions at home: Medicines Take qmkv-cco-wqrndgv and prescription medicines only as told by your health care provider. Do not take aspirin, ibuprofen, or other NSAIDs unless your health care provider told you to do so. If you have trouble taking pills: ?Use a pill splitter to decrease the size of the pill. This will decrease the chance of the pill getting stuck or injuring your esophagus. ?Drink water after you take a pill. Eating and drinking Avoid foods and drinks that seem to make your symptoms worse. Follow a diet as recommended by your health care provider. This may involve avoiding foods and drinks such as: ?Coffee and tea, with or without caffeine. ?Drinks that contain alcohol. ?Energy drinks and sports drinks. ?Carbonated drinks or sodas. ?Chocolate and cocoa. ?Peppermint and mint flavorings. ?Garlic and onions. ?Horseradish. ?Spicy and acidic foods, including peppers, chili powder, rubio powder, vinegar, hot sauces, and barbecue sauce. ?[place] fruit juices and citrus fruits, such as oranges, glory, and limes. ?Tomato-based foods, such as red sauce, chili, salsa, and pizza with red sauce. ?Fried and fatty foods, such as donuts, [place] islander fries, potato chips, and high-fat dressings. ?High-fat meats, such as hot dogs and fatty cuts of red and white meats, such as rib eye steak, sausage, ham, and ramon. ?High-fat dairy items, such as whole milk, butter, and cream cheese. Lifestyle Eat small, frequent meals instead of large meals. Avoid drinking large amounts of liquid with your meals. Avoid eating meals during the 2 3 hours before bedtime. Avoid lying down right after you eat. Do not exercise right after you eat. Do not use any products that contain nicotine or tobacco. These products include cigarettes, chewing tobacco, and vaping devices, such as e-cigarettes. If you need help quitting, ask your health care provider. General instructions Pay attention to any changes in your symptoms. Let your health care provider know about them. Wear loose-fitting clothing. Do not wear anything tight around your waist that causes pressure on your abdomen. Raise (elevate) the head of your bed about 6 inches (15 cm). You may need to use a wedge to do this. Try relaxation strategies such as yoga, deep breathing, or meditation to manage stress. If you need help reducing stress, ask your health care provider. If you are overweight, reduce your weight to an amount that is healthy for you. Ask your health care provider for guidance about a safe weight loss goal. Keep all follow-up visits. This is important. Contact a health care provider if: You have new symptoms. You have unexplained weight loss. You have difficulty swallowing, or it hurts to swallow. You have wheezing or a cough that does not go away. Your symptoms do not improve with treatment. You have frequent heartburn for more than two weeks. Get help right away if: You have sudden severe pain in your arms, neck, jaw, teeth, or back. You suddenly feel sweaty, dizzy, or light-headed. You have chest pain or shortness of breath. You vomit and the vomit is green, yellow, or black, or it looks like blood or coffee grounds. Your stool is red, bloody, or black. You have a fever. You cannot swallow, drink, or eat. These symptoms may represent a serious problem that is an emergency. Do not wait to see if the symptoms will go away. Get medical help right away. Call your local emergency services (911 in the [place] Do not drive yourself to the hospital. Summary Esophagitis is inflammation of the esophagus. Most causes of esophagitis are not serious. Follow your health care provider's instructions about eating and drinking. Contact a health care provider if you have new symptoms, have weight loss, or coughing that does not stop. Get help right away if you have severe pain in the arms, neck, jaw, teeth, or back, or if you have chest pain, shortness of breath, or fever. This information is not intended to replace advice given to you by your health care provider. Make sure you discuss any questions you have with your health care provider. Document Revised: 11/08/2020 Document Reviewed: 11/08/2020 [employer] Patient Education 2023 [email or web address]. 03/31/2024 14:22:48 Gastritis, Adult Gastritis, Adult Gastritis is inflammation of the stomach. There are two kinds of gastritis: Acute gastritis. This kind develops suddenly. Chronic gastritis. This kind is much more common. It develops slowly and lasts for a long time. Gastritis happens when the lining of the stomach becomes weak or gets damaged. Without treatment, gastritis can lead to stomach bleeding and ulcers. What are the causes? This condition may be caused by: An infection. Drinking too much alcohol. Certain medicines. These include steroids, antibiotics, and some fdqc-umu-jtpmuom medicines, such as aspirin or ibuprofen. Having too much acid in the stomach. Having a disease of the stomach. Other causes may include: An allergic reaction. Some cancer treatments (radiation). Smoking cigarettes or the use of products that contain nicotine or tobacco. In some cases, the cause of this condition is not known. What increases the risk? Having a disease of the intestines. Having a disease in which the body's immune system attacks the body (autoimmune disease), such as Crohn's disease. Using aspirin or ibuprofen and other NSAIDs to treat other conditions, such as heart disease or chronic pain. Stress. What are the signs or symptoms? Symptoms of this condition include: Pain or a burning sensation in the upper abdomen. Nausea. Vomiting. An uncomfortable feeling of fullness after eating. Weight loss. Bad breath. Blood in your vomit or stool (feces). In some cases, there are no symptoms. How is this diagnosed? This condition may be diagnosed based on your medical history, a physical exam, and tests. Tests may include: Your medical history and a description of your symptoms. A physical exam. Tests. These can include: ?Blood tests. ?Stool tests. ?A test in which a thin, flexible instrument with a light and a camera is passed down the esophagus and into the stomach (upper endoscopy). ?A test in which a tissue sample is removed to look at it under a microscope (biopsy). How is this treated? This condition may be treated with medicines. The medicines that are used vary depending on the cause of the gastritis. If the condition is caused by a bacterial infection, you may be given antibiotic medicines. If the condition is caused by too much acid in the stomach, you may be given medicines called H2 blockers, proton pump inhibitors, or antacids. Treatment may also involve stopping the use of certain medicines such as aspirin or ibuprofen and other NSAIDs. Follow these instructions at home: Medicines Take gyiz-ktz-shkskfw and prescription medicines only as told by your health care provider. If you were prescribed an antibiotic medicine, take it as told by your health care provider. Do not stop taking the antibiotic even if you start to feel better. Alcohol use Do not drink alcohol if: ?Your health care provider tells you not to drink. ?You are , may be , or are planning to become . If you drink alcohol: ?Limit your use to: ?0 1 drink a day for women. ?0 2 drinks a day for men. ?Know how much alcohol is in your drink. In the [place] one drink equals one 12 oz bottle of beer (355 mL), one 5 oz glass of wine (148 mL), or one 1 oz glass of hard liquor (44 mL). General instructions Eat small, frequent meals instead of large meals. Avoid foods and drinks that make your symptoms worse. Talk with your health care provider about ways to manage stress, such as getting regular exercise or practicing deep breathing, meditation, or yoga. Do not use any products that contain nicotine or tobacco. These products include cigarettes, chewing tobacco, and vaping devices, such as e-cigarettes. If you need help quitting, ask your health care provider. Drink enough fluid to keep your urine pale yellow. Keep all follow-up visits. This is important. Contact a health care provider if: Your symptoms get worse. Your abdominal pain gets worse. Your symptoms return after treatment. You have a fever. Get help right away if: You vomit blood or a substance that looks like coffee grounds. You have black or dark red stools. You are unable to keep fluids down. These symptoms may represent a serious problem that is an emergency. Do not wait to see if the symptoms will go away. Get medical help right away. Call your local emergency services (911 in the [place] Do not drive yourself to the hospital. Summary Gastritis is inflammation of the lining of the stomach that can occur suddenly (acute) or develop slowly over time (chronic). This condition is diagnosed with a medical history, a physical exam, or tests. This condition may be treated with medicines to treat infection or medicines to reduce the amount of acid in your stomach. Follow your health care provider's instructions about taking medicines, making changes to your diet, and knowing when to call for help. This information is not intended to replace advice given to you by your health care provider. Make sure you discuss any questions you have with your health care provider. Document Revised: 2021 Document Reviewed: 2021 [employer] Patient Education 2023 [email or web address]. 03/31/2024 14:22:46 Hiatal Hernia Hiatal Hernia A hiatal hernia occurs when part of the stomach slides above the muscle that separates the abdomen from the chest (diaphragm). A person can be born with a hiatal hernia (congenital), or it may develop over time. In almost all cases of hiatal hernia, only the top part of the stomach pushes through the diaphragm. Many people have a hiatal hernia with no symptoms. The larger the hernia, the more likely it is that you will have symptoms. In some cases, a hiatal hernia allows stomach acid to flow back into the tube that carries food from your mouth to your stomach (esophagus). This may cause heartburn symptoms. The development of heartburn symptoms may mean that you have a condition called gastroesophageal reflux disease (GERD). What are the causes? This condition is caused by a weakness in the opening (hiatus) where the esophagus passes through the diaphragm to attach to the upper part of the stomach. A person may be born with a weakness in the hiatus, or a weakness can develop over time. What increases the risk? This condition is more likely to develop in: Older people. Age is a major risk factor for a hiatal hernia, especially if you are over the age of 50. women. People who are overweight. People who have frequent constipation. What are the signs or symptoms? Symptoms of this condition usually develop in the form of GERD symptoms. Symptoms include: Heartburn. Upset stomach (indigestion). Trouble swallowing. Coughing or wheezing. Wheezing is making high-pitched whistling sounds when you breathe. Sore throat. Chest pain. Nausea and vomiting. How is this diagnosed? This condition may be diagnosed during testing for GERD. Tests that may be done include: X-rays of your stomach or chest. An upper gastrointestinal (GI) series. This is an X-ray exam of your GI tract that is taken after you swallow a chalky liquid that shows up clearly on the X-ray. Endoscopy. This is a procedure to look into your stomach using a thin, flexible tube that has a tiny camera and light on the end of it. How is this treated? This condition may be treated by: Dietary and lifestyle changes to help reduce GERD symptoms. Medicines. These may include: ?Whcm-hhf-ihgheit antacids. ?Medicines that make your stomach empty more quickly. ?Medicines that block the production of stomach acid (H2 blockers). ?Stronger medicines to reduce stomach acid (proton pump inhibitors). Surgery to repair the hernia, if other treatments are not helping. If you have no symptoms, you may not need treatment. Follow these instructions at home: Lifestyle and activity Do not use any products that contain nicotine or tobacco. These products include cigarettes, chewing tobacco, and vaping devices, such as e-cigarettes. If you need help quitting, ask your health care provider. Try to achieve and maintain a healthy body weight. Avoid putting pressure on your abdomen. Anything that puts pressure on your abdomen increases the amount of acid that may be pushed up into your esophagus. ?Avoid bending over, especially after eating. ?Raise the head of your bed by putting blocks under the legs. This keeps your head and esophagus higher than your stomach. ?Do not wear tight clothing around your chest or stomach. ?Try not to strain when having a bowel movement, when urinating, or when lifting heavy objects. Eating and drinking Avoid foods that can worsen GERD symptoms. These may include: ?Fatty foods, like fried foods. ?[place] fruits, like oranges or lemon. ?Other foods and drinks that contain acid, like orange juice or tomatoes. ?Spicy food. ?Chocolate. Eat frequent small meals instead of three large meals a day. This helps prevent your stomach from getting too full. ?Eat slowly. ?Do not lie down right after eating. ?Do not eat 1 2 hours before bed. Do not drink beverages with caffeine. These include cola, coffee, cocoa, and tea. Do not drink alcohol. General instructions Take czsn-axq-fhlqrnm and prescription medicines only as told by your health care provider. Keep all follow-up visits. Your health care provider will want to check that any new prescribed medicines are helping your symptoms. Contact a health care provider if: Your symptoms are not controlled with medicines or lifestyle changes. You are having trouble swallowing. You have coughing or wheezing that will not go away. Your pain is getting worse. Your pain spreads to your arms, neck, jaw, teeth, or back. You feel nauseous or you vomit. Get help right away if: You have shortness of breath. You vomit blood. You have bright red blood in your stools. You have black, tarry stools. These symptoms may be an emergency. Get help right away. Call 911. Do not wait to see if the symptoms will go away. Do not drive yourself to the hospital. Summary A hiatal hernia occurs when part of the stomach slides above the muscle that separates the abdomen from the chest. A person may be born with a weakness in the hiatus, or a weakness can develop over time. Symptoms of a hiatal hernia may include heartburn, trouble swallowing, or sore throat. Management of a hiatal hernia includes eating frequent small meals instead of three large meals a day. Get help right away if you vomit blood, have bright red blood in your stools, or have black, tarry stools. This information is not intended to replace advice given to you by your health care provider. Make sure you discuss any questions you have with your health care provider. Document Revised: 06/27/2022 Document Reviewed: 06/27/2022 [employer] Patient Education 2023 [email or web address]. 03/31/2024 14:22:41 Peptic Ulcer Peptic Ulcer A peptic ulcer is a sore in the lining of the stomach (gastric ulcer) or the first part of the small intestine (duodenal ulcer). The ulcer causes a gradual wearing away (erosion) of the deeper tissue. What are the causes? Normally, the lining of the stomach and the small intestine protects them from the acid that digests food. The protective lining can be damaged by: An infection caused by a type of bacteria called Helicobacter pylori or H. pylori. Regular use of NSAIDs, such as ibuprofen or aspirin. Rare tumors in the stomach, small intestine, or pancreas (Portia Rodriguez syndrome). What increases the risk? The following factors may make you more likely to develop this condition: Smoking. Having a family history of ulcer disease. Drinking alcohol. Having been hospitalized in an intensive care unit (ICU). What are the signs or symptoms? Symptoms of this condition include: Persistent burning pain in the area between the chest and the belly button. The pain may be worse on an empty stomach and at night. Heartburn. Nausea and vomiting. Bloating. If the ulcer results in bleeding, it can cause: Black, tarry stools. Vomiting of bright red blood. Vomiting of material that looks like coffee grounds. How is this diagnosed? This condition may be diagnosed based on: Your medical history and a physical exam. Various tests or procedures, such as: ?Upper endoscopy. The health care provider examines the esophagus, stomach, and small intestine using a small flexible tube that has a video camera at the end. ?Blood tests, stool tests, or breath tests to check for the H. pylori bacteria. ?An X-ray exam (upper gastrointestinal series) of the esophagus, stomach, and small intestine. ?A biopsy to help find certain causes of ulcers. A tissue sample is removed during upper endoscopy to be examined under a microscope. How is this treated? Treatment for this condition may include: Eliminating the cause of the ulcer, such as smoking or use of NSAIDs, and limiting alcohol and caffeine intake. Medicines to reduce the amount of acid in your digestive tract. Antibiotic medicines, if the ulcer is caused by an H. pylori infection. An upper endoscopy may be used to treat a bleeding ulcer. Surgery. This may be needed if the bleeding is severe or if the ulcer created a hole somewhere in the digestive system. Follow these instructions at home: Do not drink alcohol if your health care provider tells you not to drink. Do not use any products that contain nicotine or tobacco. These products include cigarettes, chewing tobacco, and vaping devices, such as e-cigarettes. If you need help quitting, ask your health care provider. Take yluu-fsv-hgubefa and prescription medicines only as told by your health care provider. ?Do not use ogeu-peh-jptijch medicines in place of prescription medicines unless your health care provider approves. ?Do not take aspirin, ibuprofen, or other NSAIDs unless your health care provider tells you to. Keep all follow-up visits. This is important. Contact a health care provider if: Your symptoms do not improve within 7 days of starting treatment. You have ongoing indigestion or heartburn. Get help right away if: You have sudden, sharp, or persistent pain in your abdomen. You have bloody or dark black, tarry stools. You vomit blood or material that looks like coffee grounds. You become light-headed or you feel faint. You become weak. You become sweaty or clammy. These symptoms may be an emergency. Get help right away. Call 911. Do not wait to see if the symptoms will go away. Do not drive yourself to the hospital. Summary A peptic ulcer is a sore in the lining of the stomach (gastric ulcer) or the first part of the small intestine (duodenal ulcer). The ulcer causes a gradual wearing away (erosion) of the deeper tissue. Do not use any products that contain nicotine or tobacco. These products include cigarettes, chewing tobacco, and vaping devices, such as e-cigarettes. If you need help quitting, ask your health care provider. Take ldgu-aas-nsbwjvf and prescription medicines only as told by your health care provider. Do not use cxzk-eut-ljvriuj medicines in place of prescription medicines unless your health care provider approves. Limit your alcohol and caffeine intake. Keep all follow-up visits. This is important. This information is not intended to replace advice given to you by your health care provider. Make sure you discuss any questions you have with your health care provider. Document Revised: 12/09/2021 Document Reviewed: 12/09/2021 [employer] Patient Education 2023 [email or web address]. Follow Up Care 03/28/2024 15:34:22 With:Maribel STRINGER, VAL Buckner, [facility] Address: [address] [place] [address], [address] [phone] [phone] When: Unknown Comments:Office will call to schedule follow-up appointment.Call for any problems. [facility] 03-31-2024 Note Progress Note-Physic sintia Patient: LETICIA TINOCO Age: 33 years Sex: Female : 1990 Associated Diagnoses: None Author: Eric Carbajal Jr., DO Postoperative Information Postoperative disposition: Postoperative disposition: Home. Optimetrix number: Optimetrix number [id number]. Anesthetic utilized: General. Physical Examination Vital Signs 03/31/2024 14:32 EST Heart Rate Monitored 80 bpm Respiratory Rate Monitored 20 br/min Systolic Blood Pressure 123 mmHg Diastolic Blood Pressure 76 mmHg Blood Pressure Location Left arm SpO2 95 % 03/31/2024 14:21 EST Heart Rate Monitored 80 bpm Respiratory Rate Monitored 19 br/min Systolic Blood Pressure 117 mmHg Diastolic Blood Pressure 75 mmHg Blood Pressure Location Left arm SpO2 97 % 03/31/2024 14:16 EST Heart Rate Monitored 85 bpm Respiratory Rate Monitored 24 br/min Systolic Blood Pressure 113 mmHg Diastolic Blood Pressure 74 mmHg Blood Pressure Location Left arm SpO2 96 % 03/31/2024 14:11 EST Temperature Temporal Artery 36 DegC LOW Heart Rate Monitored 95 bpm Respiratory Rate Monitored 22 br/min Systolic Blood Pressure 110 mmHg Diastolic Blood Pressure 79 mmHg Blood Pressure Location Left arm SpO2 93 % Pain Assessment: Controlled. General: Awake, Alert, Appropriate. Respiratory: Adequate air exchange, Non-labored. Cardiovascular: Stable, Normal peripheral perfusion. Neurological: Neurologic exam at baseline. No changes.. Assessment Anesthetic outcome No anesthetic complications noted. No nausea/vomiting. Review / Management Condition: Stable. Plan Transfer/Discharge: Transfer/Discharge Discharge when meets criteria ( From PACU to Ambulatory Surgery Unit, and To home ). [facility] Comment on above: Result Comment: Elec tronically Signed By: Eric Carbajal Jr., DO.luis\Date and Time Signed: 03/31/24 15:21 EST 03-31-2024 Note Patient Education - Text Endoscopy Care After Procedure Please read the instructions outlined below and refer to this sheet in the next few weeks. These discharge instructions provide you with general information on caring for yourself after you leave the hospital. Your doctor may also give you specific instructions. While your treatment has been planned according to the most current medical practices available, unavoidable complications occasionally occur. If you have any problems or questions after discharge, please call your doctor. ACTIVITY ??? You may resume your regular activity but move at a slower pace for the next 24 hours. ??? Take frequent rest periods for the next 24 hours. ??? Walking will help expel (get rid of) the air and reduce the bloated feeling in your abdomen. ??? No driving for 24 hours (because of the anesthesia (medicine) used during the test). ??? You may shower. ??? Do not sign any important legal documents or operate any machinery for 24 hours (because of the anesthesia used during the test). NUTRITION ??? Drink plenty of fluids. ??? You may resume your normal diet. ??? Begin with a light meal and progress to your normal diet. ??? Avoid alcoholic beverages for 24 hours or as instructed by your caregiver. MEDICATIONS ??? You may resume your normal medications unless your caregiver tells you otherwise. WHAT YOU CAN EXPECT TODAY ??? You may experience abdominal discomfort such as a feeling of fullness or ???gas??? pains. FOLLOW-UP ??? Your doctor will discuss the results of your test with you. seek immediate medical attention if any of the following occur: ??? Excessive nausea (feeling sick to your stomach) and/or vomiting. ??? Severe abdominal pain and distention (swelling). ??? Trouble swallowing. ??? Temperature over 100 F (37.8??? C). ??? Rectal bleeding or vomiting of blood. Document Released: 12/12/2004 Document Re-Released: 10/22/2006 ExitCare??? Patient Information ???2009 [email or web address]. Nonsteroidal Anti-Inflammatory Medications (NSAIDS) Non-steroidal anti-inflammatory drugs (NSAIDs) are a medication widely used to treat a wide range of conditions. Common acute (short-term) conditions that can be treated with NSAIDs include: ??? headaches ??? painful periods ??? toothache ??? soft tissue injuries such as sprains and strains ??? reduce inflammation (redness and swelling) ??? infections, such as the common cold or the flu (NSAIDs do not treat the underlying infections, but can help to relieve symptoms; especially fever) Common chronic (long-term) conditions that can be treated with NSAIDs include: ??? most types of arthritis, including rheumatoid arthritis and osteoarthritis ??? back pain ??? neck pain Some NSAIDs are available [id number], without the need for a prescription. However, because a medication is available over the counter it does not mean it is safe or suitable for everyone. Again, it is important to read the patient information leaflet that comes with your medication. NSAID drugs include: Brand: Generic: Bufferin; Flash Aspirin; ASA Celebrex Celecoxib Zipsor; Cambia Diclofenac Motrin; Advil Ibuprofen Indosin Indometacin Actron; Orudis Ketoprofen Toradol Ketorolac Mobic Meloxicam Ponstel Mefenamic Acid Aleve; Naprosyn Naproxen Side effects: Most people take NSAIDs without having any side effects. Short term use is unlikely to cause significant problems, especially in younger patients. If side effects do occur they usually affect the stomach and can include: ??? Indigestion ??? Nausea ??? Stomach pain ??? Stomach ulcer ??? Bleeding from the stomach and intestines Other side effects: ??? Ringing in the ears ??? itching ??? Poor control of asthma ??? Headache ??? Allergic reactions NSAIDs are also not usually recommended for people who: ??? are or ??? have a history of kidney disease ??? have a history of liver disease ??? have active stomach ulcers (a sore in the lining of the stomach), or are at risk of developing stomach ulcers How to take NSAIDS: NSAIDS should be taken in the pill form or given by injection. If you are taking the pill form, it is best to take with food to avoid an upset stomach. IF a dose is missed: Some of these medications are taken ???as needed.??? Do not take more of your NSAID than your doctor has prescribed. Follow the [id number] labels and do not exceed the recommended dosage. If you take an NSAID daily, take the missed dose of your medication as soon as you remember it. If it is too close to the time for your next dose, skip the missed dose and go back to taking this medication at your normal time. Do not take two doses of this medication at the same time or take any extra doses of this medication. If any questions regarding your medications, contact your physician or pharmacist. Gastroenterology Esophagitis (Inserted Image. Unable to disp (more content not included)... [facility] 03-31-2024 Note History and Physical Patient: LETICIA TINOCO Age: 33 years Sex: Female : 1990 Associated Diagnoses: None Author: Maribel STRINGER, Cher Nicholas Preoperative Information Indication for procedure and diagnosis: Abd pain Chief Complaint as above Review of Systems All systems reviewed, negative except as mentioned above Health Status Current medications: (Selected) Inpatient Medications Ordered Lactated Ringers IV Scarlet 1000 mL 1,000 mL: 1,000 mL, IV, 100 mL/hr, Routine, Start date 03/31/24 13:12:00 EST, 10 hour(s), Total volume (mL): 1,000, 99 kg, 2.15, m2 Sodium Chloride 0.9% 60 mL syringe 60 mL: 60 mL, IV, 20 mL/hr, Routine, Start date 03/31/24 6:47:00 EST, 3 hour(s), Total volume (mL): 60, 99 kg Prescriptions Prescribed Bentyl 10 mg Cap: 10 mg = 1 cap(s), Oral, QID, PRN Pain, X 14 day(s), # 60 cap(s), Refills(s) 3 omeprazole 40 mg Cap-DR: 40 mg = 1 cap(s), Oral, Daily, # 90 cap(s), Refills(s) 3 Documented Medications Documented Abilify 20 mg oral tablet: mg tab(s), Oral, Daily, Refills(s) 0 Abilify 5 mg Tab: mg tab(s), Oral, Daily, Refills(s) 0 [place]-Smoothe/FS (Scalp) 0.01% topical oil: eryn, Topical, TID, Refill(s) 0 Excedrin Migraine: Oral, q6hr, Refill(s) 0 Garamycin 0.3% Soln-Opth: drop(s), Eye-Both, QID, Refill(s) 0 Lamictal 100 mg Tab: 100 mg = 1 tab(s), Oral, Daily Ortho Cyclen 35 mcg-0.25 mg Tab: tab(s), Oral, Daily, Refill(s) 0 Procto-Med HC: Topical, TID, Refill(s) 0 Tylenol: Oral, Refills(s) 0 Vagisil 5%-2% vaginal cream: eryn, Topical, BID, Refill(s) 0 Zoloft 100 mg Tab: 100 mg = 1 tab(s), Oral, Daily, Refills(s) 0 Zoloft 50 mg Tab: mg tab(s), Oral, Daily, Refills(s) 0 acetaminophen-hydrocodone 325 mg-5 mg oral tablet: tab(s), Oral, q6hr, Refill(s) 0 benztropine 1 mg Tab: mg tab(s), Oral, BID, Refills(s) 0 fenofibrate 48 mg Tab: mg tab(s), Oral, Daily, Refills(s) 0 ferrous sulfate 325 mg oral enteric coated tablet: mg tab(s), Oral, Daily, Refills(s) 0 fludrocortisone: mg, Oral, Daily, Refills(s) 0 fluocinolone topical 0.025% ointment: Topical, BID, Refill(s) 0 folic acid 1 mg Tab: 4 mg = 4 tab(s), Oral, Daily, tab(s), Refills(s) 0 folic acid 1 mg Tab: mg tab(s), Oral, Daily, Refills(s) 0 haloperidol 10 mg oral tablet: mg tab(s), Oral, BID, Refills(s) 0 haloperidol 5 mg Tab: mg tab(s), Oral, BID, Refills(s) 0 hydrOXYzine: Refills(s) 0 loratadine 10 mg oral capsule: 10 mg = 1 cap(s), Oral, Daily, # 10 cap(s), Refills(s) 0 magnesium oxide 400 mg oral capsule: mg cap(s), Oral, Daily, Refills(s) 0 multivitamin: Refill(s) 0 propranolol 80 mg Tab: mg tab(s), Oral, BID, Refills(s) 0 sumatriptan: Once, Refills(s) 0 traZODONE 50 mg Tab: mg tab(s), Oral, Refills(s) 0 triamcinolone Top 0.1% Oint: Topical, TID, Refill(s) 0, Home Medications (32) Active Abilify 20 mg oral tablet , Oral, Daily Abilify 5 mg Tab , Oral, Daily acetaminophen-hydrocodone 325 mg-5 mg oral tablet , Oral, q6hr Bentyl 10 mg Cap 10 mg = 1 cap(s), PRN, Oral, QID benztropine 1 mg Tab , Oral, BID [place] Bo[place]-Smoothe/FS (Scalp) 0.01% topical oil , Topical, TID Excedrin Migraine , Oral, q6hr fenofibrate 48 mg Tab , Oral, Daily ferrous sulfate 325 mg oral enteric coated tablet , Oral, Daily fludrocortisone , Oral, Daily fluocinolone topical 0.025% ointment , Topical, BID folic acid 1 mg Tab 4 mg = 4 tab(s), Oral, Daily folic acid 1 mg Tab , Oral, Daily Garamycin 0.3% Soln-Opth , Eye-Both, QID haloperidol 10 mg oral tablet , Oral, BID haloperidol 5 mg Tab , Oral, BID hydrOXYzine Lamictal 100 mg Tab 100 mg = 1 tab(s), Oral, Daily loratadine 10 mg oral capsule 10 mg = 1 cap(s), Oral, Daily magnesium oxide 400 mg oral capsule , Oral, Daily multivitamin omeprazole 40 mg Cap-DR 40 mg = 1 cap(s), Oral, Daily Ortho Cyclen 35 mcg-0.25 mg Tab , Oral, Daily Procto-Med HC , Topical, TID propranolol 80 mg Tab , Oral, BID sumatriptan , Once traZODONE 50 mg Tab , Oral triamcinolone Top 0.1% Oint , Topical, TID Tylenol , Oral Vagisil 5%-2% vaginal cream , Topical, BID Zoloft 100 mg Tab 100 mg = 1 tab(s), Oral, Daily Zoloft 50 mg Tab , Oral, Daily Problem list: All Problems Seizure disorder / SNOMED CT 445811643 / Confirmed ADHD / SNOMED CT 6215642202 / Confirmed 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 / Confirmed H/O subdural hemorrhage / SNOMED CT 083305788 / Confirmed Liver lesion / SNOMED CT 035727573 / Confirmed Essential hypertension / SNOMED CT 75140900 / Confirmed 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 [facility] Comment on above: Result Comment: Elec tronically Signed By: Cher López MD\.br\Date and Time Signed: 03/31/24 14:15 EST 03-31-2024 Note Endoscopic Procedure Report - Other Patient: LEITCIA TINOCO Age: 33 years Sex: Female : 1990 Associated Diagnoses: None Author: Cher López MD Pre-Procedure Procedure Date 03/31/2024 14:09:00 . Procedure Type: Esophagogastroduodenoscopy with biopsy. Procedure provider Performed by Cher López MD. Current history and physical Documented on chart. Informed Consent After discussing the rationale, risks and benefits, and alternatives to this procedure, the family provided signed consent for the patient's procedure. Pre-procedure diagnosis: Abdominal pain. Medications Anticoagulant/antiplatelet None. ASA Classification: Class II. . Monitoring: See anesthesia record. . Procedure The procedure was performed in the hospital. See anesthesia record for sedation given during procedure. The patient was positioned starting in the left lateral decubitus position and with safety measures. Endoscope type used was an adult-size, introduced orally, advanced to the 3rd portion of the duodenum. No difficulty was encountered during the procedure. Views were excellent. The patient tolerated the procedure well. Findings 1. Acute lumbar infarct, small hiatal hernia, LA grade C esophagitis noted 2. Moderate gastritis in the antrum of the stomach with very small erosions, the biopsies were taken for H. pylori 3. Less than 1 cm clean-based ulcer in the duodenal bulb, otherwise normal examined duodenum Images Procedure images: [id number] pg [id number] pg [id number] pg [id number]_hd_video_2023__[id number].j pg [id number]_hd_video_2023__[id number].j pg [id number]_[id number]_[id number]__[id number] pg [id number]__[id number] pg [id number]__[id number] pg . Post-Procedure Complications: none. Estimated blood loss: minimal. Specimens: sent to pathology. Devices/ implants: none left in place. Impression and Plan 1. Acute lumbar infarct, small hiatal hernia, LA grade C esophagitis noted 2. Moderate gastritis in the antrum of the stomach with very small erosions, the biopsies were taken for H. pylori 3. Less than 1 cm clean-based ulcer in the duodenal bulb, otherwise normal examined duodenum Recommendations: -Resume previous diet -Start omeprazole 40 mg daily before breakfast, avoid NSAIDs -Await pathology results, call us with any questions -Follow-up in GI clinic after MRI with anesthesia is completed [facility] Comment on above: Result Comment: Elec tronically Signed By: Maribel STRINGER, Cher Nicholas\.br\Date and Time Signed: 03/31/24 14:13 EST Other Comment: Meg estrada Attachment - attachment storage system not supported [id number] Can be viewed in source system Missing Attachment - attachment storage system not supported [id number] Can be viewed in source system Missing Attachment - attachment storage system not supported [id number] Can be viewed in source system Missing Attachment - attachment storage system not supported [id number] Can be viewed in source system Missing Attachment - attachment storage system not supported [id number] Can be viewed in source system Missing Attachment - attachment storage system not supported 1065961 Can be viewed in source system Missing Attachment - attachment storage system not supported [id number] Can be viewed in source system Missing Attachment - attachment storage system not supported [id number] Can be viewed in source system 03-31-2024 Evaluation + Plan note Extrac dalia from: Title:ANES Post-operative Note - General Author: Eric Carbajal Jr., DO Date:03/31/24 Plan Transfer/Discharge: Transfer/Discharge Discharge when meets criteria ( From PACU to Ambulatory Surgery Unit, and To home ). Extracted from: Title:1Preop H&P Author:Maribel STRINGER, Cher vilchis Date:03/31/24 Impression and Plan Impression: Abd pain Plan: -EGD Extracted from: Title:ANES Pre-operative Note - Endo Author:Eric Doll Jr., DO Date:03/31/24 Plan [place] [employer] (ASA) physical status classification: Class III. Anesthetic Preoperative Plan: Anesthesia General, and -TIVA. Future Scheduled Tests Laboratory* CBC w/ Auto Diff 01/16/24 * Comprehensive Metabolic Panel 01/16/24 Radiology* CT Abdomen w/ Contrast 01/23/24 * MRI Abdomen w/ + w/o Contrast 03/27/[address] [facility] 11-18-2024 NoteProgress Note-Physician Patient: LETICIA TINOCO Age: 33 years Sex: Female : 1990 Associated Diagnoses: None Author: Eric Carbajal Jr., DO Preoperative Information Anesthesia history: Patient history: No prior anesthetic problems. Informed consent: Signed by patient. Re-evaluation prior to induction: Initial evaluation reviewed: No significant change. Review of Systems Respiratory: Negative except as documented in history of present illness. Cardiovascular: Negative except as documented in history of present illness. Health Status Allergies: Allergic Reactions (Selected) No Known Allergies, Allergies (1) Active Severity Reaction No Known Allergies None Documented Current medications: (Selected) Inpatient Medications Ordered Lactated Ringers IV Scarlet 1000 mL 1,000 mL: 1,000 mL, IV, 100 mL/hr, Routine, Start date 03/31/24 13:12:00 EST, 10 hour(s), Total volume (mL): 1,000, 99 kg, 2.15, m2 Sodium Chloride 0.9% 60 mL syringe 60 mL: 60 mL, IV, 20 mL/hr, Routine, Start date 03/31/24 6:47:00EST, 3 hour(s), Total volume (mL): 60, 99 kg Prescriptions Prescribed Bentyl 10 mg Cap: 10 mg = 1 cap(s), Oral, QID, PRN Pain, X 14 day(s), # 60 cap(s), Refills(s) 3 Documented Medications Documented Abilify 20 mg oral tablet: mg tab(s), Oral, Daily, Refills(s) 0 Abilify 5 mg Tab: mg tab(s), Oral, Daily, Refills(s) 0 [place] Bo[place]-Smoothe/FS (Scalp) 0.01% topical oil: eryn, Topical, TID, Refill(s) 0 Excedrin Migraine: Oral, q6hr, Refill(s) 0 Garamycin 0.3% Soln-Opth: drop(s), Eye-Both, QID, Refill(s) 0 Lamictal 100 mg Tab: 100 mg = 1 tab(s), Oral, Daily Ortho Cyclen 35 mcg-0.25 mg Tab: tab(s), Oral, Daily, Refill(s) 0 Procto-Med HC: Topical, TID, Refill(s) 0 Tylenol: Oral, Refills(s) 0 Vagisil 5%-2% vaginal cream: eryn, Topical, BID, Refill(s) 0 Zoloft 100 mg Tab: 100 mg = 1 tab(s), Oral, Daily, Refills(s) 0 Zoloft 50 mg Tab: mg tab(s), Oral, Daily, Refills(s) 0 acetaminophen-hydrocodone 325 mg-5 mg oral tablet: tab(s), Oral, q6hr, Refill(s) 0 benztropine 1 mg Tab: mg tab(s), Oral, BID, Refills(s) 0 fenofibrate 48 mg Tab: mg tab(s), Oral, Daily, Refills(s) 0 ferrous sulfate 325 mg oral enteric coated tablet: mg tab(s), Oral, Daily, Refills(s) 0 fludrocortisone: mg, Oral, Daily, Refills(s) 0 fluocinolone topical 0.025% ointment: Topical, BID, Refill(s) 0 folic acid 1 mg Tab: 4 mg = 4 tab(s), Oral, Daily, tab(s), Refills(s) 0 folic acid 1 mg Tab: mg tab(s), Oral, Daily, Refills(s) 0 haloperidol 10 mg oral tablet: mg tab(s), Oral, BID, Refills(s) 0 haloperidol 5 mg Tab: mg tab(s), Oral, BID, Refills(s) 0 hydrOXYzine: Refills(s) 0 loratadine 10 mg oral capsule: 10 mg = 1 cap(s), Oral, Daily, # 10 cap(s), Refills(s) 0 magnesium oxide 400 mg oral capsule: mg cap(s), Oral, Daily, Refills(s) 0 multivitamin: Refill(s) 0 propranolol 80 mg Tab: mg tab(s), Oral, BID, Refills(s) 0 sumatriptan: Once, Refills(s) 0 traZODONE 50 mg Tab: mg tab(s), Oral, Refills(s) 0 triamcinolone Top 0.1% Oint: Topical, TID, Refill(s) 0, Home Medications (31) Active Abilify 20 mg oral tablet , Oral, Daily Abilify 5 mg Tab , Oral, Daily acetaminophen-hydrocodone 325 mg-5 mg oral tablet , Oral, q6hr Bentyl 10 mg Cap 10 mg = 1 cap(s), PRN, Oral, QID benztropine 1 mg Tab , Oral, BID [place]-Smoothe/FS (Scalp) 0.01% topical oil , Topical, TID Excedrin Migraine , Oral, q6hr fenofibrate 48 mg Tab , Oral, Daily ferrous sulfate 325 mg oral enteric coated tablet , Oral, Daily fludrocortisone , Oral, Daily fluocinolone topical 0.025% ointment , Topical, BID folic acid 1 mg Tab 4 mg = 4 tab(s), Oral, Daily folic acid 1 mg Tab , Oral, Daily Garamycin 0.3% Soln-Opth , Eye-Both, QID haloperidol 10 mg oral tablet , Oral, BID haloperidol 5 mg Tab , Oral, BID hydrOXYzine Lamictal 100 mg Tab 100 mg = 1 tab(s), Oral, Daily loratadine 10 mg oral capsule 10 mg = 1 cap(s), Oral, Daily magnesium oxide 400 mg oral capsule , Oral, Daily multivitamin Ortho Cyclen 35 mcg-0.25 mg Tab , Oral, Daily Procto-Med HC , Topical, TID propranolol 80 mg Tab , Oral, BID sumatriptan , Once traZODONE 50 mg Tab , Oral triamcinolone Top 0.1% Oint , Topical, TID Tylenol , Oral Vagisil 5%-2% vaginal cream , Topical, BID Zoloft 100 mg Tab 100 mg = 1 tab(s), Oral, Daily Zoloft 50 mg Tab , Oral, Daily , Medications (2) Active Scheduled: (0) Continuous: (2) Lactated Ringers 1,000 mL 1,000 mL, IV, 100 mL/hr Sodium Chloride 0.9% 60 mL 60 mL, IV, 20 mL/hr PRN: (0) Problem list: All Problems ADHD / SNOMED CT 4386397394 / Confirmed Cognitive disorder / SNOMED CT 4455677404 / Confirmed Depressive disorder / SNOMED CT 90625911 / Confirmed Disease of liver / SNOMED CT 873473953 / Confirmed Dissociative convulsions / SNOMED CT 332297602 / Confirmed Essential hypertension / SNOMED CT 04056095 / Confirmed H/O subdural hemorrhage / SNOMED CT 308140483 / Confirmed History of (more content not included)...[facility] Comment: Electronically Signed By: Eric Carbajal Jr., DO\Date and Time Signed: 03/31/24 13:13 [id number] Evaluation + Plan note Future Scheduled Tests Laboratory* CBC w/ Auto Diff 01/16/24 * Comprehensive Metabolic Panel 01/16/24 Radiology* CT Abdomen/Pelvis w/ + w/o Contrast 01/16/24 [facility] 09-04-2024 Evaluation + Plan note Future Scheduled Tests Laboratory* CBC w/ Auto Diff 01/16/24 * Comprehensive Metabolic Panel 01/16/24 Radiology* CT Abdomen w/ Contrast 01/23/24 [facility] 02-08-2024 Note* Addendum Note - Amanuel Hodges MD - 06/21/2023 2:31 PM EST Addendum created 06/21/23 1431 by Amanuel Hodges MD Clinical Note Signed [id number] Miscellaneous Notes* Addendum Note - Amanuel Hodges MD - 06/21/2023 2:31 PM EST Addendum created 06/21/23 1431 by Amanuel Hodges MD Clinical Note Signed * Anesthesia Transfer Of Care - Carmen Honeycutt CAA - 06/21/2023 11:53 AM EST Patient taken to PACU. Patient was awake on arrival. Anesthesia Transfer of Care Note Past Medical History: No past medical history on file. Sleep Apnea/Positive STOP-BANG: Yes Problem List: There is no problem list on file for this patient. Past Surgical History: There is no previous surgical history on file. Allergies: Patient has no allergy information on record. Basic Operating Room Facts: * No surgeons listed * Anesthesiologist: Amanuel Hodges MD CAA: Carmen Honeycutt CAA DENTAL VISIT Intraoperative Events: No acute event ASA: 3 EBL: Not documented Urine Not documented Lactated Ringers and NaCl 0.9%: Fluid Totals (Filter: LR and NaCl 0.9% Medications Shown) Medication Calculated Total Lactated Ringers 800 mL / 1 bag Cell Saver: Not documented Blood Volume Values: Blood Products None MTP Blood: MTP PRBC: Not documented MTP FFP: Not documented MTP PLT: Not documented MTP Cryo: Not documented MTP Whole Blood: Not documented Current Vasoactive Medications: {Vasoactive Medications: None Lines, Drains, Airways Airway Adjunct: (Active) Airway Insertion Details * No LDAs found * All non-working IVs have been removed: Yes Laboratory Data: CBC (last 3 years, up to 5 values) None Basic Metabolic Panel None Basic Metabolic Panel None No results found for: INR No result for BNP LFT's (last 3 years, up to 5 values) None Arterial Blood Gases None Hand off Completed: Yes P t was recovered by me until the moment of discharge from facility FATOUMATA Laguerre documented in this [id number] Procedure anesthesia Narrative * Procedure Summary Procedure Name Responsible Anesthesiologist Anesthesia Start Time Anesthesia Stop Time DENTAL VISIT Amanuel Hodges MD 06/21/23 1015 4 1154 Events Date Time Event Comment 06/21/2023 1015 An Start Data 1015 An Start 1021 1024 Anesthesia Timeout Member of Anesthesia team and circulating RN verified patient identity, procedure to be performed, and presence of signed surgical consent form prior to induction of anesthesia. 1024 Preinduction Verify The anes thesia team has reviewed the patient's vital signs immediately prior to induction. FATOUMATA Laguerre 1037 An Induction 1037 Procedure Timeout Confirm th e correct patient identity: {Confirmed:[id number]} Confirm the correct procedure: {Confirmed:442422} Confirm the correct procedural site: {Confirmed:241373} Confirm signed informed consent: {Confirmed:948852} Confirm prophylactic antibiotic administration (if applicable): {Confirmed:720363} Discuss fire risk mitigation (if applicable): {Confirmed:951283} Anesthesia Staff FATOUMATA Laguerre Procedualist Additional Staff 1039 Anesthesia Release 1151 an stop data 1153 Handoff I completed my SBAR handoff to the receiving nurse in the receiving unit. 1154 AN Stop Meds Name Total glycopyrrolate (ROBINUL) injection 0.2 m g/mL 0.1 mg Midazolam 1 mg/mL 4 mg Dexmedetomidine injection 100 mcg/mL 32 mcg Lactated Ringers 800 mL * Agents Name O2 N2O * Blood No blood administrations on file. Lines, Drains, and Airways Type Details Placement Removal Airway Adjunct 06/21/23; 1035; (khurram al nitrous mask) 06/21/23 1035 by Carmen Honeycutt CAA Peripheral IV Line 06/21/23; 1020; 20 gauge; Left; Hand; No; 06/21/23; 1145 06/21/23 1020 by Carmen Honeycutt CAA 06/21/23 1145 by Carmen Honeycutt CAA documented in this encounter [id number] Anesthesiology Postoperative evaluation and management note* Anesthesia Postprocedure Evaluation - Amanuel Hodges MD - 06/21/2023 11:54 AM EST Anesthesia Postoperative Assessment: Vital Signs (most recent): There were no vitals taken for this visit. Anesthesia Post Evaluation Level of consciousness: awake Post-procedure exam normal. Body temperature, hydration status, PONV and pain evaluated and addressed. Pain management: adequate Hydration status: normal PONV:No nausea/vomiting reported Cardiopulmonary status stable Respiratory status: acceptable Cardiovascular status: acceptable Comments: The patient has fully recovered, meets discharge criteria, and has been under anesthesia care until point of discharge home. ANESTHESIA NOTABLE EVENTS: No notable events documented. [facility] Work Phone: [phone]) 267-432502-08-2024 Surgical operation note* Anesthesia Postprocedure Evaluation - Amanuel Hodges MD - 06/21/2023 11:54 AM EST Anesthesia Postoperative Assessment: Vital Signs (most recent): There were no vitals taken for this visit. Anesthesia Post Evaluation Level of consciousness: awake Post-procedure exam normal. Body temperature, hydration status, PONV and pain evaluated and addressed. Pain management: adequate Hydration status: normal PONV:No nausea/vomiting reported Cardiopulmonary status stable Respiratory status: acceptable Cardiovascular status: acceptable Comments: The patient has fully recovered, meets discharge criteria, and has been under anesthesia care until point of discharge home. ANESTHESIA NOTABLE EVENTS: No notable events documented. * Anesthesia Preprocedure Evaluation - Amanuel Hodges MD - 06/21/2023 10:05 AM EST ASA: 3 NPO status: Greater than 8 hours Past Medical History and Review of Systems Pulmonary (+) sleep apnea on CPAP Comment: Noncompliant for years Dental Endo Neuro/Psych (+) bipolar disorder, seizures Comment: seizures / pseudo seizures- usually have one when she is stress and on seizure medicationsADHD, mild intellectual disability, depression, Bipolar disorder Cardiovascular GI/Hepatic/Renal Heme/Other Other ROS: Leticia Tionco is a 32 year old female pt who complains of caries and desires to undergo dental procedure with sedation. Denies dysphagia nor any signs of tooth infection Currently denies fever and chills, new cough, SOB or CP. Mother is guardian and provided consent. R/b detailed with both patient and mom ibnlt GA conversionand cardiopulmonary complications. Questions answered. Agree with plan. Physical Exam Airway Mallampati: II Jaw opening: Adequate Neck flexion: Adequate Dental Pulmonary - pulmonary exam normal Comment: Chest clear to auscultation bilaterally Cardiovascular - cardiovascular exam normal Comment: RRR with S1S2; no murmurs, gallops, or rubs Neuro - neurological exam normal Comment: Awake, alert, oriented, No motor deficits and sensation grossly intact Plan Anesthesia plan: MAC; (mask) Anesthesia risks / alternatives discussed pre-op Questions answered / anesthesia plan accepted Past medical history, surgical history, allergies, and medications reviewed. Pertinent laboratory tests, EKG, imaging, and consults reviewed and I have personally seen and evaluated the patient, repeating buck portions of the history and physical examination. Attestation: Anesthesia options were discussed with the patient and/or legal medical claims representative. The risks, benefitsand alternatives were reviewed. Questions regarding anesthesia were answered. Patient and/or legal medical claims representative knows such anesthetics and procedures may be performed by Resident physicians, Certified Anesthesiologist Assistants, or Certified Nurse Anesthetists under the supervision of a physician. The patient /or the patient s legal medical claims representative agree with the plan for anesthesia. documented in this [id number] Anesthesiology Postoperative evaluation and management note* Anesthesia Transfer Of Care - Carmen Honeycutt CAA - 06/21/2023 11:53 AM EST Patient taken to PACU. Patient was awake on arrival. Anesthesia Transfer of Care Note Past Medical History: No past medical history on file. Sleep Apnea/Positive STOP-BANG: Yes Problem List: There is no problem list on file for this patient. Past Surgical History: There is no previous surgical history on file. Allergies: Patient has no allergy information on record. Basic Operating Room Facts: * No surgeons listed * Anesthesiologist: Amanuel Hodges MD CAA: Carmen Honeycutt CAA DENTAL VISIT Intraoperative Events: No acute event ASA: 3 EBL: Not documented Urine Not documented Lactated Ringers and NaCl 0.9%: Fluid Totals (Filter: LR and NaCl 0.9% Medications Shown) Medication Calculated Total Lactated Ringers 800 mL / 1 bag Cell Saver: Not documented Blood Volume Values: Blood Products None MTP Blood: MTP PRBC: Not documented MTP FFP: Not documented MTP PLT: Not documented MTP Cryo: Not documented MTP Whole Blood: Not documented Current Vasoactive Medications: {Vasoactive Medications: None Lines, Drains, Airways Airway Adjunct: (Active) Airway Insertion Details * No LDAs found * All non-working IVs have been removed: Yes Laboratory Data: CBC (last 3 years, up to 5 values) None Basic Metabolic Panel None Basic Metabolic Panel None No results found for: INR No result for BNP LFT's (last 3 years, up to 5 values) None Arterial Blood Gases None Hand off Completed: Yes P t was recovered by me until the moment of discharge from facility FATOUMATA Laguerre [employer] Work Phone: [phone]) 224-898902-08-2024 Progress note* Blood Attestation - Amanuel Hodges MD - 06/21/2023 10:18 AM EST Blood Attestation: ATTESTATION OF INFORMED CONSENT FOR BLOOD: The transfusion of blood and/or blood components were discussed with the patient and/or legal medical claims representative. The risks, benefits and alternatives were reviewed. Questions regarding blood transfusions were answered. The patient /or the patient s legal medical claims representative agree with the plan for transfusion of blood and/or blood components. [employer] Work Phone: [phone] 145-251202-08-2024 Miscellaneous Notes* Blood Attestation - Amanuel Hodges MD - 06/21/2023 10:18 AM EST Blood Attestation: ATTESTATION OF INFORMED CONSENT FOR BLOOD: The transfusion of blood and/or blood components were discussed with the patient and/or legal medical claims representative. The risks, benefits and alternatives were reviewed. Questions regarding blood transfusions were answered. The patient /or the patient s legal medical claims representative agree with the plan for transfusion of blood and/or blood components. documented in this [id number] Anesthesiology Preoperative evaluation and management note* Anesthesia Preprocedure Evaluation - Amanuel Hodges MD - 06/21/2023 10:05 AM EST ASA: 3 NPO status: Greater than 8 hours Past Medical History and Review of Systems Pulmonary (+) sleep apnea on CPAP Comment: Noncompliant for years Dental Endo Neuro/Psych (+) bipolar disorder, seizures Comment: seizures / pseudo seizures- usually have one when she is stress and on seizure medicationsADHD, mild intellectual disability, depression, Bipolar disorder Cardiovascular GI/Hepatic/Renal Heme/Other Other ROS: Leticia Tinoco is a 32 year old female pt who complains of caries and desires to undergo dental procedure with sedation. Denies dysphagia nor any signs of tooth infection Currently denies fever and chills, new cough, SOB or CP. Mother is guardian and provided consent. R/b detailed with both patient and mom ibnlt GA conversionand cardiopulmonary complications. Questions answered. Agree with plan. Physical Exam Airway Mallampati: II Jaw opening: Adequate Neck flexion: Adequate Dental Pulmonary - pulmonary exam normal Comment: Chest clear to auscultation bilaterally Cardiovascular - cardiovascular exam normal Comment: RRR with S1S2; no murmurs, gallops, or rubs Neuro - neurological exam normal Comment: Awake, alert, oriented, No motor deficits and sensation grossly intact Plan Anesthesia plan: MAC; (mask) Anesthesia risks / alternatives discussed pre-op Questions answered / anesthesia plan accepted Past medical history, surgical history, allergies, and medications reviewed. Pertinent laboratory tests, EKG, imaging, and consults reviewed and I have personally seen and evaluated the patient, repeating buck portions of the history and physical examination. Attestation: Anesthesia options were discussed with the patient and/or legal medical claims representative. The risks, benefitsand alternatives were reviewed. Questions regarding anesthesia were answered. Patient and/or legal medical claims representative knows such anesthetics and procedures may be performed by Resident physicians, Certified Anesthesiologist Assistants, or Certified Nurse Anesthetists under the supervision of a physician. The patient /or the patient s legal medical claims representative agree with the plan for anesthesia. [id number] History of Present illness Narrative* Iftikhar Matias DDS - 06/21/2023 9:46 AM EST ----- June at 2:05:59 PM ----- ----- Provider: [id number] - Iftikhar Bryant DDS -- Clinic: [facility]----- COMPOSITE AMISH Patient is scheduled for Yazidi under IV sedation on tooth #4 MOD, 5 MOD, 14 D, 19 MO, 28 OD, 29 MOD and 30 surface MOD. Reviewed Medical History. Pt exhibited the following conditions: ADHD, Hypertension, Mild intellectual disability [F70] ,POTS, Psycotic disorder, caries [K02.9] Patient is ready for treatment. Topical Benzocaine gel applied at the injection site for 2 minutes. Administered 3 carpules of Lidocaine, 2% with Epinephrine 1:100,000,. Cotton roll isolation achieved. Decay/existing hindu removed, cavity prepared. Selectively etched enamel with 37% phosphoric acid, rinsed, and blot dried. Xeno IV jackson applied and light-cured. Condensed packable composite shade A2 in light cured increments using Toffelmaire matrix band retainer and wedge. Finished with finishing burs, checked occlusion, verified proximal contacts and hindu was polished. Rinsed and suctioned intraorally, advised patient to not eat until local anesthesia wears off. NOTE: Procedure was delayed due to HCG exam. Patient had to get IV fluids to provide a sample for the exam. Next Visit: Follow-up documented in this [id number] NotePre-Admission Testing (Pre-Surgical Evaluation) Consultation Leticia Tinoco, [id number] 32 year old Female 06/06/2023 Consult placed to PSE by Dr. Donnie Bryant due to significant PMH of PAT Triage Risk Score Total Score: 0 Leticia Tinoco is scheduled for dental procedure under anesthesia on 06/21/2023 Preop diagnosis of: caries HISTORY OF PRESENT ILLNESS: Leticia Tinoco is a 32 year old female pt who complains of caries and desires to undergo dental procedure with sedation. Denies dysphagia nor any signs of tooth infection Currently denies fever and chills, new cough, SOB or CP. Patient is here for presurgical optimization and education prior to surgery. She is currently staying at a longterm, [facility]. She is accompanied by her mother during the visit and helped during the clinical interview Per mother, the night before surgery that patient will be staying with her and she will transport her to the location of procedure. RECENT ILLNESS: Serious illness or hospitalization within the last six months. No STOP BANG: Yes PSG ; No testing found uses CPAP ALLERGIES: Not on File There is no problem list on file for this patient. SOCIAL HISTORY: has no history on file for drug use. MEDICAL HISTORY: No past medical history on file. SURGICAL HISTORY: No past surgical history on file. ANESTHESIA REVIEW OF SYSTEMS: Eyes/ENT: Eye Glasses Teeth: caries Pulmonary: JIL on CPAP Cardio-vascular: HTN, HLD, POTS and Denies chest pain, SOB, MELÉNDEZ, dizziness, syncope and palpitations. 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 No current facility-administered medications for this visit. HEIGHT: 5' 4.75 WEIGHT: No prior weight on file BMI: 38.74 VITAL SIGNS: BP 106/70 Pulse 80 Temp 98.3 ???F (36.8 ???C) (Temporal) Resp 16 Ht 1.645 m (5' 4.75 ) Wt 104.8 kg (231 lb) SpO2 99% BMI 38.74 kg/m??? PAIN ASSESSMENT: Severity: 0 Location: N/A AIRWAY EXAM: Mallampati score: 2 TMD: Adequate Neck Extension/ Flexion: Adequate Mouth Opening: Adequate Dentition: Intact Micrognathia/Overbite: No FUNCTIONAL CAPACITY: 4-10 mets PHYSICAL EXAM: Eyes: PERRL and EOM's intact ENT: Nares normal, Mucosa normal, Neck supple, Carotids normal pulse without bruits, and Thyroid normal Pulmonary: Chest clear to auscultation bilaterally Cardiovascular: RRR with S1S2 and No murmurs, gallops, or rubs Abdomen: Soft and non-tender and Bowel sounds normal Extremities: No gross or obvious abnormalities Neurologic: Awake, alert, oriented , verbal and can answer question appropriately Psychiatric: alert and oriented to person, place and time, Appropriate mood/affect Skin: No gross or obvious abnormalities on visible skin Assessment and Plan: (Z01.818) Pre-op testing (primary encounter diagnosis) Plan: pre op examination Instructions given to mother (K02.9) Caries Plan: scheduled for dental procedure under anesthesia LABS, TESTS, CONSULTS ORDERED: No orders or meds were signed during this encounter LABORATORY DATA: CBC (03/01/2023 7:35 AM EDT) Lab Results - CBC (03/01/2023 7:35 AM EDT) WBC 7.5 3.5 - 11.3 k/uL 03/01/2023 7:35 AM [facility] RBC 4.21 3.95 - 5.11 m/uL 03/01/2023 7:35 AM [facility] Hemoglobin 12.9 11.9 - 15.1 g/dL 03/01/2023 7:35 AM [facility] Hematocrit 38.1 36.3 - 47.1 % 03/01/2023 7:35 AM [facility] MCV 90.5 82.6 - 102.9 fL 03/01/2023 7:35 AM [facility] MCH 30.6 25.2 - 33.5 pg 03/01/2023 7:35 AM [facility] MCHC 33.9 28.4 - 34.8 g/dL 03/01/2023 7:35 AM [facility] RDW 12.2 11.8 - 14.4 % 03/01/2023 7:35 AM [facility] Platelets 281 138 - 453 k/uL 03/01/2023 7:35 AM [facility] MPV 10.6 8.1 - 13.5 fL 03/01/2023 7:35 AM [facility] NRBC Automated 0.0 0.0 per 100 WBC 1 (more content not included)...[facility] [employer] [id number] Instructions* Patient Instructions* Caroline Edmond APRN-VASCULAR SURGEON - 06/06/2023 11:40 AM EST On the morning of your surgery please take only the following medications, with a small sip of water: fludrocortisone (FLORINEF) 0.1 MG tablet haloperidol (HALDOL) 10 MG tablet lamotrigine (LAMICTAL) 200 MG tablet Propranolol HCl CR (INDERAL) 80 MG CP24 sertraline (ZOLOFT) 100 MG tablet sertraline (ZOLOFT) 50 MG tablet ARIPiprazole (ABILIFY) 20 MG tablet benztropine (COGENTIN) 1 MG tablet divalproex ER (DEPAKOTE ER) 250 MG ER tablet Do not take any Aspirin 7 days before surgery Do not take any Ibuprofen, Aleve, or Motrin,Diclofenac, Naprosyn, Meloxicam, Indomethacin , Etodolac, and any other NSAIDS after 3 days before surgery. May take over the counter Acetaminophen (Tylenol) as needed for pain Please hold all multivitamins, Vitamin E and herbal supplements e.g. Fish Oil,Trevor-3, CoQ10, Ginseng, Gingko Biloba, Turmeric)for 1 week prior to surgery. You will receive a call the day before surgery between 10 am and 3 pm notifying you what time to arrive for surgery. No solid foods after midnight the night before surgery. No gums, no mints or candies Non-alcoholic clear liquids up to 3 hours before surgery (this means any drink you can see through including water, clear carbonated beverages, Jell-O, popsicles, broth, and fruit juices WITHOUT pulp Tea or coffee WITHOUT cream Always follow any special instructions that were given to you by your surgeon. No lotion, ointment, cream and no deodorant on the face and body on the morning of surgery No jewelry and no piercing on the morning of surgery Arrange your ride home- family or friend, If you are scheduled to go home the same day of surgery, a responsible adult MUST drive or accompany you home in a car, cab, or metro-van. You will not be allowed to drive yourself home or travel home alone. Your surgery may be cancelled if you do not have a ride. An adult should stay with you for 24 hours after surgery. documented in this [id number] History of Present illness Narrative* Caroline Edmond APRN-CNP - 06/06/2023 11:30 AM EST Pre-Admission Testing (Pre-Surgical Evaluation) Consultation Leticia Tinoco, [id number] 32 year old Female 06/06/2023 Consult placed to PSE by Dr. Donnie Bryant due to significant PMH of PAT Triage Risk Score Total Score: 0 Leticia Tinoco is scheduled for dental procedure under anesthesia on 06/21/2023 Preop diagnosis of: caries HISTORY OF PRESENT ILLNESS: Leticia Tinoco is a 32 year old female pt who complains of caries anddesires to undergo dental procedure with sedation. Denies dysphagia nor any signs of tooth infection Currently denies fever and chills, new cough, SOB or CP. Patient is here for presurgical optimization and education prior to surgery. She is currently staying at a longterm, [facility]. She is accompanied by her mother during the visit and helped during the clinical interview Per mother, the night before surgery that patient will be staying with her and she will transport her to the location of procedure. RECENT ILLNESS: Serious illness or hospitalization within the last six months. No STOP BANG: Yes PSG ; No testing found uses CPAP ALLERGIES: Not on File There is no problem list on file for this patient. SOCIAL HISTORY: has no history on file for drug use. MEDICAL HISTORY: No past medical history on file. SURGICAL HISTORY: No past surgical history on file. ANESTHESIA REVIEW OF SYSTEMS: Eyes/ENT: Eye Glasses Teeth: caries Pulmonary: JIL on CPAP Cardio-vascular: HTN, HLD, POTS and Denies chest pain, SOB, MELÉNDEZ, dizziness, syncope and palpitations. 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 No current facility-administered medications for this visit. HEIGHT: 5' 4.75 WEIGHT: No prior weight on file BMI: 38.74 VITAL SIGNS: BP 106/70 Pulse 80 Temp 98.3 F (36.8 C) (Temporal) Resp 16 Ht 1.645 m (5' 4.75 ) Wt 104.8 kg (231 lb) SpO2 99% BMI 38.74 kg/m PAIN ASSESSMENT: Severity: 0 Location: N/A AIRWAY EXAM: Mallampati score: 2 TMD: Adequate Neck Extension/ Flexion: Adequate Mouth Opening: Adequate Dentition: Intact Micrognathia/Overbite: No FUNCTIONAL CAPACITY: 4-10 mets PHYSICAL EXAM: Eyes: PERRL and EOM's intact ENT: Nares normal, Mucosa normal, Neck supple, Carotids normal pulse without bruits, and Thyroid normal Pulmonary: Chest clear to auscultation bilaterally Cardiovascular: RRR with S1S2 and No murmurs, gallops, or rubs Abdomen: Soft and non-tender and Bowel sounds normal Extremities: No gross or obvious abnormalities Neurologic: Awake, alert, oriented , verbal and can answer question appropriately Psychiatric: alert and oriented to person, place and time, Appropriate mood/affect Skin: No gross or obvious abnormalities on visible skin Assessment and Plan: (Z01.818) Pre-op testing (primary encounter diagnosis) Plan: pre op examination Instructions given to mother (K02.9) Caries Plan: scheduled for dental procedure under anesthesia LABS, TESTS, CONSULTS ORDERED: No orders or meds were signed during this encounter LABORATORY DATA: CBC (03/01/2023 7:35 AM EDT) Lab Results - CBC (03/01/2023 7:35 AM EDT) WBC 7.5 3.5 - 11.3 k/uL 03/01/2023 7:35 AM EDT [facility] RBC 4.21 3.95 - 5.11 m/uL 03/01/2023 7:35 AM EDT [facility] Hemoglobin 12.9 11.9 - 15.1 g/dL 03/01/2023 7:35 AM EDT [facility] Hematocrit 38.1 36.3 - 47.1 % 03/[facility] MCV 90.5 82.6 - 102.9 fL 03/01/2023 7:35 AM [facility] MCH 30.6 25.2 - 33.5 pg 03/01/2023 7:35 AM [facility] MCHC 33.9 28.4 - 34.8 g/dL 03/01/2023 7:35 AM [facility] RDW 12.2 11.8 - 14.4 % 03/01/2023 7:35 AM [facility] Platelets 281 138 - 453 k/uL 03/01/2023 7:35 AM [facility] MPV 10.6 8.1 - 13.5 fL 03/01/2023 7:35 AM [facility] NRBC Automated 0.0 0.0 per 100 WBC 03/01/2023 7:35 AM [facility] Lab Results - CBC (03/01/2023 7:35 AM EDT) 03/01/2023 7:35 AM EDT Lab Results - CBC (03/01/2023 7:35 AM EDT) Narrative (ABNORMAL) Comprehensive Metabolic Panel (03/01/2023 7:35 AM EDT) Lab Results - (ABNORMAL) Comprehensive Metabolic Panel (03/01/2023 7:35 AM EDT) Sodium 138 135 - 144 mmol/L 03/01/2023 7:35 AM [facility] Potassium 3.9 3.7 - 5.3 mmol/L 03/01/2023 7:35 AM [facility] Chloride 103 98 - 107 mmol/L 03/01/2023 7:35 AM [facility] CO2 23 20 - 31 mmol/L 03/01/2023 7:35 AM [facility] Anion Gap 12 9 - 17 mmol/L 03/01/2023 7:35 AM [facility] Glucose 113 (H) 70 - 99 mg/dL 03/01/2023 7:35 AM [facility] BUN 12 6 - 20 mg/dL 03/01/2023 7:35 AM [facility] Creatinine 0.7 0.5 - 0.9 mg/dL 03/01/2023 7:35 AM [facility] Est, Glom Filt Rate >60 >60 mL/min/1.73m2 03/01/2023 7:35 AM [facility] Comment: These results are not intended for use in patients <18 years of age. eGFR results are calculated without a race factor using the 2020 CKD-EPI equation. Careful clinical correlation is recommended, particularly when comparing to results calculated using previous equations. The CKD-EPI equation is less accurate in patients with extremes of muscle mass, extra-renal metabolism of creatine, excessive creatine ingestion, or following therapy that affects renal tubular secretion. Bun/Cre Ratio 17 9 - 20 03/01/2023 7:35 AM [facility] Calcium 9.7 8.6 - 10.4 mg/dL 03/01/2023 7:35 AM [facility] Total Protein 7.0 6.4 - 8.3 g/dL 03/01/2023 7:35 AM [facility] Albumin 4.3 3.5 - 5.2 g/dL 03/01/2023 7:35 AM [facility] Albumin/Globulin Ratio 1.6 1.0 - 2.5 03/01/2023 7:35 AM [facility] Total Bilirubin 0.2 (L) 0.3 - 1.2 mg/dL 03/01/2023 7:35 AM [facility] Alkaline Phosphatase 81 35 - 104 U/L 03/01/2023 7:35 AM [facility] ALT 15 5 - 33 U/L 03/01/2023 7:35 AM [facility] AST 14 <32 U/L 03/01/2023 7:35 AM [facility] Lab Results - (ABNORMAL) Comprehensive Metabolic Panel (03/01/2023 7:35 AM EDT) 03/01/2023 7:35 AM EDT TESTS REVIEWED: I personally reviewed and interpreting and findings were: CXRay: No Chest x-ray found EK06/22/2015 Normal sinus rhythm Normal ECGWhen compared with ECG of 13-SEP-2014 22:29 ,No significant change was foundConfirmed by Angi RUSSELL ([id number]) on 06/22/2015 8:02:39 PM ECHO: Last Echocardiogram: none found going back to 09/13/2014 Stress test date: Last StressTest: none found going back to 09/13/2014 Tilt table: 02/07/2023 Study Conclusions: Borderline abnormal head-upright tilt table study. Although the patient's heart rate, blood pressure and symptoms were not diagnostic of a neurocardiogenic abnormality, the findings were suggestive of postural orthostatic tachycardia syndrome. Therefore, if clinical suspicion remains high, a trial of empiric treatment and/or retesting may be indicated. Patient is medically optimized for surgery. This note will be forwarded to the referring provider. Patient should follow up with referring provider. Patient has been directed to discuss specific recovery questions with his/her surgeon/proceduralist. Attestation I have spent 28 total minutes. Visit activities: - preparing to see the patient (e.g., review of tests) - obtaining and/or reviewing separately obtained history - performing a medically appropriate examination and/or evaluation - counseling and educating the patiecounseling and educating the patient/family/caregivernt/family/caregiver - counseling and educating the patient/family/caregiver - documenting clinical information in the electronic or other health record - independently interpreting results (not separately reported) and communicating results to the patient/family/caregiver Interviewer signature: JENN Glasgow 11:24 AM 06/06/2023 documented in this [id number] Evaluation note* PSE Appt H&P - Justina Andrews - 06/06/2023 11:07 AM EST Patient was identified by name and date of . Justina Juliana Patient at risk for falls:No Falls Risk protocol implemented: N/A [id number] Miscellaneous Notes* PSE Appt H&P - Justina Andrews - 06/06/2023 11:07 AM EST Patient was identified by name and date of . Justina Juliana Patient at risk for falls:No Falls Risk protocol implemented: N/A documented in this [id number] Telephone encounter Note* Telephone Encounter - Lori Johnson - 05/25/2023 11:04 AM EST Situation: Sedation Background: Pt's mother (Gabriela) calling to inquire on when Pt will be scheduled for IV sedationappt. Momstates they have been waiting for an appt call for a few weeks now and she would like Pt to get scheduled as soon as possible. CS does see active request for PSE, therefore CS will transfer Pt's mom to PSE for scheduling. However, mom would like office to contact as soon as possible to getPt scheduled for her sedation appt. Pt last seen 05/10 @ [facility] becky Delgadillo Thank you :) Assessment: Please assist Recommendation: Pt's mom can be reached at [phone] Msg sent to [facility] 05/24/23 [id number] Miscellaneous Notes* Telephone Encounter - Lori Johnson - 05/25/2023 11:04 AM EST Situation: Sedation Background: Pt's mother (Gabriela) calling to inquire on when Pt will be scheduled for IV sedationappt. Momstates they have been waiting for an appt call for a few weeks now and she would like Pt to get scheduled as soon as possible. CS does see active request for PSE, therefore CS will transfer Pt's mom to PSE for scheduling. However, mom would like office to contact as soon as possible to getPt scheduled for her sedation appt. Pt last seen 05/10 @ [facility] becky Delgadillo Thank you :) Assessment: Please assist Recommendation: Pt's mom can be reached at [phone] Msg sent to [facility] 05/24/23 documented in this [id number] History of Present illness Narrative* Elvis Delgadillo DDS - 05/10/2023 11:33 AM EST ----- April at 1:17:42 PM ----- ----- Provider: [id number] [place]o -- Clinic: [place] ----- INITIAL/COMPREHENSIVE EXAM Patient presents for an Initial Examination. Reviewed patient's medical history. Patient has a history of:ADHD, Mild intellectual disability , JIL, Hypertension , prediabetes . . No contraindications, patient is ready for treatment. Patient's chief complaint: Comp Exam Pain Scale: 0/10 Radiographs taken today were: Panorex and 2 BWs Clinical Examination reveals: Decay Soft tissue evaluation: Within Normal Limits TMJ evaluation: Normal TMJ Completed current status of dentition on the charting. Went over needs and treatment plan options with the patient. OHI were discussed with the patient. Written Instructions/AVS were also handed to the patient. Pt Concern: Full Exam was successfully done. Patient consented to the treatment plan. PRIOR: Not needed NOTE: patient wanted to get treated under sedation .. Sedation and PSE orders were added Next Visit: treatment under sedation ----- Signed on April at 3:23:48 PM ----- ----- Provider: [id number] Martinez DDS -- Clinic: [facility] ----- [facility]* Diagnosis Vagina itching Pruritus of genital organs Vaginal discharge Leukorrhea, not specified as infective documented in this encounter [employer] Phone: evaluation note* Diagnosis Right ankle pain, unspecified chronicity documented in this encounter [employer] Work Phone: evaluation note* Diagnosis Caries- Primary Unspecified dental caries [facility]* Diagnosis Pre-op testing- Primary Preoperative examination, unspecified Caries Unspecified dental caries Body mass index (BMI) 38.0-38.9, adult documented in this [facility]* Diagnosis Right upper quadrant pain Abdominal pain, right upper quadrant [facility] [place] [facility]* Diagnosis Chronic migraine without aura, with intractable migraine, so stated, with status migrainosus documented in this encounter [facility] Narrative No data available for this section [facility] Discharge instructions No data available for this section [facility] Progress note No data available for this section [facility] Advance Directives No Advanced Directives Records FoundDocuments on File Type Date Recorded 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 anation Advance Directives and Living Will Power of Truck Manager Latest Code Status on File Code Status Date Activated Date Inactivated Comments Full Code 11/18/2018 11:51 AM 11/23/2018 7:26 PM Full Code 11/20/2014 9:38 PM 11/23/2014 9:13 PM Documents on File Type Date Recorded 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 anation ACP-Advance Directive ACP-Power of Truck Manager Latest Code Status on File Code Status Date Activated Date Inactivated Comments Full Code 11/18/2018 11:51 AM 11/23/2018 7:26 PM Code Status History Code Status Date Activated Date Inactivated Comments Full Code 11/20/2014 9:38 PM 11/23/2014 9:13 PM Date Activated Date Inactivated Comments 11/18/2018 11:51 AM 11/23/2018 7:26 PM Date Activated Date Inactivated Comments 11/20/2014 9:38 PM 11/23/2014 9:13 PM Date Activated Date Inactivated Comments 11/18/2018 11:51 AM 11/23/2018 7:26 PM Date Activated Date Inactivated Comments 11/20/2014 9:38 PM 11/23/2014 9:13 PM Assessments Diagnosis Screen for STD (sexually transmitted disease) Screening examination for venereal disease Well woman exam with routine gynecological exam Routine gynecological examination Summary Purpose Family History No Family History Records FoundNo Family History Records FoundNo Family History Records FoundNo Family History Records Found No data available for this section No data available for this section No data available for this section No Family History Records FoundNo Family History Records FoundNo Family History Records FoundNo Family History Records FoundNo Family History Records Found Reason for Referral Specialty Diagnoses / Procedures Referred By Contac t Referred To Contact Anesthesiology Diagnoses Caries Yodit Martinez, SMITH [address] [place] [address] [facility] PRE SURGICAL EVAL [address] [place] [address] Referral ID Status Reason Start Date Expiration Date V isits Requested Visits Authorized [id number] Authorized 05/10/2023 05/10/2024 1 1 Scheduling Instructions Your surgical team will reach out to you to schedule a preadmission testing appointment. Question Answer Reason for consult? Recommended PSE Risk Score Specialty Diagnoses / Procedures Referred By Contac t Referred To Contact Radiology Diagnoses Right upper quadrant pain Procedures US ABDOMEN LIMITED Arielle Dawn, CALL PERSON - CNM [facility] [address] [place] [address] Referral ID Status Reason Start Date Expiration Date Visits Re quested Visits Authorized [id number] Open 12/18/2023 12/17/2024 1 1 Specialty Diagnoses / Procedures Referred By Contac t Referred To Contact Radiology Diagnoses Chronic migraine without aura, with intractable migraine, so stated, with status migrainosus Procedures MRI BRAIN W WO CONTRAST Tita Carr MD [address] [facility] [address] [place] [address] Referral ID Status Reason Start Date Expiration Date Visits Re quested Visits Authorized [id number] Closed 01/29/2024 01/28/2025 1 1 Additional Source Comments INFORMATION SOURCE (unrecogn ized section and content) DATE CREATED AUTHOR 02/23/2020 [facility] DATE CREATED AUTHOR AUTHOR'S ORGANIZ ATION 02/16/2021 [facility] DATE CREATED AUTHOR AUTHOR'S ORGANIZ ATION 06/02/2023 [facility] DATE CREATED AUTHOR AUTHOR'S ORGANIZ ATION 06/28/2023 [facility] DATE CREATED AUTHOR AUTHOR'S ORGANIZ ATION 04/02/[address] [facility] DATE CREATED AUTHOR AUTHOR'S ORGANIZ ATION 04/09/[address] [facility] DATE CREATED AUTHOR AUTHOR'S ORGANIZ ATION 06/01/2024 [facility] DATE CREATED AUTHOR AUTHOR'S ORGANIZ ATION 06/01/[address] [facility] DATE CREATED AUTHOR AUTHOR'S ORGANIZ ATION 06/13/2024 [facility] Care Teams (unrecognized sec tion and content) Scanning Clerk Relationship Specialty Start Date End Date Lina Marcial MD PCP - General Internal Medicine 03/13/13 Scanning Clerk Relationship Specialty Start Date End Date Lina Marcial MD PCP - General Internal Medicine 03/13/13 Scanning Clerk Relationship Specialty Start Date End Date Lina Marcial MD PCP - General Internal Medicine 03/13/13 Scanning Clerk Relationship Specialty Start Date End Date Lina Marcial MD PCP - General Internal Medicine 03/13/13 Scanning Clerk Relationship Specialty Start Date End Date Clem Lee, CALL PERSON - VASCULAR SURGEON [address] [place] [address] PCP - General Nurse Practitioner 09/13/21 Scanning Clerk Relationship Specialty Start Date End Date Clem Lee, CALL PERSON - VASCULAR SURGEON [address] [place] [address] PCP - General Nurse Practitioner 09/13/21 Scanning Clerk Relationship Specialty Start Date End Date Clem Lee, CALL PERSON - VASCULAR SURGEON [address] [address] PCP - General Nurse Practitioner 09/13/21 Scanning Clerk Relationship Specialty Start Date End Date Clem Lee CALL PERSON [facility] [address] [address] PCP - General Nurse Practitioner 09/13/21 Scanning Clerk Relationship Specialty Start Date End Date Clem Lee [facility] [address] [address] PCP - General Nurse Practitioner 09/13/21 Scanning Clerk Relationship Specialty Start Date End Date Clem Lee CALL PERSON [facility] [address] [address] PCP - General Nurse Practitioner 09/13/21 Scanning Clerk Relationship Specialty Start Date End Date Clem Lee APRN - [facility] [address], [address] [address] PCP - General Nurse Practitioner 09/13/21 Scanning Clerk Relationship Specialty Start Date End Date Caroline Edmond APRN-VASCULAR SURGEON [address] [place] [address] MANAGER RAIL Anesthesiology 06/16/23 Scanning Clerk Relationship Specialty Start Date End Date Caroline Edmond APRN-VASCULAR SURGEON [address] [place] [address] MANAGER RAIL Anesthesiology 06/16/23 Scanning Clerk Relationship Specialty Start Date End Date Clem Lee, [facility] [address], [address] [address] PCP - General Nurse Practitioner 09/13/21 Scanning Clerk Relationship Specialty Start Date End Date Clem Lee [facility] [address], [address] [address] PCP - General Nurse Practitioner 09/13/21 Scanning Clerk Relationship Specialty Start Date End Date Clem Lee, [facility] [address], [address] [address] PCP - General Nurse Practitioner 09/13/21 Scanning Clerk Relationship Specialty Start Date End Date Clem Lee, [facility] [address], [address] [address] PCP - General Nurse Practitioner 09/13/21 Scanning Clerk Relationship Specialty Start Date End Date Clem Lee, [facility] [address], [address] [address] PCP - General Nurse Practitioner 09/13/21 Scanning Clerk Relationship Specialty Start Date End Date Clem Lee, [facility] [address], [address] [address] PCP - General Nurse Practitioner 09/13/21 Scanning Clerk Relationship Specialty Start Date End Date Clem Lee, [facility] [address] [facility], [address] [place] [address] PCP - General Nurse Practitioner 09/13/21 Scanning Clerk Relationship Specialty Start Date End Date Clem Lee, CALL PERSON - VASCULAR SURGEON PCP - General Nurse Practitioner 09/13/21 Scanning Clerk Relationship Specialty Start Date End Date Clem Lee APRN - [facility] PCP - General Nurse Practitioner 09/13/21 Reason for Visit (unrecogniz ed section and content) Reason Onset Date Comments Dental 05/25/2023 Specialty Diagnoses / Procedures Referred By Amna t Referred To Contact Radiology Diagnoses Right upper quadrant pain Procedures US ABDOMEN LIMITED Arielle Dawn, CALL PERSON - CNM [facility] [address] [place] [address] Referral ID Status Reason Start Date Expiration Date Visits Re quested Visits Authorized [id number] Open 12/18/2023 12/17/2024 1 1 Specialty Diagnoses / Procedures Referred By Contac t Referred To Contact Radiology Diagnoses Chronic migraine without aura, with intractable migraine, so stated, with status migrainosus Procedures MRI BRAIN W WO CONTRAST Tita Carr MD [address] [facility] [address] [place] [address] Referral ID Status Reason Start Date Expiration Date Visits Re quested Visits Authorized [id number] Closed 01/29/2024 01/28/2025 1 1 FOR RECORDS PERTAINING TO PATIENTS WHO ARE OR HAVE BEEN ENROLLED IN A CHEMICAL DEPENDENCY/SUBSTANCEABUSE PROGRAM, SOME INFORMATION MAY BE OMITTED. This clinical summary was aggregated from multiple sources. Caution should be exercised in using it in the provision of clinical care. This summary normalizes information from multiple sources, and as a consequence, information in this document may materially change the coding, format and clinical context of patient data. In addition, data may be omitted in some cases. CLINICAL DECISIONS SHOULD BE BASED ON THE PRIMARY CLINICAL RECORDS. [facility] [employer] [facility]. provides no warranty or guarantee of the accuracy or completeness of information in this document.
== END 2024-06-24 19:57 | disposition home or self-care (01) ==
LOC: SLEEP 19:56
PROVIDERS: PCP Nurse Practitioner Adult Health; Visit Provider Nurse Practitioner Adult Health
DX: G47.33 Obstructive sleep apnea (adult) (pediatric) (principal)
CPT/HCPCS: 95811

== ENCOUNTER 2025-03-25 13:19 | Emergency (ER) | payer MEDICAID, SELFPAY ==
[2025-03-25 13:20] VITALS: BP 144/93; PULSE 86; TEMP 36.3; O2SAT 96; BMI 36.6
--- NOTE | 2025-03-25 13:23 | ECG_ITS ---
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 Measurements Intervals [place] Rate: 80 P: 46 MA: 156 QRS: 54 QRSD: 82 T: 34 QT: 350 QTc: 386 Interpretive Statements 1100 Sinus rhythm 4068 Nonspecific Twave abnormality 9130 borderline ECG Compared to ECG 02/20/2017 16:11:21 No significant changes Electronically Signed On 03-25-2025 17:13:18 EST by DARION SEGURA M.D.
[2025-03-25] MEDS: DIPHENHYDRAMINE HCL 50 MG/ML VIAL 25 MG IVP (13:36)
[2025-03-25] MEDS: LORAZEPAM 2 MG/ML VIAL 1 MG IV (13:36)
--- OUTSIDE RECORDS SUMMARY | 2025-03-25 13:37 | XMS_ITS | Clinical Summary ---
Author Organization [facility] Address [address] [place] [address] Phone Care Team Providers Care Leather Production Machine Operator Name Role Phone Cher López MD Unavailable [phone] Frederick Bermeo DO Primary Care Provider [phone] Allergies Active AllergyReactionsCriticalityNoted NvuiYdfrveulJblwfmSjjrUcd94/25/2025 Medications MedicationSigDispense QuantityRefillsLast FilledStart DateEnd DateStatus hydrOXYzine HCL (Atarax) 10 mg tablet Take by mouth.Active ondansetron (Zofran) 4 mg/5 mL solution Take by mouth 1 time.Active dicyclomine (Bentyl) 10 mg capsule Take 1 capsule (10 mg) by mouth 4 times a day.Active ARIPiprazole (Abilify) 20 mg tablet Take 1 tablet (20 mg) by mouth once daily.Active benztropine (Cogentin) 1 mg tablet Take by mouth 2 times a day.Active divalproex (Depakote ER) 500 mg 24 hr tablet Take 1 tablet (500 mg) by mouth once daily. Do not crush, chew, or split.Active fenofibrate (Tricor) 48 mg tablet Take 1 tablet (48 mg) by mouth once daily.Active ferrous sulfate tablet Take 40 mg by mouth once daily with breakfast.Active fludrocortisone (Florinef) 0.1 mg tablet Take by mouth.Active folic acid (Folvite) 1 mg tablet Take by mouth once daily.Active haloperidol (Haldol) 2 mg/mL solution Take by mouth 2 times a day.Active magnesium oxide (Mag-Ox) 400 mg tablet 1 tablet (400 mg) once daily.Active multivitamin tablet Take 1 tablet by mouth once daily.Active omeprazole (PriLOSEC) [address] capsule Take 1 capsule (40 mg) by mouth. Do not crush or chew.Active propranolol LA (Inderal LA) 80 mg 24 hr capsule Take 1 capsule (80 mg) by mouth once daily. Do not crush, chew, or split.Active sertraline (Zoloft) 100 mg tablet Take 1 tablet (100 mg) by mouth once daily.Active sertraline (Zoloft) 50 mg tablet Take 1 tablet (50 mg) by mouth once daily.Active traZODone (Desyrel) 150 mg tablet Take 1 tablet (150 mg) by mouth once daily at bedtime.Active dupilumab (Dupixent Pen) 300 mg/2 mL pen injector Inject 2 mL (300 mg) under the skin every 14 (fourteen) days.Active lidocaine (Lidoderm) 5 % patch Place 1 patch on the skin once daily. Remove & discard patch within 12 hours or as directed by MD.Active SUMAtriptan (Imitrex) 50 mg tablet Take 1 tablet (50 mg) by mouth 1 time if needed for migraine. May repeat dose once in 2 hours if norelief. Do not exceed 2 doses in 24 hours.Active acetaminophen (Tylenol) 650 mg suppository Insert into the rectum.Active erenumab (Aimovig Autoinjector) 70 mg/mL injection Inject 1 mL (70 mg) under the skin every 28 (twenty-eight) days.Active benzocaine-resorcinoL (Vagisil) 5-2 % vaginal cream Insert into the vagina once daily at bedtime.Active Active Problems ProblemNoted DateDiagnosed DateLiver ychujg7408/05/2024 Social History Tobacco UseTypesPacks/DayYears UsedDateSmoking Tobacco: Never Assessed CommentsUnknownSex and Gender InformationValueDate RecordedSex Assigned at Not on fileLegal QdlNnevhi11/25/2025 8:51 AM ESTGender OkiosscbJxfymm92/25/2025 8:56 AM ESTSexual OrientationNot on file Last Filed Vital Signs Vital SignReadingTime TakenCommentsBlood Mmmcdntj508/7605/ 2:40 PM EDT Pxnxa1044 2:40 PM ICBHdxnvcpnukp59.8 ??C (98.2 ??F)10/03/2024 2:40 PM EDTRespiratory Jerk895510/03/2024 2:40 PM EDTOxygen Jdjyulzujs88%10/03/2024 2:40 PM EDTInhaled Oxygen Concentration--Zvlbqg451 kg (230 lb)10/03/2024 12:30 PM EDT Ftwgqc973.6 cm (5' 6 )10/03/2024 12:30 PM EDTBody Mass Index37.12010/03/2024 12:30 PM EDT Plan of Treatment Health MaintenanceDue DateLast DoneCommentsHIV Uhsmmbvno48/23/1993Lipid Panel 1992MMR Vaccines (1 of 1 - Standard series)1993Hepatitis C Screening 2010Hepatitis A Vaccines (1 of 2 - Risk 2-dose series)09/04/2011Hepatitis B Vaccines (2 of 3 - 19+ 3-dose series)HPV/Hkhkpx6209/03/2013 HPV Vaccines (1 - 3-dose standard series)09/04/2019DTaP/Tdap/Td Vaccines (2 - Td or Tdap)Influenza Vaccine (#1)/, 03/25/2009Yearly Adult Bjmmykog18/10/2023, 12/14/2022, 11/30/2021, Additional history existsCOVID-19 Vaccine ( season)2025ervical Cancer Grbppbxcc33/03/2026Pap SmearZoster Vaccines (1 of 2) 2042HIB VaccinesAged OutNo longer eligible based on patient's age to complete this topicIPV VaccinesAged OutNo longer eligible based on patient's age to complete this topicMeningococcal VaccineAged OutNo longer eligible based on patient's age to complete this topicPneumococcal Vaccine: Pediatrics and At-Risk Adult PatientsAged OutNo longer eligible based on patient's age to complete this topicRotavirus VaccinesAged OutNo longer eligible based on patient's age to complete this topic Insurance Care Teams Team MemberRelationshipSpecialtyStart DateEnd Date Frederick Bermeo DO [address] Berme[place] [employer] [address] PCP - GeneralFamily Medicine07/24/24 Cher López MD [address] [place] [address] Referring PhysicianHospitalist07/08/24
--- OUTSIDE RECORDS SUMMARY | 2025-03-25 13:37 | XMS_ITS | Clinical Summary ---
Author Organization [facility] Address [address] [facility] [place] [address] Care Team Providers Care Adding Machine Servicer Name Role Phone Caroline Edmond MANAGER CARDIOVASCULAR-VEGETABLE BUNCHER Unavailable [phone] Source Comments The following information is NOT included in Care Everywhere downloads:Psychiatric notes, ECG results, Cardiac Rehab notes, Pulmonary Function notes, data from SmartForms (includes but not limited toPregnancy data,audiograms, eye exams, pre-surgical evaluation notes, well-child exam data).[facility] Medications MedicationSigDispense QuantityRefillsLast FilledStart DateEnd DateStatus ARIPiprazole (ABILIFY) 20 MG tablet daily.05/15/2023ctive benztropine (COGENTIN) 1 MG tablet 2 times daily.05/29/2023ctive divalproex ER (DEPAKOTE ER) 250 MG ER tablet daily.05/17/2023ctive ferrous sulfate 325 (65 Fe) MG tablet 2 times daily.05/15/2023ctive fludrocortisone (FLORINEF) 0.1 MG tablet 05/15/2023ctive folic acid 1 MG tablet 05/15/2023ctive haloperidol (HALDOL) 10 MG tablet 2 times daily.05/22/2023ctive lamotrigine (LAMICTAL) 200 MG tablet 2 times daily.06/05/2023ctive norgestimate-ethinyl estradiol (PRAVIFEM- ORTHO/CYCLEN) 0.25-35 MG-MCG tablet Take 1 Tablet by mouth daily.11/30/2021ctive Propranolol HCl CR (INDERAL) 80 MG CP24 05/23/2023ctive sertraline (ZOLOFT) 100 MG tablet 05/29/2023ctive sertraline (ZOLOFT) 50 MG tablet 3Active baclofen (LIORESAL) 10 MG tablet Take 10 mg by mouth 3 times daily.5Active dicyclomine (BENTYL) 10 MG capsule Take 10 mg by mouth 4 times daily (before meals and at bedtime).5Active hydrOXYzine (ATARAX) 25 MG tablet 5Active ondansetron (ZOFRAN) 4 MG tablet Take 4 mg by mouth as needed.03/19/2024ctive SUMAtriptan (IMITREX) 50 MG tablet Take 50 mg by mouth.01/16/2024ctive acetaminophen (TYLENOL) 325 mg tablet Take 650 mg by mouth every morning.08/31/2023ctive loratadine (CLARITIN) 10 MG tablet Take 10 mg by mouth daily.Active omeprazole (PRILOSEC) 40 MG capsule Take 40 mg by mouth daily.Active Active Problems ProblemNoted DateDiagnosed MhenQTDS56/02/1127Bizrbxffkit12/15/2025Disorder of liver01/16/2024ognitive /30/2021Hx of subdural ypryykeu44/26/2021 Jovtjssenlnzoinxymuv77/25/2021epressive jrsipprd78/16/2021ssential pthylvamffya53/16/2021History of psuzur5507/27/2020Mild developmental delay 07/27/2020OSA on CPAP07/27/2020OTS (postural orthostatic tachycardia syndrome) 07/27/20202838Ukfbisakzej95/16/2021Mild intellectual mvnsfuieiima21/21/2018 Schizoaffective disorder, bipolar type11/01/2017Psychogenic nonepileptic seizure 11/21/2014 Encounters DateTypeDepartmentCare QzbkRkxlsrbxxbw37/22/2025Telephone [facility] [address] [place] [address] Jazzy Ballesteros DMD 03/02/2025Telephone [facility] [address] [place] [address] Jazzy Ballesteros DMD IV Sugormgr87/08/2025Telephone [facility] Pre-Admission Testing [address] [place] [address] Caroline Edmond APRN-CNP 02/13/2025 3:30 PM EDTNurse Visit [facility] [address] [place] [address] Caroline Edmond APRN-CNP Pre-op testing (Primary Dx)02/10/2025Telephone [address] [address] Jazzy Ballesteros DMD Missed Call01/29/2025Telephone [address] [address] Jazzy Ballesteros DMD 01/13/2025 10:10 AM EDTProcedure Visit [place] [id number] Heri Wesley DDS 01/13/2025bstract [address] [address] Heri Wesley DDS from Last 3 Months Immunizations ImmunizationAdministration DatesNext DueHep B (peds/adol, 3-dose) (CVX=08) 01/09/2012Influenza, novel J0A6-56, injectable, preservative-free (FBR=625) 03/25/2009Influenza, unspecified formulation (CVX=88)02/24/2015Tdap (LKF=428) 01/09/2012 Social History Tobacco UseTypesPacks/DayYears UsedDateSmoking Tobacco: NeverSmokeless Tobacco: Never Tobacco Cessation:Counseling Given: Not Answered Alcohol UseStandard Drinks/WeekCommentsNever0 (1 standard drink = 0.6 oz pure alcohol)Substance UseTypesUse/WeekCommentsNeverCommentsUnknownSex and Gender InformationValueDate RecordedSex Assigned at BirthNot on fileLegal Sex Mykyfm8109/11/2022 11:26 AM EDTGender IdentityNot on fileSexual OrientationNot on file Last Filed Vital Signs Vital SignReadingTime TakenCommentsBlood Wblkjikk836/6402 11:49 AM EST Otojt323906/21/2023 11:47 AM LEJRojjmtvopur79.8 ??C (98.3 ??F)06/06/2023 10:59 AM ESTRespiratory Ywpm501 11:51 AM ESTOxygen Dwbnadztax12%06/21/2023 11:47 AM ESTInhaled Oxygen Concentration--Eqtlar400.3 kg (230 lb)02/13/2025 3:44 PM RNTWkwntz507.1 cm (5' 5 )02/13/2025 3:44 PM EDTBody Mass Index38.271 3:44 PM EDT Plan of Treatment Health MaintenanceDue DateLast DoneCommentsDental Zmgxzmvleib93/23/1993HIV Test 09/04/2007Hepatitis A (HAV) Vaccine (optional start 19+ years)09/04/2011 Hepatitis B (HBV) Vaccine (2 of 3 - 19+ 3-dose series)HPV Vaccine (optional start 27-45 years)09/04/2019Tetanus (Td or Tdap) Booster Dental Oral ExamOVID-19 Vaccine (2024- season)/, 06/08/2020, 05/18/2020Influenza Vaccine (#1)/, 03/25/2009asic Metabolic Panel/, 03/13/2024, 08/28/2023, Additional history existsHemoglobin A1C11/26/2025 11/26/2024, 3Pap Smear/3Dental X-Ray: [facility]itewings /10/2024, 05/10/2023Shingles (RZV) Vaccine (1 of 2)2042Tdap OgjaefeSvwbrabyx09/28/2012Hepatitis C AcxvjbemCfysneibb11/15/2013Mammography DiscontinuedPneumococcal Vaccine(s)Aged OutNo longer eligible based on patient's age to complete this topic Procedures Procedure NamePriorityDate/TimeAssociated DiagnosisCommentsLIMITED EXAMRoutine 01/13/2025 12:00 AM EDTCOMPREHENSIVE QVTWXibwadh98/28/2023 12:00 AM ESTfrom Last 3 Months or Most Recently Relevant to Health Maintenance Insurance * Guarantor: Denny Tinoco TypeRelation to PatientDate of BirthPhone Billing AddressPersonal/PgizdySdac90[birth year][address] [address] * Guarantor: Leticia TinocoAccofrantz TypeRelation to PatientDate of BirthPhone Billing AddressPersonal/KqdsudLbfz54/[birth year][address] [address] * Guarantor: Denny Tinoco TypeRelation to PatientDate of BirthPhone Billing AddressDental EsbvjvDgce67/23/[address] [address] Care Teams Team MemberRelationshipSpecialtyStart DateEnd Date Caroline Edmond APRN-CARMEN [address] [place] [id number] APNAnesthesiology2/3/24
--- OUTSIDE RECORDS SUMMARY | 2025-03-25 13:37 | XMS_ITS | Clinical Summary ---
Author Organization [facility] Address [id number] [place] [address] Care Team Providers Care Nozzle Worker Name Role Phone Tyra Mcdonald APRN-BIOINFORMATICS ANALYST Primary Care Provider [phone] Allergies No known active allergies Medications * This document contains information received from the source organization and may not represent a complete record from that organization. MedicationSigDispense QuantityRefillsLast FilledStart DateEnd DateStatus fludrocortisone (FLORINEF) 0.1 mg tablet Indications:symptomatic orthostatic hypotensionTake 0.1 mg by mouth daily.Active folic acid (FOLVITE) 1 mg tablet Indications:folate deficiencyTake 4 mg by mouth daily.Active propranolol LA (INDERAL LA) 80 mg 24 hr capsule Indications:hypertensionTake 80 mg by mouth daily.Active gtavuyff-pkpe-ZN-calcium &mins (THERAGRAN-M) 9 mg iron-400 mcg tablet Indications:mineral deficiencyTake 1 tablet by mouth daily.Active ferrous sulfate 325 (65 FE) mg tablet Indications:iron deficiency anemiaTake 325 mg by mouth 2 (two) times a day with meals.Active benztropine (COGENTIN) 1 mg tablet Take 1 mg by mouth 2 (two) times a day.Active divalproex (DEPAKOTE ER) 250 mg 24 hr tablet Take 250 mg by mouth daily. Active divalproex (DEPAKOTE ER) 500 mg 24 hr tablet Take 500 mg by mouth once daily at bedtime. Active haloperidol (HALDOL) 10 mg tablet Take 10 mg by mouth 2 (two) times a day.Active sertraline (ZOLOFT) 100 mg tablet Take 100 mg by mouth daily.Active sertraline (ZOLOFT) 50 mg tablet Take 50 mg by mouth daily.Active haloperidol (HALDOL) 5 mg tablet Take 2.5 mg by mouth 2 (two) times a day.Active ARIPiprazole (ABILIFY) 20 mg tablet Take 20 mg by mouth daily.Active lamoTRIgine (LaMICtal) 200 mg tablet Take 200 mg by mouth 2 (two) times a day.Active norgestimate-ethinyl estradiol (SPRINTEC, 28, ORAL) Take 1 tablet by mouth daily. Active albuterol (ACCUNEB) 0.63 mg/3 mL nebulizer solution Inhale 3 mL (0.63 mg total) by nebulization every 6 (six) hours as needed for wheezing.Active etodolac (LODINE XL) 500 MG 24 hr tablet Take 1 tablet (500 mg total) by mouth in the morning.Active hydrOXYzine (ATARAX) 25 mg tablet Take 1 tablet (25 mg total) by mouth 3 (three) times a day as needed for itching.Active Active Problems Patient Care Coordination No te Formatting of this note migh t be different from the original. [facility] CBC, CMP, Folic acid, Valproic, every 6 mo A1c every 3 mo Lipid annually ProblemNoted DateDiagnosed DateBehavior yblbouwkdkk81/24/2022Cognitive disorder 08/10/20201325Bmalvocskosjgszlpujk99/25/2021Full code acysjt6608/05/2020epressive psrwetif45/16/2021Mild developmental delay07/27/2020OTS (postural orthostatic tachycardia syndrome)07/27/20203054Hmihhwnsols94/16/2021OSA on CPAP07/27/2020 Schizoaffective disorder, bipolar type11/01/2017Attention deficit hyperactivity disorder (ADHD)11/01/2011Seizure ohoyzkhf78/20/2012 Resolved Problems ProblemNoted DateDiagnosed DateResolved EmjsSphairgbjmrwhn87/26/202105/ Overview (02/11/2023): replacing diagnoses that were inactivated after the 02/11 regulatory import Hx of subdural ebrgnohc76/sychotic ukajmtww85/16/2021 10/04/2021History of exfimp73Essential qqkagwgmcbjq31/16/2021 10/04/2021 Immunizations ImmunizationAdministration DatesNext TjtB0H9 Inj Preservative Free03/25/2009Hep B, Adolescent or Snaygdjvj93/28/2012Influenza, Injectable, quadrivalent (PF) 02/24/2015Tdap01/09/2012 Family History Medical HistoryRelationNameCommentsDiabetesMotherHeart diseaseMotherRelationName StatusCommentsMotherAlive Social History Tobacco UseTypesPacks/DayYears UsedDateSmoking Tobacco: NeverSmokeless Tobacco: NeverAlcohol UseStandard Drinks/WeekCommentsNot Currently0 (1 standard drink = 0.6 oz pure alcohol)ChildcareAnswerDate NwkilxwiBhlqjuhyvAzidudu96/13/2019 EmploymentAnswerDate WbgcvhdeBtqzsjoykgWzlsvhb35/13/2019Hunger ScreeningAnswer Date RecordedWithin the past 12 months we worried whether our food would run out before we got money to buy more.Never True05/30/2023Within the past 12 months the food we bought just didn't last and we didn't have money to get more.Never True4Purpose - LifeAnswerDate RecordedPurpose and direction in life Obbrfdi7905/28/2020CommentsNoSex and Gender InformationValueDate Recorded Sex Assigned at BirthNot on fileLegal GhaEudzne42/20/2018 10:27 AM EDTGender IdentityNot on fileSexual OrientationNot on file Last Filed Vital Signs Vital SignReadingTime TakenCommentsBlood Hvugbdrn005/71005/30/2023 10:32 AM EST Habmr173805/30/2023 10:32 AM WHPLohfewsiuxg93.3 ??C (97.3 ??F)05/30/2023 10:32 AM ESTRespiratory Yxwg441105/30/2023 10:32 AM ESTOxygen Zomohaojme73%05/30/2023 10:32 AM ESTInhaled Oxygen Concentration--Tkqmpw280.6 kg (235 lb)05/30/2023 10:32 AM RQEBktfae364.6 cm (5' 6 )05/30/2023 10:32 AM ESTBody Mass Index37.9305/30/2023 10:32 AM EST Plan of Treatment Health MaintenanceDue DateLast DoneCommentsDepression Czekzsiut67/23/2005Pap Smear2013DTaP,Tdap and Td Vaccines (2 - Td or Tdap) Adult BMI Bbgaqgjqo10Tobacco Aircuyvag26 COVID-19 Vaccine ( season)/, 06/08/2020, 05/18/2020Influenza Suwqciw73/, 02/24/2015, 03/25/2009 Medical Devices Not on file Insurance * Guarantor: Leticia TinocoAccount TypeRelation to PatientDate of BirthPhone Billing AddressPersonal/NtpmtyDtmc89/[birth year][address] [address] Advance Directives * Full Code (Latest Code Status on File) Date ActivatedDate InactivatedComments08/09/2021 10:41 AM05/30/2023 10:25 AM * Full Code Date ActivatedDate InactivatedComments10/31/2017 6:28 PM11/16/2017 5:00 PM Care Teams Team MemberRelationshipSpecialtyStart DateEnd Date Tyra Mcdonald APRN-CARMEN [address] [place] [address] PCP - GeneralNurse Amaoltixdtdz41/9/23
--- OUTSIDE RECORDS SUMMARY | 2025-03-25 13:37 | XMS_ITS | Clinical Summary ---
Author Organization [facility] [place] [address] Care Team Providers Care Negative Notcher Name Role Phone Maikel Hannah DO Primary Care Provider [phone] Allergies No known active allergies Medications MedicationSigDispense QuantityRefillsLast FilledStart DateEnd DateStatus folic acid (FOLVITE) 1 MG tablet Take 4 Tabs by mouth daily. 120 Tab 11011/01/2011ctive clonazePAM (KLONOPIN) 1 MG tablet 1 qHSActive lamoTRIgine (LAMICTAL) 100 MG tablet 1 qamActive sertraline (ZOLOFT) 100 MG tablet 1 qamActive sertraline (ZOLOFT) 25 MG tablet Take 25 mg by mouth daily. Takes one tap with 100mg dose in AMActive norgestimate-ethinyl estradiol (SPRINTEC 28) 0.25-35 MG-MCG per tablet Take 1 Tab by mouth daily.Active divalproex (DEPAKOTE) 500 MG EC tablet Take 2 Tabs by mouth 2 times daily. 120 Tab ctive divalproex (DEPAKOTE) 250 MG EC tablet Take 1 Tab by mouth 2 times daily. 30 Tab ctive ARIPiprazole (ABILIFY) 5 MG tablet Take 5 mg by mouth daily.Active risperiDONE (RISPERDAL) 1 MG tablet Take 1 mg by mouth 2 times daily. 1 tab in morning and 1.5 tabs in eveningActive Active Problems ProblemNoted DateDiagnosed DateWeight gain due to btcdgzuryt41/21/2013Seizure vvkycxml42/20/7678Ntejtglsrbznki96/20/2012 Overview (12/13/2012): Inactive Code Replaced With Active Code ADD (attention deficit disorder with hyperactivity)11/01/2011 Overview (12/13/2012): Inactive Code Replaced With Active Code Social History Tobacco UseTypesPacks/DayYears UsedDateSmoking Tobacco: NeverAlcohol UseStandard Drinks/WeekCommentsNot Asked0 (1 standard drink = 0.6 oz pure alcohol) CommentsNoSex and Gender InformationValueDate RecordedSex Assigned at BirthNot on fileLegal XvaQemhli15/20/2012 4:28 PM ESTGender IdentityNot on fileSexual OrientationNot on file Last Filed Vital Signs Vital SignReadingTime TakenCommentsBlood Ychwzgtt072/7602/18/2014 9:46 AM EDT Ynphc343502/18/2014 9:46 AM WDHWpqrerqtokb19 ??C (98.6 ??F)03/13/2011 7:22 PM EDT Respiratory Kyjr910303/13/2011 8:32 PM EDTOxygen Fjzwlcvgxm06%03/13/2011 8:32 PM EDTInhaled Oxygen Concentration--Qyyvyr12.1 kg (209 lb 10.5 oz)02/18/2014 9:46 AM RWRRivyxs072.3 cm (5' 4.69 )02/18/2014 9:46 AM EDTBody Mass Index35.23 02/18/2014 9:46 AM EDT Plan of Treatment Health MaintenanceDue DateLast DoneCommentsMMR (1 of 1 - Standard series) 1993Tetanus Diphtheria and Pertussis Vaccines (1 - Tdap)09/04/1999 Varicella (1 of 2 - 13+ 2-dose series)2005MenB (1 of 2 - MenB 2-Dose Series Bexsero)2008Hepatitis B (1 of 3 - 19+ 3-dose series)09/04/2011HPV (1 - 3-dose SCDM series)09/04/2019COVID-19 ( - season)2025FLU (#1)01/12/2025HIBAged OutNo longer eligible based on patient's age to complete this topicHepatitis AAged OutNo longer eligible based on patient's age to complete this topicMenACWYAged OutNo longer eligible based on patient's age to complete this topicNirsevimabAged OutNo longer eligible based on patient's age to complete this topicPneumococcalAged OutNo longer eligible based on patient's age to complete this topicPolioAged OutNo longer eligible based on patient's age to complete this topicRotavirusAged OutNo longer eligible based on patient's age to complete this topic Insurance * Guarantor: STEPHEN HARGROVEAccofrantz TypeRelation to PatientDate of PhoneBilling AddressPersonal/EdokmtXixmpo90[birth year][address] [address] * Guarantor: Leticia Hargrove TypeRelation to PatientDate of BirthPhoneBilling AddressPersonal/RbvfjcOqpq71/[birth year]/[address] [address] Care Teams Team MemberRelationshipSpecialtyStart DateEnd Date Maikel Hannah DO [address] [address] [facility]04/15/09
--- OUTSIDE RECORDS SUMMARY | 2025-03-25 13:37 | XMS_ITS | Clinical Summary ---
Author Organization [facility] Address [address] [place] [address], [address] [place] [address] Care Team Providers Care Incubator Machine Operator Name Role Phone Clem Devine BROKERAGE COORDINATOR - HEEL CASER Primary Care Provid er Allergies Active AllergyReactionsCriticalityNoted HbtyVeinvyitJumzck69/17/2024Nsaids 01/28/2025 Not aloud to have Medications MedicationSigDispense QuantityRefillsLast FilledStart DateEnd DateStatus fludrocortisone (FLORINEF) 0.1 MG tablet Take 1 tablet by mouth dailyActive propranolol (INDERAL LA) 80 MG CR capsule Take 1 capsule by mouth dailyActive benztropine (COGENTIN) 1 MG tablet Take 1 tablet by mouth 2 times dailyActive sertraline (ZOLOFT) 50 MG tablet Indications:give with 100mg for total dose of 150mgTake 1 tablet by mouth daily Indications: give with 100mg for total dose of 150mgActive ferrous sulfate 325 (65 Fe) MG tablet Take 1 tablet by mouth 2 times dailyActive Multiple Vitamin (MULTI-VITAMIN PO) Take by mouth dailyActive folic acid (FOLVITE) 1 MG tablet Take 2 tablets by mouth daily11/01/2011ctive sertraline (ZOLOFT) 100 MG tablet 1 tablet every morningActive divalproex (DEPAKOTE ER) 500 MG extended release tablet Take 1 tablet by mouth 2 times dailyActive haloperidol (HALDOL) 10 MG tablet Indications:give with 5 mg for total of 15 mg BIDTake 1 tablet by mouth 2 times daily Indications: give with 5 mg for total of 15 mg BIDActive haloperidol (HALDOL) 5 MG tablet Take 1 tablet by mouth 2 times daily With 10 mg for total of 15 mg per dayActive gentamicin (GARAMYCIN) 0.1 % ointment Apply topically 3 times daily as needed Apply topically 3 times daily.Active lamoTRIgine (LAMICTAL) 200 MG tablet Take 1 tablet by mouth 2 times daily12/05/2022ctive ARIPiprazole (ABILIFY) 20 MG tablet 11/21/2022ctive acetaminophen (TYLENOL) 325 MG tablet Take 2 tablets by mouth every npntcwu9208/31/2023ctive fenofibrate (TRICOR) 48 MG tablet Take 1 tablet by mouth daily08/27/2023ctive loratadine (CLARITIN) 10 MG tablet Take 1 tablet by mouth dailyActive fluocinonide (LIDEX) 0.05 % external solution Apply topically 2 times daily as needed Apply topically 2 times daily.Active DERMA-SMOOTHE/FS SCALP 0.01 % external oil 09/11/2023ctive terconazole (TERAZOL 7) 0.4 % vaginal cream Indications:Vagina itchingPlace vaginally nightly. For 7 nights 45 g 12/18/2023ctive hydrOXYzine HCl (ATARAX) 25 MG tablet Take 1 tablet by mouth daily as ssvgxp4001/08/2024ctive ARIPiprazole (ABILIFY) 5 MG tablet 01/25/2024ctive magnesium oxide (MAG-OX) 400 (240 Mg) MG tablet Take 1 tablet by mouth dailyActive Erenumab-aooe 70 MG/ML SOAJ Inject 70 mg into the skin every 30 days 1 mL ctive dicyclomine (BENTYL) 10 MG capsule Take 1 capsule by mouth 4 times daily (before meals and nightly)05/15/2024tive ondansetron (ZOFRAN) 4 MG tablet Take 1 tablet by mouth as idwpls0903/19/2024ctive omeprazole (PRILOSEC) 40 MG delayed release capsule Take by mouth03/31/2024ctive DUPIXENT 300 MG/2ML SOAJ injection 06/04/2024tive traZODone (DESYREL) 150 MG tablet Take 0.5 tablets by mouth qpofdzf9605/28/2024tive baclofen (LIORESAL) 10 MG tablet Take 1 tablet by mouth 3 times daily09/25/2024tive ketoconazole (NIZORAL) 2 % shampoo once a week06/24/2025Active triamcinolone (KENALOG) 0.1 % ointment 2 times daily Sunday thru Sunday only5Active SUMAtriptan (IMITREX) 50 MG tablet Take 1 tablet by mouth once as needed for MigraineActive haloperidol (HALDOL) 0.5 MG tablet Take 1 tablet by mouth 2 times dailyActive Active Problems ProblemNoted DateDiagnosed DateMenorrhagia with irregular cycle12/30/2024 Akckgpyclrjc38/19/2025Hx of subdural iynwkaad23/26/2021Hypertriglyceridemia 08/05/2020sychotic tgmmxuev58/16/4177Oghduvkxrau59/16/2021POTS (postural orthostatic tachycardia syndrome)07/27/2020OSA on CPAP07/27/2020Mild developmental delay07/27/2020History of hhxayp4007/27/2020ssential hypertension 07/27/2020epressive txneqeor48/16/2543Volhixo73/08/2019Schizoaffective disorder, bipolar type11/01/2017Mild intellectual jyqivryglrah79/21/2018Suicidal pxocytbpf22/19/2018Uncontrolled odaytgjc80/11/2015Psychogenic nonepileptic frldlut1711/21/2014Weight gain10/01/2012Dissociative /20/2012 Overview (01/22/2017): Overview: Inactive Code Replaced With Active Code Overview: Inactive Code Replaced With Active Code Seizure /20/2012ttention deficit disorder of childhood with abdkwuofoaivj95/20/2012 Overview (01/22/2017): Overview: Inactive Code Replaced With Active Code Overview: Inactive Code Replaced With Active Code ConvulsionsSeizure-like activity Resolved Problems ProblemNoted DateDiagnosed DateResolved DateScreen for STD (sexually transmitted disease) Encounters DateTypeDepartmentCare CbajXmgfiibhhaz19/06/2025 2:27 AM EDT - 02/16/2025 11:59 PM EDTHospital Encounter [address] [address] Discharge Disposition: Home or Self Care02/11/2025 12:47 AM EDT - 02/11/2025 11:59 PM EDTHospital Encounter [facility] [address] [place] [address] Discharge Disposition: Home or Self Care02/02/2025 2:31 PM EDTAnesthesia Event [facility] [address] [place] [address] Taiwo Perez, BROKERAGE COORDINATOR - BRIGHT CUTTER Estefani Mendoza APRN - BRIGHT CUTTER 02/02/2025 1:40 PM EDT - 02/02/2025 3:00 PM EDTSurgery [facility] [address] [place] [address] Luna Hyatt, DO SALPINGECTOMY UDINGKAUMJIF82/22/2025 11:32 AM EDT - 02/02/2025 5:40 PM EDT Hospital Encounter [facility] [address] [place] [address] Luna Hyatt, DO Postoperative pain (Primary Dx); Menorrhagia with irregular cycle; Dysmenorrhea Discharge Disposition: Home or Self Care02/02/2025Orders Only [facility] Obstetrics & Gynecology [address], [address] [place] [address] Savanna Atkins PA-C 02/02/20253280Qilznd54/19/2025Orders Only [facility] Obstetrics & Gynecology [address], [address] [place] [address] Luna Hyatt, DO Menorrhagia with irregular cycle; Jlhhouedusrz46/12/2025 10:40 AM EDTOffice Visit [facility] Part of [facility] [address] [place] [address] Arielle Rodgers APRN - RICHARD Well woman exam with routine gynecological exam (Primary Dx); Acute upper back painfrom Last 3 Months Family History Medical HistoryRelationNameCommentsCancerMaternal GrandmotherbreastHeart Disease Maternal UncleDiabetesMotherHeart DiseaseMotherRelationNameStatusComments Maternal GrandmotherDeceasedMaternal UncleMother Social History Tobacco UseTypesPacks/DayYears UsedDateSmoking Tobacco: NeverPassive Smoke Exposure: NeverSmokeless Tobacco: Never Tobacco Cessation:Counseling Given: Yes Alcohol UseStandard Drinks/WeekCommentsNo0 (1 standard drink = 0.6 oz pure alcohol)[facility] UtilitiesAnswerDate RecordedIn the past 12 months has the electric, gas, oil, or water company threatened to shut off services in your home?No 10/20/2024Overall Financial Resource Strain (CARDIA)AnswerDate RecordedHow hard is it for you to pay for the very basics like food, housing, medical care, and heating?Not hard at all08/31/2022HQ-2AnswerDate RecordedPHQ-9 Total Score2 10/20/2024Hunger Vital SignAnswerDate RecordedWithin the past 12 months, you worried that your food would run out before you got the money to buymore.Never true10/20/2024Within the past 12 months, the food you bought just didn't last and you didn't have money to get more.Never true10/20/2024PRAPARE - TransportationAnswerDate RecordedIn the past 12 months, has lack of transportation kept you from medical appointments or from getting medications?No 10/20/2024In the past 12 months, has lack of transportation kept you from meetings, work, or from getting things needed for daily living?No10/20/2024 Housing Stability Vital SignAnswerDate RecordedUnable to Pay for Housing in the Last YearNot on file08/31/2022Number of Places Lived in the Last YearNot on file 08/31/2022In the last 12 months, was there a time when you did not have a steady place to sleep or slept in [place] (including now)?No08/31/2022Housing Stability Vital SignAnswerDate RecordedIn the last 12 months, was there a time when you were not able to pay the mortgage or rent on time?No10/20/2024In the past 12 months, how many times have you moved where you were living? At any time in the past 12 months, were you homeless or living in a fci (including now)?No10/20/2024Food InsecurityAnswerDate RecordedWithin the past 12 months, you worried that your food would run out before you got the money to buy more.Within the past 12 months, the food you bought just didn't last and you didn't have money to get more.Interpersonal Safety Domain Source: IP Abuse ScreeningAnswerDate RecordedPhysical khaxoLdaqem60/22/2025 Verbal lnysvKyllgf05/22/2025Emotional wrrsiIbhqmp68/22/2025Financial abuseDenies 02/02/2025Sexual wrgfmIoxaww12/22/2025CommentsNoSex and Gender InformationValueDate RecordedSex Assigned at BirthNot on fileLegal SexFemale 06/28/2012 6:50 AM ESTGender IdentityNot on fileSexual OrientationNot on file Last Filed Vital Signs Vital SignReadingTime TakenCommentsBlood Ahfssacr785/7809 5:15 PM EDT Rhhgs761702/02/2025 5:15 PM DFGPqyeklkjlsp87.2 ??C (97.2 ??F)02/02/2025 4:15 PM EDTRespiratory Gfma555102/02/2025 5:15 PM EDTOxygen Yrbvccfjey43%02/02/2025 5:15 PM EDTInhaled Oxygen Concentration--Whwslc203.6 kg (228 lb 6.4 oz)02/02/2025 12:00 PM JUJWsevyj642.6 cm (5' 4 )02/02/2025 12:00 PM EDTBody Mass Index39.2 02/02/2025 12:00 PM EDT Plan of Treatment DateTypeDepartmentCare Team (Latest Contact Info)Ahsmtdhbwxz35/17/2025 10:00 AM ESTOffice Visit [facility] Part of [address] [place] [address] Savanna Atkins PA-C [address] [place] [address] 12 wk f/u Kelley OSHEA 12/2107/ 10:40 AM EDTOffice Visit [facility] Part of [address] [place] [address] Arielle Rodgers APRN - EARL [address] [place] [address] AnnualHealth MaintenanceDue DateLast DoneCommentsVaricella vaccine (1 of 2 - 13+ 2-dose series)2005Hepatitis B vaccine (2 of 3 - 19+ 3-dose series) DTaP/Tdap/Td vaccine (2 - Td or Tdap)HPV (without or with Pap)2022Flu vaccine (#1), 03/25/2009 COVID-19 Vaccine ( season), 06/08/2020, 1Depression Smathhsyhj02/09/202606/01/2025, 5Cervical cancer umumhk3512/14/2025Pap smear/07/2022, 07/14/2019, 11/18/2015, Additional history oshgyeA5E test (Diabetic or Prediabetic)/10/2024, 11/26/2024, 2024, Additional history existsHepatitis C screenCompleted 06/28/2012HIV mjowgaCuzasiaga22/04/2013, 07/13/2012HPV vaccine (No Doses Required)CompletedHepatitis A vaccineAged OutNo longer eligible based on patient's age to complete this topicHib vaccineAged OutNo longer eligible based on patient's age to complete this topicMeningococcal (ACWY) vaccineAged OutNo longer eligible based on patient's age to complete this topicMeningococcal B vaccineAged OutNo longer eligible based on patient's age to complete this topic Pneumococcal 0-49 years VaccineAged OutNo longer eligible based on patient's age to complete this topicPolio vaccineAged OutNo longer eligible based on patient's age to complete this topic Procedures Procedure NamePriorityDate/TimeAssociated DiagnosisCommentsVALPROIC ACID LEVEL, ELPDVQaarmly39/06/2025 7:05 AM EDT LIPID ASCTMGnqgniy13/06/2025 7:05 AM EDT HEMOGLOBIN J9BHqborad62/06/2025 7:05 AM EDT WORCRNImsgors45/06/2025 7:05 AM EDT COMPREHENSIVE METABOLIC WKOJATbkeadi15/06/2025 7:05 AM EDT JPDEycposa15/06/2025 7:05 AM EDT SURGICAL PATHOLOGY WGZTCUQikmhwl29/22/2025 5:45 PM EDT [place] HYSTEROSCOPY ENDOMETRIAL IVNRIIOW34/22/2025 2:28 PM EDT Menorrhagia with irregular cycle Dysmenorrhea Case Notes Gave anesthesia a consent and face sheet for guardian on 12/30 BD Special Needs Diane Atkins PA-C and Resident to assist, Adjust surgery time to 60 minutes, BLOCK PER ANESTHESIA Call mom for arrival time-she lost her phone so please call at [phone] (her 's phone)Torres Ochoa is legal guardian and will be at p rocedure [place] HYSTEROSCOPY BX ENDOMETRIUM&/POLYPC W/WO D&C002/02/2025 2:28 PM EDT Menorrhagia with irregular cycle Dysmenorrhea Case Notes Gave anesthesia a consent and face sheet for guardian on 12/30 BD Special Needs Diane Atkins PA-C and Resident to assist, Adjust surgery time to 60 minutes, BLOCK PER ANESTHESIA Call mom for arrival time-she lost her phone so please call at [phone] (her 's phone)Torres Ochoa is legal guardian and will be at p rocedure VT LAPAROSCOPY W/RMVL ADNEXAL YWPXSUYTBA73/22/2025 2:28 PM EDT Menorrhagia with irregular cycle Dysmenorrhea Case Notes Gave anesthesia a consent and face sheet for guardian on 12/30 BD Special Needs Diane Atkins PA-C and Resident to assist, Adjust surgery time to 60 minutes, BLOCK PER ANESTHESIA Call mom for arrival time-she lost her phone so please call at [phone] (her 's phone)Mom Gabriela is legal guardian and will be at p rocure , URINEStat Sunquest Label print02/02/2025 12:00 PM EDT [facility] OR NURSERY TRANSPLANTER FYKAHNRZBjdsafe63/03/2023 12:00 AM EDT HIV RAPID 1&5Qagfkzh23/04/2013 5:40 AM EDT HEPATITIS C ZDKFUAAHJjnqnjo61/15/2013 6:15 AM EST from Last 3 Months or Most Recently Relevant to Health Maintenance Results * CBC (02/16/2025 7:05 AM EDT)ComponentValueRef RangeTest MethodAnalysis Time Performed AtPathologist SignatureWBC6.63.5 - 11.3 k/uL02/16/2025 7:05 AM EDT [facility] LABRBC3.983.95 - 5.11 m/uL02/16/2025 7:05 AM EDT [facility] HJEWkemgnnblw83.911.9 - 15.1 g/dL02/16/2025 7:05 AM [facility] PHKGjbtrgiqna11.936.3 - 47.1 %02/16/2025 7:05 AM [facility] RXDKEJ86.782.6 - 102.9 fL02/16/2025 7:05 AM [facility] ZNBAKN15.925.2 - 33.5 pg02/16/2025 7:05 AM [facility] NKGTCEB40.228.4 - 34.8 g/dL02/16/2025 7:05 AM [facility] FIVLMA26.411.8 - 14.4 %02/16/2025 7:05 AM [facility] MRDGlkhiqklf576203 - 453 k/uL02/16/2025 7:05 AM [facility] WJRATZ34.88.1 - 13.5 fL02/16/2025 7:05 AM [facility] LABNRBC Automated0.00.0 per 100 WBC 02/16/2025 7:05 AM [facility] LABSpecimen (Source) Anatomical Location / LateralityCollection Method / VolumeCollection Time Received Time02/16/2025 7:05 AM EDT1 8:19 AM EDT Narrative Authorizing ProviderResult TypeResult StatusTammy L Harry APRNHEMATOLOGY ORDERABLESFinal ResultPerforming OrganizationAddressCity/State/ZIP CodePhone Number [facility] [address] [place] [address] * Hemoglobin A1C (02/16/2025 7:05 AM EDT)ComponentValueRef RangeTest Method Analysis TimePerformed AtPathologist SignatureHemoglobin A1C4.94.0 - 6.0 % 02/16/2025 7:05 AM EDTMERCY LABORATORIESEstimated Avg Mmdjyog82vw/dL02/16/2025 7:05 AM EDTMERCY LABORATORIESComment: The ADA and AACC recommend providing the estimated average glucose result to permit better patient understanding of their HBA1c result. Specimen (Source)Anatomical Location / LateralityCollection Method / Volume Collection TimeReceived Time02/16/2025 7:05 AM EDT1 8:19 AM EDT Narrative Authorizing ProviderResult TypeResult StatusTammy L Harry APRNCHEMISTRY ORDERABLESFinal ResultPerforming OrganizationAddressCity/State/ZIP CodePhone Number [facility] [address] [place], [place] [address] [place] [address] [phone] * (ABNORMAL) Folate (02/16/2025 7:05 AM EDT)ComponentValueRef RangeTest Method Analysis TimePerformed AtPathologist LffzohoizPhjbmb65.2(H)4.8 - 24.2 ng/mL 02/16/2025 7:05 AM [facility] LABORATORIESSpecimen (Source)Anatomical Location / LateralityCollection Method / VolumeCollection TimeReceived Time02/16/2025 7:05 AM EDT1 8:19 AM EDT Narrative Authorizing ProviderResult TypeResult StatusTammy L Harry APRNCHEMISTRY ORDERABLESFinal ResultPerforming OrganizationAddressCity/State/ZIP CodePhone Number [facility] [address] [place] [address], [facility] [phone] [phone] * (ABNORMAL) Valproic Acid Level, Total (02/16/2025 7:05 AM EDT)ComponentValue Ref RangeTest MethodAnalysis TimePerformed AtPathologist SignatureValproic Acid Lvl34(L)50 - 125 ug/mL02/16/2025 7:05 AM [facility] LABSpecimen (Source)Anatomical Location / LateralityCollection Method / Volume Collection TimeReceived Time02/16/2025 7:05 AM EDT1 8:19 AM EDT Narrative Authorizing ProviderResult TypeResult StatusTammy L Harry APRNCHEMISTRY ORDERABLESFinal ResultPerforming OrganizationAddressCity/State/ZIP CodePhone Number [facility] [address] [place] [address], [facility] [phone] * Lipid Panel (02/16/2025 7:05 AM EDT)ComponentValueRef RangeTest MethodAnalysis TimePerformed AtPathologist SignatureCholesterol, Thzfi2995 - 199 mg/dL 02/16/2025 7:05 AM EDTMERCY LABORATORIESComment: Cholesterol Guidelines: <200 Desirable 200-240 ??Borderline >240 Undesirable HDL48>40 mg/dL02/16/2025 7:05 AM EDTMERCY LABORATORIESComment: HDL Guidelines: <40 Undesirable 40-59 ?Borderline >59 Desirable LDL Sojpenvutuo883 - 100 mg/dL02/16/2025 7:05 AM EDTMERCY LABORATORIESComment: LDL Guidelines: <100 Desirable 100-129 ?? Near to/above Desirable 130-159 ?? Borderline >159 Undesirable Direct (measured) LDL and calculated LDL are not interchangeable tests. Chol/HDL Ratio3.2<5.010 7:05 AM EDTMERCY HDFVBAKBJFUQThqcaadcznzer390 <150 mg/dL02/16/2025 7:05 AM EDTMERCY LABORATORIESComment: Triglyceride Guidelines: <150 Desirable 150-199 ??Borderline 200-499 ??High >499 Very high Based on AHA Guidelines for fasting triglyceride, February 2012. EXBN898 - 30 mg/dL02/16/2025 7:05 AM EDTMERCY LABORATORIESSpecimen (Source) Anatomical Location / LateralityCollection Method / VolumeCollection Time Received Time02/16/2025 7:05 AM EDT1 8:19 AM EDT Narrative Authorizing ProviderResult TypeResult StatusTammwilda Mcdonald APRNCHEMISTRY ORDERABLESFinal ResultPerforming OrganizationAddressCity/State/ZIP CodePhone Number [facility] [address] [place] [address], [facility] [phone] [address] [place] [address], [facility] [phone] * Comprehensive Metabolic Panel (02/16/2025 7:05 AM EDT)ComponentValueRef Range Test MethodAnalysis TimePerformed AtPathologist EvbotimpvIcgfwi169418 - 145 mmol/L1 7:05 AM [facility] LABPotassium4.23.7 - 5.3 mmol/L1 7:05 AM [facility] VGKDixumrxv13303 - 107 mmol/L1 7:05 AM [facility] OQBBR52712 - 31 mmol/L1 7:05 AM [facility] LABAnion Mpl953 - 16 mmol/L1 7:05 AM [facility] MYUMipmhcp1749 - 99 mg/dL02/16/2025 7:05 AM [facility] YLLKQY126 - 20 mg/dL 02/16/2025 7:05 AM [facility] LABCreatinine0.80.50 - 0.90 mg/dL02/16/2025 7:05 AM [facility] LABEst, Glom Filt Rate >90>60 mL/min/1.02i13402/16/2025 7:05 AM [facility] Comment: ? These results are not intended for use in patients <18 years of age. ? eGFR results are calculated without a race factor using the 2020 CKD-EPI equation. Careful clinical correlation is recommended, particularly when comparing to results calculated using previous equations. The CKD-EPI equation is less accurate in patients with extremes of muscle mass, extra-renal metabolism of creatine, excessive creatine ingestion, or following therapy that affects renal tubular secretion. BUN/Creatinine Qosys107 - 7:05 AM [facility] LABCalcium9.78.6 - 10.4 mg/dL02/16/2025 7:05 AM [facility] LABTotal Protein6.86.6 - 8.7 g/dL02/16/2025 7:05 AM [facility] LABAlbumin4.03.5 - 5.2 g/dL02/16/2025 7:05 AM [facility] LABAlbumin/Globulin Ratio1.51.0 - 2.510 7:05 AM [facility] LABTotal Bilirubin0.30.00 - 1.20 mg/dL02/16/2025 7:05 AM EDT [facility] LABAlkaline Fijpkxwxcqj7098 - 104 U/L1 7:05 AM [facility] ZLDQCQ8908 - 35 U/L1 7:05 AM [facility] FMAHRK4596 - 35 U/L1 7:05 AM [facility] LABSpecimen (Source)Anatomical Location / Laterality Collection Method / VolumeCollection TimeReceived Time02/16/2025 7:05 AM EDT 02/16/2025 8:19 AM EDT Narrative Authorizing ProviderResult TypeResult StatusTammwilda Mcdonald APRNCHEMISTRY ORDERABLESFinal ResultPerforming OrganizationAddressCity/State/ZIP CodePhone Number [facility] [id number], [facility] [phone] * SURGICAL PATHOLOGY REPORT (02/02/2025 5:45 PM EDT)ComponentValueRef RangeTest MethodAnalysis TimePerformed AtPathologist SignatureSurgical Pathology Report Path Number: [id number] -- Diagnosis -- A. ??Left fallopian tube, salpingectomy: - Benign fallopian tube with benign paratubal cysts. B. ??Right fallopian tube, salpingectomy: - Benign fallopian tube. C. ??Endometrium, curettings: - Superficial pieces of benign proliferative type endometrium with breakdown changes. - Separate benign pieces of endocervical glandular epithelium and squamous epithelium. Bruce Zamora M.D. Electronically Signed Out ? graciela02/05/2025 Clinical Information Pre-Op Diagnosis: ??MENORRHAGIA WITH REGULAR CYCLE; DYSMENORRHEA Operative Findings: ??LEFT FALLOPIAN TUBE; RIGHT FALLOPIAN TUBE; ENDOMETRIAL CURETTINGS Operation Performed: ??SALPINGECTOMY LAPAROSCOPIC; DILATION AND CURETTAGE HYSTEROSCOPY/CAUTERY ABLATION- NOVASURE ENDOMETRIAL ABLATION se Source of Specimen A: LEFT FALLOPIAN TUBE B: RIGHT FALLOPIAN TUBE C: ENDOMETRIAL CURETTINGS Gross Description A. ?? LETICIA HARGROVE LEFT FALLOPIAN TUBE Received in formalin is a 7.5 cm in length x 0.5 to 0.7 cm in diameter fimbriated fallopian tube. ??The serosa is pacheco-pink, hyperemic with few paratubal cysts. These cysts are up to 0.9 cm and contain clear serous fluid. Sectioning reveals a pinpoint to stellate lumen lined by pacheco-pink, soft mucosa. ??No lesions are identified. ??Counter Waiter sections 2c. B. ?? LETICIA HARGROVE RIGHT FALLOPIAN TUBE Received in formalin is a 7.5 cm in length x 0.4 to 1.0 cm in diameter fimbriated fallopian tube. ??The serosa is pink-purple and smooth with few paratubal cysts. These cysts average 0.1 cm. ??Sectioning reveals a pinpoint to stellate lumen lined by pacheco-pink, soft mucosa. ??No lesions are identified. Counter Waiter sections 2c. C. ?? LETICIA HARGROVE ENDOMETRIAL CURETTINGS Received in formalin is a 2.5 x 2.0 x 0.4 cm aggregate of red gelatinous tissue. ??Totally embedded 1c. ??tm Shobha Hickman/se:02/03/2025 Microscopic Description A-C. ??Microscopic examination performed. Processing Lab: ??[facility] [address] [place] [address] Interpretation Performed at [address] SURGICAL PATHOLOGY CONSULTATION Patient Name: LETICIA HARGROVE [facility] Rec: [id number] [facility] ??[facility] ANATOMIC PATHOLOGY [address] [place] [address]. ??[place], [place] [address] bon [facility] LABSSpecimen (Source)Anatomical Location / LateralityCollection Method / VolumeCollection TimeReceived Time 02/02/2025 5:45 PM EDT02/02/2025 5:45 PM EDT Narrative Authorizing ProviderResult TypeResult StatusCarmen F Olena DO PATHOLOGY/CYTOLOGY ORDERABLESFinal ResultPerforming OrganizationAddress City/State/ZIP CodePhone Number [facility] [address] [place] [address], [facility] [phone] [facility] * , Urine (02/02/2025 12:00 PM EDT)ComponentValueRef RangeTest Method Analysis TimePerformed AtPathologist SignaturePregnancy, UrineNEGATIVENEGATIVE 02/02/2025 12:00 PM [facility] LABComment: Specimens with hCG levels near the threshold of the test (25 mIU/mL) may give a negative or indeterminate result. ??In such cases, another test should be performed with a new specimen in 48-72 hours. ??If early is suspected clinically in this setting, correlation with quantitative serum b-hCG level is suggested. Specimen (Source)Anatomical Location / LateralityCollection Method / Volume Collection TimeReceived ZapqOpqcn31/22/2025 12:00 PM EDT02/02/2025 12:06 PM EDT Narrative Authorizing ProviderResult TypeResult StatusEmlyly Lindsey BROKERAGE COORDINATOR - CRNAURINE ORDERABLESFinal ResultPerforming OrganizationAddressCity/State/ZIP CodePhone Number [facility] [address] [place], [place] [address] [phone] * GREENHOUSE OR NURSERY TRANSPLANTER Cytology (12/14/2022 12:00 AM EDT)ComponentValueRef RangeTest Method Analysis TimePerformed AtPathologist SignatureCytology ReportPath Number: [id number] DIAGNOSIS Imaged ThinPrep Pap - Cervical (1 monolayer slide): Specimen Adequacy: ? Satisfactory for evaluation. ? -Endocervical/transformation zone component is absent. Descriptive Diagnosis: ? Negative for intraepithelial lesion or malignancy. ?? Cytotech Screener: ??EY Electronically Signed Out Jet Hurt CT(ASCP) 12/21/2022 Source of Specimen: A: Imaged ThinPrep Pap - Cervical (1 monolayer slide) HPV Reflex?......................HPV if ASCUS Clinical History Contraceptive use High Risk HPV DNA testing is requested if the diagnosis is ASC-US Z01.419 Routine obstetrician/gynecologist exam without abnormal findings LMP: ??12/13/2022 Processing Lab: [address] [id number] Interpretation performed at [address] [id number] This Pap Test has been evaluated with the assistance of the ThinPrep Pap Test Imaging System. The Pap smear is a screening test primarily for squamous epithelial lesions, which is subject to both false negative and false positive results. Your patient should be reminded to consult you immediately if she experiences any suspicious signs or symptoms, regardless of her Pap smear result. GYNECOLOGIC CYTOLOGY REPORT Patient Name: LETICIA HARGROVE [facility] Rec: [id number] [facility] ??[facility] ANATOMIC PATHOLOGY [address] [place] [address]. ??[place], [place] [id number] [facility] LABSSpecimen (Source)Anatomical Location / LateralityCollection Method / VolumeCollection TimeReceived Time CERVICAL STIUPKSV20/08/2022 7:58 AM EDT Narrative Authorizing ProviderResult TypeResult StatusSandrinepaulette Caba Vishal Cardoza CNM PATHOLOGY/CYTOLOGY ORDERABLESFinal ResultPerforming OrganizationAddress City/State/ZIP CodePhone Number [facility] [address] [place] [address], [facility] [phone] EDMUNDO CAUDRA [facility] * HIV Rapid 1&2 (10/15/2012 5:40 AM EDT)ComponentValueRef RangeTest Method Analysis TimePerformed AtPathologist SignatureRapid HIV 1&2NONREACTIVENR 10/16/2012 3:54 PM [facility] LABComment: ? Interpretation: ? The presence of antibody to HIV and its association with the potential infectivity, transmission or diagnosis of AIDS has not been established. Furthermore, a 'Non-Reactive' test result does not exclude the possibility of exposure to or infection with HIV. If the above test result is 'Reactive', the Laboratory will order the confirmatory test. ? The performance characteristics of this test were determined by [facility] [place] [facility]. It has not been cleared or approved by the U.S. Food and Drug Administration. The FDA has determined that such clearance is not necessary. Performed at [address] [place] [address] Specimen (Source)Anatomical Location / LateralityCollection Method / Volume Collection TimeReceived Time10/15/2012 5:40 AM EDT10/15/2012 6:44 AM EDT Narrative Authorizing ProviderResult TypeResult StatusSami Tang MDIMMUNOLOGY ORDERABLESFinal ResultPerforming OrganizationAddressGenesis Hospital/State/ZIP CodePhone Number [facility] [address] [place], [place] [id number] [phone] [facility] * Hepatitis C antibody (06/28/2012 6:15 AM EST)ComponentValueRef RangeTest MethodAnalysis TimePerformed AtPathologist SignatureHepatitis C AbNONREACTIVE NR06/28/2012 10:41 PM ESTNEW MEXICO BE[facility] LABComment: ? The hepatitis C procedure used in our laboratory is a Chemiluminescent test specific for three recombinant HCV antigens. ??A negative anti-HCV result indicates that the antibodies to hepatitis C virus are not present at this time. Individuals with reactive anti-HCV should be considered infected and infectious until proven otherwise. ??Confirmation of all equivocal or reactive results is recommended by ordering HCV RNA by PCR. Performed at [address] [address] Specimen (Source)Anatomical Location / LateralityCollection Method / Volume Collection TimeReceived Time06/28/2012 6:15 AM EST06/28/2012 6:57 AM EST Narrative Authorizing ProviderResult TypeResult StatusDimarlee Tang MDIMMUNOLOGY ORDERABLESFinal ResultPerforming OrganizationAddressCity/State/ZIP CodePhone Number [facility] [address] [place], [place] [address] [phone] [facility] from Last 3 Months or Most Recently Relevant to Health Maintenance Insurance Advance Directives * Full Code (Latest Code Status on File) Date ActivatedDate InactivatedComments02/02/2025 11:47 AM02/02/2025 7:45 PM * Full Code Date ActivatedDate InactivatedComments11/18/2018 11:51 AM11/23/2018 7:26 PM * Full Code Date ActivatedDate InactivatedComments11/20/2014 9:38 PM11/23/2014 9:13 PM Care Teams Team MemberRelationshipSpecialtyStart DateEnd Date Clem Devine, BROKERAGE COORDINATOR - HEEL CASER PCP - GeneralNurse Practitioner09/13/21
--- OUTSIDE RECORDS SUMMARY | 2025-03-25 13:37 | XMS_ITS | Clinical Summary ---
Author Organization [facility] Address [address] [place] [address] Care Team Providers Care Robotics Engineer Name Role Phone Frederick Bermeo MD Primary Care Provider [phone] Social History Tobacco UseTypesPacks/DayYears UsedDateSmoking Tobacco: Never Assessed CommentsUnknownSex and Gender InformationValueDate RecordedSex Assigned at Not on fileLegal PjkRowzsk16/15/2023 7:09 PM EDTGender IdentityNot on fileSexual OrientationNot on file Plan of Treatment Health MaintenanceDue DateLast DoneCommentsHPV/[id number]-19 Vaccine ( season), 06/08/2020, 05/18/2020Influenza Vaccine (#1)/Cervical Cancer Ohdicdrun31/03/2026Pap Smear /07/2022, 12/14/2022, 07/14/2019Pneumococcal Vaccine: Pediatrics (0 to 5 Years) and At-Risk Patients (6 to 64 Years)Aged OutNo longer eligible based on patient's age to complete this topic Insurance Care Teams Team MemberRelationshipSpecialtyStart DateEnd Date Frederick Bermeo MD [address] [place] [address] [facility]45/19/24
[2025-03-25 13:49] VITALS: PULSE 82
[2025-03-25 13:57] LABS: Hematocrit 37.7 % (36.0-48.0); Hemoglobin 12.9 g/dL (12.0-16.0); Immature Granulocytes Abs Auto 0.08 10^3/uL (0.00-0.03); Immature Granulocytes Pct Auto 1.2 % (0.0-0.5); Lymphocytes Absolute Auto 2.2 10^3/uL (1.2-3.8); Mean Corpuscular HGB Conc 34.2 g/dL (29.9-35.2); Mean Corpuscular Hemoglobin 30.7 pg (26.7-34.0); Mean Corpuscular Volume 89.8 fL (81.0-99.0); Platelet Count 279 10^3/uL (150-450); Red Blood Count 4.20 10^6/uL (4.20-5.40); White Blood Count 6.4 10^3/uL (4.0-11.0)
--- NOTE | 2025-03-25 13:59 | PC.NURSE ---
pt states the audible and visual halluicnations are telling herto kill herself and harm others, pt states she does not want to harm herself or others.
[2025-03-25 14:00] VITALS: PULSE 79; O2SAT 95
[2025-03-25 14:02] VITALS: BP 115/80; PULSE 80; O2SAT 94
[2025-03-25 14:11] LABS: Alanine Aminotransferase 28 U/L (14-59); Albumin Globulin Ratio 1.1; Albumin Level 3.9 g/dL (3.4-5.0); Alkaline Phosphatase 65 U/L (46-116); Anion Gap 11.5; Aspartate Amino Transferase 15 U/L (15-37); Blood Urea Nitrogen 18.0 mg/dL (7.0-18.0); Calcium 9.9 mg/dL (8.5-10.1); Carbon Dioxide 26.3 mmol/L (21.0-32.0); Chloride 104 mmol/L (98-107); Estimated GFR (African America >60 (>=60 mL/min/1.73m^2); Estimated GFR (Non-African Ame >60 (>=60 mL/min/1.73m^2); Globulin 3.5 g/dL; Glucose 98 mg/dL (74-106); Potassium 3.8 mmol/L (3.5-5.1); Salicylate <2.8 mg/dL (<=19.9); Sodium 138 mmol/L (136-145); Total Protein 7.4 g/dL (6.4-8.2)
[2025-03-25 14:12] LABS: Acetaminophen <2.0 ug/mL (10.0-30.0)
[2025-03-25 14:30] VITALS: BP 121/80; PULSE 75; O2SAT 94
[2025-03-25 15:11] LABS: Glucose Urine UA NEGATIVE (NEGATIVE)
[2025-03-25 15:22] LABS: Cannabinoid Screen Urine NEGATIVE (NEGATIVE); Methamphetamines Screen Urine NEGATIVE (NEGATIVE); Tricyclic Antidepressant Urine NEGATIVE (NEGATIVE)
[2025-03-25 15:26] LABS: Cast Seen? NONE SEEN #/LPF (NONE SEEN); Crystals Seen? None Seen #/HPF (None Seen); Urine Culture Indicated NO
--- NOTE | 2025-03-25 16:27 | CT_ITS ---
The [address] [address] Patient Name: DEANNE HARGROVE MRN: [id number] date: 1990 Sex: F Assigned Patient Location: ER Current Patient Location: ER Accession/Order Number: [id number] Exam Date: 03/25/2025 16:46 Report Date: 03/25/2025 17:13 At the request of: VERONIQUE MCNALLY DO Procedure: CT abdomen pelvis w con CT ABDOMEN AND PELVIS WITH INTRAVENOUS CONTRAST: CLINICAL HISTORY: Right sided abdominal pain COMPARISON: 01/24/2024 TECHNIQUE: Spiral images were obtained through the abdomen and pelvis following the administration of intravenous contrast. This CT exam was performed using one or more following dose reduction techniques: Automated exposure control, adjustment of the mA and/or kV according to patient size, or use of iterative reconstruction technique. FINDINGS: Lung Bases: [Hypoventilatory changes.] Organs:Multifocal hypodensities identified throughout the fatty liver. Findings appear similar to the prior examination. Largest within left likely volume hepatic lobe 1.9 cm in size. Largest right liver anteriorly 2.8 x 2.1 cm in size. Cluster lesions identified within the inferior right liver largest measuring 2.7 x 2.4 cm in size. Splenic cyst or hemangioma 2.9 x 3.0 cm in size. Adrenals, kidneys, pancreas unremarkable.[Gallbladder contracted. GI: Moderate colonic stool burden. Appendix unremarkable. No small bowel obstruction.[ Pelvis:[Heterogeneous appearance of the uterus. Bilateral ovarian cystic lesion identified largest right 4.4 by size. Largest left measuring 3.4 x 2.7 size. Likely collapsing follicle right ovary noted. Free air or free fluid.] Peritoneum/Retroperitoneum:No free air or free fluid.[No adenopathy. Aorta normal in caliber. Abd wall/Bones:No suspicious osseous lesion. Degenerative changes notably at the lumbosacral junction.[ CT/CT abdomen pelvis w con IMPRESSION: Negative acute inflammatory process or bowel obstruction. Heterogeneous appearance of liver with multifocal hepatic lesions again identified. Uterus can be further further characterize with liver MRI if not been previously evaluated. Collapsing follicle right ovary, physiologic finding. Impression dictated by: Sheng Jeffers M.D. 03/25/2025 5:13 PM Dictation Location: [place] [address] Electronically authenticated by: [id number] Y Date: 03/25/2025 17:13
--- NOTE | 2025-03-25 16:38 | ED.GENADUL1 ---
HPI HPI - General Adult General Chief complaint: Psychiatric Symptoms Stated complaint: OTHER Time Seen by Provider: 03/25/25 13:22 Source: patient Mode of arrival: ambulance Limitations: no limitations History of Present Illness HPI narrative: Patient is a 34-year-old female, history significant for schizophrenia, presenting to the emergency department for concerns of suicidal ideation and hallucinations. Patient states that she has been seeing a man in the corner of the room telling her to kill herself. She is hearing voices that are not there. She is crying and is scared that she is going to halfway. She states she is on multiple psychiatric medications but cannot recall the names of them. Other than her hallucinations, she has been complaining of right sided abdominal pain. She cannot describe the pain very well, but denies associated nausea, vomiting, or diarrhea/constipation. She has no chest pain or shortness of breath. No fevers or chills. Related Data Home Medications ?Medication ?Instructions ?Recorded ?Confirmed aripiprazole 20 mg tablet mg 01/24/24 aripiprazole 5 mg tablet mg 01/24/24 benztropine 1 mg tablet mg 01/24/24 divalproex 250 mg tablet,extended mg PO 01/24/24 release 24 hr divalproex 500 mg tablet,extended mg PO 01/24/24 release 24 hr fenofibrate nanocrystallized 48 mg mg PO 01/24/24 tablet ferrous sulfate 325 mg (65 mg mg 01/24/24 iron) tablet fludrocortisone 0.1 mg tablet mg 01/24/24 folic acid 1 mg tablet 01/24/24 haloperidol 10 mg tablet mg 01/24/24 haloperidol 5 mg tablet mg 01/24/24 lamotrigine 200 mg tablet mg 01/24/24 loratadine 10 mg tablet (Allergy mg 01/24/24 Relief (loratadine)) multivitamin tab 01/24/24 norgestimate 0.25 mg-ethinyl tab 01/24/24 estradiol 0.035 mg tablet propranolol 80 mg capsule,24 mg PO 01/24/24 hr,extended release sertraline 100 mg tablet mg 01/24/24 sertraline 50 mg tablet mg 01/24/24 trazodone 50 mg tablet mg 01/24/24 Previous Rx's ?Medication ?Instructions ?Recorded hydrocodone 5 mg-acetaminophen 325 1 tab PO Q6H PRN pain 5 days #20 01/26/24 mg tablet tabs Allergies Allergy/AdvReac Type Severity Reaction Status Date / Time No Known Drug Allergies Allergy Verified 01/24/24 19:57 Opioid HPI Opioid Management Most Recent Opioid Data: Last Pain Scale 6 01/26/24, 23:04 Ur Phencyclidine Scrn, (NEGATIVE) Negative Today, 15:04 Review of Systems ROS Status of ROS 10 or more systems reviewed and unremarkable except as noted in history and below Exam Narrative Exam Narrative: CONSTITUTIONAL: Patient is distraught, crying, and responding to internal stimuli. Appears to be in acute psychosis. SKIN: Was warm and dry. EYES: Sclerae white. EARS, NOSE, THROAT: Moist oral mucosa. RESPIRATORY: Clear to auscultation bilaterally, no wheezes, crackles, or stridor, no use of accessory muscles CARDIOVASCULAR: Normal rate and regular rhythm. There is no S3, S4, murmur, rub. GASTROINTESTINAL: There is mild tenderness palpation throughout the right side of her abdomen. No rebound tenderness or guarding. MUSCULOSKELETAL: No peripheral edema. NEUROLOGIC: Patient is awake and alert. Facies were symmetrical. Constitutional Vital Signs, click to edit/add: Last Vital Signs Temp 97.4 F L 03/25/25 13:20 Pulse 75 03/25/25 14:30 Resp 17 03/25/25 14:30 BP 121/80 03/25/25 14:30 Pulse Ox 94 L 03/25/25 14:30 O2 Del Method Room Air 03/25/25 13:20 Course Vital Signs Vital signs: Vital Signs Temperature 97.4 F L 03/25/25 13:20 Pulse Rate 86 03/25/25 13:20 Respiratory Rate 24 H 03/25/25 13:20 Blood Pressure 144/93 H 03/25/25 13:20 Pulse Oximetry 96 03/25/25 13:20 Oxygen Delivery Method Room Air 03/25/25 13:20 Temperature 97.4 F L 03/25/25 13:20 Pulse Rate 75 03/25/25 14:30 Respiratory Rate 17 03/25/25 14:30 Blood Pressure 121/80 03/25/25 14:30 Pulse Oximetry 94 L 03/25/25 14:30 Oxygen Delivery Method Room Air 03/25/25 13:20 Medical Decision Making [facility] Narrative Medical decision making narrative: Patient is a 34-year-old female, history significant for psychiatric disorder, presenting to the emergency department for hallucinations and suicidal ideation. Her vital signs on arrival are within normal limits. She is afebrile and hemodynamically stable. She is responding to internal stimuli and appears to be in acute psychosis. She is tender to palpation throughout the right side of her abdomen without peritoneal signs. Differential diagnose includes appendicitis, cholecystitis, or other intra-abdominal pathologies. IV was established and laboratory studies were obtained. CT abdomen/pelvis was ordered. She was given IV droperidol and IV Ativan for acute agitation and psychosis. Laboratory studies were unremarkable. No significant electrolyte or metabolic derangement. No evidence of acute kidney injury. No anemia, leukocytosis, or thrombocytopenia. No transaminitis or hyperbilirubinemia. test negative. Urinalysis negative. Urine/serum drug screen negative. 12 Lead EKG: Normal sinus rhythm at a rate of 80. Normal axis. No ST segment elevations. QRS, ME, and QTc interval within normal limits. Unchanged compared to prior EKG from 02/20/2017. Final impression: normal sinus rhythm without evidence of acute myocardial ischemia CT abdomen/pelvis independently reviewed and interpreted by myself and radiology demonstrated no acute intra-abdominal pathologies. Patient is now medically cleared for psychiatric evaluation. Suicide precautions were placed. Patient is signed out to Dr. Powers pending psychiatric evaluation. FINAL IMPRESSION: #Acute psychosis #Acute suicidal ideation #History of schizophrenia DISPOSITION: Signed out to oncoming ED physician CONDITION: Fair Medical Records Medical records reviewed: Yes I reviewed the patient's medical records Lab Data Lab results reviewed: Yes I reviewed the patient's lab results Labs: Lab Results 03/25/25 03/25/25 Range/Units 13:43 15:04 WBC 6.4 (4.0-11.0) 10^3/uL RBC 4.20 (4.20-5.40) 10^6/uL Hgb 12.9 (12.0-16.0) g/dL Hct 37.7 (36.0-48.0) % MCV 89.8 (81.0-99.0) fL MCH 30.7 (26.7-34.0) pg MCHC 34.2 (29.9-35.2) g/dL RDW 12.5 (11.0-15.0) % Plt Count 279 (150-450) 10^3/uL MPV 10.4 (9.5-13.5) fL Neut % (Auto) 53.0 (43.0-75.0) % Lymph % (Auto) 34.0 (20.5-60.0) % [place] % (Auto) 9.9 (1.7-12.0) % Eos % (Auto) 1.6 (0.9-7.0) % Baso % (Auto) 0.3 (0.2-2.0) % Neut # (Auto) 3.4 (1.4-6.5) 10^3/uL Lymph # (Auto) 2.2 (1.2-3.8) 10^3/uL [place] # (Auto) 0.6 (0.3-0.8) 10^3/uL Eos # (Auto) 0.1 (0.0-0.7) 10^3/uL Baso # (Auto) 0.0 (0.0-0.1) 10^3/uL Abs Immat Gran (auto) 0.08 H (0.00-0.03) 10^3/uL Imm/Tot Granulo (auto) 1.2 H (0.0-0.5) % Sodium 138 (136-145) mmol/L Potassium 3.8 (3.5-5.1) mmol/L Chloride 104 (98-107) mmol/L Carbon Dioxide 26.3 (21.0-32.0) mmol/L Anion Gap 11.5 BUN 18.0 (7.0-18.0) mg/dL Creatinine 0.87 (0.55-1.02) mg/dL Est GFR ( Amer) >60 (>=60 mL/min/1.73m^2) Est GFR (Non-Af Amer) >60 (>=60 mL/min/1.73m^2) BUN/Creatinine Ratio 20.7 Glucose 98 (74-106) mg/dL Calcium 9.9 (8.5-10.1) mg/dL Total Bilirubin 0.3 (0.2-1.0) mg/dL AST 15 (15-37) U/L ALT 28 (14-59) U/L Alkaline Phosphatase 65 (46-116) U/L Total Protein 7.4 (6.4-8.2) g/dL Albumin 3.9 (3.4-5.0) g/dL Globulin 3.5 g/dL Albumin/Globulin Ratio 1.1 Serum HCG, Qual Negative (NEGATIVE) Urine Color Lt. yellow (YELLOW) Urine Clarity Clear (CLEAR) Urine pH 6.5 (5.0-9.0) Ur Specific [place] <=1.005 A (1.005-1.025) Urine Protein Negative (NEG/TRACE) mg/dL Urine Glucose (UA) Negative (NEGATIVE) mg/dL Urine Ketones Negative (NEGATIVE) mg/dL Urine Occult Blood Negative (NEGATIVE) Urine Nitrite Negative (NEGATIVE) Urine Bilirubin Negative (NEGATIVE) Urine Urobilinogen 0.2 (0.2-1.0) EU/dL Ur Leukocyte Esterase Negative (NEGATIVE) Urine RBC 0-2 (0-2) #/HPF Urine WBC 0-2 A (NONE SEEN) #/HPF Ur Squamous Epith Cells Few A (NONE/RARE) #/LPF Urine Crystals None seen (None Seen) #/HPF Urine Bacteria Trace A (NONE SEEN) #/HPF Urine Casts None seen (NONE SEEN) #/LPF Urine Mucus None seen (NONE SEEN) Ur Culture Indicated? No Salicylates <2.8 (<=19.9) mg/dL Urine Opiates Screen Negative (NEGATIVE) Ur Buprenorphine Scrn Negative (NEGATIVE) Ur Oxycodone Screen Negative (NEGATIVE) Urine Methadone Screen Negative (NEGATIVE) Acetaminophen <2.0 L (10.0-30.0) ug/mL Ur Barbiturates Screen Negative (NEGATIVE) U Tricyclic Antidepress Negative (NEGATIVE) Ur Phencyclidine Scrn Negative (NEGATIVE) Ur Amphetamines Screen Negative (NEGATIVE) U Methamphetamines Scrn Negative (NEGATIVE) U Benzodiazepines Scrn Positive A (NEGATIVE) Urine Cocaine Screen Negative (NEGATIVE) U Cannabinoids Screen Negative (NEGATIVE) Ethanol Quant <3 mg/dL Imaging Data CT scan - abdomen: Attestation: I personally reviewed and interpreted this imaging study as follows: Radiologist's impression: ITS Impressions Abdomen/Pelvis CT 03/25/25 16:27 IMPRESSION: Negative acute inflammatory process or bowel obstruction. Heterogeneous appearance of liver with multifocal hepatic lesions again identified. Uterus can be further further characterize with liver MRI if not been previously evaluated. Collapsing follicle right ovary, physiologic finding. Impression dictated by: Sheng Jeffers M.D. 03/25/2025 5:13 PM Dictation Location: [place] [address] Electronically authenticated by: [id number] Y Date: 03/25/2025 17:13 ECG Data Attestation: I personally reviewed and interpreted this ECG as follows: Discharge Plan Discharge Patient Disposition: Still a Patient
--- NOTE | 2025-03-25 21:19 | ED.PSYCH1 ---
HPI - Psych General Chief Complaint: Psychiatric Symptoms Stated Complaint: OTHER Time Seen by Provider: 03/25/25 13:22 Source: Reports patient Mode of arrival: ambulance Limitations: Reports no limitations History of Present Illness HPI Narrative: This 34-year-old female with a history of schizoaffective disorder was signed out to me at shift change. She was brought to the emergency department from the [facility] where she resides for evaluation of suicidal and homicidal ideation. She is having visual hallucinations. She was medically cleared prior to my arrival. She was seen by P and recommended for admission for psychiatric stabilization. She was accepted to [address] [place] [address] Stoner Related Data Home Medications ?Medication ?Instructions ?Recorded ?Confirmed aripiprazole 20 mg tablet mg 01/24/24 aripiprazole 5 mg tablet mg 01/24/24 benztropine 1 mg tablet mg 01/24/24 divalproex 250 mg tablet,extended mg PO 01/24/24 release 24 hr divalproex 500 mg tablet,extended mg PO 01/24/24 release 24 hr fenofibrate nanocrystallized 48 mg mg PO 01/24/24 tablet ferrous sulfate 325 mg (65 mg mg 01/24/24 iron) tablet fludrocortisone 0.1 mg tablet mg 01/24/24 folic acid 1 mg tablet 01/24/24 haloperidol 10 mg tablet mg 01/24/24 haloperidol 5 mg tablet mg 01/24/24 lamotrigine 200 mg tablet mg 01/24/24 loratadine 10 mg tablet (Allergy mg 01/24/24 Relief (loratadine)) multivitamin tab 01/24/24 norgestimate 0.25 mg-ethinyl tab 01/24/24 estradiol 0.035 mg tablet propranolol 80 mg capsule,24 mg PO 01/24/24 hr,extended release sertraline 100 mg tablet mg 01/24/24 sertraline 50 mg tablet mg 01/24/24 trazodone 50 mg tablet mg 01/24/24 Previous Rx's ?Medication ?Instructions ?Recorded hydrocodone 5 mg-acetaminophen 325 1 tab PO Q6H PRN pain 5 days #20 01/26/24 mg tablet tabs Allergies Allergy/AdvReac Type Severity Reaction Status Date / Time No Known Drug Allergies Allergy Verified 01/24/24 19:57 Exam Constitutional Vital Signs, click to edit/add: Last Vital Signs Temp 97.4 F L 03/25/25 13:20 Pulse 75 03/25/25 14:30 Resp 17 03/25/25 14:30 BP 121/80 03/25/25 14:30 Pulse Ox 94 L 03/25/25 14:30 O2 Del Method Room Air 03/25/25 13:20 Course Vital Signs Vital signs: Vital Signs Temperature 97.4 F L 03/25/25 13:20 Pulse Rate 86 03/25/25 13:20 Respiratory Rate 24 H 03/25/25 13:20 Blood Pressure 144/93 H 03/25/25 13:20 Pulse Oximetry 96 03/25/25 13:20 Oxygen Delivery Method Room Air 03/25/25 13:20 Temperature 97.4 F L 03/25/25 13:20 Pulse Rate 75 03/25/25 14:30 Respiratory Rate 17 03/25/25 14:30 Blood Pressure 121/80 03/25/25 14:30 Pulse Oximetry 94 L 03/25/25 14:30 Oxygen Delivery Method Room Air 03/25/25 13:20 MDM - Psych Lab Data Labs: Lab Results 03/25/25 03/25/25 Range/Units 13:43 15:04 WBC 6.4 (4.0-11.0) 10^3/uL RBC 4.20 (4.20-5.40) 10^6/uL Hgb 12.9 (12.0-16.0) g/dL Hct 37.7 (36.0-48.0) % MCV 89.8 (81.0-99.0) fL MCH 30.7 (26.7-34.0) pg MCHC 34.2 (29.9-35.2) g/dL RDW 12.5 (11.0-15.0) % Plt Count 279 (150-450) 10^3/uL MPV 10.4 (9.5-13.5) fL Neut % (Auto) 53.0 (43.0-75.0) % Lymph % (Auto) 34.0 (20.5-60.0) % [place] % (Auto) 9.9 (1.7-12.0) % Eos % (Auto) 1.6 (0.9-7.0) % Baso % (Auto) 0.3 (0.2-2.0) % Neut # (Auto) 3.4 (1.4-6.5) 10^3/uL Lymph # (Auto) 2.2 (1.2-3.8) 10^3/uL [place] # (Auto) 0.6 (0.3-0.8) 10^3/uL Eos # (Auto) 0.1 (0.0-0.7) 10^3/uL Baso # (Auto) 0.0 (0.0-0.1) 10^3/uL Abs Immat Gran (auto) 0.08 H (0.00-0.03) 10^3/uL Imm/Tot Granulo (auto) 1.2 H (0.0-0.5) % Sodium 138 (136-145) mmol/L Potassium 3.8 (3.5-5.1) mmol/L Chloride 104 (98-107) mmol/L Carbon Dioxide 26.3 (21.0-32.0) mmol/L Anion Gap 11.5 BUN 18.0 (7.0-18.0) mg/dL Creatinine 0.87 (0.55-1.02) mg/dL Est GFR ( Amer) >60 (>=60 mL/min/1.73m^2) Est GFR (Non-Af Amer) >60 (>=60 mL/min/1.73m^2) BUN/Creatinine Ratio 20.7 Glucose 98 (74-106) mg/dL Calcium 9.9 (8.5-10.1) mg/dL Total Bilirubin 0.3 (0.2-1.0) mg/dL AST 15 (15-37) U/L ALT 28 (14-59) U/L Alkaline Phosphatase 65 (46-116) U/L Total Protein 7.4 (6.4-8.2) g/dL Albumin 3.9 (3.4-5.0) g/dL Globulin 3.5 g/dL Albumin/Globulin Ratio 1.1 Serum HCG, Qual Negative (NEGATIVE) Urine Color Lt. yellow (YELLOW) Urine Clarity Clear (CLEAR) Urine pH 6.5 (5.0-9.0) Ur Specific [place] <=1.005 A (1.005-1.025) Urine Protein Negative (NEG/TRACE) mg/dL Urine Glucose (UA) Negative (NEGATIVE) mg/dL Urine Ketones Negative (NEGATIVE) mg/dL Urine Occult Blood Negative (NEGATIVE) Urine Nitrite Negative (NEGATIVE) Urine Bilirubin Negative (NEGATIVE) Urine Urobilinogen 0.2 (0.2-1.0) EU/dL Ur Leukocyte Esterase Negative (NEGATIVE) Urine RBC 0-2 (0-2) #/HPF Urine WBC 0-2 A (NONE SEEN) #/HPF Ur Squamous Epith Cells Few A (NONE/RARE) #/LPF Urine Crystals None seen (None Seen) #/HPF Urine Bacteria Trace A (NONE SEEN) #/HPF Urine Casts None seen (NONE SEEN) #/LPF Urine Mucus None seen (NONE SEEN) Ur Culture Indicated? No Salicylates <2.8 (<=19.9) mg/dL Urine Opiates Screen Negative (NEGATIVE) Ur Buprenorphine Scrn Negative (NEGATIVE) Ur Oxycodone Screen Negative (NEGATIVE) Urine Methadone Screen Negative (NEGATIVE) Acetaminophen <2.0 L (10.0-30.0) ug/mL Ur Barbiturates Screen Negative (NEGATIVE) U Tricyclic Antidepress Negative (NEGATIVE) Ur Phencyclidine Scrn Negative (NEGATIVE) Ur Amphetamines Screen Negative (NEGATIVE) U Methamphetamines Scrn Negative (NEGATIVE) U Benzodiazepines Scrn Positive A (NEGATIVE) Urine Cocaine Screen Negative (NEGATIVE) U Cannabinoids Screen Negative (NEGATIVE) Ethanol Quant <3 mg/dL Discharge Plan Discharge Patient Disposition: Still a Patient
== END 2025-03-25 21:15 ==
PROVIDERS: Student in an Organized Health Care Education/Training Program; Emergency Provider Emergency Medicine; PCP Nurse Practitioner Adult Health
DX: F25.9 Schizoaffective disorder, unspecified (principal); R10.9 Unspecified abdominal pain
CPT/HCPCS: 36415; 74177; 80053; 80179; 80307; 80320; 80329; 81001; 84703; 85025; 93005; 96374; 96375; 96376; 99285; J1200; J2060; Q9967